=== PATIENT | male | born 1970 | race Caucasian/White ===

== ENCOUNTER 2022-04-05 08:15 | Outpatient (CLI) | payer OTHER, SELFPAY ==
--- OUTSIDE RECORDS SUMMARY | 2022-04-05 08:18 | XMS_ITS | Encounter Summary ---
:1970 Author Organization [place] Address [address] [place] [address] Care Team Providers Name Role Phone No Ref-Primary, Physician Primary Care Provider [phone] Reason for Visit Rehab Therapy Cardiac Therapy (Routine) - Closed Specialty Diagnoses / Procedures Referred By Contact Refer red To Contact CARDIAC REHAB Diagnoses NSTEMI (non-ST elevated myocardial infarction) (H) [facility] [address] [place] [address] Phone: Fax: Referral ID Status Reason Start Date Expiration Date Visits Requ ested Visits Authorized [id number] Closed 09/14/2019 04/28/2020 365 365 Encounter Details Date Type Department Care Team Description 11/13/2019 Hospital Encounter [facility] Cardiac Greg Galloway MD [address] [place] [id number] and Pulmonary 1, [facility] [address] [place] [address] Social History Tobacco Use Types Packs/Day Years Used Date Smoking Tobacco: Every Day Cigarettes 1.5 20 Smokeless Tobacco: Never Comments: four years ago Alcohol Use Standard Drinks/Week Comments Yes 0 (1 standard drink = 0.6 oz pure alcoho l) infrequent Sex Assigned at Date Recorded Not on file COVID-19 Exposure Response Date Recorded In the last month, have you been in contact with No / Unsure 11/13/2019 7:56 AM CDT someone who was confirmed or suspected to have Coronavirus / COVID-19? documented as of this encounter Medications at Time of Discharge Medication Sig Dispensed Refills Start Date End Date aspirin (ASA) 81 MG EC Take 1 tablet (81 30 tablet 0 2019 tabletIndications: NSTEMI mg) by mouth daily (non-ST elevated myocardial infarction) (H) multivitamin w/minerals Take 1 tablet by 0 (THERA-VIT-M) tablet mouth daily nitroGLYcerin (NITROSTAT) For chest pain 30 tablet 0 [address] 1 tablet tabletIndications: NSTEMI under the tongue (non-ST elevated every 5 minutes for myocardial infarction) 3 doses. If (H) symptoms persist 5 minutes after 1st dose call 911. omeprazole (PRILOSEC) 20 Take 20 mg by mouth [address] capsule daily carvedilol (COREG) 12.5 Take 1 tablet (12.5 180 tablet 3 09/27/2020 MG tabletIndications: mg) by mouth 2 Elevated troponin, times daily Essential hypertension rosuvastatin (CRESTOR) 40 Take 1 tablet (40 90 tablet 3 09/27/2020 MG tabletIndications: mg) by mouth At NSTEMI (non-ST elevated Bedtime myocardial infarction) (H) ticagrelor (BRILINTA) 90 Take 1 tablet (90 180 tablet 3 08/2809/27/2020 MG tabletIndications: mg) by mouth every NSTEMI (non-ST elevated 12 hours myocardial infarction) (H) documented as of this encounter Plan of Treatment Not on filedocumented as of this encounter Visit Diagnoses Not on filedocumented in this encounter Care Teams Senior Net Developer Architect Relationship Specialty Start Date End Date No Ref-Primary, Physician PCP - General 09/05/19 11/06/20 documented as of this encounter
--- OUTSIDE RECORDS SUMMARY | 2022-04-05 08:18 | XMS_ITS | Encounter Summary ---
:1970 Author Organization [place] Address [address] [place] [address]. [place] [address] Care Team Providers Name Role Phone No Ref-Primary, Physician Primary Care Provider [phone] Anaid Aj [employer] RE[employer]TER [employer] Unavailable Encounter Details Date Type Department Care Team Description 10/03/2020 Medical Correspondence [facility] Scan, CLINIC REFERRAL Health Info [facility] Non-Provider [facility] [address] [place] [address] [place] [address] Social History Tobacco Use Types Packs/Day Years Used Date Smoking Tobacco: Every Day Cigarettes 1.5 20 Smokeless Tobacco: Never Comments: four years ago Alcohol Use Standard Drinks/Week Comments Yes 0 (1 standard drink = 0.6 oz pure alcoho l) infrequent Sex Assigned at Date Recorded Not on file documented as of this encounter Plan of Treatment Not on filedocumented as of this encounter Visit Diagnoses Not on filedocumented in this encounter Care Teams Separator Tender Relationship Specialty Start Date End Date No Ref-Primary, Physician PCP - General 09/05/19 11/06/20 Anaid Aj, [employer] Assigned Heart and Vascular 10/09/2011/10 [address] Provider [place] [id number] documented as of this encounter
--- OUTSIDE RECORDS SUMMARY | 2022-04-05 08:18 | XMS_ITS | Clinical Summary ---
:1970 Author Organization [place] Address [address] [place] [address] Care Team Providers Name Role Phone Juanito Henry Primary Care Provider Mykel Roberts MD Unavailable Allergies Active Allergy Reactions Severity Noted Date Comments No Known Drug Allergies 12/07/2003 Medications Medication Sig Dispensed Refills Start Date End Date Status omeprazole (PRILOSEC) Take 20 mg by [address] capsule mouth daily multivitamin Take 1 tablet by 0 Active w/minerals mouth daily (THERA-VIT-M) tablet aspirin (ASA) 81 MG EC Take 1 tablet (81 30 tablet 0 0 Active tabletIndications: mg) by mouth NSTEMI (non-ST daily elevated myocardial infarction) (H) nitroGLYcerin For chest pain 30 tablet 0 09/07/2019 Active (NITROSTAT) 0.[address] 1 tablet sublingual under the tongue tabletIndications: every 5 minutes NSTEMI (non-ST for 3 doses. If elevated myocardial symptoms persist infarction) (H) 5 minutes after 1st dose call 911. rosuvastatin (CRESTOR) Take 1 tablet (40 90 tablet 0 1 Active 40 MG mg) by mouth At tabletIndications: Bedtime NSTEMI (non-ST elevated myocardial infarction) (H) carvedilol (COREG) Take 1 tablet 180 tablet 0 09/27/2020 Active 12.5 MG (12.5 mg) by tabletIndications: mouth 2 times Elevated troponin, daily Essential hypertension clopidogrel (PLAVIX) Take 1 tablet (75 90 tablet 11 11/07/2020 Active 75 MG mg) by mouth tabletIndications: daily Coronary artery disease involving quileute coronary artery of quileute heart without angina pectoris Active Problems Problem Noted Date ACS (acute coronary syndrome) 09/10/2019 Acute respiratory distress 09/10/2019 Elevated troponin 09/10/2019 Chest discomfort 09/05/2019 Viral warts 02/19/2006 Overview: Problem list name updated by anuj santiago Provider to review Esophageal reflux Immunizations Name Administration Dates Next Due TD (ADULT, 7+) 12/01/2004 Family History Medical History Relation Comments No Known Problems Father No Known Problems Mother Diabetes Sister Relation Status Comments Father Mother Sister Social History Tobacco Use Types Packs/Day Years Used Date Smoking Tobacco: Former Cigarettes 1.5 20 Quit : 09/05/2019 Smokeless Tobacco: Never Comments: four years ago Alcohol Use Standard Drinks/Week Comments Yes 0 (1 standard drink = 0.6 oz pure alcoho l) infrequent Sex Assigned at Date Recorded Not on file Last Filed Vital Signs Vital Sign Reading Time Taken Comments Blood Pressure 138/76 11/07/2020 8:45 AM CDT Pulse 62 11/07/2020 8:45 AM CDT Temperature 36.4 ??C (97.5 ??F) 09/10/2019 2:15 PM CDT Respiratory Rate 18 09/10/2019 6:00 AM CDT Oxygen Saturation 97% 11/07/2020 8:45 AM CDT Inhaled Oxygen Concentration - - Weight 109.1 kg (240 lb 8 oz) 11/07/2020 8:45 AM CDT Height 185.4 cm (6' 1) 11/07/2020 8:45 AM CDT Body Mass Index 31.73 11/07/2020 8:45 AM CDT Plan of Treatment Health Maintenance Due Date Last Done Comments ANNUAL REVIEW OF HM ORDERS 1968 CT COLONOGRAPHY 1968 FIT-DNA (Cologuard) 1970 FIT 1970 FLEX SIG 1970 HEPATITIS B IMMUNIZATION (1 1968 of 3 - 3-dose series) YEARLY PREVENTIVE VISIT 1970 COVID-19 Vaccine (#1) 03/28/1969 COLONOSCOPY 1978 COLORECTAL CANCER SCREENING 1978 HIV SCREENING 09/27/1983 HEPATITIS C SCREENING 1986 DTAP/TDAP/TD IMMUNIZATION (3 12/01/2014 12/01/2004, - Td or Tdap) 12/01/2004, 10/11/2004 LUNG CANCER SCREENING 2018 ZOSTER IMMUNIZATION (1 of 2) 2018 PHQ-2 (once per calendar 04/29/2021 year) INFLUENZA VACCINE (#1) 2021 LIPID 09/06/2024 09/07/2019, 09/06/2019 ADVANCE CARE PLANNING 09/09/2024 09/10/2019 IPV IMMUNIZATION Aged Out No longer eligi ble based on patient's age to complete this to pic MENINGITIS IMMUNIZATION Aged Out No longe r eligible based on patient's age to complete this to pic Pneumococcal Vaccine: Aged Out No longer eligible based Pediatrics (0 to 5 Years) and on patient's age to At-Risk Patients (6 to 64 comple te this topic Years) Medical Devices Implanted Type Area Cnc Supervisor Device Shelf Model / Serial Identifier Expiration / Lot Date Stent Resolute Vahid De 2.7fr [id number] Ronyx [id number] Stent Krish g [employer] 03/16/2021 [id number] / Implanted: 09/07/2019 at [facility] (Quantity not on file) Eluting / (MILES) [id number] Insurance Payer Benefit Plan / Subscriber ID Effective Phone Address T ype Group Dates [facility] [id number] 2019-Pres [phone] [address] O OPEN ACCESS ent [address] [place] [address] Advance Directives For more information, please contact: [phone] Latest Code Status on File Code Status Date Activated Date Inactivated Comments Full Code 09/10/2019 3:28 PM Question Answer Comments Code status determined by: Discussion with patient/legal dec ision maker Code Status History Code Status Date Activated Date Inactivated Comments Full Code 09/10/2019 1:12 AM 09/10/2019 3:28 PM Question Answer Comments Code status determined by: Discussion with patient/legal dec ision maker Full Code 09/05/2019 9:55 AM 09/07/2019 7:06 PM Question Answer Comments Code status determined by: Discussion with patient/legal dec ision maker None 12/07/2003 11:34 AM 12/07/2003 11:34 AM Care Teams Shift Mechanic Relationship Specialty Start Date End Date Juanito Henry PCP - General Family Medicine 11/07/[address] [address] Mykel Roberts, Assigned Heart and 11/11/20 Vascular Provider [address] [place] [address]
--- OUTSIDE RECORDS SUMMARY | 2022-04-05 08:18 | XMS_ITS | Encounter Summary ---
:1970 Author Organization [address] [address] Care Team Providers Name Role Phone No Ref-Primary, Physician Primary Care Provider Reason for Visit Reason Onset Date Comments Refill Request 09/27/2020 brilinta, rosuvastat in and carvedilol Encounter Details Date Type Department Care Team Description 09/27/2020 Refill [facility] Ioana Gooden, Refill Request (brilinta, [facility] RN rosuvastatin and [address] [facility] carvedi lol) [address] [place] [address] Social History Tobacco Use Types Packs/Day Years Used Date Smoking Tobacco: Every Day Cigarettes 1.5 20 Smokeless Tobacco: Never Comments: four years ago Alcohol Use Standard Drinks/Week Comments Yes 0 (1 standard drink = 0.6 oz pure alcoho l) infrequent Sex Assigned at Date Recorded Not on file documented as of this encounter Miscellaneous Notes Telephone Encounter - Ioana Gooden RN - 09/27/2020 12:45 PM CDT Received refill request for: brilinta, rosuvastatin and carvedilol Last OV was: 09/23/2019 with FRANKLYN [facility] Labs/EKG: last lipid 09/07/2019 F/U scheduled: overdue orders in Epic. Note to pharmacy and refill letter sent New script sent to[facility] documented in this encounter Plan of Treatment Not on filedocumented as of this encounter Visit Diagnoses Diagnosis NSTEMI (non-ST elevated myocardial infar ction) (H) Acute myocardial infarction, subendocard ial infarction, episode of care unspecified Elevated troponin Other abnormal blood chemistry Essential hypertension Unspecified essential hypertension documented in this encounter Care Teams Global Implementation Manager Relationship Specialty Start Date End Date No Ref-Primary, Physician PCP - General 09/05/19 11/06/20 documented as of this encounter
--- OUTSIDE RECORDS SUMMARY | 2022-04-05 08:18 | XMS_ITS | Encounter Summary ---
:1970 Author Organization [place] Address [address] [place] [address] Care Team Providers Name Role Phone nAaid Aj HYDRAMATIC SPECIALIST BUREAU DIRECTOR Unavailable Juanito Henry Primary Care Provider Encounter Details Date Type Department Care Team Description 11/07/2020 Travel Social History Tobacco Use Types Packs/Day Years [...] been in contact with No / Unsure 11/07/2020 8:35 AM CDT someone who was confirmed or suspected to have Coronavirus / COVID-19? documented as of this encounter Plan of Treatment Not on filedocumented as of this encounter Visit Diagnoses Not on filedocumented in this encounter Care Teams Yarn Spooler Relationship Specialty Start Date End Date Juanito Henry PCP - General Family Medicine 11/07/[address] [address] Anaid Aj, HYDRAMATIC SPECIALIST BUREAU DIRECTOR Assigned Heart and 10/09/20 11/10/20 [address] Vascular Provider [place] [id number] documented as of this encounter
--- OUTSIDE RECORDS SUMMARY | 2022-04-05 08:18 | XMS_ITS | Encounter Summary ---
:1970 Author Organization [place] Address [address] [place] [address] Care Team Providers Name Role Phone No Ref-Primary, Physician Primary Care Provider Encounter Details Date Type Department Care Team Description 11/13/2019 Travel Social History Tobacco Use Types Packs/Day [...] on filedocumented in this encounter Care Teams Management Rep Relationship Specialty Start Date End Date No Ref-Primary, Physician PCP - General 09/05/19 11/06/20 documented as of this encounter
--- OUTSIDE RECORDS SUMMARY | 2022-04-05 08:18 | XMS_ITS | Encounter Summary ---
:1970 Author Organization [place] Address [address] [place] [address] Care Team Providers Name Role Phone Anaid Aj APRN, CNP Unavailable Juanito Henry Primary Care Provider Reason for Referral Consultation (Routine) - Closed Specialty Diagnoses / Procedures Referred By Contact Refer red To Contact Diagnoses Coronary artery disease involving pokagon coronary artery of pokagon heart without angina pectoris Mykel Roberts MD [address] [place] [address] Referral ID Status Reason Start Date Expiration Date Visits Requ ested Visits Authorized [id number] Closed 11/07/2020 11/07/2021 1 1 Reason for Visit Reason Comments Establish Care Follow up to establish with new provider Encounter Details Date Type Department Care Team Description 11/07/2020 Office Visit [facility] Mykel Roberts ry artery [facility] MD Dean disease involving [place] [address] pok[place] coronary artery [address] [place] [address] of pokagon heart [address] [place] [address] without angina [place], [place] [phone] pectoris ([place]) [address] (Work) [phone] Social History Tobacco Use Types Packs/Day Years [...] / COVID-19? documented as of this encounter Last Filed Vital Signs Vital Sign Reading Time Taken Comments Blood Pressure 138/76 11/07/2020 8:45 AM CDT Pulse 62 11/07/2020 8:45 AM CDT Temperature - - Respiratory Rate - - Oxygen Saturation 97% 11/07/2020 8:45 AM CDT Inhaled Oxygen Concentration - - Weight 109.1 kg (240 lb 8 oz) 11/07/2020 8:45 AM CDT Height 185.4 cm (6' 1) 11/07/2020 8:45 AM CDT Body Mass Index 31.73 11/07/2020 8:45 AM CDT documented in this encounter Progress Notes Mykel Roberts MD - 11/07/2020 9:19 AM CDT Service Date: 11/07/2020 CARDIOLOGY CLINIC VISIT NOTE HISTORY OF PRESENT ILLNESS: Jatin Sidhu, a 50-year-old man, was seen today at your request for followup of coronary artery disease. Since last seen in 08/2019, the patient remains entirely asymptomatic. He stopped smoking, runs 5 miles daily and follows a heart healthydieet. He has been compliant with medical therapy. Currently, he has some right hip soreness, which he is self treating with rest and anti-inflammatorydrugs. PAST MEDICAL HISTORY: 1. Coronary artery disease. a. Presentation with non-ST segment elevation OR in 08/2019. b. Diagnostic coronary angiography demonstrating atheromatous change in the circumflex, dominant right coronary and left main with no significant focal narrowing. Focal 95% narrowing in mid LAD treatedwith 3.5 x 15 mm length Zotarolimus-eluting Medtronic Vahid stent. c. Presentation with atypical chest pain 09/09/2019. Repeat coronary angiography showing no change in left coronary anatomy and widely patentRCA stent site. d. Echocardiogram showing normal ejection fraction of 60% with no regional wall motion abnormalities. No significant valvular disease. 2. Previous smoking history: No longer smoking. 3. Dyslipidemia: On rosuvastatin. Most recent LDL of 61. 4. Old history of open reduction and internal fixation of right ankle fracture. ALLERGIES: None known. HABITS: The patient does not abuse tobacco. He uses alcohol rarely. SOCIAL HISTORY: The patient is . 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 He has a 30-year-old stepson. REVIEW OF SYSTEMS: A 12 point review of systems was performed. Outside of the issues mentioned in the HPI, there was no other complaints PHYSICAL EXAMINATION: GENERAL: Exam today demonstrates a very pleasant, cooperative and intelligent, 50-year-old man who appears comfortable at rest. VITAL SIGNS: His blood pressure is 138/76. His heart rate is 62. His height is 1.85 mg. His weight is 109 kg. His BMI is 31.73. LUNGS: Clear to percussion and auscultation. CARDIOVASCULAR: Normal S1 with a normal S2. There is no S3. There is no murmur, rub or click. His pulses are full and symmetrical. MEDICATIONS: 1. Aspirin 81 daily. 2. Carvedilol 12.5 b.i.d. 3. Ticagrelor 90 b.i.d. 4. Nitroglycerin p.r.n. 5. Omeprazole 20 mg daily. 6. Rosuvastatin 40 daily. LABORATORY STUDIES: His cholesterol is 131 with an LDL of 61. His hemoglobin is 15.1. His calcium is4.8 with a creatinine of 0.8. I have reviewed his coronary angiograms and his EKGs. ASSESSMENT: Mr. Sidhu is asymptomatic on guideline-directed medical therapy with optimal LDL cholesterol. At home hi blood pressure usually runs in the 110-120 range I am pleased he has stopped smoking, exercises and follows a heart healthy diet.. We discussed the DAPT trial thata strategy of combined DAPT may reduce the risk of stent thrombosis and OR with a slight increase in bleeding risk, but no effect on total mortality. After our discussion today, the patient elected to stay on dual antiplatelet therapy. I suggested we switch from ticagrelor to clopidogrel to simplify his drug regimen. RECOMMENDATIONS: 1. Discontinue ticagrelor. 2. Begin clopidogrel 75 daily. 3. Continue present medical therapy. 4. Continue a Mediterrean-style diet and exercise program. 5. Follow up with me in about year. Leonid, I greatly appreciate the opportunity to participate in the care of your patient Mr. Jatin Sidhu. Best regards to you. cc: Juanito Henry MD [address] [address] Mykel Roberts MD MT: pari Name: JATIN SIDHU Account: [id number] : 1970 Service Date: 11/07/2020 Document: [id number] Mykel Roberts MD - 11/07/2020 8:45 AM CDT HISTORY OF PRESENT ILLNESS: No symptoms. Is exercising Stopped smoking. Orders this Visit: No orders of the defined types were placed in this encounter. No orders of the defined types were placed in this encounter. There are no discontinued medications. No diagnosis found. CURRENT MEDICATIONS: Current Outpatient Medications Medication Sig Dispense Refill ??? aspirin (ASA) 81 MG EC tablet Take 1 tablet (81 mg) by mouth daily 30 tablet 0 ??? carvedilol (COREG) 12.5 MG tablet Take 1 tablet (12.5 mg) by mouth 2 times daily 180 tablet 0 ??? multivitamin w/minerals (THERA-VIT-M) tablet Take 1 tablet by mouth daily ??? nitroGLYcerin (NITROSTAT) 0.4 MG sublingual tablet For chest pain place 1 tablet under the tongue every 5 minutes for 3 doses. If symptoms persist 5 minutes after 1st dose call 911. 30 tablet 0 ??? omeprazole (PRILOSEC) [address] capsule Take 20 mg by mouth daily ??? rosuvastatin (CRESTOR) 40 MG tablet Take 1 tablet (40 mg) by mouth At Bedtime 90 tablet 0 ??? ticagrelor (BRILINTA) 90 MG tablet Take 1 tablet (90 mg) by mouth every 12 hours 180 tablet 0 ALLERGIES Allergies Allergen Reactions ??? No Known Drug Allergies PAST MEDICAL, SURGICAL, FAMILY, SOCIAL HISTORY: History was reviewed and updated as needed, see medical record. Review of Systems: A 12-point review of systems was completed, see medical record for detailed review of systems information. Physical Exam: Vitals: BP 138/76 (BP Location: Right arm, Patient Position: Sitting, Cuff Size: Adult Regular) Pulse 62 Ht 1.854 m (6' 1) Wt 109.1 kg (240 lb 8 oz) SpO2 97% BMI 31.73 kg/m?? Constitutional: Skin: Head: Eyes: ENT: Neck: Chest: Cardiac: Abdomen: Vascular: Extremities and Back: Neurological: ASSESSMENT: stable ? RECOMMENDATIONS: Change to clopidogrel Follow-up in one year Recent Lab Results: LIPID RESULTS: Lab Results Component Value Date CHOL 211 (H) 09/07/2019 HDL 37 (L) 09/07/2019 LDL 135 (H) 09/07/2019 TRIG 196 (H) 09/07/2019 LIVER ENZYME RESULTS: No results found for: AST, ALT CBC RESULTS: Lab Results Component Value Date WBC 12.0 (H) 09/09/2019 RBC 4.60 09/09/2019 HGB 14.8 09/09/2019 HCT 43.8 09/09/2019 MCV 95 09/09/2019 MCH 32.2 09/09/2019 MCHC 33.8 09/09/2019 RDW 12.3 09/09/2019 PLT 205 09/09/2019 BMP RESULTS: Lab Results Component Value Date NA 137 09/22/2019 POTASSIUM 4.1 09/22/2019 CHLORIDE 109 09/22/2019 CO2 24 09/22/2019 ANIONGAP 4 09/22/2019 GLC 104 (H) 09/22/2019 BUN 11 09/22/2019 CR 0.58 (L) 09/22/2019 GFRESTIMATED >90 09/22/2019 GFRESTBLACK >90 09/22/2019 CHUN 9.0 09/22/2019 A1C RESULTS: Lab Results Component Value Date A1C 5.7 (H) 09/05/2019 INR RESULTS: No results found for: INR We greatly appreciate the opportunity to be involved in the care of your patient, Jatin Sidhu. Sincerely, Mykel Roberts MD? CC No referring provider defined for this encounter. ? documented in this encounter Plan of Treatment Scheduled Referrals Name Type Priority Associated Diagnoses Order S chedule Follow-Up with Referral Routine Coronary artery Expected: 11/07/2021 Karate Black Belt disease involving (Approxima te), pokagon coronary artery Expir es: 11/08/2021 of pokagon heart without angina pectoris documented as of this encounter Visit Diagnoses Diagnosis Coronary artery disease involving pokagon coronary artery of pokagon heart without angina pectoris - Primary documented in this encounter Care Teams Care Attendant Relationship Specialty Start Date End Date Juanito Henry PCP - General Family Medicine 11/07/[address] [address] Anaid Aj APRN MMI TEACHER Assigned Heart and 10/09/20 11/10/20 [address] Vascular Provider [place] [id number] documented as of this encounter
--- OUTSIDE RECORDS SUMMARY | 2022-04-05 08:18 | XMS_ITS | Encounter Summary ---
:1970 Author Organization [place] Address [address] [place] [address] Care Team Providers Name Role Phone No Ref-Primary, Physician Primary Care Provider Encounter Details Date Type Department Care Team Description 11/20/2019 Travel Social History Tobacco Use Types Packs/Day [...] been in contact with No / Unsure 11/20/2019 7:57 AM CDT someone who was confirmed or suspected to have Coronavirus / COVID-19? documented as of this encounter Plan of Treatment Not on filedocumented as of this encounter Visit Diagnoses Not on filedocumented in this encounter Care Teams Furniture Builder Relationship Specialty Start Date End Date No Ref-Primary, Physician PCP - General 09/05/19 11/06/20 documented as of this encounter
--- OUTSIDE RECORDS SUMMARY | 2022-04-05 08:18 | XMS_ITS | Encounter Summary ---
:1970 Author Organization [place] Address [address] [place] [address] Care Team Providers Name Role Phone No Ref-Primary, Physician Primary Care Provider [phone] Reason for Visit Rehab Therapy Cardiac Therapy (Routine) - Closed Specialty Diagnoses / Procedures Referred By Contact Refer red To Contact CARDIAC REHAB Diagnoses NSTEMI (non-ST elevated myocardial infarction) (H) [facility] [address] [place] [address] Phone: Fax: Referral ID Status Reason Start Date Expiration Date Visits Requ ested Visits Authorized [id number] Closed 09/14/2019 04/28/2020 365 365 Encounter Details Date Type Department Care Team Description 10/30/[address] [facility] Cardiac Greg Galloway MD [address] [facility] [address] [place] [id number] and Pulmonary 1, Rh Cardiac Rehab Rehabilitation [facility] [address] [facility] [address] [place] [address] Social History Tobacco Use [...] been in contact with No / Unsure 10/30/2019 7:57 AM CDT someone who was confirmed [...] on filedocumented in this encounter Care Teams Peoplesoft Business Analyst Relationship Specialty Start Date End Date No Ref-Primary, Physician PCP - General 09/05/19 11/06/20 documented as of this encounter
--- OUTSIDE RECORDS SUMMARY | 2022-04-05 08:18 | XMS_ITS | Encounter Summary ---
:1970 Author Organization [place] Address [address] [place] [address] Care Team Providers Name Role Phone No Ref-Primary, Physician Primary Care Provider [phone] Reason for Visit Rehab Therapy Cardiac Therapy (Routine) - Closed Specialty Diagnoses / Procedures Referred By Contact Refer red To Contact CARDIAC REHAB Diagnoses NSTEMI (non-ST elevated myocardial infarction) (H) [facility] [address] [place] [address] Phone: Fax: Referral ID Status Reason Start Date Expiration Date Visits Requ ested Visits Authorized [id number] Closed 09/14/2019 04/28/2020 365 365 Encounter Details Date Type Department Care Team Description 11/27/2019 Hospital Encounter [facility] Cardiac Greg Galloway MD [address] [facility] [address] [place] [id number] and Pulmonary 1, Rh Cardiac Rehab Rehabilitation [facility] [address] [facility] [address] [place] [address] Social History Tobacco Use [...] been in contact with No / Unsure 11/27/2019 7:54 AM CDT someone who was confirmed or [...] on filedocumented in this encounter Care Teams Weatherization Operations Manager Relationship Specialty Start Date End Date No Ref-Primary, Physician PCP - General 09/05/19 11/06/20 documented as of this encounter
--- OUTSIDE RECORDS SUMMARY | 2022-04-05 08:18 | XMS_ITS | Encounter Summary ---
:1970 Author Organization [place] Address [address] [place] [address] Care Team Providers Name Role Phone No Ref-Primary, Physician Primary Care Provider [phone] Reason for Visit Rehab Therapy Cardiac Therapy (Routine) - Closed Specialty Diagnoses / Procedures Referred By Contact Refer red To Contact CARDIAC REHAB Diagnoses NSTEMI (non-ST elevated myocardial infarction) (H) [facility] [address] [place] [address] Phone: Fax: Referral ID Status Reason Start Date Expiration Date Visits Requ ested Visits Authorized [id number] Closed 09/14/2019 04/28/2020 365 365 Encounter Details Date Type Department Care Team Description 11/06/2019 Hospital Encounter [facility] Cardiac Greg Galloway MD [address] [facility] [address] [place] [id number] and Pulmonary 1, Rh Cardiac Rehab Rehabilitation [facility] [address] [facility] [address] [place] [address] Social History Tobacco Use [...] been in contact with No / Unsure 11/06/2019 7:59 AM CDT someone who was confirmed or [...] on filedocumented in this encounter Care Teams Hydrometeorologist Relationship Specialty Start Date End Date No Ref-Primary, Physician PCP - General 09/05/19 11/06/20 documented as of this encounter
--- OUTSIDE RECORDS SUMMARY | 2022-04-05 08:18 | XMS_ITS | Encounter Summary ---
:1970 Author Organization [place] Address [address] [place] [address] Care Team Providers Name Role Phone No Ref-Primary, Physician Primary Care Provider [phone] Reason for Visit Rehab Therapy Cardiac Therapy (Routine) - Closed Specialty Diagnoses / Procedures Referred By Contact Refer red To Contact CARDIAC REHAB Diagnoses NSTEMI (non-ST elevated myocardial infarction) (H) [facility] [address] [place] [address] Phone: Fax: Referral ID Status Reason Start Date Expiration Date Visits Requ ested Visits Authorized [id number] Closed 09/14/2019 04/28/2020 365 365 Encounter Details Date Type Department Care Team Description 11/30/2019 Hospital Encounter [facility] Cardiac Greg Galloway MD [address] [facility] [address] [place] [id number] and Pulmonary 2, Rh Cardiac Rehab Rehabilitation [facility] [address] [facility] [address] [place] [address] Social History Tobacco Use [...] been in contact with No / Unsure 11/30/2019 2:26 PM CDT someone who was confirmed or suspected [...] on filedocumented in this encounter Care Teams Computer Numerical Control Operator Relationship Specialty Start Date End Date No Ref-Primary, Physician PCP - General 09/05/19 11/06/20 documented as of this encounter
--- OUTSIDE RECORDS SUMMARY | 2022-04-05 08:18 | XMS_ITS | Encounter Summary ---
:1970 Author Organization [place] Address [address] [place] [address] Care Team Providers Name Role Phone No Ref-Primary, Physician Primary Care Provider Encounter Details Date Type Department Care Team Description 11/27/2019 Travel Social History Tobacco Use Types Packs/Day [...] on filedocumented in this encounter Care Teams Right Of Way Supervisor Relationship Specialty Start Date End Date No Ref-Primary, Physician PCP - General 09/05/19 11/06/20 documented as of this encounter
--- OUTSIDE RECORDS SUMMARY | 2022-04-05 08:18 | XMS_ITS | Encounter Summary ---
:1970 Author Organization [place] Address [address] [place] [address] Care Team Providers Name Role Phone No Ref-Primary, Physician Primary Care Provider Encounter Details Date Type Department Care Team Description 11/30/2019 Travel Social History Tobacco Use Types Packs/Day [...] on filedocumented in this encounter Care Teams Body Specialist Relationship Specialty Start Date End Date No Ref-Primary, Physician PCP - General 09/05/19 11/06/20 documented as of this encounter
--- OUTSIDE RECORDS SUMMARY | 2022-04-05 08:18 | XMS_ITS | Encounter Summary ---
:1970 Author Organization [place] Address [address] [place] [address] Care Team Providers Name Role Phone No Ref-Primary, Physician Primary Care Provider [phone] Encounter Details Date Type Department Care Team Description 11/06/2019 Travel Social History Tobacco Use Types Packs/Day [...] on filedocumented in this encounter Care Teams Refrigerated Company Driver Relationship Specialty Start Date End Date No Ref-Primary, Physician PCP - General 09/05/19 11/06/20 documented as of this encounter
--- OUTSIDE RECORDS SUMMARY | 2022-04-05 08:18 | XMS_ITS | Encounter Summary ---
:1970 Author Organization [place] Address [address] [place] [address] Care Team Providers Name Role Phone No Ref-Primary, Physician Primary Care Provider [phone] Reason for Visit Rehab Therapy Cardiac Therapy (Routine) - Closed Specialty Diagnoses / Procedures Referred By Contact Refer red To Contact CARDIAC REHAB Diagnoses NSTEMI (non-ST elevated myocardial infarction) (H) [facility] [address] [place] [address] Phone: Fax: Referral ID Status Reason Start Date Expiration Date Visits Requ ested Visits Authorized [id number] Closed 09/14/2019 04/28/2020 365 365 Encounter Details Date Type Department Care Team Description 11/20/2019 Hospital Encounter [facility] Cardiac Greg Galloway MD [address] [facility] [address] [place] [id number] and Pulmonary 1, Rh Cardiac Rehab Rehabilitation [facility] [address] [facility] [address] [place] [address] Social History Tobacco Use [...] on filedocumented in this encounter Care Teams Driver/Guide Relationship Specialty Start Date End Date No Ref-Primary, Physician PCP - General 09/05/19 11/06/20 documented as of this encounter
--- OUTSIDE RECORDS SUMMARY | 2022-04-05 08:18 | XMS_ITS | Encounter Summary ---
:1970 Author Organization [place] Address [address] [place] [address] Care Team Providers Name Role Phone No Ref-Primary, Physician Primary Care Provider Encounter Details Date Type Department Care Team Description 10/23/2019 Travel Social History Tobacco Use Types Packs/Day [...] been in contact with No / Unsure 10/23/2019 7:56 AM CDT someone who was confirmed or suspected to have Coronavirus / COVID-19? documented as of this encounter Plan of Treatment Not on filedocumented as of this encounter Visit Diagnoses Not on filedocumented in this encounter Care Teams Sql Developer Relationship Specialty Start Date End Date No Ref-Primary, Physician PCP - General 09/05/19 11/06/20 documented as of this encounter
--- OUTSIDE RECORDS SUMMARY | 2022-04-05 08:18 | XMS_ITS | Encounter Summary ---
:1970 Author Organization [place] Address [address] [place] [address] Care Team Providers Name Role Phone No Ref-Primary, Physician Primary Care Provider Encounter Details Date Type Department Care Team Description 10/30/2019 Travel Social History Tobacco Use Types Packs/Day [...] on filedocumented in this encounter Care Teams House Manager Relationship Specialty Start Date End Date No Ref-Primary, Physician PCP - General 09/05/19 11/06/20 documented as of this encounter
--- OUTSIDE RECORDS SUMMARY | 2022-04-05 08:19 | XMS_ITS | Encounter Summary ---
:1970 Author Organization [place] Address [address] [place] [address] Care Team Providers Name Role Phone No Ref-Primary, Physician Primary Care Provider Encounter Details Date Type Department Care Team Description 09/22/2019 Travel Social History Tobacco Use Types Packs/Day [...] been in contact with No / Unsure 09/22/2019 9:44 AM CDT someone who was confirmed or suspected to have Coronavirus / COVID-19? documented as of this encounter Plan of Treatment Not on filedocumented as of this encounter Visit Diagnoses Not on filedocumented in this encounter Care Teams Youth Development Professional Relationship Specialty Start Date End Date No Ref-Primary, Physician PCP - General 09/05/19 11/06/20 documented as of this encounter
--- OUTSIDE RECORDS SUMMARY | 2022-04-05 08:19 | XMS_ITS | Encounter Summary ---
:1970 Author Organization [place] Address [address] [place] [address] Care Team Providers Name Role Phone No Ref-Primary, Physician Primary Care Provider [phone] Reason for Visit (Routine) - Closed Specialty Diagnoses / Procedures Referred By Contact Refer red To Contact Diagnoses NSTEMI (non-ST elevated myocardial infarction) (H) Jean Marie Anaid E, ROD FINISHER DATABASE ANALYST [address] [place] [address] Referral ID Status Reason Start Date Expiration Date Visits Requ ested Visits Authorized [id number] Closed 09/07/2019 09/06/2020 1 1 Encounter Details Date Type Department Care Team Description 09/23/2019 Virtual Visit [facility] Anaid Aj, NSTEMI (non-ST elevated myocardial infarction) (H); [facility] ROD FINISHER [place] Elevated troponin; [place] [address] [place] Essential hypertension [address] [place] [address] [place], [place] [phone] [address] (Work) [phone] Social History Tobacco Use Types Packs/Day Years [...] been in contact with No / Unsure 09/23/2019 1:06 PM CDT someone who was confirmed or suspected to have Coronavirus / COVID-19? documented as of this encounter Progress Notes Anaid Aj, CRYS DATABASE ANALYST - 09/23/2019 1:10 PM CDT Jatin Nguyen is a 48 year old male who is being evaluated via a billable video visit. This visit is being conducted as a virtual visit due to the emphasis on mitigation of the COVID-19 virus pandemic. The clinician has decided that the risk of an in-office visit outweighs the benefit for this patient. The patient has been notified of following: This video visit will be conducted via a call between you and your physician/provider. We have found that certain health care needs can be provided without the need for an in-person physical exam. This service lets us provide the care you need with a video conversation. If a prescription is necessarywe can send it directly to your pharmacy. If lab work is needed we can place an order for that and you can then stop by our lab to have the test done at a later time. If during the course of the call the physician/provider feels a video visit is not appropriate, you will not be charged for this service. Patient has given verbal consent for Video visit? Yes Patient would like the video invitation sent by: Text to cell phone: [phone] Video Start Time: 13:15 pm nt reported vitals: BP: 120/63 Heart rate: 71 Weight: 227lb Review Of Systems Skin: negative Eyes: negative Ears/Nose/Throat: negative Respiratory: No shortness of breath, dyspnea on exertion, cough, or hemoptysis Cardiovascular: negative Gastrointestinal: reflux Genitourinary: negative Musculoskeletal: negative Neurologic: negative Psychiatric: negative Hematologic/Lymphatic/Immunologic: negative Endocrine: negative Asuncion Higgins CMA 09/23/2019 I have reviewed and updated the patient's Past Medical History, Social History, Family History and Medication List. PROBLEM LIST Patient Active Problem List Diagnosis ??? Viral warts ??? Esophageal reflux ??? Chest discomfort ??? ACS (acute coronary syndrome) (H) ??? Acute respiratory distress ??? Elevated troponin ALLERGIES No known drug allergies MEDICATIONS Current Outpatient Medications Medication Sig Dispense Refill ??? aspirin (ASA) 81 MG EC tablet Take 1 tablet (81 mg) by mouth daily 30 tablet 0 ??? carvedilol (COREG) 12.5 MG tablet Take 1 tablet (12.5 mg) by mouth 2 times daily 60 tablet 1 ??? multivitamin w/minerals (THERA-VIT-M) tablet Take 1 [...] tablet (40 mg) by mouth At Bedtime 30 tablet 0 ??? ticagrelor (BRILINTA) 90 MG tablet Take 1 tablet (90 mg) by mouth every 12 hours 60 tablet 0 ROS: 12-pt ROS is negative except for as noted above. EXAM: A limited exam was conducted via video. Constitutional: Patient is pleasant, alert, in no distress. Overweight, upright. ENT: Membranes moist, no nasal discharge or bleeding gums. Normal head shape, no evidence of injury or laceration. EYES: No scleral icterus, normal conjunctivae. EOM's appear intact. No observed jaundice Neck: No evidence of thyromegaly. Chest/Lungs: Appears to have normal respiratory effort. Normal breathing while talking. No audible wheezing, no cough Equal chest wall expansion. Cardiovascular: No obvious elevated JVP. No apparent pitting edema bilaterally. Abdomen: No evidence of abdominal distention. Extremities: No edema, erythema, cyanosis noted. Right radial puncture site without bleed, or hematoma Skin: No rashes or lesions appreciated on visualized skin, normal skin color. Neurologic: Normal mentation. Normal arm motion bilaterally, no tremors. No evidence of focal defect. Psychiatric: Appropriate affect. A&Ox3. Calm demeanor HISTORY OF PRESENT ILLNESS This is a 48 year old male who follows with [facility] He is a patient of Dr. Hope seen in our clinic for CAD, HTN, tobacco dependence, and hyperlipidemia. Mr. Nguyen was admitted (09/05/19) for NSTEMI. (troponin peak of 6) He was also noted to have significant HTN. He underwent MILES placement into his mLAD Otherwise, he has remaining mild multivessel disease. His ECHO showed LVEF 55% with anteroseptal and apical hypokinesia, normal RV function and no significant valvular pathology. He was started on Coreg, Crestor, Brilinta and aspirin. He was discharged in stable condition. He returned to [facility] 2 days later with complaints of acute onset of SOB. He was again hypertensive in the ED. His CXR was normal There was no significant ST changes on EKG. He underwent repeat cath due to concerning symptoms. This showed widely patent LAD stent and no new lesions warranting PCI. His ECHO showed preserved LVEF without RWMA. His Coreg was increased Our visit today is for further review and labs Mr Nguyen has more energy and is sleeping better since his intervention. He denies any CP or SOB. 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 He denies palpitations, orthopnea, or peripheral edema. He wells well at cardiac rehab. When there, his BP is well controlled I reviewed his BMP (09/22/19) Sodium: 137 Potassium: 4.1 BUN: 11 Creatinine: 0.58 IMPRESSION AND PLAN S/p NSTEMI and mLAD stenting (09/05/19) -repeat cath for SOB showing patent stent and remaining mild multivessel CAD No PCI -preserved LVEF -denies any CP -Brilinta for at least 1 yr and ASA indefinitely HTN: -on Coreg 12.5 -SBP 120 mmHg at home Tobacco Dependence: -stopped smoking -encouraged continued cessation Hyperlipidemia: -Crestor 40 mg started -needs lipid panel in 2 months Thank you for allowing me to participate in his care. We will continue current medical regimen and follow up as planned in 2 months Video-Visit Details Type of service: Video Visit Video End Time (time video stopped): 13:24 pm Originating Location (pt. Location): Home Distant Location (provider location): [facility] Mode of Communication: Video Conference via [employer] Anaid Aj APRN, CNP [facility] documented in this encounter Plan of Treatment Not on filedocumented as of this encounter Visit Diagnoses Diagnosis NSTEMI (non-ST elevated myocardial infar ction) (H) Acute myocardial infarction, subendocard ial infarction, episode of care unspecified Elevated troponin Other abnormal blood chemistry Essential hypertension Unspecified essential hypertension documented in this encounter Care Teams Interactive Graphic Designer Relationship Specialty Start Date End Date No Ref-Primary, Physician PCP - General 09/05/19 11/06/20 documented as of this encounter
--- OUTSIDE RECORDS SUMMARY | 2022-04-05 08:19 | XMS_ITS | Encounter Summary ---
:1970 Author Organization [place] Address [address] [place] [address] Care Team Providers Name Role Phone No Ref-Primary, Physician Primary Care Provider [phone] Reason for Visit Rehab Therapy Cardiac Therapy (Routine) - Closed Specialty Diagnoses / Procedures Referred By Contact Refer red To Contact CARDIAC REHAB Diagnoses NSTEMI (non-ST elevated myocardial infarction) ([facility] [address] [place] [address] Phone: Fax: Referral ID Status Reason Start Date Expiration Date Visits Requ ested Visits Authorized [id number] Closed 09/14/2019 04/28/2020 365 365 Encounter Details Date Type Department Care Team Description 09/25/2019 Hospital Encounter [facility] Cardiac Greg Galloway MD [address] [facility] [address] [place] [address] and Pulmonary 2, Rh Cardiac Rehab Rehabilitation [facility] [address] [facility] [address] [place] [address] Social History Tobacco Use [...] been in contact with No / Unsure 09/25/2019 8:54 AM CDT someone who was confirmed or [...] on filedocumented in this encounter Care Teams Wild Animal Caretaker Relationship Specialty Start Date End Date No Ref-Primary, Physician PCP - General 09/05/19 11/06/20 documented as of this encounter
--- OUTSIDE RECORDS SUMMARY | 2022-04-05 08:19 | XMS_ITS | Encounter Summary ---
:1970 Author Organization [place] Address [address] [place] [address] Care Team Providers Name Role Phone No Ref-Primary, Physician Primary Care Provider Encounter Details Date Type Department Care Team Description 09/28/2019 Travel Social History Tobacco Use Types Packs/Day [...] been in contact with No / Unsure 09/28/2019 8:58 AM CDT someone who was confirmed or suspected to have Coronavirus / COVID-19? documented as of this encounter Plan of Treatment Not on filedocumented as of this encounter Visit Diagnoses Not on filedocumented in this encounter Care Teams Neurosurgeon Relationship Specialty Start Date End Date No Ref-Primary, Physician PCP - General 09/05/19 11/06/20 documented as of this encounter
--- OUTSIDE RECORDS SUMMARY | 2022-04-05 08:19 | XMS_ITS | Encounter Summary ---
:1970 Author Organization [place] Address [address] [place] [address] Care Team Providers Name Role Phone No Ref-Primary, Physician Primary Care Provider [phone] Reason for Visit Rehab Therapy Cardiac Therapy (Routine) - Closed Specialty Diagnoses / Procedures Referred By Contact Refer red To Contact CARDIAC REHAB Diagnoses NSTEMI (non-ST elevated myocardial infarction) (H) [facility] [address] [place] [address] Phone: Fax: Referral ID Status Reason Start Date Expiration Date Visits Requ ested Visits Authorized [id number] Closed 09/14/2019 04/28/2020 365 365 Encounter Details Date Type Department Care Team Description 09/28/2019 Hospital Encounter [facility] Cardiac Greg Galloway MD [address] [facility] [address] [place] [address] and Pulmonary 2, Rh Cardiac Rehab Rehabilitation [facility] [address] [facility] [address] [place] [address] Social History Tobacco Use [...] on filedocumented in this encounter Care Teams Project Structural Engineer Relationship Specialty Start Date End Date No Ref-Primary, Physician PCP - General 09/05/19 11/06/20 documented as of this encounter
--- OUTSIDE RECORDS SUMMARY | 2022-04-05 08:19 | XMS_ITS | Encounter Summary ---
:1970 Author Organization [place] Address [address] [place] [address] Care Team Providers Name Role Phone No Ref-Primary, Physician Primary Care Provider [phone] Encounter Details Date Type Department Care Team Description 09/22/[address] [facility] NST ANNALISE (non-ST elevated [place] [facility] myocardial infarction) (H) [address] [place] [address] Social History Tobacco Use Types Packs/Day Years [...] Not on filedocumented as of this encounter Procedures Procedure Name Priority Date/Time Associated Diagnosis Comme nts BASIC METABOLIC Routine 09/22/2019 9:46 AM NSTEMI (non-ST Resu lts for this PANEL CDT elevated myocardial procedur e are in infarction) (H) the results section. documented in this encounter Results (ABNORMAL) Basic metabolic panel (09/22/2019 9:46 AM CDT) Analysis Performed At Patho logist Time Signature Sodium 137 133 - 144 09/22/2019 [place] mmol/L 12:55 PM [facility] Potassium 4.1 3.4 - 5.3 09/22/2019 [place] mmol/L 12:55 PM [facility] Chloride 109 94 - 109 09/22/2019 [place] mmol/L 12:55 PM [facility] Carbon Dioxide 24 20 - 32 09/22/2019 [place] mmol/L 1:06 PM [facility] Anion Gap 4 3 - 14 09/22/2019 [place] mmol/L 1:06 PM [facility] Glucose 104 (H) 70 - 99 09/22/2019 [place] mg/dL 1:06 PM [facility] Comment: Fasting specimen Urea Nitrogen 11 7 - 30 mg/dL 09/22/2019 1:06 PM [facility] Creatinine 0.58 (L) 0.66 - 1.25 09/22/2019 1:06 PM [facility] mg/dL [facility] GFR Estimate >90 >60 09/22/2019 1:06 PM [facility] mL/min/{1.73_m2} [facility] [place] Comment: Non GFR Calc Starting 04/15/2018, serum creatinine ba sed estimated GFR (eGFR) will be calculated using the Chronic Kidney Dise [facility] Epidemiology Collaboration (CKD-EPI) equation. GFR Estimate If >90 >60 mL/min/{1.73_m2} 09/22/2019 1: 06 PM [facility] Black [facility] Comment: GFR Calc Starting 04/15/2018, serum creatinine ba sed estimated GFR (eGFR) will be calculated using the Chronic Kidney Dise [facility] Epidemiology Collaboration (CKD-EPI) equation. Calcium 9.0 8.5 - 10.1 mg/dL 09/22/2019 1:06 PM [facility] Specimen Anatomical Collection Method Collection Time Receive d Time (Source) Location / / Volume Laterality Blood specimen 09/22/2019 9:46 AM 020 9:48 (specimen) CDT AM CDT Anaid Aj APRN, CNP LAB - BLOOD ORDERABLES Performing Organization Address City/State/ZIP Code Phon e Number [facility] [address] [place] [address] documented in this encounter Visit Diagnoses Diagnosis NSTEMI (non-ST elevated myocardial infar ction) (H) Acute myocardial infarction, subendocard ial infarction, episode of care unspecified documented in this encounter Care Teams Beater Lead Relationship Specialty Start Date End Date No Ref-Primary, Physician PCP - General 09/05/19 11/06/20 documented as of this encounter
--- OUTSIDE RECORDS SUMMARY | 2022-04-05 08:19 | XMS_ITS | Encounter Summary ---
:1970 Author Organization [place] Address [address] [place] [address] Care Team Providers Name Role Phone No Ref-Primary, Physician Primary Care Provider Encounter Details Date Type Department Care Team Description 10/02/2019 Travel Social History Tobacco Use Types Packs/Day [...] been in contact with No / Unsure 10/02/2019 8:00 AM CDT someone who was confirmed or suspected to have Coronavirus / COVID-19? documented as of this encounter Plan of Treatment Not on filedocumented as of this encounter Visit Diagnoses Not on filedocumented in this encounter Care Teams Ruby On Rails Web Developer Relationship Specialty Start Date End Date No Ref-Primary, Physician PCP - General 09/05/19 11/06/20 documented as of this encounter
--- OUTSIDE RECORDS SUMMARY | 2022-04-05 08:19 | XMS_ITS | Encounter Summary ---
:1970 Author Organization [place] Address [address] [place] [address] Care Team Providers Name Role Phone No Ref-Primary, Physician Primary Care Provider [phone] Encounter Details Date Type Department Care Team Description 10/09/2019 Travel Social History Tobacco Use Types Packs/Day [...] been in contact with No / Unsure 10/09/2019 7:59 AM CDT someone who was confirmed or suspected to have Coronavirus / COVID-19? documented as of this encounter Plan of Treatment Not on filedocumented as of this encounter Visit Diagnoses Not on filedocumented in this encounter Care Teams Car Rental Service Attendant Relationship Specialty Start Date End Date No Ref-Primary, Physician PCP - General 09/05/19 11/06/20 documented as of this encounter
--- OUTSIDE RECORDS SUMMARY | 2022-04-05 08:19 | XMS_ITS | Encounter Summary ---
:1970 Author Organization [place] Address [address] [place] [address] Care Team Providers Name Role Phone No Ref-Primary, Physician Primary Care Provider Encounter Details Date Type Department Care Team Description 10/16/2019 Travel Social History Tobacco Use Types Packs/Day [...] been in contact with No / Unsure 10/16/2019 7:58 AM CDT someone who was confirmed or suspected to have Coronavirus / COVID-19? documented as of this encounter Plan of Treatment Not on filedocumented as of this encounter Visit Diagnoses Not on filedocumented in this encounter Care Teams Machine Container Washer Relationship Specialty Start Date End Date No Ref-Primary, Physician PCP - General 09/05/19 11/06/20 documented as of this encounter
--- OUTSIDE RECORDS SUMMARY | 2022-04-05 08:19 | XMS_ITS | Encounter Summary ---
:1970 Author Organization [place] Address [address] [place] [address] Care Team Providers Name Role Phone No Ref-Primary, Physician Primary Care Provider Encounter Details Date Type Department Care Team Description 09/25/2019 Travel Social History Tobacco Use Types Packs/Day [...] on filedocumented in this encounter Care Teams Form Presser Relationship Specialty Start Date End Date No Ref-Primary, Physician PCP - General 09/05/19 11/06/20 documented as of this encounter
--- OUTSIDE RECORDS SUMMARY | 2022-04-05 08:19 | XMS_ITS | Encounter Summary ---
:1970 Author Organization [place] Address [address] [place] [address] Care Team Providers Name Role Phone No Ref-Primary, Physician Primary Care Provider [phone] Reason for Visit Rehab Therapy Cardiac Therapy (Routine) - Closed Specialty Diagnoses / Procedures Referred By Contact Refer red To Contact CARDIAC REHAB Diagnoses NSTEMI (non-ST elevated myocardial infarction) (H) [facility] [address] [place] [address] Phone: Fax: Referral ID Status Reason Start Date Expiration Date Visits Requ ested Visits Authorized [id number] Closed 09/14/2019 04/28/2020 365 365 Encounter Details Date Type Department Care Team Description 10/02/2019 Hospital Encounter [facility] Cardiac Greg Galloway MD [address] [facility] [address] [place] [id number] and Pulmonary 1, Rh Cardiac Rehab Rehabilitation [facility] [address] [facility] [address] [place] [address] Social History Tobacco Use [...] filedocumented in this encounter Care Teams Youth Corrections Officer Relationship Specialty Start Date End Date No Ref-Primary, Physician PCP - General 09/05/19 11/06/20 documented as of this encounter
--- OUTSIDE RECORDS SUMMARY | 2022-04-05 08:19 | XMS_ITS | Encounter Summary ---
:1970 Author Organization [place] Address [address] [place] [address] Care Team Providers Name Role Phone No Ref-Primary, Physician Primary Care Provider [phone] Reason for Visit Rehab Therapy Cardiac Therapy (Routine) - Closed Specialty Diagnoses / Procedures Referred By Contact Refer red To Contact CARDIAC REHAB Diagnoses NSTEMI (non-ST elevated myocardial infarction) (H) [facility] [address] [place] [address] Phone: Fax: Referral ID Status Reason Start Date Expiration Date Visits Requ ested Visits Authorized [id number] Closed 09/14/2019 04/28/2020 365 365 Encounter Details Date Type Department Care Team Description 10/09/[address] [facility] Cardiac Greg Galloway MD [address] [facility] [address] [place] [id number] and Pulmonary 1, Rh Cardiac Rehab Rehabilitation [facility] [address] [facility] [address] [place] [address] Social History Tobacco Use [...] on filedocumented in this encounter Care Teams Special Forces Senior Sergeant Relationship Specialty Start Date End Date No Ref-Primary, Physician PCP - General 09/05/19 11/06/20 documented as of this encounter
--- OUTSIDE RECORDS SUMMARY | 2022-04-05 08:19 | XMS_ITS | Encounter Summary ---
:1970 Author Organization [place] Address [address] [place] [address] Care Team Providers Name Role Phone No Ref-Primary, Physician Primary Care Provider Encounter Details Date Type Department Care Team Description 09/18/2019 Travel Social History Tobacco Use Types Packs/Day [...] been in contact with No / Unsure 09/18/2019 2:30 PM CDT someone who was confirmed or suspected to have Coronavirus / COVID-19? documented as of this encounter Plan of Treatment Not on filedocumented as of this encounter Visit Diagnoses Not on filedocumented in this encounter Care Teams Faro Dealer Relationship Specialty Start Date End Date No Ref-Primary, Physician PCP - General 09/05/19 11/06/20 documented as of this encounter
--- OUTSIDE RECORDS SUMMARY | 2022-04-05 08:19 | XMS_ITS | Encounter Summary ---
:1970 Author Organization [place] Address [address] [place] [address] Care Team Providers Name Role Phone No Ref-Primary, Physician Primary Care Provider [phone] Reason for Visit Reason Onset Date Comments Clinic Care Coordination - Follow-up 09/18/2019 Lab needed, appt 09-23-19 Encounter Details Date Type Department Care Team Description 09/18/2019 Telephone [facility] [place] [facility] l[facility] Care Coordination Clinic Bishop RN - Follow-up (Lab needed, [address] appt ) [address] [place] [address] Social History Tobacco Use Types [...] / COVID-19? documented as of this encounter Miscellaneous Notes Telephone Encounter - [place] RN - 09/18/2019 12:13 PM CDT Patient has a visit with Anaid Aj NP next week on 09-23-19. BMP is needed prior to OV. Called patient. LVM on secure VM. Patient was instructed to call [facility] and make a lab appt for Saturday/Saturday of next week, prior to Anaid Jean Marie OPERATIONS AGENT's visit. Call back number provided. Samir RN, BSN [facility] documented in this encounter Plan of Treatment Not on filedocumented as of this encounter Visit Diagnoses Not on filedocumented in this encounter Care Teams Crematory Attendant Relationship Specialty Start Date End Date No Ref-Primary, Physician PCP - General 09/05/19 11/06/20 documented as of this encounter
--- OUTSIDE RECORDS SUMMARY | 2022-04-05 08:19 | XMS_ITS | Encounter Summary ---
:1970 Author Organization [place] Address [address] [place] [address] Care Team Providers Name Role Phone No Ref-Primary, Physician Primary Care Provider [phone] Reason for Visit Rehab Therapy Cardiac Therapy (Routine) - Closed Specialty Diagnoses / Procedures Referred By Contact Refer red To Contact CARDIAC REHAB Diagnoses NSTEMI (non-ST elevated myocardial infarction) (H) [facility] [address] [place] [address] Phone: Fax: Referral ID Status Reason Start Date Expiration Date Visits Requ ested Visits Authorized [id number] Closed 09/14/2019 04/28/2020 365 365 Encounter Details Date Type Department Care Team Description 10/16/2019 Hospital Encounter [facility] Cardiac Greg Galloway MD [address] [facility] [address] [place] [address] and Pulmonary 1, Rh Cardiac Rehab Rehabilitation [facility] [address] [facility] [address] [place] [address] Social History Tobacco Use [...] on filedocumented in this encounter Care Teams Electrician Supervisor Relationship Specialty Start Date End Date No Ref-Primary, Physician PCP - General 09/05/19 11/06/20 documented as of this encounter
--- OUTSIDE RECORDS SUMMARY | 2022-04-05 08:19 | XMS_ITS | Encounter Summary ---
:1970 Author Organization [place] Address [address] [place] [address] Care Team Providers Name Role Phone No Ref-Primary, Physician Primary Care Provider [phone] Encounter Details Date Type Department Care Team Description 09/23/2019 Travel Social History Tobacco Use Types Packs/Day [...] on filedocumented in this encounter Care Teams Ceramist Relationship Specialty Start Date End Date No Ref-Primary, Physician PCP - General 09/05/19 11/06/20 documented as of this encounter
--- OUTSIDE RECORDS SUMMARY | 2022-04-05 08:19 | XMS_ITS | Encounter Summary ---
:1970 Author Organization [place] Address [address] [place] [address] Care Team Providers Name Role Phone No Ref-Primary, Physician Primary Care Provider Reason for Visit Rehab Therapy Cardiac Therapy (Routine) - Closed Specialty Diagnoses / Procedures Referred By Contact Refer red To Contact CARDIAC REHAB Diagnoses NSTEMI (non-ST elevated myocardial infarction) (H) [facility] [address] [place] [address] Phone: Fax: Referral ID Status Reason Start Date Expiration Date Visits Requ ested Visits Authorized [id number] Closed 09/14/2019 04/28/2020 365 365 Encounter Details Date Type Department Care Team Description 09/23/2019 Hospital Encounter [facility] Cardiac Greg Galloway MD [address] [facility] [address] [place] [id number] and Pulmonary 2, Rh Cardiac Rehab Rehabilitation [facility] [address] [facility] [address] [place] [address] Social History Tobacco Use [...] on filedocumented in this encounter Care Teams Behavior Clinician Relationship Specialty Start Date End Date No Ref-Primary, Physician PCP - General 09/05/19 11/06/20 documented as of this encounter
--- OUTSIDE RECORDS SUMMARY | 2022-04-05 08:19 | XMS_ITS | Encounter Summary ---
:1970 Author Organization [place] Address [address] [place] [address] Care Team Providers Name Role Phone No Ref-Primary, Physician Primary Care Provider [phone] Reason for Visit Rehab Therapy Cardiac Therapy (Routine) - Closed Specialty Diagnoses / Procedures Referred By Contact Refer red To Contact CARDIAC REHAB Diagnoses NSTEMI (non-ST elevated myocardial infarction) (H) [facility] [address] [place] [address] Phone: Fax: Referral ID Status Reason Start Date Expiration Date Visits Requ ested Visits Authorized [id number] Closed 09/14/2019 04/28/2020 365 365 Encounter Details Date Type Department Care Team Description 10/23/2019 Hospital Encounter [facility] Cardiac Greg Galloway MD [address] [facility] [address] [place] [address] and Pulmonary 1, Rh Cardiac Rehab Rehabilitation [facility] [address] [facility] [address] [place] [address] Social History Tobacco Use [...] on filedocumented in this encounter Care Teams Ticket Printer And Tagger Relationship Specialty Start Date End Date No Ref-Primary, Physician PCP - General 09/05/19 11/06/20 documented as of this encounter
--- OUTSIDE RECORDS SUMMARY | 2022-04-05 08:20 | XMS_ITS | Encounter Summary ---
:1970 Author Organization [facility] Address [address] [place] [id number] Care Team Providers Name Role Phone No Ref-Primary, Physician Primary Care Provider [phone] Reason for Visit Reason Comments Shortness of Breath Auth/Cert Specialty Diagnoses / Procedures Referred By Contact Refer red To Contact Intensive Care Diagnoses Shortness of breath Elevated troponin ACS (acute coronary syndrome) (H) [facility] [address] [place] [address] Phone: Fax: Referral ID Status Reason Start Date Expiration Date Visits Requ ested Visits Authorized [id number] 1 1 Encounter Details Date Type Department Care Team Description 09/10/2019 Surgery [facility] Saturnino Wakefield ronary Angiogram [facility] MD Jeff [address] [place] [address] [address] [place] [address] (Wo rk) Surgery Details Date/Time Status Location OR Service Patient Case Case Traum a Class Class Type Case? 09/10/19 1:30 Posted [facility] HEART [facility] Cath Cardiology Inpatient PM CARDIAC Lab 12 STRIKER OUT Panel 1 Procedure LRB Anes Op Region Wound Class Commen ts Coronary Angiogram N/A Conscious Sedation Heart Surgeon Surgeon Role Service Panel Saturnino Wakefield MD Primary Cardiology 1 documented in this encounter Social History Tobacco Use Types Packs/Day Years Used Date Smoking Tobacco: Every Day Cigarettes 1.5 20 Smokeless Tobacco: Never Comments: four years ago Alcohol Use Standard Drinks/Week Comments Yes 0 (1 standard drink = 0.6 oz pure alcoho l) infrequent Sex Assigned at Date Recorded Not on file documented as of this encounter Last Filed Vital Signs Vital Sign Reading Time Taken Comments Blood Pressure 134/85 09/10/2019 12:00 PM CDT Pulse 62 09/10/2019 12:00 PM CDT Temperature 36.9 ??C (98.5 ??F) 09/10/2019 8:00 AM CDT Respiratory Rate 18 09/10/2019 6:00 AM CDT Oxygen Saturation 99% 09/10/2019 12:00 PM CDT Inhaled Oxygen Concentration - - Weight 106.1 kg (234 lb) 09/10/2019 12:55 AM CDT Height 185.4 cm (6' 1) 09/10/2019 12:55 AM CDT Body Mass Index 30.87 09/10/2019 12:55 AM CDT documented in this encounter Discharge Summaries Bertram Carroll MD - 09/10/2019 3:43 PM CDT [facility] Discharge Summary Jatin Sidhu Age: [age] year old Date of : 1970 Date of Admission: 09/09/2019 Date of Discharge:: 09/10/2019 Admitting Physician: Lang Fajardo MD Discharge Physician: Bertram Carroll MD Home clinic: Needs to establish Admission Diagnoses: Shortness of breath [R06.02] Elevated troponin [R79.89] Discharge Diagnosis: Principal Problem: Acute respiratory distress Procedures: Coronary angiogram 1-widely patent mid LAD stent without edge dissection, thrombus, residual lesion. 2-significant diagonal originating within the stent is widely patent with mild ostial narrowing and LELE-3 flow. 3-no new or changed lesions compared to previously. No culprit or hemodynamically significant lesions. Echocardiogram The left ventricle is normal in size. The left ventricular ejection fraction is normal. No regional wall motion abnormalities noted. Compared to the recent echo the previously noted.wall motion abnormality has resolved. Optison contrast was used without apparent complications. Chest x-ray No evidence of active cardiopulmonary disease. Medications Prior to Admission: Medications Prior to Admission Medication Sig Dispense Refill Last Dose ??? aspirin (ASA) 81 MG EC tablet Take 1 tablet (81 mg) by mouth daily 30 tablet 0 09/09/2019 at Unknown time ??? multivitamin w/minerals (THERA-VIT-M) tablet Take 1 tablet by mouth daily 09/09/2019 at Unknown time ??? nitroGLYcerin (NITROSTAT) 0.4 MG sublingual tablet For chest pain place 1 tablet under the tongue every 5 minutes for 3 doses. If symptoms persist 5 minutes after 1st dose call 911. 30 tablet 0 ??? omeprazole (PRILOSEC) [address] capsule Take 20 mg by mouth daily 09/09/2019 at Unknown time ??? rosuvastatin (CRESTOR) 40 MG tablet Take 1 tablet (40 mg) by mouth At Bedtime 30 tablet 0 09/09/2019 at Unknown time ??? ticagrelor (BRILINTA) 90 MG tablet Take 1 tablet (90 mg) by mouth every 12 hours 60 tablet 0 09/09/2019 at Unknown time ??? [DISCONTINUED] carvedilol (COREG) 6.25 MG tablet Take 1 tablet (6.25 mg) by mouth 2 times daily 60 tablet 0 09/09/2019 at Unknown time Discharge Medications: Current Discharge Medication List CONTINUE these medications which have CHANGED Details carvedilol (COREG) 12.5 MG tablet Take 1 tablet (12.5 mg) by mouth 2 times daily Qty: 60 tablet, Refills: 1 Associated Diagnoses: Elevated troponin; Essential hypertension CONTINUE these medications which have NOT CHANGED Details aspirin (ASA) 81 MG EC tablet Take 1 tablet (81 mg) by mouth daily Qty: 30 tablet, Refills: 0 Associated Diagnoses: NSTEMI (non-ST elevated myocardial infarction) (H) multivitamin w/minerals (THERA-VIT-M) tablet Take 1 tablet by mouth daily nitroGLYcerin (NITROSTAT) 0.4 MG sublingual tablet For chest pain place 1 tablet under the tongue every 5 minutes for 3 doses. If symptoms persist 5 minutes after 1st dose call 911. Qty: 30 tablet, Refills: 0 Associated Diagnoses: NSTEMI (non-ST elevated myocardial infarction) (H) omeprazole (PRILOSEC) [address] capsule Take 20 mg by mouth daily rosuvastatin (CRESTOR) 40 MG tablet Take 1 tablet (40 mg) by mouth At Bedtime Qty: 30 tablet, Refills: 0 Associated Diagnoses: NSTEMI (non-ST elevated myocardial infarction) (H) ticagrelor (BRILINTA) 90 MG tablet Take 1 tablet (90 mg) by mouth every 12 hours Qty: 60 tablet, Refills: 0 Associated Diagnoses: NSTEMI (non-ST elevated myocardial infarction) (H) Consultations: Consultation during this admission received from cardiology Hospital Course: Jatin Sidhu is a 48 year old male came to attention on 09/09/2019 with shortness of breath thatoccurred at rest. Notably, the patient did not have chest discomfort, dizziness/syncope, diaphoresis, nausea/vomiting. ?? Most notably, Mr. Sidhu was admitted to this hospital on 09/05/2019 with central chest pressure for which he was admitted and NSTEMI was diagnosed. He ultimately underwent angiography on 09/06 where he was found to have diffuse mild disease but only 1 major stenosed area in the mid LAD associated with thrombosis. This was stented and postprocedural distal flow reportedly was normal. He was discharged on the date of intervention. ?? Mr. Sidhu was generally feeling well at home until 09/08 in the evening after having gone to bedwhen he developed abrupt onset of shortness of breath. This was an isolated concern without associated symptoms. In particular, the patient did not have recurrence of the same chest pain as he had had previously that brought him to attention for the DE last week. He had been discharged on aspirin, carvedilol, Crestor and Brilinta and he indicates that he has been compliant with these new medications. ?? He was re-admitted with the suspicion that he may have thrombosed his stent and was started empirically on heparin. His troponin trended down, with a peak having been 4.4 at the time of admission. He was seen by cardiology and repeat coronary angiography was recommended. That showed widely patent mid LAD stent without edge dissection, thrombus, residual lesion. BP 128/88 Pulse 61 Temp 98.5 ??F (36.9 ??C) (Oral) Resp 18 Ht 1.854 m (6' 1) Wt 106.1 kg (234 lb) SpO2 99% BMI 30.87 kg/m?? At the time of discharge, Mr. Sidhu is alert, coherent and appropriate to situation. HEENT: Nonfocal. Extraocular motions are conjugate. Chest: Clear to auscultation all cardoza. Heart: Regular rate and rhythm without rubs, murmurs or gallops. Abdomen: Soft without obvious tenderness or hepatosplenomegaly. Discharge Instructions and Follow-Up: Discharge diet: Cardiac Discharge activity: Per cardiac rehab Discharge follow-up: Strongly encouraged to establish care with primary physician. Follow-up with cardiology as planned. Discharge Disposition: Discharged to home Attestation: I have reviewed today's vital signs, notes, medications, labs and imaging. Total time: 30 minutes Bertram Carroll MD documented in this encounter Discharge Instructions AttachmentsThe following attachments cannot be sent through Care Everywhere. Cardiac Catheterization, Discharge Instructions for ([place])documented in this encounter Medications at Time of Discharge Medication Sig Dispensed Refills Start Date End Date aspirin (ASA) 81 MG EC Take 1 tablet (81 30 tablet 0 2019 tabletIndications: NSTEMI mg) by mouth daily (non-ST elevated myocardial infarction) (H) multivitamin w/minerals Take 1 tablet by 0 (THERA-VIT-M) tablet mouth daily nitroGLYcerin (NITROSTAT) For chest pain place 30 tablet 0 09/07/2019 0.4 MG sublingual 1 tablet under the tabletIndications: NSTEMI tongue every 5 (non-ST elevated minutes for 3 doses. myocardial infarction) If symptoms persist (H) 5 minutes after 1st dose call 911. omeprazole (PRILOSEC) 20 Take 20 mg by mouth [address] capsule daily carvedilol (COREG) 12.5 Take 1 tablet (12.5 60 tablet 1 09/23/2019 MG tabletIndications: mg) by mouth 2 times Elevated troponin, daily Essential hypertension rosuvastatin (CRESTOR) 40 Take 1 tablet (40 30 tablet 0 02/202009/23/2019 MG tabletIndications: mg) by mouth At NSTEMI (non-ST elevated Bedtime myocardial infarction) (H) ticagrelor (BRILINTA) 90 Take 1 tablet (90 60 tablet 0 08/2709/23/2019 MG tabletIndications: mg) by mouth every NSTEMI (non-ST elevated 12 hours myocardial infarction) (H) documented as of this encounter Progress Notes Tiffany Woodson RN - 09/10/2019 6:08 PM CDT Pt discharged via family transport. AVS reviewed and questions answered. All pt belongings sent withpt at discharge. Bertram Asencio MD - 09/10/2019 9:12 AM CDT [facility] Hospitalist Progress Note Bertram Carroll MD 09/10/2019 Reason for Stay (Diagnosis): Abrupt onset shortness of breath at rest after stent placement to LAD on 09/07/2019. Assessment and Plan: Summary of Stay: Jatin iSdhu is a 48 year old male came to attention on 09/09/2019 with shortness of breath that occurred at rest. Notably, the patient did not have chest discomfort, dizziness/syncope, diaphoresis, nausea/vomiting. Most notably, Mr. Sidhu was admitted to this hospital on 09/05/2019 with central chest pressure for which he was admitted and NSTEMI was diagnosed. He ultimately underwent angiography on 09/06 where he was found to have diffuse disease but only 1 major stenosed area in the mid LAD associated with thr ombosis. This was stented and distal flow reportedly was normal. He was discharged on the date of intervention. Mr. Sidhu was generally feeling well at home until 09/08 in the evening after having gone to bedwhen he developed abrupt onset of shortness of breath. This was an isolated concern without associated symptoms. In particular, the patient did not have recurrence of the same chest pain as he had had previously that brought him to attention for the DE last week. He had been discharged on aspirin, carvedilol, Crestor and Brilinta and he indicates that he has been compliant with these new medications. He was admitted with the suspicion that he may have thrombosed his stent and was started empiricallyon heparin. His troponin is trending down now, with a peak having been 4.4 at the time of admission. Problem List: 1. Shortness of breath, resolved. Thought to be related to anxiety but in the setting of an elevatedtroponin, it is legitimate to consider thrombosed stent. Symptoms fully resolved following a dose ofnitroglycerin sublingual in the emergency department. At this point and troponin is trending down with the patient on heparin. 2. Hypertension. Initially, on evaluation in the emergency department, blood pressure was elevated at 170/97. Plan: 1. Currently remains on heparin. 2. Echocardiogram pending. 3. Cardiology consultation pending. Likely the patient will be taken back to angiography today. 4. Patient's dose of Coreg was increased from 6.25 twice daily to 12.5 mg twice daily. DVT Prophylaxis: Currently receiving heparin drip Code Status: Full Code Discharge Dispo: Home Estimated Disch Date / # of Days until Disch: Likely tomorrow. Interval History (Subjective): Chart reviewed, pt interviewed. No further details elucidated on history. Physical Exam: Last Vital Signs: BP 134/84 (BP Location: Left arm) Pulse 66 Temp 98.5 ??F (36.9 ??C) (Oral) Resp 18 Ht 1.854 m (6' 1) Wt 106.1 kg (234 lb) SpO2 96% BMI 30.87 kg/m?? No intake/output data recorded. Constitutional: Awake, alert, cooperative, no apparent distress Respiratory: Clear to auscultation bilaterally, no crackles or wheezing Cardiovascular: Regular rate and rhythm, normal S1 and S2, and no murmur noted Abdomen: Normal bowel sounds, soft, non-distended, non-tender Skin: No rashes, no cyanosis, dry to touch Neuro: Alert and appears fully appropriate to the situation. Extremities: No edema. Other(s): All other systems: Negative Medications: All current medications were reviewed with changes reflected in problem list. Data: All new lab and imaging data was reviewed. Labs/Imaging: Results for orders placed or performed during the hospital encounter of 09/09/19 (from the past 24 hour(s)) EKG 12 lead Result Value Ref Range Interpretation ECG Click View Image link to view waveform and result CBC (platelets, no diff) Result Value Ref Range WBC 12.0 (H) 4.0 - 11.0 10e9/L RBC Count 4.60 4.4 - 5.9 10e12/L Hemoglobin 14.8 13.3 - 17.7 g/dL Hematocrit 43.8 40.0 - 53.0 % MCV 95 78 - 100 fl MCH 32.2 26.5 - 33.0 pg MCHC 33.8 31.5 - 36.5 g/dL RDW 12.3 10.0 - 15.0 % Platelet Count 205 150 - 450 10e9/L Basic metabolic panel (BMP) Result Value Ref Range Sodium 139 133 - 144 mmol/L Potassium 3.6 3.4 - 5.3 mmol/L Chloride 108 94 - 109 mmol/L Carbon Dioxide 23 20 - 32 mmol/L Anion Gap 8 3 - 14 mmol/L Glucose 156 (H) 70 - 99 mg/dL Urea Nitrogen 13 7 - 30 mg/dL Creatinine 0.80 0.66 - 1.25 mg/dL GFR Estimate >90 >60 mL/min/[1.73_m2] GFR Estimate If Black >90 >60 mL/min/[1.73_m2] Calcium 8.5 8.5 - 10.1 mg/dL Troponin I Result Value Ref Range Troponin I ES 4.380 (HH) 0.000 - 0.045 ug/L D dimer quantitative Result Value Ref Range D Dimer 0.3 0.0 - 0.50 ug/ml FEU XR Chest Port 1 View Narrative EXAM: CHEST SINGLE VIEW PORTABLE LOCATION: [facility] DATE/TIME: 09/09/2019 11:02 PM INDICATION: Dyspnea. COMPARISON: 09/05/2019. FINDINGS: The lungs are clear. Normal size cardiac silhouette. Impression IMPRESSION: No evidence of active cardiopulmonary disease. Basic metabolic panel Result Value Ref Range Sodium 142 133 - 144 mmol/L Potassium 3.9 3.4 - 5.3 mmol/L Chloride 111 (H) 94 - 109 mmol/L Carbon Dioxide 26 20 - 32 mmol/L Anion Gap 5 3 - 14 mmol/L Glucose 131 (H) 70 - 99 mg/dL Urea Nitrogen 17 7 - 30 mg/dL Creatinine 0.77 0.66 - 1.25 mg/dL GFR Estimate >90 >60 mL/min/[1.73_m2] GFR Estimate If Black >90 >60 mL/min/[1.73_m2] Calcium 8.7 8.5 - 10.1 mg/dL Glucose by meter Result Value Ref Range Glucose 122 (H) 70 - 99 mg/dL Methicillin Resistant Staph Aureus PCR Specimen: Nares Result Value Ref Range Specimen Description Nares Methicillin Resist/Sens S. aureus PCR Negative NEG^Negative Troponin I Result Value Ref Range Troponin I ES 3.560 (HH) 0.000 - 0.045 ug/L Heparin Xa (10a) Level Result Value Ref Range Heparin 10A Level 0.16 IU/mL Glucose by meter Result Value Ref Range Glucose 115 (H) 70 - 99 mg/dL Patsy Lo RN - 09/10/2019 6:20 AM CDT Transfer from 3rd floor; admitted to [facility]; connected to monitor, denies CP or SOB; VS stable; assessment unremarkable; Felix Joseph MD - 09/10/2019 12:03 AM CDT Cardiology on-call note 48-year-old male with mid LAD stenting on September 06 presents to ED with dyspnea. ED physician called todiscuss medical management of patient. He is hemodynamically stable. He received 1 sublingual nitro and symptoms resolved. EKG is unchanged from post stent EKG from September 07, 2019. Troponin is 4.4. Peak troponin from previous admission on September 05 was 5.0. He has been compliant with his aspirin and Brilinta. Plan will be to start heparin and continue medical management. If he develops recurrent chest pain, hemodynamic instability, or new ischemic EKG changes, cardiology will be called. Patient will likely need angiogram tomorrow; would consider sooner with any of the above changes. Felix Joseph MD Cardiology - [facility] Heart Pager: [phone] Text Page September 10, 2019 documented in this encounter H&P Notes Lang Fajardo MD - 09/10/2019 12:37 AM CDT [facility] History and Physical Hospitalist Date of Admission: 09/09/2019 Date of Service (when I saw the patient): 09/10/19 Provider: Lang Fajardo MD Chief Complaint Shortness of breath History is obtained from the patient, EMR and emergency department physician. History of Present Illness Jatin Sidhu is a 48 year old male who has coronary artery disease, non-ST DE and stent placement to LAD on September 06. He discharged to home on Brilinta and aspirin as well as carvedilol and rosuvastatin. He presents with new onset of shortness of breath. No chest pain, nausea or vomiting. No fainting or near fainting sensation. No sweatiness. Improved with nitroglycerin sublingual. Most significant finding in the emergency department is presence of elevated troponin 4,380, on September 05 his troponin was 4,999. He has a normal renal function. No acute abnormalities noted in the EKG. Cardiology consulted over the phone and has recommended admission to the hospital, heparin drip, n.p.o. after midnight for possible coronary angiogram in the morning. In case of hemodynamic decompensation overnight, persistent pain or other alarming signs cardiology should be called for cardiac lab activation. Past Medical History I have reviewed this patient's medical history and updated it with pertinent information if needed. Past Medical History: Diagnosis Date ??? Esophageal reflux Coronary artery disease/NSTEMI with recent stenting to LAD. Assessment & Plan Jatin Sidhu is a 48 year old male who has a history of coronary artery disease and non-STEMI who presents with sudden onset shortness of breath. Elevated troponin. No acute electrical change. Stent placement 3 days ago to LAD. 1. Presumptive ACS, suspect occlusion of stent recently placed to LAD. -Admit to inpatient -Cardiac telemetry. - Heparin drip. - Continue Brilinta, aspirin, carvedilol and rosuvastatin. -Cardiology consult in the morning. -N.p.o. after midnight. 2. History of non-STEMI and stent placement to LAD 3 days ago. 3. Coronary artery disease. Code Status Full Code Primary Care Physician Physician No Ref-Primary Past Surgical History I have reviewed this patient's surgical history and updated it with pertinent information if needed. Past Surgical History: Procedure Laterality Date ??? C NONSPECIFIC PROCEDURE 2 y.o. hernia repair ??? CV CORONARY ANGIOGRAM N/A 09/07/2019 Procedure: CV CORONARY ANGIOGRAM; Surgeon: Greg Marcos MD; Location: HEART CARDIAC STRIKER OUT ??? CV LEFT HEART CATH N/A 09/07/2019 Procedure: Left Heart Cath; Surgeon: Greg Marcos MD; Location: HEART CARDIAC STRIKER OUT ??? CV PCI STENT DRUG ELUTING N/A 09/07/2019 Procedure: Percutaneous Coronary Intervention Stent Drug Eluting; Surgeon: Greg Marcos MD; Location: HEART CARDIAC STRIKER OUT Prior to Admission Medications Prior to Admission Medications Prescriptions Last Dose Informant Patient Reported? Taking? aspirin (ASA) 81 MG EC tablet No No Sig: Take 1 tablet (81 mg) by mouth daily carvedilol (COREG) 6.25 MG tablet No No Sig: Take 1 tablet (6.25 mg) by mouth 2 times daily multivitamin w/minerals (THERA-VIT-M) tablet Yes No Sig: Take 1 tablet by mouth daily nitroGLYcerin (NITROSTAT) 0.4 MG sublingual tablet No No Sig: For chest pain place 1 tablet under the tongue every 5 minutes for 3 doses. If symptoms persist5 minutes after 1st dose call 911. omeprazole (PRILOSEC) [address] capsule Yes No Sig: Take 20 mg by mouth daily rosuvastatin (CRESTOR) 40 MG tablet No No Sig: Take 1 tablet (40 mg) by mouth At Bedtime ticagrelor (BRILINTA) 90 MG tablet No No Sig: Take 1 tablet (90 mg) by mouth every 12 hours Facility-Administered Medications: None Allergies Allergies Allergen Reactions ??? No Known Drug Allergies Social History I have personally reviewed the social history with the patient showing. Social History Tobacco Use ??? Smoking status: Current Every Day Smoker Packs/day: 1.50 Years: 20.00 Pack years: 30.00 ??? Smokeless tobacco: Never Used ??? Tobacco comment: four years ago Substance Use Topics ??? Alcohol use: Yes Comment: infrequent Family History I have reviewed this patient's family history and it is not contributory to the admission . Review of Systems Except as noted in the HPI, a 12-system Review of Systems was found to be negative. Physical Exam Vital Signs with Ranges Temp: [97.9 ??F (36.6 ??C)] 97.9 ??F (36.6 ??C) Pulse: [68-85] 68 Heart Rate: [66-84] 69 Resp: [11-21] 19 BP: (130-170)/(66-97) 144/68 SpO2: [94 %-98 %] 95 % 0 lbs 0 oz GEN: Alert, oriented x 3, appears comfortable, NAD. HEENT: Normocephalic/atraumatic, no scleral icterus, no nasal discharge, mouth moist. CV: Regular rate and rhythm, no murmur or JVD. S1 + S2 noted, no S3 or S4. LUNGS: Clear to auscultation bilaterally without rales/rhonchi/wheezing/retractions. Symmetric chestrise on inhalation noted. ABD: Active bowel sounds, soft, non-tender/non-distended. No rebound/guarding/rigidity. EXT: No edema or cyanosis. No joint synovitis noted. SKIN: Dry to touch, no exanthems noted in the visualized areas. Data I personally reviewed the EKG tracing showing Sinus bradycardia. Results for orders placed or performed during the hospital encounter of 09/09/19 (from the past 24 hour(s)) CBC (platelets, no diff) Result Value Ref Range WBC 12.0 (H) 4.0 - 11.0 10e9/L RBC Count 4.60 4.4 - 5.9 10e12/L Hemoglobin 14.8 13.3 - 17.7 g/dL Hematocrit 43.8 40.0 - 53.0 % MCV 95 78 - 100 fl MCH 32.2 26.5 - 33.0 pg MCHC 33.8 31.5 - 36.5 g/dL RDW 12.3 10.0 - 15.0 % Platelet Count 205 150 - 450 10e9/L Basic metabolic panel (BMP) Result Value Ref Range Sodium 139 133 - 144 mmol/L Potassium 3.6 3.4 - 5.3 mmol/L Chloride 108 94 - 109 mmol/L Carbon Dioxide 23 20 - 32 mmol/L Anion Gap 8 3 - 14 mmol/L Glucose 156 (H) 70 - 99 mg/dL Urea Nitrogen 13 7 - 30 mg/dL Creatinine 0.80 0.66 - 1.25 mg/dL GFR Estimate >90 >60 mL/min/[1.73_m2] GFR Estimate If Black >90 >60 mL/min/[1.73_m2] Calcium 8.5 8.5 - 10.1 mg/dL Troponin I Result Value Ref Range Troponin I ES 4.380 (HH) 0.000 - 0.045 ug/L D dimer quantitative Result Value Ref Range D Dimer 0.3 0.0 - 0.50 ug/ml FEU XR Chest Port 1 View Narrative EXAM: CHEST SINGLE VIEW PORTABLE LOCATION: [facility] DATE/TIME: 09/09/2019 11:02 PM INDICATION: Dyspnea. COMPARISON: 09/05/2019. FINDINGS: The lungs are clear. Normal size cardiac silhouette. Impression IMPRESSION: No evidence of active cardiopulmonary disease. Disclaimer: This note consists of symbols derived from keyboarding, dictation and/or voice recognition software. As a result, there may be errors in the script that have gone undetected. Please consider this when interpreting information found in this chart. documented in this encounter Consult Notes Barbara Cole RN - 09/10/2019 3:02 PM CDTAssociated Order(s): SERVER ADMINISTRATOR IP CONSULT Care Transition Initial Assessment - RN Met with: Patient. DATA Active Problems: ACS (acute coronary syndrome) (H) Cognitive Status: awake and alert. Primary Care Clinic Name: (needs to establish care) Contact information and PCP information verified: Yes Insurance concerns: No Insurance issues identified ASSESSMENT Patient currently receives the following services: Not asked. Identified issues/concerns regarding health management: RN CTS following as no PCP or clinic listed in patient chart. Patient verified that is not established with a clinic. Patient stated that I willfigure it out. Encourage patient to go through insurance for an in network provider. Discussed typical recommendation to follow up in clinic 1-2 weeks after discharge. Patient agreeable. PLAN Patient given options and choices for discharge Yes . Patient/family is agreeable to the plan? Yes: pending medical readiness. Patient anticipates discharging to Home . Patient anticipates needs for home equipment: No Transportation/person available to transport on day of discharge is TBD. Plan/Disposition: Home Appointments: None scheduled at this time. Patient prefers to schedule own appointment. Care Hand Suture Winder (CTS) will continue to follow as needed. Barbara Cole MA/babbitter Inpatient Care Coordination [facility] [phone] Ashley Watson MD - 09/10/2019 10:13 AM CDT Consult Date: 09/10/2019 CARDIOLOGY CONSULT NOTE CONSULT INDICATION: Dyspnea, elevated troponin, abnormal ECG HISTORY OF PRESENT ILLNESS: I had the opportunity to care for then patient, Jatin Sidhu, today in hospital for a Cardiology consultation. 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 The patient reports that he recovered well from his procedure on 09/07/2019 and was recovering uneventfully at home, minimally exerting himself. Yesterday, he developed acute onset shortness of breath at rest, no chest pressure similar to prior anginal symptoms, no diaphoresis, radiation to jaw or shoulders. The shortness of breath persisted until he presented to the Emergency Department andwas administered sublingual nitroglycerin; this resolved his shortness of breath entirely. Initial ev aluation was notable for a blood pressure o 170/97, heart rate 83, respiratory rate 20, satting [id number] on room air. Laboratory investigation was notable for potassium 3.6, creatinine 0.8, troponin 4.3, WBC 12, hemoglobin 14.8, platelets 205. Normal D-dimer. Chest x-ray was done and did not show any active disease. An ECG was done that showed normal sinus rhythm with T-wave inversions in leads V3 through V5, no significant change from prior ECG from 09/07/2019. He reports that he has been taking his medications as directed, including the ticagrelor, aspirin. No abnormal bleeding events. ASSESSMENT AND PLAN/RECOMMENDATIONS: 1. Dyspnea. Etiology is not entirely clear. Initial evaluation was notable for an elevated BP of 170/97, this could have resulted in some pulmonary edema however no clear evidence of hypervolemia on exam. Found to have an elevated troponin of 4.3; the last troponin on 09/05 before the coronary angiogram was 5. It is possible that this actually represents a more significant downtrend than is appreciated on laboratory investigation, as he may have had a higher troponin post angiography and PCI. ECG isrelatively unchanged from prior. His symptoms are different than his prior anginal symptoms, which were described as a central chest pain. His shortness of breath was resolved entirely with sublingual n itroglycerin. 2. Hypertension. Initial blood pressure in the Emergency Department was elevated at 170/97, though afterwards has been in the 130s systolic. He does not have a blood pressure cuff at home. 3. Hyperlipidemia. 4. Current smoking. -- Lower suspicion for acute stent thrombosis given down-trending troponin, ECG, relatively unchanged from before, absence of chest pain since admission; however, this cannot be excluded. I discussed with him at length the options for further evaluation/management, including noninvasive stress testingversus repeat coronary angiography. I discussed with him the risks, benefits and alternatives to each option. Ultimately, it was decided to proceed with coronary angiography and possible PCI. -- Verbal and written consent obtained. -- Increased carvedilol to 12.5mg BID, continue remainder of cardiac regimen including heparin GTT. -- Plan for coronary angiography and possible PCI this afternoon, or sooner if clinically indicated. Thank you for allowing our team to participate in the care of this patient, Jatin Sidhu. Please do not hesitate to page me with any questions or concerns. 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, HL, smoking, recent NSTEMI s/p coronary angiography with MILES to mLAD 09/07/2019, now with acute onset dyspnea last night - etiology of acute dyspnea not entirely clear, resolved completely with SL NTG in ED, mildly elevated troponin of 4.3, previously 5 on 09/06/2019 (pre-coronary angio and MILES to mLAD), possible it was higher afterward and this represents a downtrend - lungs were clear on exam which would argue against flash pulmonary edema, though was considered given his initial BP of 170/97 in the ED, which may have been due to stress/anxiety - lower suspicion for acute stent thrombosis given downtrending troponin, ECG stable from before, absence of chest pain since admission, however this cannot be excluded - discussed options of non-invasive stress testing vs repeat coronary angiography with patient at length, - The risks, benefits, and alternatives to cardiac catheterization, coronary angiography with possible intervention, moderate sedation, and possible blood transfusion were discussed at length. The patient was able to verbalize back the risks, benefits, and alternatives to the aforementioned procedures, and asked appropriate questions. The patient provided verbal and written consent, signifying informed consent to proceed as planned. Thank you for allowing our team to participate in the care of Jatin Sidhu. Please do not hesitate to page me with any questions or concerns. Ashley Watson MD, [facility] Cardiology Pager: [phone] Text Page September 10, 2019 Past Medical History: I have reviewed this patient's past medical history The ASCVD Risk score (Shaw RAMONITA Jr., et al., 2013) failed to calculate for the following reasons: The patient has a prior DE or stroke diagnosis Past Medical History: Diagnosis Date ??? Esophageal reflux Past Surgical History: I have reviewed this patient's past surgical history Past Surgical History: Procedure Laterality Date ??? C NONSPECIFIC PROCEDURE 2 y.o. hernia repair ??? CV CORONARY ANGIOGRAM N/A 09/07/2019 Procedure: CV CORONARY ANGIOGRAM; Surgeon: Greg Marcos MD; Location: HEART CARDIAC STRIKER OUT ??? CV LEFT HEART CATH N/A 09/07/2019 Procedure: Left Heart Cath; Surgeon: Greg Marcos MD; Location: HEART CARDIAC STRIKER OUT ??? CV PCI STENT DRUG ELUTING N/A 09/07/2019 Procedure: Percutaneous Coronary Intervention Stent Drug Eluting; Surgeon: Greg Marcos MD; Location: HEART CARDIAC STRIKER OUT Social History: I have reviewed this patient's social history Social History Tobacco Use ??? Smoking status: Current Every Day Smoker Packs/day: 1.50 Years: 20.00 Pack years: 30.00 ??? Smokeless tobacco: Never Used ??? Tobacco comment: four years ago Substance Use Topics ??? Alcohol use: Yes Comment: infrequent Family History: I have reviewed this patient's family history Family History Problem Relation Age of Onset ??? No Known Problems Mother ??? No Known Problems Father ??? Diabetes Sister Allergies: I have reviewed this patient's allergy history Allergies Allergen Reactions ??? No Known Drug Allergies Medications reviewed: Prior to admission medications: Prior to Admission medications Medication Sig Start Date End Date Taking? Authorizing Provider aspirin (ASA) 81 MG EC tablet Take 1 tablet (81 mg) by mouth daily 09/08/19 Yes Reinaldo Alcaraz MD carvedilol (COREG) 6.25 MG tablet Take 1 tablet (6.25 mg) by mouth 2 times daily 09/07/19 Yes Reinaldo Alcaraz MD multivitamin w/minerals (THERA-VIT-M) tablet Take 1 tablet by mouth daily Yes Unknown, Entered By History nitroGLYcerin (NITROSTAT) 0.4 MG sublingual tablet For chest pain place 1 tablet under the tongue every 5 minutes for 3 doses. If symptoms persist 5 minutes after 1st dose call 911. 09/07/19 Yes Reinaldo Alcaraz MD omeprazole (PRILOSEC) [address] capsule Take 20 mg by mouth daily Yes Unknown, Entered By History rosuvastatin (CRESTOR) 40 MG tablet Take 1 tablet (40 mg) by mouth At Bedtime 09/07/19 Yes Reinaldo Alcaraz MD ticagrelor (BRILINTA) 90 MG tablet Take 1 tablet (90 mg) by mouth every 12 hours 09/07/19 Yes Reinaldo Alcaraz MD Current medications: Current Facility-Administered Medications Ordered in [facility] Medication Dose Route Frequency Last Rate Last Dose ??? aspirin EC tablet 81 mg 81 mg Oral Daily 81 mg at 09/10/19837 ??? carvedilol (COREG) tablet 12.5 mg 12.5 mg Oral BID 12.5 mg at 09/10/19837 ??? heparin 25,000 units in 0.45% NaCl 250 mL ANTICOAGULANT infusion 1,050 Units/hr Intravenous Continuous 10.5 mL/hr at 09/10/19329 1,050 Units/hr at 09/10/19329 ??? multivitamin w/minerals (THERA-VIT-M) tablet 1 tablet 1 tablet Oral Daily 1 tablet at 09/10/19837 ??? naloxone (NARCAN) injection 0.1-0.4 mg 0.1-0.4 mg Intravenous Q2 Min PRN ??? nitroGLYcerin (NITROSTAT) sublingual tablet 0.4 mg 0.4 mg Sublingual Q5 Min PRN ??? omeprazole (priLOSEC) CR capsule 20 mg 20 mg Oral Daily 20 mg at 09/10/19837 ??? Patient is already receiving anticoagulation with heparin, enoxaparin (LOVENOX), warfarin (COUMADIN) or other anticoagulant medication Does not apply Continuous PRN ??? rosuvastatin (CRESTOR) tablet 40 mg 40 mg Oral At Bedtime 40 mg at 09/10/19 0137 ??? ticagrelor (BRILINTA) tablet 90 mg 90 mg Oral Q12H 90 mg at 09/10/19837 No current [facility]-ordered outpatient medications on file. Review of Systems: A complete review of systems was performed and was negative except as mentioned in the HPI. Physical Exam: Vital signs were personally reviewed: Temperatures: Current - Temp: 98.5 ??F (36.9 ??C); Max - Temp Av.5 ??F (36.9 ??C) Min: 97.9 ??F(36.6 ??C) Max: 98.9 ??F (37.2 ??C) Respiration range: Resp Av.6 Min: 11 Max: 21 Pulse range: Pulse Av.3 Min: 57 Max: 85 Blood pressure range: Systolic (24hrs), Av , Min:127 , Max:170 ; Diastolic (24hrs), Av, Min:66, Max:97 Pulse oximetry range: SpO2 Av.4 % Min: 94 % Max: 100 % No intake or output data in the 24 hours ending 09/10/19 1003 234 lbs 0 oz Body mass index is 30.87 kg/m??. Body surface area is 2.34 meters squared. Constitutional: appears stated age, in no apparent distress, appears to be well nourished Eyes: sclera anicteric, conjunctiva normal, no lesions on eyelids or lashes ENT: normocephalic, without obvious abnormality, atraumatic, external ears without lesions Pulmonary: clear to auscultation bilaterally, no wheezes, no rales, no increased work of breathing Cardiovascular: JVP normal, regular rate, regular rhythm, normal S1 and S2, no S3, S4, no murmur appreciated, no lower extremity edema Gastrointestinal: abdominal exam benign, non-tender, no rigidity, no guarding Neurologic: awake, alert, face symmetrical, moves all extremities Skin: no abnormal rashes or lesions on limited exam, nails normal without discoloration or clubbing,no jaundice Psychiatric: affect is normal, answers questions appropriately, oriented to self and place Laboratory tests: Laboratory tests personally reviewed: CMP Recent Labs Lab 09/10/19 0140 09/09/19214409/06/19 0603 09/05/19 0728 NA 142 139 137 140 POTASSIUM 3.9 3.6 4.1 4.2 CHLORIDE 111* 108 107 109 CO2 26 23 24 26 ANIONGAP 5 8 6 5 GLC 131* 156* 116* 143* BUN 17 13 11 16 CR 0.77 0.80 0.68 0.68 GFRESTIMATED >90 >90 >90 >90 GFRESTBLACK >90 >90 >90 >90 CHUN 8.7 8.5 8.8 9.2 CBC Recent Labs Lab 09/09/19214409/06/19 0603 09/05/19 1019 09/05/19 0728 WBC 12.0* 8.1 14.7* 9.0 RBC 4.60 4.88 4.67 5.05 HGB 14.8 15.4 14.6 16.0 HCT 43.8 46.5 44.9 48.5 MCV 95 95 96 96 MCH 32.2 31.6 31.3 31.7 MCHC 33.8 33.1 32.5 33.0 RDW 12.3 12.6 12.6 12.7 PLT 205 212 231 235 INRNo lab results found in last 7 days. Lab Results Component Value Date TROPI 3.560 () 09/10/2019 TROPI 4.380 () 09/09/2019 TROPI 4.999 () 09/06/2019 Recent Labs Lab Test 09/07/19 0704 09/06/19 0603 CHOL 211* 234* HDL 37* 36* LDL 135* 155* TRIG 196* 216* Lab Results Component Value Date A1C 5.7 09/05/2019 No results found for: TSH Imaging and Additional Data: Additional data personally reviewed: Recent Results (from the past 4320 hour(s)) Echocardiogram Complete Narrative [id number]^MARYSOL^SHELLIE^[facility] Echocardiography Laboratory [address] [place] [address] Name: JATIN SIDHU : 1970 Study Date: 09/05/2019 10:08 AM Age: 48 yrs Gender: Male Patient Location: [facility] Reason For Study: Abn EKG Ordering Physician: SHELLIE GREGG Performed By: Rosanna Hawkins BSA: 2.3 m2 Height: 73 in Weight: 243 lb HR: 72 BP: 129/82 mmHg __ Procedure Complete Portable Echo Adult. Nancy ([facility] [place][NOTE 2] #[id number]) given intravenously. __ Interpretation Summary The left ventricle is normal in size. There is normal left ventricular wall thickness. Left ventricular systolic function is normal. The visual ejection fraction is estimated at 55-60%. Left ventricular diastolic function is normal. There is mild hypokinesis of the mid anteroseptal wall and all apical segments of the left ventricle. There is no thrombus seen in the left ventricle. The right ventricle is normal size. The right ventricular systolic function is normal. Trace mitral and tricuspid regurgitation. No pericardial effusion. No previous study for comparison. __ Left Ventricle The left ventricle is normal in size. There is normal left ventricular wall thickness. Left ventricular systolic function is normal. The visual ejection fraction is estimated at 55-60%. Left ventricular diastolic function is normal. There is mild hypokinesis of the mid anteroseptal wall and all apical segments of the left ventricle. There is no thrombus seen in the left ventricle. Right Ventricle The right ventricle is normal size. The right ventricular systolic function is normal. Atria Normal left atrial size. Right atrial size is normal. Mitral Valve There is trace mitral regurgitation. Tricuspid Valve There is trace tricuspid regurgitation. Right ventricular systolic pressure could not be approximated due to inadequate tricuspid regurgitation. Aortic Valve There is mild trileaflet aortic sclerosis. No aortic regurgitation is present. No aortic stenosis is present. Pulmonic Valve There is no pulmonic valvular stenosis. Vessels The aortic root is normal size. Normal size ascending aorta. Descending aortic velocity normal. The inferior vena cava is normal. Pericardium There is no pericardial effusion. Rhythm Sinus rhythm was noted. __ MMode/2D Measurements & Calculations IVSd: 1.1 cm LVIDd: 5.1 cm LVIDs: 2.9 cm LVPWd: 1.1 cm FS: 42.4 % LV mass(C)d: 203.5 grams LV mass(C)dI: 87.0 grams/m2 Ao root diam: 3.3 cm LA dimension: 3.9 cm asc Aorta Diam: 3.4 cm LA/Ao: 1.2 LVOT diam: 2.4 cm LVOT area: 4.4 cm2 LA Volume (BP): 49.1 ml LA Volume Index (BP): 21.0 ml/m2 RWT: 0.43 Doppler Measurements & Calculations MV E max pamella: 78.6 cm/sec MV A max pamella: 69.4 cm/sec MV E/A: 1.1 MV dec time: 0.26 sec LV V1 max P.6 mmHg LV V1 max: 128.5 cm/sec LV V1 VTI: 24.5 cm SV(LVOT): 107.9 ml SI(LVOT): 46.2 ml/m2 PA acc time: 0.07 sec E/E' av.4 Lateral E/e': 7.6 Medial E/e': 9.1 __ Report approved by: Ed Lizama 09/05/2019 11:55 AM documented in this encounter ED Notes Kiran Neff RN - 09/09/2019 11:38 PM CDT Pt has no complaints at this time denying SOB and chest pain, very pleasant. Provided water per request, adjusted bed, and dimmed lights. Pt using cellphone in bed. Of note, pt has been on heparin in the past and reports no adverse effects, IV site WNL. Oliva Pettit - 09/09/2019 10:47 PM CDT [facility] ED Nurse Handoff Report Jatin Sidhu is a 48 year old male ED Chief complaint: Shortness of Breath . ED Diagnosis: Final diagnoses: None Allergies: Allergies Allergen Reactions ??? No Known Drug Allergies Code Status: Full Code Activity level - Baseline/Home: Independent. Activity Level - Current: Stand by Assist. Lift room needed: No. Bariatric: No Heel Seat Sander Needed: No Isolation: No. Infection: Not Applicable. Vital Signs: Vitals: 09/09/19 2245 09/09/19 2300 09/09/19 2320 09/09/19 2330 BP: 132/78 138/85 138/79 (!) 143/76 Pulse: 76 77 78 Resp: 11 15 Temp: TempSrc: SpO2: 97% 95% Cardiac Rhythm: , Pain level: Patient confused: No. Patient Falls Risk: Yes. Elimination Status: Has voided Patient Report - Initial Complaint: SOB. Focused Assessment: A&O x4, ABCs intact. Angioplasty done on Saturday. Stent placed in LAD. SOB started at 1999. Was getting ready for bed when it happened. Taking brilinta for stent. Denies other symptoms, denies CP Tests Performed: lab, imaging. Abnormal Results: Labs Ordered and Resulted from Time of ED Arrival Up to the Time of Departure from the ED CBC WITH PLATELETS - Abnormal; Notable for the following components: Result Value WBC 12.0 (*) All other components within normal limits BASIC METABOLIC PANEL - Abnormal; Notable for the following components: Glucose 156 (*) All other components within normal limits TROPONIN I - Abnormal; Notable for the following components: Troponin I ES 4.380 (*) All other components within normal limits D DIMER QUANTITATIVE PERIPHERAL IV CATHETER CARDIAC CONTINUOUS MONITORING . Treatments provided: See MAR Family Comments: None OBS brochure/video discussed/provided to patient: Yes ED Medications: Medications nitroGLYcerin (NITROSTAT) sublingual tablet 0.4 mg (0.4 mg Sublingual Given 09/09/192151) aspirin (ASA) chewable tablet 243 mg (243 mg Oral Given 09/09/191) Drips infusing: No For the majority of the shift, the patient's behavior Green. Interventions performed were None. Sepsis treatment initiated: No ED Nurse Name/Phone Number: Adriel Barajas RN, 10:47 PM RECEIVING UNIT ED HANDOFF REVIEW Above ED Nurse Handoff Report was reviewed: Yes Reviewed by: Oliva Pettit on September 10, 2019 at 12:41 AM Monique Sanders - 09/09/2019 9:37 PM CDT Applied monitoring devices (EKG, BP, and pulse ox) onto Patient. Baudilio Lagunas RN - 09/09/2019 9:19 PM CDT Angioplasty done on Saturday. Stent placed in LAD. SOB started at 1999. Was getting ready for bed whenit happened. Taking brilinta for stent. Denies other symptoms, denies CP Juan Daniel MD - 09/09/2019 9:16 PM CDT History Chief Complaint: Shortness of Breath The history is provided by the patient. Jatin Sidhu is a 48 year old male who presents to the emergency department for evaluation of shortness of breath. Patient was recently admitted on September 04 for chest pain and noted to have non-ST elevation DE. Ultimately his troponin peaked at 6. He had a coronary angiogram which showed mild diffuse disease but a 90% lesion in the LAD resulting in a drug-eluting stent. Patient has done well since that time. He was in his normal state of health up until 8 PM tonight in which he had the sudden onset of shortness of breath. There was no associated chest pain. There are no obvious alleviating or aggravating factors. He still feels dyspneic. He denies any fever cough or any other symptoms. He has no history of DVT, PE, hemoptysis, malignancy. Allergies: No Known Drug Allergies. Medications: Aspirin Carvedilol Nitroglycerin Omeprazole Rosuvastatin Ticagrelor Past Medical History: Esophageal reflux Viral warts Chest discomfort Past Surgical History: Hernia repair Coronary angiogram Heart catheterization Family History: Sister - DM Social History: Smoking Status: Current Every Day Smoker. Smokeless Tobacco: Never Used. Alcohol Use: Yes, Infrequent. Drug Use: Never. PCP: No Ref-Primary, Physician Marital Status: [2] Review of Systems Constitutional: Negative for fever. Respiratory: Positive for shortness of breath. Negative for cough. Cardiovascular: Positive for chest pain. Gastrointestinal: Negative for nausea and vomiting. All other systems reviewed and are negative. Physical Exam Patient Vitals for the past 24 hrs: BP Temp Temp src Pulse Heart Rate Resp SpO2 09/09/19 2245 132/78 -- -- 76 81 11 97 % 09/09/190 130/71 -- -- 75 79 21 94 % 09/09/19 2215 132/77 -- -- 80 82 -- 96 % 09/09/190 130/66 -- -- 85 84 -- 96 % 09/09/192134 (!) 156/93 -- -- 82 -- 19 98 % 09/09/192120 (!) 170/97 97.9 ??F (36.6 ??C) Temporal 83 -- 20 97 % Physical Exam General: Pleasant, age appropriate. Eyes: Conjunctiva normal Neck: Supple, no meningismus. CV: No JVD or unilateral leg swelling. 2+ radial pulses bilateral. No lower extremity edema. PULM: No respiratory distress. No accessory muscle use. No stridor. ABD: Soft, non-tender, non-distended. No pulsatile masses. No rebound, guarding or rigidity. MSK: No gross deformity to all four extremities. LYMPH: No cervical lymphadenopathy. NEURO: Alert. Good muscle tone, no atrophy. Skin: Warm, dry and intact. Psych: Mood is good and affect is appropriate. Emergency Department Course ECG: Time: 2126 Normal Sinus Rhythm Incomplete RBB T wave abnormality, consider lateral ischemia Vent. Rate 76 bpm. WI interval 172. QRS duration 100. QT/QTc 263/407. P-R-T axis 13 20. No significant change when compared to 09/07/2019 Read time: 2130 Imaging: Radiology findings were communicated with the patient who voiced understanding of the findings. XR Chest Port 1 View As per radiology. XR Chest Port 1 View Final Result IMPRESSION: No evidence of active cardiopulmonary disease. Laboratory: Laboratory findings were communicated with the patient who voiced understanding of the findings. CBC: WBC: 12.0 (H), HGB: 14.8, PLT: 205 BMP: Glucose 156 (H), o/w WNL (Creatinine: 0.80) Troponin I (Collected 2144): 4.380 (HH) D Dimer Quantitative: 0.3 Interventions: 2150 ASA 243 mg PO 2151 Nitrostat 0.4 mg sublingual Heparin IV gtt Emergency Department Course: Past medical records, nursing notes, and vitals reviewed. 2129 I performed an exam of the patient as documented above. EKG obtained in the ED, see results above. IV was inserted and blood was drawn for laboratory testing, results above. The patient was sent for a XR while in the emergency department, results above. [address] Fajardo, hospitalist, who agreed to admit the patient. 2254 I rechecked the patient and discussed the results of his workup thus far. Findings and plan explained to the Patient who consents to admission. Discussed the patient with , who will admit the patient to an obs bed for further monitoring, evaluation, and treatment. Consult with Dr. Joseph of cardiology. I personally reviewed the laboratory and imaging results with the Patient and answered all related questions prior to admission. Impression & Plan Medical Decision Makin-year-old male presented to the ED with shortness of breath after recent non- ST elevation DE that resulted in drug-eluting stent to LAD. Patient has no active chest pain. EKG reveals T wave inversionin V3-6 but similar to EKG done after stent. No ST segment changes. He became symptom-free with one n itroglycerin. Low suspicion for PE. D-dimer negative thus no indication for CT scan of the chest. Troponin returned elevated at 4.3 with prior troponin of 4.93 three days prior. I would expect further washout of the troponin. It is uncertain what this represents recurrent coronary disease or stenosis of recent stent placement. I consulted with Dr. Joseph who recommend initiation of heparin infusion. No indication for emergent angiogram unless patient would have recurrent/recalcitrant symptoms or developing EKG changes. Patient will be transferred to a telemetry bed. Diagnosis: ICD-10-CM 1. Shortness of breath R06.02 2. Elevated troponin R79.89 Disposition: Admitted to obs bed. Scribe Disclosure: I, Reynaldo Lazo, am serving as a scribe at 9:30 PM on 09/09/2019 to document services personally performed by Juan Daniel MD based on my observations and the provider's statements to me. Juan Daniel MD 09/09/19 2328 documented in this encounter Miscellaneous Notes Pre-Procedure - Saturnino Wakefield MD - 09/10/2019 1:20 PM CDT GENERAL PRE-PROCEDURE: Procedure: Heart catheterization Date/Time: 09/10/2019 1:20 PM Written consent obtained?: Yes Risks and benefits: Risks, benefits and alternatives were discussed Consent given by: Patient Patient states understanding of procedure being performed: Yes Patient's understanding of procedure matches consent: Yes Procedure consent matches procedure scheduled: Yes Expected level of sedation: Moderate Appropriately NPO: Yes ASA Class: Class 4- Severe systemic disease, acute unstable problems Mallampati : Grade 2- soft palate, base of uvula, tonsillar pillars, and portion of posterior pharyngeal wall visible Lungs: Lungs clear with good breath sounds bilaterally Heart: Normal heart sounds and rate History & Physical reviewed: History and physical reviewed and no updates needed Statement of review: I have reviewed the lab findings, diagnostic data, medications, and the plan for sedation Pharmacy-Admission Medication History - Marie Clifton [facility] - 09/10/2019 8:06 AM CDT Admission medication history interview status for this patient is complete. See [facility] admission navigator for allergy information, prior to admission medications and immunization status. Medication history interview done via telephone during Covid-19 pandemic, indicate source(s): Patient Medication history resources (including written lists, pill bottles, clinic record):None Primary pharmacy: Changes made to [facility] medication list: Added: Deleted: Changed: Actions taken by pharmacist (provider contacted, etc):None Additional medication history information:Patient was just discharged a couple days ago Medication reconciliation/reorder completed by provider prior to medication history? N (Y/N) For patients on insulin therapy: NA (Y/N) Prior to Admission medications Medication Sig Last Dose Taking? Auth Provider aspirin (ASA) 81 MG EC tablet Take 1 tablet (81 mg) by mouth daily 09/09/2019 at Unknown time Yes Reinaldo Alcaraz MD carvedilol (COREG) 6.25 MG tablet Take 1 tablet (6.25 mg) by mouth 2 times daily 09/09/2019 at Unknown time Yes Reinaldo Alcaraz MD multivitamin w/minerals (THERA-VIT-M) tablet Take 1 tablet by mouth daily 09/09/2019 at Unknown time Yes Unknown, Entered By History nitroGLYcerin (NITROSTAT) 0.4 MG sublingual tablet For chest pain place 1 tablet under the tongue every 5 minutes for 3 doses. If symptoms persist 5 minutes after 1st dose call 911. Yes Reinaldo Alcaraz MD omeprazole (PRILOSEC) [address] capsule Take 20 mg by mouth daily 09/09/2019 at Unknown time Yes Unknown, Entered By History rosuvastatin (CRESTOR) 40 MG tablet Take 1 tablet (40 mg) by mouth At Bedtime 09/09/2019 at Unknown time Yes Reinaldo Alcaraz MD ticagrelor (BRILINTA) 90 MG tablet Take 1 tablet (90 mg) by mouth every 12 hours 09/09/2019 at Unknown time Yes Reinaldo Alcaraz MD Plan of Care - Oliva Pettit - 09/10/2019 3:29 AM CDT No chest pain. Hep drip 10.5 ml/hour. No shortness of breath reported. Pt belongings with him. Redness blanchable redness on hands (possible sunburn). Pt pleasant. documented in this encounter Plan of Treatment Not on filedocumented as of this encounter Procedures Procedure Name Priority Date/Time Associated Comments Diagnosis GLUCOSE BY METER Routine 09/10/2019 4:03 PM ACS (acute coronar y Results for this CDT syndrome) (H) procedure are in the results section. CV CARDIAC Routine 09/10/2019 2:00 PM ACS (acute coronary Re sults for this CATHERIZATION CDT syndrome) (H) procedure are in the results section. HEPARIN 10A LEVEL Timed 09/10/2019 12:08 ACS (acute coronary Results for this PM CDT syndrome) (H) procedure are in the results section. GLUCOSE BY METER Routine 09/10/2019 12:07 ACS (acute coronary Results for this PM CDT syndrome) (H) procedure are in the results section. ECHO LIMITED WITH Routine 09/10/2019 11:11 Result s for this CONTRAST AM CDT procedure are i n the results section. GLUCOSE BY METER Routine 09/10/2019 8:04 AM Shortness of breat h Results for this CDT procedure are i n the results section. TROPONIN I Routine 09/10/2019 5:26 AM Shortness of breath Re sults for this CDT procedure are i n the results section. HEPARIN 10A LEVEL Routine 09/10/2019 5:26 AM Shortness of alberto th Results for this CDT procedure are i n the results section. MRSA MSSA PCR, NASAL Routine 09/10/2019 3:30 AM Shortness of b reath Results for this SWAB CDT procedure are i n the results section. GLUCOSE BY METER Routine 09/10/2019 1:58 AM Shortness of breat h Results for this CDT procedure are i n the results section. BASIC METABOLIC PANEL STAT 09/10/2019 1:40 AM Shortness of breath Results for this CDT procedure are i n the results section. XR CHEST PORT 1 VIEW STAT 09/09/2019 11:02 Res ults for this PM CDT procedure are i n the results section. TROPONIN I Routine 09/09/2019 9:45 PM Results f or this CDT procedure are i n the results section. D DIMER QUANTITATIVE Routine 09/09/2019 9:45 PM R esults for this CDT procedure are i n the results section. BASIC METABOLIC PANEL STAT 09/09/2019 9:45 PM Results for this CDT procedure are i n the results section. CBC WITH PLATELETS STAT 09/09/2019 9:45 PM Res ults for this CDT procedure are i n the results section. EKG 12-LEAD, TRACING STAT 09/09/2019 9:27 PM R esults for this ONLY CDT procedure are i n the results section. documented in this encounter Results (ABNORMAL) Glucose by meter (09/10/2019 4:03 PM CDT) P athologist Signature Glucose 100 (H) 70 - 99 09/10/2019 POINT OF CARE mg/dL 4:10 PM CDT TEST, GLUCOSE Specimen Anatomical Collection Method Collection Time Receive d Time (Source) Location / / Volume Laterality 09/10/2019 4:03 PM 0 4:10 CDT PM CDT Lang Fajardo MD LAB - BEAKER POCT Performing Organization Address City/State/ZIP Code Phon e Number FV POINT OF CARE TEST, GLUCOSE POINT OF CARE TEST, GLUCOSE CV CORONARY ANGIOGRAM (09/10/2019 2:00 PM CDT) Anatomical Region Laterality Modality Radio Fluoroscopy Specimen (Source) Anatomical Location Collection Method / Collectio n Time Received Time / Laterality Volume Narrative 09/10/2019 2:03 PM CDT 1-widely patent mid LAD stent without edge dissection, thrombus, residual lesion. 2-significant diagonal originating withi n the stent is widely patent with mild ostial narrowing and LELE-3 flow. 3-no new or changed lesions compared to previously. ??No culprit or hemodynamically significant lesions. Coronary Findings Diagnostic Dominance: Right Left Main: The vessel is moderate in siz e. There was 0% vessel disease. Left Anterior Descending: Prox LAD lesio n is 20% stenosed. Prox LAD to Mid LAD lesion is 40% stenosed. Previously placed Mid LAD drug eluting stent is widely patent. Not the culprit lesion. Previous dari atment took place <1 month ago. Second D iagonal Branch: 2nd Diag lesion is 30% stenosed. First Obtuse Marginal Branch: 1st Mrg le kathryn is 10% stenosed. Right Coronary Artery: Prox RCA lesion i s 25% stenosed. Mid RCA lesion is 40% stenosed. Right Posterior Descending Artery: Smooth ostial eccentric 60% short lesion RPDA lesion is 60% stenosed. Intervention No interventions have been documented. Plan 1.-Continue current medical regimen incl uding dual antiplatelet therapy 2.-Return to inpatient service for furth er management Comments/Patient Narrative This nice 48-year-old gentleman presente d with an anterior non-STEMI several days ago and had urgent stenting of the culprit lesion in the mid LAD. There were no other hemodynamically significant lesion s. He initially did well but returned af ter couple of days because of an episode of acute significant dyspnea although not the kinds of chest discomfort and ischemic symptoms he had previously. Troponin s are elevated at over 4 at re-presentat ion but was unclear whether that was residual from his previous an STEMI or a new rise. Given his potential ischemic symptoms with a large territory of LAD served by his recent stent, urgent catheteriza tion for reevaluation recommended. Cath Procedure details Informed consent done with patient and s igned pre-procedure Patient was assessed immediately prior t o the procedure and was determined to be appropriate to proceed with the planned procedure and associated conscious sedation. - right radial access with a 6 [place] glide sheath. Anticoagulation with heparin. -Selective left and right coronary angio graphy with 6F [place] . Catheters were advanced over guidewire into the aortic root. All catheter exchanges were done with an exchange wire. -Following review of final results, the catheter was removed over guidewire, the radial sheath was removed and hemostasis obtained with a TR band, and the patient transferred back to the care unit. -Estimated blood loss: <10 mls - The patient tolerated the procedure we ll and was stable on transfer back to the care unit The attending interventional cardiologis t was present and supervised all critical aspects the procedure. Ashley Watson MD CV CARDIAC CATH ORDERABLES Heparin 10a Level (09/10/2019 12:08 PM CDT) athologist Signature Heparin 10A <0.10 IU/mL 09/10/2019 [facility] Level 1:08 PM CDT [facility] Comment: Therapeutic Range: UFH: 0.15-0.35 IU/mL for low intensity d osing ? 0.30-0.70 IU/mL for high intensit y dosing ? for DVT and PE Enoxaparin: ? If administered once daily with d ose ? 1.5 mg/k.0-2.0 IU/mL ? If administered twice daily with dose ? 1 mg/k.60-1.0 IU/mL This test is not validated for other dir ect factor X inhibitors (e.g. rivaroxaban, apixaban, edoxaban, betrixa ban, fondaparinux) and should not be used for monitoring of other medications . Results confirmed by repeat test Specimen Anatomical Collection Method Collection Time Receive d Time (Source) Location / / Volume Laterality Blood specimen 09/10/2019 12:08 0 (specimen) PM CDT 12:09 PM CDT Lang Fajardo MD LAB - BLOOD ORDERABLES Performing Organization Address [facility]/ZIP [facility] Phon e Number M [address] [address] [phone] (ABNORMAL) Glucose by meter (09/10/2019 12:07 PM CDT) P athologist Signature Glucose 107 (H) 70 - 99 09/10/2019 POINT OF CARE mg/dL 12:15 PM CDT TEST, GLUCOSE Specimen Anatomical Collection Method Collection Time Receive d Time (Source) Location / / Volume Laterality 09/10/2019 12:07 09/10/2019 PM CDT 12:15 PM CDT Lang Fajardo MD LAB - BEAKER POCT Performing Organization Address [facility] Phon e Number FV POINT OF CARE TEST, GLUCOSE POINT OF CARE TEST, GLUCOSE ECHO LIMITED WITH CONTRAST (09/10/2019 11:11 AM CDT) Anatomical Region Laterality Modality Echocardiography Specimen (Source) Anatomical Collection Method Collection Time Re ceived Time Location / / Volume Laterality 09/10/2019 11:02 AM CDT Narrative 09/10/2019 12:27 PM CDT [id number]^WALTER^ASHLEY^[facility] Echocardiography Laboratory [address] [place] [address] Name: JATIN SIDHU : 1970 Study Date: 09/10/2019 11:02 AM Age: 48 yrs Gender: Male Patient Location: [facility] Reason For Study: Acute Myocardial Infar ction Ordering Physician: ASHLEY WATSON Performed By: Rosanna Hawkins BSA: 2.3 m2 Height: 73 in Weight: 234 lb HR: 62 BP: 134/73 mmHg __ Procedure Limited Portable Echo Adult. Optison (ND C #[id number]) given intravenously. __ Interpretation Summary The left ventricle is normal in size. The left ventricular ejection fraction i s normal. No regional wall motion abnormalities no julio. Compared to the recent echo the previous ly noted.wall motion abnormality has resolved. Optison contrast was used without appare nt complications. __ Left Ventricle The left ventricle is normal in size. Th ere is normal left ventricular wall thickness. The left ventricular ejection fraction is normal. Grade I or early diastolic dysfunction. Diastolic Doppler findings (E/E' ratio and/or other parameters) suggest left ventricular [place] pressures are indeterminate. No regional wall motion abnormalities noted . Right Ventricle The right ventricle is normal in structu re, function and size. Mitral Valve The mitral valve leaflets appear normal. There is no evidence of stenosis, fluttering, or prolapse. There is trace mitral regurgitation. Tricuspid Valve Normal tricuspid valve. There is trace t ricuspid regurgitation. Aortic Valve The aortic valve is trileaflet. There is mild aortic sclerosis of the non- coronary cusp. __ MMode/2D Measurements & Calculations IVSd: 0.96 cm LVIDd: 5.1 cm LVIDs: 3.3 cm LVPWd: 0.87 cm FS: 34.8 % LV mass(C)d: 164.8 grams LV mass(C)dI: 71.6 grams/m2 RWT: 0.34 Doppler Measurements & Calculations MV E max pamella: 73.7 cm/sec MV A max pamella: 81.5 cm/sec MV E/A: 0.90 MV dec time: 0.23 sec TR max pamella: 228.0 cm/sec TR max P.8 mmHg E/E' av.3 Lateral E/e': 7.4 Medial E/e': 9.2 __ Report approved by: Raz Ha 09/10/2019 12:27 PM Procedure Note Mykel Davis MD - 09/10/2019 [id number]^WALTER^ASHLEY^[facility] Echocardiography Laboratory [address] [place] [id number] Name: JATIN SIDHU : 1970 Study Date: 09/10/2019 11:02 AM Age: 48 yrs Gender: Male Patient Location: [facility] Reason For Study: Acute Myocardial Infar ction Ordering Physician: ASHLEY WATSON Performed By: Rosanna Hawkins BSA: 2.3 m2 Height: 73 in Weight: 234 lb HR: 62 BP: 134/73 mmHg __ Procedure Limited Portable Echo Adult. Optison (ND C #[id number]) given intravenously. __ Interpretation Summary The left ventricle is normal in size. The left ventricular ejection fraction i s normal. No regional wall motion abnormalities no julio. Compared to the recent echo the previous ly noted.wall motion abnormality has resolved. Optison contrast was used without appare nt complications. __ Left Ventricle The left ventricle is normal in size. Th ere is normal left ventricular wall thickness. The left ventricular ejection fraction is normal. Grade I or early diastolic dysfunction. Diastolic Doppler findings (E/E' ratio and/or other parameters) suggest left ventricular [place] pressures are indeterminate. No regional wall motion abnormalities noted . Right Ventricle The right ventricle is normal in structu re, function and size. Mitral Valve The mitral valve leaflets appear normal. There is no evidence of stenosis, fluttering, or prolapse. There is trace mitral regurgitation. Tricuspid Valve Normal tricuspid valve. There is trace t ricuspid regurgitation. Aortic Valve The aortic valve is trileaflet. There is mild aortic sclerosis of the non- coronary cusp. __ MMode/2D Measurements & Calculations IVSd: 0.96 cm LVIDd: 5.1 cm LVIDs: 3.3 cm LVPWd: 0.87 cm FS: 34.8 % LV mass(C)d: 164.8 grams LV mass(C)dI: 71.6 grams/m2 RWT: 0.34 Doppler Measurements & Calculations MV E max pamella: 73.7 cm/sec MV A max pamella: 81.5 cm/sec MV E/A: 0.90 MV dec time: 0.23 sec TR max pamella: 228.0 cm/sec TR max P.8 mmHg E/E' av.3 Lateral E/e': 7.4 Medial E/e': 9.2 __ Report approved by: Raz Ha 09/10/2019 12:27 PM Ashley Watson MD CV ECHO ORDERABLES (ABNORMAL) Glucose by meter (09/10/2019 8:04 AM CDT) athologist Signature Glucose 115 (H) 70 - 99 09/10/2019 POINT OF CARE mg/dL 8:10 AM CDT TEST, GLUCOSE Specimen Anatomical Collection Method Collection Time Receive d Time (Source) Location / / Volume Laterality 09/10/2019 8:04 AM 0 8:10 CDT AM CDT Lang Fajardo MD LAB - [facility] POCT Performing Organization Address City/State/ZIP Code Phon e Number FV POINT OF CARE TEST, GLUCOSE POINT OF CARE TEST, GLUCOSE Heparin Xa (10a) Level (09/10/2019 5:26 AM CDT) P athologist Signature Heparin 10A 0.16 IU/mL 09/10/2019 [place] Level 5:57 AM T [facility] Comment: Therapeutic Range: UFH: 0.15-0.35 IU/mL for low intensity d osing ? 0.30-0.70 IU/mL for high intensit y dosing ? for DVT and PE Enoxaparin: ? If administered once daily with d ose ? 1.5 mg/k.0-2.0 IU/mL ? If administered twice daily with dose ? 1 mg/k.60-1.0 IU/mL This test is not validated for other dir ect factor X inhibitors (e.g. rivaroxaban, apixaban, edoxaban, betrixa ban, fondaparinux) and should not be used for monitoring of other medications . Specimen Anatomical Collection Method Collection Time Receive d Time (Source) Location / / Volume Laterality Blood specimen 09/10/2019 5:26 AM 020 5:27 (specimen) CDT AM CDT Lang Fajardo MD LAB - BLOOD ORDERABLES Performing Organization Address City/State/ZIP Code Phon e Number M [place] [address] [address] [facility] [address] [phone] (ABNORMAL) Troponin I (09/10/2019 5:26 AM CDT) Analysis Performed At Patho logist Time Signature Troponin I ES 3.560 (HH) 0.000 - 09/10/2019 [place] 0.045 ug/L 6:06 AM [facility] Comment: The 99th percentile for upper reference range is 0.045 ug/L. ??Troponin values in the range of 0.045 - 0.120 ug/L may b e associated with risks of adverse clinical events. Critical result, provider not notified d ue to previous critical result notification. Specimen Anatomical Collection Method Collection Time Receive d Time (Source) Location / / Volume Laterality Blood specimen 09/10/2019 5:26 AM 020 5:27 (specimen) CDT AM CDT Lang Fajardo MD LAB - BLOOD ORDERABLES Performing Organization Address City/State/ZIP Code Phon e Number [facility] [address], [place] [address] [facility] [address] [id number], [facility] [phone] Methicillin Resistant Staph Aureus PCR (09/10/2019 3:30 AM CDT) [facility] gist Method Time Signature Specimen Nares 09/10/2019 [place] Description 3:42 AM CDT [facility] Methicillin Negative NEG^Negat 09/10/2019 [facility]/Sens S. bal 9:24 AM CDT [facility] aureus PCR [facility] Comment: MRSA Negative: SA Negative ??MRSA and St aphylococcus aureus target DNA not detected, presumed negative for MRSA and SA colonization or the number of bacteria present may be below the limit of detection for the assay. FDA approved assay performed using [employer]uel (fuelpowered.com)ert(R) real-time PCR. Specimen (Source) Anatomical Collection Method Collection Time Re ceived Time Location / / Volume Laterality Nasal structure 09/10/2019 3:30 0 4:00 (body structure) AM CDT AM CDT Lang Fajardo MD LAB - MICRO GENERAL ORDERABL ES Performing Organization Address City/[facility]/ZIP Code Phon e Number [address] [address] [facility] [address] [id number] 7, [facility] [phone] (ABNORMAL) Glucose by meter (09/10/2019 1:58 AM CDT) P athologist Signature Glucose 122 (H) 70 - 99 09/10/2019 POINT OF CARE mg/dL 2:04 AM CDT TEST, GLUCOSE Specimen Anatomical Collection Method Collection Time Receive d Time (Source) Location / / Volume Laterality 09/10/2019 1:58 AM 0 2:04 CDT AM CDT Lang Fajardo MD LAB - BEAKER POCT Performing Organization Address City/State/ZIP Code Phon e Number [facility] POINT OF CARE TEST, GLUCOSE POINT OF CARE TEST, GLUCOSE (ABNORMAL) Basic metabolic panel (09/10/2019 1:40 AM CDT) athologist Signature Sodium 142 133 - 144 09/10/2019 [place] mmol/L 1:59 AM [facility] Potassium 3.9 3.4 - 5.3 09/10/2019 [facility] mmol/L 1:59 AM [facility] Chloride 111 (H) 94 - 109 09/10/2019 [place] mmol/L 1:59 AM [facility] Carbon Dioxide 26 20 - 32 09/10/2019 [place] mmol/L 2:06 AM [facility] Anion Gap 5 3 - 14 09/10/2019 [place] mmol/L 2:06 AM [facility] Glucose 131 (H) 70 - 99 09/10/2019 [place] mg/dL 2:06 AM [facility] Urea Nitrogen 17 7 - 30 09/10/2019 [place] mg/dL 2:06 AM [facility] Creatinine 0.77 0.66 - 09/10/2019 [place] 1.25 mg/dL 2:06 AM [facility] GFR Estimate >90 >60 09/10/2019 [place] mL/min/{1. 2:06 AM [facility] 73_m2} [facility] Comment: Non GFR Calc Starting 04/15/2018, serum creatinine ba sed estimated GFR (eGFR) will be calculated using the Chronic Kidney Dise [facility] Epidemiology Collaboration (CKD-EPI) equation. GFR Estimate If >90 >60 mL/min/{1.73_m2} 09/10/2019 2: 06 AM [facility] Comment: GFR Calc Starting 04/15/2018, serum creatinine ba sed estimated GFR (eGFR) will be calculated using the Chronic Kidney Dise [facility] Epidemiology Collaboration (CKD-EPI) equation. Calcium 8.7 8.5 - 10.1 mg/dL 09/10/2019 2:06 AM [facility] Specimen Anatomical Collection Method Collection Time Receive d Time (Source) Location / / Volume Laterality Blood specimen 09/10/2019 1:40 AM 020 1:41 (specimen) CDT AM CDT Lang Fajardo MD LAB - BLOOD ORDERABLES Performing Organization Address City/State/ZIP Code Phon e Number M [facility] [address] [place] [address] [facility] [address], [place] [address], [facility] [phone] [facility] [address] [place] [address], [facility] XR Chest Port 1 View (09/09/2019 11:02 PM CDT) Anatomical Region Laterality Modality Chest Digital Radiography Specimen (Source) Anatomical Collection Method Collection Time Re ceived Time Location / / Volume Laterality 09/09/2019 11:02 PM CDT Impressions 09/09/2019 11:18 PM CDT IMPRESSION: No evidence of active cardio pulmonary disease. Narrative 09/09/2019 11:18 PM CDT EXAM: CHEST SINGLE VIEW PORTABLE LOCATION: [facility] DATE/TIME: 09/09/2019 11:02 PM INDICATION: Dyspnea. COMPARISON: 09/05/2019. FINDINGS: The lungs are clear. Normal si ze cardiac silhouette. Procedure Note Buck Valles MD - 09/09/2019Fo rmatting of this note might be different from the original. EXAM: CHEST SINGLE VIEW PORTABLE LOCATION: [facility] DATE/TIME: 09/09/2019 11:02 PM INDICATION: Dyspnea. COMPARISON: 09/05/2019. FINDINGS: The lungs are clear. Normal si ze cardiac silhouette. IMPRESSION: No evidence of active cardio pulmonary disease. Juan Daniel MD IMG DIAGNOSTIC IMAGING ORDER [place] D dimer quantitative (09/09/2019 9:45 PM CDT) P athologist Signature D Dimer 0.3 0.0 - 0.50 09/09/2019 [facility] ug/ml FEU 10:38 PM CDT HOSPITAL Comment: This D-dimer assay is intended for use i n conjunction with a clinical pretest probability assessment model to exclude pulmonary embolism (PE) and deep venous thrombosis (DVT) in outpatients s uspected of PE or DVT. The cut-off value is 0.5 ug/mL FEU. Specimen Anatomical Collection Method Collection Time Receive d Time (Source) Location / / Volume Laterality 09/09/2019 9:45 PM 0 9:51 CDT PM CDT Juan Daniel MD LAB - BLOOD ORDERABLES Performing Organization Address [facility]/ZIP Banner e Number M [facility] [address], [place] [address] [facility] [address] [place], [place] [address], [facility] [phone] (ABNORMAL) Troponin I (09/09/2019 9:45 PM CDT) Analysis Performed At Patho logist Time Signature Troponin I ES 4.380 (HH) 0.000 - 09/09/2019 [place] 0.045 ug/L 10:31 PM [facility] Comment: The 99th percentile for upper reference range is 0.045 ug/L. ??Troponin values in the range of 0.045 - 0.120 ug/L may b e associated with risks of adverse clinical events. Critical result, provider not notified d ue to previous critical result notification. Specimen Anatomical Collection Method Collection Time Receive d Time (Source) Location / / Volume Laterality 09/09/2019 9:45 PM 0 9:51 CDT PM CDT Juan Daniel MD LAB - BLOOD ORDERABLES Performing Organization Address [facility] Phon e Number [facility] [address], [place] [address] [facility] [address] [place], [place] [id number] [id number], [facility] [phone] (ABNORMAL) Basic metabolic panel (BMP) (09/09/2019 9:45 PM CDT) P athologist Signature Sodium 139 133 - 144 09/09/2019 [place] mmol/L 10:04 PM [facility] Potassium 3.6 3.4 - 5.3 09/09/2019 [place] mmol/L 10:04 PM [facility] Chloride 108 94 - 109 09/09/2019 [place] mmol/L 10:04 PM [facility] Carbon Dioxide 23 20 - 32 09/09/2019 [place] mmol/L 10:09 PM [facility] Anion Gap 8 3 - 14 09/09/2019 [place] mmol/L 10:09 PM [facility] Glucose 156 (H) 70 - 99 09/09/2019 [place] mg/dL 10:09 PM [facility] Urea Nitrogen 13 7 - 30 09/09/2019 [place] mg/dL 10:09 PM [facility] Creatinine 0.80 0.66 - 09/09/2019 [place] 1.25 mg/dL 10:09 PM [facility] GFR Estimate >90 >60 09/09/2019 [place] mL/min/{1. 10:09 PM [facility] 73_m2} HOSPITAL Comment: Non GFR Calc Starting 04/15/2018, serum creatinine ba sed estimated GFR (eGFR) will be calculated using the Chronic Kidney Dise [facility] Epidemiology Collaboration (CKD-EPI) equation. GFR Estimate If >90 >60 mL/min/{1.73_m2} 09/09/2019 10:09 PM [facility] Comment: GFR Calc Starting 04/15/2018, serum creatinine ba sed estimated GFR (eGFR) will be calculated using the Chronic Kidney Dise [facility] Epidemiology Collaboration (CKD-EPI) equation. Calcium 8.5 8.5 - 10.1 mg/dL 09/09/2019 10:09 PM [facility] Specimen Anatomical Collection Method Collection Time Receive d Time (Source) Location / / Volume Laterality Blood specimen 09/09/2019 9:45 PM 020 9:51 (specimen) CDT PM CDT Juan Daniel MD LAB - BLOOD ORDERABLES Performing Organization Address City/State/ZIP Code Phon e Number [place] [address] [place] [address] [facility] [address] [place], [place] [address], [facility] [phone] [place] [address] [place] [address], [facility] (ABNORMAL) CBC (platelets, no diff) (09/09/2019 9:45 PM CDT) Analysis Performed At Patho logist Time Signature WBC 12.0 (H) 4.0 - 11.0 09/09/2019 [facility] 10e9/L 9:55 PM [facility] RBC Count 4.60 4.4 - 5.9 09/09/2019 [facility] 10e12/L 9:55 PM [facility] Hemoglobin 14.8 13.3 - 09/09/2019 [facility] 17.7 g/dL 9:55 PM [facility] Hematocrit 43.8 40.0 - 09/09/2019 [facility] 53.0 % 9:55 PM [facility] MCV 95 78 - 100 09/09/2019 [facility] fl 9:55 PM [facility] MCH 32.2 26.5 - 09/09/2019 [facility] 33.0 pg 9:55 PM [facility] MCHC 33.8 31.5 - 09/09/2019 [facility] 36.5 g/dL 9:55 PM [facility] RDW 12.3 10.0 - 09/09/2019 [facility] 15.0 % 9:55 PM [facility] Platelet Count 205 150 - 450 09/09/2019 [facility] 10e9/L 9:55 PM [facility] Specimen Anatomical Collection Method Collection Time Receive d Time (Source) Location / / Volume Laterality Blood specimen 09/09/2019 9:45 PM 020 9:51 (specimen) CDT PM CDT Juan Daniel MD LAB - BLOOD ORDERABLES Performing Organization Address City/State/ZIP [facility] Phon e Number [facility] [address] [address] [facility] [address] [address] [facility] [phone] EKG 12 lead (09/09/2019 9:27 PM CDT) [facility] gist Method Time Signature Interpretation ECG Click View RADIOLOGY Image link RESULTS to view waveform and result Specimen (Source) Anatomical Collection Method Collection Time Re ceived Time Location / / Volume Laterality 09/09/2019 9:27 PM CDT Juan Daniel MD ECG ORDERABLES Performing Organization Address City/State/ZIP Code Phon e Number RADIOLOGY RESULTS documented in this encounter Visit Diagnoses Diagnosis Shortness of breath Elevated troponin Other abnormal blood chemistry ACS (acute coronary syndrome) (H) Intermediate coronary syndrome Essential hypertension Unspecified essential hypertension ACS (acute coronary syndrome) (H) Intermediate coronary syndrome documented in this encounter Admitting Diagnoses Diagnosis Elevated troponin Other abnormal blood chemistry documented in this encounter Administered Medications Inactive Administered Medications - up to 3 most recent administrations Medication Order MAR Action Action Date Dose Rate Site aspirin EC tablet 81 mg Given 09/10/2019 8:38 AM CDT 81 mg 81 mg, Oral, DAILY, First dose on Chantelle 09/10/19 at 0900, DO NOT CRUSH. carvedilol (COREG) tablet 12.5 mg Given 09/10/2019 8:38 AM CDT 12.5 mg 12.5 mg, Oral, 2 TIMES DAILY, First dose (after last modification) on Chantelle 09/10/19 at 0800 fentaNYL (PF) (SUBLIMAZE) injection Given 09/10/2019 1:32 PM CDT 50 mcg ONCE PRN, Administer over 3-5 Minutes, Starting on Chantelle 09/10/19 at 1332, Cardiac Intra-procedure heparin (porcine) injection Given 09/10/2019 1:33 PM CDT 8,000 Units ONCE PRN, Starting on Chantelle 09/10/19 at 1333, Cardiac Intra-procedure iopamidol (ISOVUE-370) solution Given 09/10/2019 1:51 PM CDT 73 mLs ONCE PRN, Starting on Chantelle 09/10/19 at 1351, Cardiac Intra-procedure lidocaine 1 % Given 09/10/2019 1:31 PM CDT 0.75 mLs Right Wrist ONCE PRN, Starting on Chantelle 09/10/19 at 1331, Cardiac Intra-procedure midazolam (VERSED) injection Given 09/10/2019 1:34 PM CDT 1 mg Administer over 2 Minutes, ONCE PRN, Starting on Chantelle 09/10/19 at 1332, Cardiac Intra-procedure Given 09/10/2019 1:32 PM CDT 1 mg multivitamin w/minerals (THERA-VIT-M) Given 09/10/2019 8:38 AM C DT 1 tablet tablet 1 tablet 1 tablet, Oral, DAILY, First dose on Chantelle 09/10/19 at 0900 nitroGLYcerin injection Given 09/10/2019 1:33 PM CDT 200 mcg ONCE PRN, Starting on Chantelle 09/10/19 at 1333, Cardiac Intra-procedure omeprazole (priLOSEC) CR capsule 20 mg Given 09/10/2019 8:38 AM CDT 20 mg 20 mg, Oral, DAILY, First dose on Chantelle 09/10/19 at 0900 rosuvastatin (CRESTOR) tablet 40 mg Given 09/10/2019 1:37 AM CDT 40 mg 40 mg, Oral, AT BEDTIME, First dose on Chantelle 09/10/19 at 0115 sodium chloride 0.9% infusion New Bag 09/10/2019 2:30 PM CDT 75 mL/hr at 75 mL/hr, Intravenous, CONTINUOUS, Administer over 4 Hours, or until patient is ambulating. IF PATIENT WAS ADMITTED WITH HEART FAILURE, the RN should discuss primary cardiology team whether it is appropriate to reduce rate to10 mL/hour (TKO) in order to prevent fluid overload IF PATIENT IS RECEIVING RENAL DIALYSIS, RN to reduce rate of 0.9% sodium chloride IV solution to 10 mL /hour (TKO) to prevent fluid overload, Cardiac Post-procedure, Starting on Chantelle 09/10/19 at 1430, Until Chantelle 09/10/19 at 2050 ticagrelor (BRILINTA) tablet 90 mg Given 09/10/2019 8:38 AM CDT 90 mg 90 mg, Oral, EVERY 12 HOURS, First dose (after last modification) on Chantelle 09/10/19 at 0900 verapamil (ISOPTIN) injection Given 09/10/2019 1:33 PM CDT 2.5 mg ONCE PRN, Starting on Chantelle 09/10/19 at 1333, Cardiac Intra-procedure documented in this encounter Active and Recently Administered Medications Times are shown in CDT. Scheduled Medication Order 09/08/2019 09/09/2019 09/10/2019 aspirin (ASA) chewable tablet 243 mg (COMPLETED) 2150 (Given - Provider: Maria L Aguilar RN) 243 mg, Oral, ONCE, 09/09/19 at 2138, For 1 dose aspirin EC tablet 81 mg 0838 (Gi ronni - Provider: Tiffany Woodson RN) 81 mg, Oral, DAILY, First dose on Chantelle 09/10/19 at 0900, DO NOT CR [facility]. carvedilol (COREG) tablet 12.5 mg 0838 (Given - Provider: Tiffany Woodson RN) 12.5 mg, Oral, 2 TIMES DAILY, First dose (after last modification) on Chantelle 09/10/19 at 0800 heparin ANTICOAGULANT Loading Dose bolus dose from infusion pump 5,450 Units (COMPLETED) 2329 (Given - Provider: Kiran burks, RN) 5,450 Units, Intravenous, ONCE, Wed 09/08 at 2319, For 1 dose, Per Pharmacy Heparin Dosing Service CV/Vascular Protocol. Goal range for Hep10a: 0.15 - 0.35. If platelet count falls below 50% of baseli ne, hold heparin and notify MD for furth er orders.?? Nurse to administer dose from existing infusion. If no infusion bag or syringe for this order is available, contact pharmacist to re-enter medication order. multivitamin w/minerals (THERA-VIT-M) tablet 1 tablet 08 (Given - Provider: Tiffany Woodson RN) 1 tablet, Oral, DAILY, First dose on Chantelle 09/10/19 at 0900 omeprazole (priLOSEC) CR capsule 20 mg 0838 (Given - Provider: Tiffany Woodson RN) 20 mg, Oral, DAILY, First dose on Chantelle 09/10/19 at 0900 perflutren diluted 1mL to 2mL with salin e (OPTISON) diluted injection 3 mL (COMPLETED) 1115 (Given - Provid er: Rosanna Hawkins) 3 mL, Intravenous, ONCE, Chantelle 09/10/19 at 1115, For 1 dose, [facility] [place]NOTE 2] [id number] rosuvastatin (CRESTOR) tablet 40 mg 0137 (Given - Provider: Oliva Pettit) 40 mg, Oral, AT BEDTIME, First dose on Chantelle 09/10/19 at 0115 sodium chloride (PF) 0.9% PF flush 10 mL (COMPLETED) 1115 (Given - Provider: Rosanna Hawkins) 10 mL, Intracatheter, ONCE, Chantelle 09/10/19 at 1115, For 1 dose ticagrelor (BRILINTA) tablet 90 mg 0838 (Given - Provider: Tiffany Woodson RN) 90 mg, Oral, EVERY 12 HOURS, First dose (after last modification) on Chantelle 09/10/19 at 0900 Continuous Medication Order 09/08/2019 09/09/2019 09/10/2019 heparin 25,000 units in 0.45% NaCl 250 mL ANTICOAGULANT infu kathryn (CANCELED) 2329 (New Bag - Provider: Kiran Neff RN) 0024 (ED Infusing on Admission/transfer - Provider: Kiran Neff RN)0330 (Rate/Dose Verify - Provider: Patsy Lo RN)0800 (Rate/Dose Verify - Provider: Tiffany Woodson RN) 1,050 Units/hr (10.5 mL/hr), Intravenous , at 10.5 mL/hr, CONTINUOUS, Starting 09/09/19 at 2319, Per Pharmacy Heparin Dosing Service CV/Vascular Protocol. Goal range for Hep10a: 0.15 - 0.35. If platel 0900 (Rate/Dose Verify - Provider: Tiffany Woodson RN)1000 (Rate/Dose Verify - Provider: Tiffany Woodson RN)1100 (Rate/Dose Verify - Provider: Tiffany Woodson RN)1200 (Rate/Dose Verify - Provider: Tiffany Woodson RN) et count falls below 50% of baseline, ho ld heparin and notify MD for further orders.??, Initial Set-up verified by: Silvino Whiting RN and Leslie Kim RN 1300 (Stopped - Provider: Justin Barbosa RN) sodium chloride 0.9% infusion 14 30 (New Bag - Provider: Tiffany Woodson RN)1730 (Stopped - Provider: Tiffany Woodson RN) at 75 mL/hr, Intravenous, CONTINUOUS, Ad combine driver over 4 Hours, or until patient is ambulating. IF PATIENT WAS ADMITTED WITH HEART FAILURE, the RN should discuss primary cardiology team whether it is carlee ropriate to reduce rate to10 mL/hour (TK O) in order to prevent fluid overload IF PATIENT IS RECEIVING RENAL DIALYSIS, RN to reduce rate of 0.9% sodium chloride IV solution to 10 mL /hour (TKO) to preven t fluid overload, Cardiac Post-procedure , Starting Chantelle 09/10/19 at 1430, Until Chantelle 09/10/19 at 2050 PRN Medication Order 09/08/2019 09/09/2019 09/10/2019 0.9% sodium chloride BOLUS Intravenous, 300 mL, ONCE PRN, other, fo r symptomatic hypotension with femoral sheath removal, Starting Chantelle 09/10/19 at 1420, For 12 hours, 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 Maximum acetaminophen dose from all sources = 75 mg/kg/day not to exceed 4 grams/day., Cardiac Post-procedure atropine injection 0.5 mg 0.5 mg, Intravenous, EVERY 5 MIN PRN, ot her, symptomatic bradycardia associated with FEMORAL sheath pulls, Starting Chantelle 09/10/19 at 1420, For 12 hours, May repeat x1. Notify provider [Notify Intervention al Fellow/Slicer Machine Operator () or Cardiolog ist (/) if no improvement after second dose of atropine. 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 Post -procedurally for CAR cath la b procedure. For ordered IV doses 1-100 mcg give IV Push undiluted over a minimum of 3-5 minutes., Cardiac Post-procedure fentaNYL (PF) (SUBLIMAZE) injection (CANCELED) 1332 (Given - Provider: Justin Barbosa RN) ONCE PRN, Administer over 3-5 Minutes, S tarting Chantelle 09/10/19 at 1332, Cardiac Intra-procedure flumazenil (ROMAZICON) injection 0.2 mg 0.2 mg, Intravenous, EVERY 1 MIN PRN, be nzodiazepine reversal, Administer over 1 Minutes, Starting Chantelle 09/10/19 at 1420, For 12 hours, May repeat X3. Notify provider [Notify Interventional Fellow/Cardiol ogist ([facility]) or Slicer Machine Operator (/)]. P ost-procedurally for CAR slab depiler operator procedure. Irritant. For ordered IV doses 0.1-1 mg, give IV Push undiluted. Administer each 0.2mg over 15 seconds., Cardiac Post-procedure heparin (porcine) injection (CANCELED) 1333 (Given - Provider: Justin Barbosa RN) ONCE PRN, Starting Chantelle 09/10/19 at 1333, Cardiac Intra-procedure HOLD: Metformin and metformin containing medications if patient received IV contrast with acute kidney injury or severe chronic kidney disease (stage IV or stage V; i.e., eGFR less than 30) Medication(s) to hold: Hold metformin an d metformin containing medications: for patients with acute kidney injury or severe chronic kidney disease (stage IV or stage V; i.e., eGFR less than 30), Paramet er for hold (doses,days,conditions) : Ot her (see admin instructions), Hours or days to hold med before/after procedure/surgery: Day of the procedure and for 48 hours after IV contrast given, HOLD, Start ing Chantelle 09/10/19 at 1420, Until Chantelle at 0, Hold metformin (GLUCOPHAGE, GLUMETZA, FORTAMET, RIOMET) and metformin containing medications: alogliptin/metformin (KAZANO), glipizide/metformin (META GLIP), glyburide/metformin (GLUCOVANCE), rosiglitazone/metformin (AVANDAMET), dapagliflozin/metformin (XIGDUO XR), sitagliptin/metformin (JANUMET, JANUMET XR), linagliptin/metformin (JENTADUETO), repagl inide/metformin (PRANDIMET), saxagliptin /metformin (KOMBIGLYZE XR), canagliflozin/metformin (INVOKAMET), and pioglitazone/metformin (ACTOPLUS MET, ACTOPLUS MET XR) on day of the procedure and for 48 grace rs after IV contrast given. If patient w as on one of these medications pre- procedure, continue to HOLD for 48 hours post-procedure., Cardiac Post-procedure iopamidol (ISOVUE-370) solution (CANCELED) 1351 (Given - Provider: Saturnino Wakefield MD) ONCE PRN, Starting Chantelle 09/10/19 at 1351, Cardiac Intra-procedure lidocaine 1 % (CANCELED) 1331 (Bartolo Ellison Provider: Saturnino Wakefield MD) ONCE PRN, Starting Chantelle 09/10/19 at 1331, Cardiac Intra-procedure midazolam (VERSED) injection 1-2 mg 1-2 mg, Intravenous, Administer over 2 M inutes, EVERY 5 MIN PRN, other, anxiety associated with pulling the FEMORAL sheath out ONLY, Starting Chantelle 09/10/19 at 1420, For 12 hours, May repeat one time after 5 minutes, if needed. Post -procedurall y for CAR slab depiler operator procedure. This drug may cause significant respiratory depression. Monitor respiratory status and vital signs carefully for 1 hour after each dose., Cardiac Post-procedure midazolam (VERSED) injection (CANCELED) 1332 (Given - Provider: Justin Barbosa, RN)1334 (Given - Provider: Justin Barbosa, RN) Administer over 2 Minutes, ONCE PRN, Sta rting Chantelle 09/10/19 at 1332, Cardiac Intra-procedure naloxone (NARCAN) injection 0.1-0.4 mg 0.1-0.4 mg, Intravenous, EVERY 2 MIN PRN , opioid reversal, Starting Chantelle 09/10/19 at 0112, For respiratory rate LESS than or EQUAL to 8. Partial reversal dose: 0.1 mg titrated q 2 minutes for Analgesia Si de Effects Monitoring Sedation Level of 3 (frequently drowsy, arousable, drifts to sleep during conversation).Full reversal dose: 0.4 mg bolus for Analgesia Side Effects Monitoring Sedation Level of 4 ( somnolent, minimal or no response to sti mulation). For ordered IV doses 0.1-2mg give IVP. Give each 0.4mg over 15 seconds in emergency situations. For non- emergent situations further dilute in 9mL of NS to facilitate titration of response. naloxone (NARCAN) injection 0.1-0.4 mg 0.1-0.4 mg, Intravenous, EVERY 2 MIN PRN , opioid reversal, Starting Chantelle 09/10/19 at 1420, For respiratory rate LESS than or EQUAL to 8. Partial reversal dose: 0.1 mg titrated q 2 minutes for Analgesia Si de Effects Monitoring Sedation Level of 3 (frequently drowsy, arousable, drifts to sleep during conversation).Full reversal dose: 0.4 mg bolus for Analgesia Side Effects Monitoring Sedation Level of 4 ( somnolent, minimal or no response to sti mulation). For ordered IV doses 0.1-2mg give IVP. Give each 0.4mg over 15 seconds in emergency situations. For non- emergent situations further dilute in 9mL of NS to facilitate titration of response., Cardiac Post-procedure naloxone (NARCAN) injection 0.2-0.4 mg 0.2-0.4 mg, Intravenous, EVERY 2 MIN PRN , opioid reversal, other, respiratory depression, Starting Chantelle 09/10/19 at 1420, For 12 hours, Notify provider [Notify Interventional Fellow/Slicer Machine Operator ([facility]) or Slicer Machine Operator (,)]. For respiratory rate less than or equal to 8. Partial reversal dose: 0.2 mg titrated q 2 minutes for Sedation Level of 3 (frequently drowsy, arousable, drifts to sleep during con versation).Full reversal dose: 0.4 mg nusrat scarlet for Sedation Level of 4 (somnolent, minimal or no response to stimulation). 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 For ordered IV doses 0.1-2mg give IV P. Give each 0.4mg over 15 seconds in em ergency situations. For non-emergent situations further dilute in 9mL of NS to facilitate titration of response., Cardiac Post-procedure nitroGLYcerin (NITROSTAT) sublingual tablet 0.4 mg (CANCELED ) 2151 (Given - Provider: Maria L Aguilar RN) 0.4 mg, Sublingual, EVERY 5 MIN PRN, stephane st pain, Starting 09/09/19 at 2137, For 3 doses nitroGLYcerin (NITROSTAT) sublingual tablet 0.4 mg 0.4 mg, Sublingual, EVERY 5 MIN PRN, stephane st pain, Starting Chantelle 09/10/19 at 0112, Give one tablet SL every 5 minutes PRN for chest pain, up to a total of 3 tablets in 15 minutes for each episode of chest p ain. If no relief after third dose, cont act MD (inpatient) or 911 (outpatient). Do NOT give NTG IF patient has received sildenafil (VIAGRA/REVATIO) within the last 8 hours, avanafil (STENDRA) within the last 8 hours, vardenafil (LEVITRA/STAXY N) with the last 18 hours, or tadalafil (CIALIS/ADCIRCA) within the last 36 hours. Inform provider if patient has taken one of these medications. If patient is st ill having acute angina requiring treatm ent, an alternative treatment option may be used such as: IV beta-kp [2.5 mg - 5 mg metoprolol (LOPRESSOR)] if ordered by a provider. nitroGLYcerin injection (CANCELED) 1333 (Given - Provider: Saturnino Wakefield MD) ONCE PRN, Starting Chantelle 09/10/19 at 1333, Cardiac Intra-procedure Patient is already receiving anticoagula tion with heparin, enoxaparin (LOVENOX), warfarin (COUMADIN) or other anticoagulant medication CONTINUOUS PRN, Starting Chantelle 09/10/19 at 0112, Until Chantelle 09/10/19 at 2050 verapamil (ISOPTIN) injection (CANCELED) 1333 (Given - Provider: Saturnino Wakefield MD) ONCE PRN, Starting Chantelle 09/10/19 at 1333, Cardiac Intra-procedure documented in this encounter Care Teams Net Wpf Developer Relationship Specialty Start Date End Date No Ref-Primary, Physician PCP - General 09/05/19 11/06/20 documented as of this encounter
--- OUTSIDE RECORDS SUMMARY | 2022-04-05 08:20 | XMS_ITS | Encounter Summary ---
:1970 Author Organization [facility] Address [address] [place] [id number] Care Team Providers Name Role Phone No Ref-Primary, Physician Primary Care Provider Encounter Details Date Type Department Care Team Description 09/15/2019 Travel Social History Tobacco Use Types Packs/Day [...] been in contact with No / Unsure 09/15/2019 11:13 AM CDT someone who was confirmed or suspected to have Coronavirus / COVID-19? documented as of this encounter Plan of Treatment Not on filedocumented as of this encounter Visit Diagnoses Not on filedocumented in this encounter Care Teams Dj Instructor Relationship Specialty Start Date End Date No Ref-Primary, Physician PCP - General 09/05/19 11/06/20 documented as of this encounter
--- OUTSIDE RECORDS SUMMARY | 2022-04-05 08:20 | XMS_ITS | Encounter Summary ---
:1970 Author Organization [facility] Address [address] [place] [address] Care Team Providers Name Role Phone No Ref-Primary, Physician Primary Care Provider [phone] Reason for Visit Rehab Therapy Cardiac Therapy (Routine) - Closed Specialty Diagnoses / Procedures Referred By Contact Refer red To Contact CARDIAC REHAB Diagnoses NSTEMI (non-ST elevated myocardial infarction) (H) [facility] [address] [place] [address] Phone: Fax: Referral ID Status Reason Start Date Expiration Date Visits Requ ested Visits Authorized [id number] Closed 09/14/2019 04/28/2020 [id number] Encounter Details Date Type Department Care Team Description 09/18/2019 Hospital Encounter [facility] Cardiac Greg Galloway MD [address] [facility] [address] [place] [id number] and Pulmonary 1, Rh Cardiac Rehab Rehabilitation [facility] [address] [facility] [address] [place] [address] Social History Tobacco Use [...] on filedocumented in this encounter Care Teams Online Content Coordinator Relationship Specialty Start Date End Date No Ref-Primary, Physician PCP - General 09/05/19 11/06/20 documented as of this encounter
--- OUTSIDE RECORDS SUMMARY | 2022-04-05 08:20 | XMS_ITS | Encounter Summary ---
:1970 Author Organization [facility] Address [address] [place] [address] Care Team Providers Name Role Phone No Ref-Primary, Physician Primary Care Provider [phone] Reason for Referral Rehab Therapy Cardiac Therapy (Routine) - Closed Specialty Diagnoses / Procedures Referred By Contact Refer red To Contact CARDIAC REHAB Diagnoses NSTEMI (non-ST elevated myocardial infarction) (H) [facility] [address] [place] [address] Phone: Fax: Referral ID Status Reason Start Date Expiration Date Visits Requ ested Visits Authorized [id number] Closed 09/14/2019 04/28/[phone] Reason for Visit Rehab Therapy Cardiac Therapy (Routine) - Closed Specialty Diagnoses / Procedures Referred By Contact Refer red To Contact CARDIAC REHAB Diagnoses NSTEMI (non-ST elevated myocardial infarction) (H) [facility] [address] [place] [address] Phone: Fax: Referral ID Status Reason Start Date Expiration Date Visits Requ ested Visits Authorized [id number] Closed 09/14/2019 04/28/[phone] Encounter Details Date Type Department Care Team Description 09/15/2019 Hospital Encounter [facility] Hemant, Greg Duffy MD [address] [facility] [address] [address] [place] [address] NSTEMI (non-ST Cardiac and Pulmonary 2, Rh Cardiac Rehab elevated myocardial Rehabilitation infarction) ( H) [facility] [place] [id number] [place] [address] [address] [place] [id number] Social History Tobacco Use Types Packs/Day Years [...] as of this encounter Plan of Treatment Scheduled Referrals Name Type Priority Associated Diagnoses Order S chedule CARDIAC REHAB Referral Routine NSTEMI (non-ST elevated 1 O ccurrences starting REFERRAL myocardial infarction) 09/14 until (H) 09/15/2019 documented as of this encounter Visit Diagnoses Diagnosis NSTEMI (non-ST elevated myocardial infar ction) (H) Acute myocardial infarction, subendocard ial infarction, episode of care unspecified documented in this encounter Care Teams Engine Service Repairer Relationship Specialty Start Date End Date No Ref-Primary, Physician PCP - General 09/05/19 11/06/20 documented as of this encounter
--- OUTSIDE RECORDS SUMMARY | 2022-04-05 08:20 | XMS_ITS | Encounter Summary ---
:1970 Author Organization [facility] Address [address] [place] [id number] Care Team Providers Name Role Phone No Ref-Primary, Physician Primary Care Provider Reason for Visit Reason Comments acp Encounter Details Date Type Department Care Team Description 09/10/2019 Documentation Only [facility] Monica Hunter [facility] [address] [facility] [address] [place] [phone] Social History Tobacco Use Types Packs/Day Years [...] on filedocumented in this encounter Care Teams Software Developer Manager Relationship Specialty Start Date End Date No Ref-Primary, Physician PCP - General 09/05/19 11/06/20 documented as of this encounter
--- OUTSIDE RECORDS SUMMARY | 2022-04-05 08:20 | XMS_ITS | Encounter Summary ---
:1970 Author Organization [facility] Address [address] [place] [id number] Care Team Providers Name Role Phone No Ref-Primary, Physician Primary Care Provider Reason for Visit Reason Onset Date Comments Clinic Care Coordination - Post Hospital 09/11/2019 Post discharge phone call Encounter Details Date Type Department Care Team Description 09/11/2019 Telephone [facility] Buffy Giraldo C linic Care Coordination Clinic [facility] - Post [facility] (Post [address] [facility] discharge phone call) [facility] [address] [place] [phone] Social History Tobacco Use Types Packs/Day Years [...] this encounter Miscellaneous Notes Telephone Encounter - Buffy Giraldo, RN - 09/15/2019 2:43 PM CDT Recreation Instructor called pt and he denies any chest pain, SOB or lightheadedness. RRA access site is healing without signs of infection, swelling or bleeding. States tolerated cardiac rehab without difficulty. Reminded of video visit with CLARENCE Anaid Aj on 09/23/19 at 1310 and need to schedule for labs as ordered. Verbalized understanding without further questions. Dima Giraldo RN. Telephone Encounter - Buffy Giraldo, RN - 09/11/2019 12:21 PM CDT Patient was evaluated by cardiology while inpatient for acute onset of SOB and episode of chest paindifferent from recent NSTEMI, with continued troponin elevation. PMH of NSTEMI with MILES placed to mLAD on 09/07/19. 09/09/19: Coronary angiogram via RRA showed patent MILES without any changes from prior. Continued on CARDIOVASCULAR SONOGRAPHER medications, including Brilinta, with dosage change made in [place]. Recreation Instructor attempted to call patient to discuss any post hospital d/c questions he may have, review medication changes, and confirm f/u appts, but no answer. VM left to return my phone call. RN will remind patient that he still needs to schedule for labs and cardiology CLARENCE follow up visit as previously ordered. Cardiac rehab as previously scheduled. Dima Giraldo RN. documented in this encounter Plan of Treatment Not on filedocumented as of this encounter Visit Diagnoses Not on filedocumented in this encounter Care Teams Home Day Care Provider Relationship Specialty Start Date End Date No Ref-Primary, Physician PCP - General 09/05/19 11/06/20 documented as of this encounter
--- OUTSIDE RECORDS SUMMARY | 2022-04-05 08:21 | XMS_ITS | Encounter Summary ---
:1970 Author Organization [place] Address [address] [place] [address] Care Team Providers Name Role Phone No Ref-Primary, Physician Primary Care Provider [phone] Reason for Visit Reason Comments Shortness of Breath Auth/Cert Specialty Diagnoses / Procedures Referred By Contact Refer red To Contact Intensive Care Diagnoses Shortness of breath Elevated troponin ACS (acute coronary syndrome) (H) Icu [address] [place] [address] Phone: Fax: Referral ID Status Reason Start Date Expiration Date Visits Requ ested Visits Authorized [id number] 1 1 Encounter Details Date Type Department Care Team Description 09/09/2019 - [facility] Pa Daniel MD [facility] [address] [place], [place] [id number] ACS (acute coronary syndrome) (H) (Prima ry Dx); 09/10/2019 Encounter [facility] ICU Lang Fajardo MD [address] [place] [address] Shortness of breath; [address]; [place] [address] Social History Tobacco Use Types Packs/Day Years [...] Sign Reading Time Taken Comments Blood Pressure 142/88 09/10/2019 5:00 PM CDT Pulse 66 09/10/2019 5:00 PM CDT Temperature 36.4 ??C (97.5 ??F) 09/10/2019 2:15 PM CDT Respiratory Rate 18 09/10/2019 6:00 AM CDT Oxygen Saturation 100% 09/10/2019 5:00 PM CDT Inhaled Oxygen Concentration - - Weight 106.1 kg (234 lb) 09/10/2019 12:55 AM CDT Height 185.4 cm (6' 1) 09/10/2019 12:55 AM CDT Body Mass Index 30.87 09/10/2019 12:55 AM CDT documented in this encounter Discharge Summaries Bertram Carroll MD - 09/10/2019 3:43 PM CDT [facility] Discharge Summary Jatin Sidhu Age: [age] year [...] that brought him to attention for the ME last week. He had been discharged on [...] Care Everywhere. Cardiac Catheterization, Discharge Instructions for (Mauritanian)documented in this encounter Medications at Time of [...] All pt belongings sent withpt at discharge. DIOT Bertram Carroll MD - 09/10/2019 9:12 AM CDT [facility] Hospitalist Progress Note Bertram Carroll MD 09/10/2019 Reason for Stay (Diagnosis): Abrupt onset shortness of breath at rest after stent placement to LAD on 09/07/2019. Assessment and Plan: Summary of Stay: Jatin Sidhu is a 48 year old [...] that brought him to attention for the ME last week. He had been discharged on [...] Narrative EXAM: CHEST SINGLE VIEW PORTABLE LOCATION: [facility] DATE/TIME: 09/09/2019 11:02 PM INDICATION: Dyspnea. COMPARISON: [...] CDT Transfer from 3rd floor; admitted to [facility]; connected to monitor, denies CP or SOB; [...] above changes. Felix Joseph MD Cardiology - [facility] Heart Pager: [phone] Text Page September 10, 2019 documented in this encounter H&P Notes Lang Fajardo MD - 09/10/2019 12:37 AM CDT [facility] History and Physical Hospitalist Date of Admission: 09/09/2019 Date of Service (when I saw the patient): 09/10/19 Provider: Lang Fajardo MD Chief Complaint Shortness of breath History is obtained from the patient, EMR and emergency department physician. History of Present Illness Jatin Sidhu is a 48 year old male who has coronary artery disease, non-ST ME and stent placement to LAD on September [...] N/A 09/07/2019 Procedure: CV CORONARY ANGIOGRAM; Surgeon: rGeg Marcos MD; Location: HEART CARDIAC BUSINESS TECHNOLOGY ANALYST ??? CV LEFT HEART CATH N/A 09/07/2019 Procedure: Left Heart Cath; Surgeon: Greg Marcos MD; Location: HEART CARDIAC BUSINESS TECHNOLOGY ANALYST ??? CV PCI STENT DRUG ELUTING N/A 09/07/2019 Procedure: Percutaneous Coronary Intervention Stent Drug Eluting; Surgeon: Greg Marcos MD; Location: HEART CARDIAC BUSINESS TECHNOLOGY ANALYST Prior to Admission Medications Prior to Admission [...] Narrative EXAM: CHEST SINGLE VIEW PORTABLE LOCATION: [facility] DATE/TIME: 09/09/2019 11:02 PM INDICATION: Dyspnea. COMPARISON: [...] RN - 09/10/2019 3:02 PM CDTAssociated Order(s): CATALYTIC CASE OPERATOR IP CONSULT Care Transition Initial Assessment - [...] Patient prefers to schedule own appointment. Care Storage Consultant (CTS) will continue to follow as needed. Barbara Cole MA/die maker electronic Inpatient Care Coordination [facility] [phone] Ashley Watson MD - 09/10/2019 10:13 AM CDT Consult Date: 09/10/2019 CARDIOLOGY CONSULT NOTE CONSULT INDICATION: Dyspnea, elevated troponin, abnormal ECG HISTORY OF PRESENT ILLNESS: I had the opportunity to care for then patient, Jatin Sidhu, today in hospital for a Cardiology consultation. 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 Laboratory investigation was notable [...] any questions or concerns. 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 Ashley Watson MD, [facility] Cardiology Pager: [phone] Text Page September 10, 2019 Past Medical History: I have reviewed this patient's past medical history The ASCVD Risk score (Shaw DC Jr., et al., 2013) failed to calculate for the following reasons: The patient has a prior ME or stroke diagnosis Past Medical History: Diagnosis Date ??? Esophageal reflux Past Surgical History: I have reviewed this patient's past surgical history Past Surgical History: Procedure Laterality Date ??? C NONSPECIFIC PROCEDURE 2 y.o. hernia repair ??? CV CORONARY ANGIOGRAM N/A 09/07/2019 Procedure: CV CORONARY ANGIOGRAM; Surgeon: Greg Marcos MD; Location: HEART CARDIAC BUSINESS TECHNOLOGY ANALYST ??? CV LEFT HEART CATH N/A 09/07/2019 Procedure: Left Heart Cath; Surgeon: Greg Marcos MD; Location: HEART CARDIAC BUSINESS TECHNOLOGY ANALYST ??? CV PCI STENT DRUG ELUTING N/A 09/07/2019 Procedure: Percutaneous Coronary Intervention Stent Drug Eluting; Surgeon: Greg Marcos MD; Location: HEART CARDIAC BUSINESS TECHNOLOGY ANALYST Social History: I have reviewed this patient's [...] Current medications: Current Facility-Administered Medications Ordered in [facility] Medication Dose Route Frequency Last Rate Last Dose ??? aspirin EC tablet 81 mg 81 mg Oral Daily 81 mg at 09/10/19837 ??? carvedilol (COREG) tablet 12.5 mg 12.5 mg Oral BID 12.5 mg at 09/10/19837 ??? heparin 25,000 units in 0.45% NaCl 250 mL ANTICOAGULANT infusion 1,050 Units/hr Intravenous Continuous 10.5 mL/hr at 09/10/19 033 1,050 Units/hr at 09/10/19329 ??? multivitamin w/minerals [...] Q12H 90 mg at 09/10/19837 No current [facility]-ordered outpatient medications on file. Review of Systems: [...] the past 4320 hour(s)) Echocardiogram Complete Narrative [id number]^MARYSOL^SHELLIE^[facility] Echocardiography Laboratory [address] [place] [address] Name: JATIN SIDHU : 1970 Study Date: 09/05/2019 10:08 AM Age: 48 yrs Gender: Male Patient Location: [facility] Reason For Study: Abn EKG Ordering Physician: SHELLIE GREGG Performed By: Rosanna Hawkins BSA: 2.3 m2 Height: 73 in Weight: 243 lb HR: 72 BP: 129/82 mmHg __ Procedure Complete Portable Echo Adult. Nancy ([facility] #[id number]) given intravenously. __ Interpretation Summary The left [...] Oliva Pettit - 09/09/2019 10:47 PM CDT [facility] ED Nurse Handoff Report Jatin Sidhu is a 48 year old male ED Chief complaint: Shortness of Breath . ED Diagnosis: Final diagnoses: None Allergies: Allergies Allergen Reactions ??? No Known Drug Allergies Code Status: Full Code Activity level - Baseline/Home: Independent. Activity Level - Current: Stand by Assist. Lift room needed: No. Bariatric: No Terminal Computer Operator Needed: No Isolation: No. Infection: Not Applicable. [...] tablet 243 mg (243 mg Oral Given 09/09/192150) Drips infusing: No For the majority of [...] pain and noted to have non-ST elevation ME. Ultimately his troponin peaked at 6. He [...] -- -- 76 81 11 97 % 09/09/19 2230 130/71 -- -- 75 79 21 94 % 09/09/19 2215 132/77 -- -- 80 82 -- 96 % 09/09/19 2200 130/66 -- -- 85 84 -- 96 [...] consider lateral ischemia Vent. Rate 76 bpm. IA interval 172. QRS duration 100. QT/QTc 263/407. [...] of breath after recent non- ST elevation ME that resulted in drug-eluting stent to LAD. [...] sedation Pharmacy-Admission Medication History - Marie Clifton [facility] - 09/10/2019 8:06 AM CDT Admission medication history interview status for this patient is complete. See [facility] admission navigator for allergy information, prior to admission medications and immunization status. Medication history interview done via telephone during Covid-19 pandemic, indicate source(s): Patient Medication history resources (including written lists, pill bottles, clinic record):None Primary pharmacy: Changes made to IT ASSOCIATE medication list: Added: Deleted: Changed: Actions taken [...] - right radial access with a 6 Irish sl clifton glide sheath. Anticoagulation with heparin. -Selective left and right coronary angio graphy with 6F [place] . Catheters were advanced over guidewire into [...] athologist Signature Heparin 10A <0.10 IU/mL 09/10/2019 [facility] Level 1:08 PM CDT [facility] Comment: Therapeutic Range: UFH: 0.15-0.35 IU/mL for [...] LAB - BLOOD ORDERABLES Performing Organization Address [facility] Phon e Number M [place] [phone] [place] [id number] [facility] [phone] (ABNORMAL) Glucose by meter (09/10/2019 12:07 PM CDT) athologist Signature Glucose 107 (H) 70 - 99 09/10/2019 POINT OF CARE mg/dL 12:15 PM CDT TEST, GLUCOSE Specimen Anatomical Collection Method Collection Time Receive d Time (Source) Location / / Volume Laterality 09/10/2019 12:07 09/10/2019 PM CDT 12:15 PM CDT Lang Fajardo MD LAB - BEAKER POCT Performing Organization Address [facility] Phon e Number [facility] POINT OF CARE TEST, GLUCOSE POINT OF CARE TEST, GLUCOSE ECHO LIMITED WITH CONTRAST (09/10/2019 11:11 AM CDT) Anatomical Region Laterality Modality Echocardiography Specimen (Source) Anatomical Collection Method Collection Time Re ceived Time Location / / Volume Laterality 09/10/2019 11:02 AM CDT Narrative 09/10/2019 12:27 PM CDT [id number]^WALTER^ASHLEY^[place] [facility] Echocardiography Laboratory [address] [place] [address] Name: JATIN SIDHU : 1970 Study Date: 09/10/2019 11:02 AM Age: 48 yrs Gender: Male Patient Location: [facility] Reason For Study: Acute Myocardial Infar ction Ordering Physician: ASHLEY WATSON Performed By: Rosanna Hawkins BSA: 2.3 m2 Height: 73 in Weight: 234 lb HR: 62 BP: 134/73 mmHg __ Procedure Limited Portable Echo Adult. Optison ([facility] #[id number]) given intravenously. __ Interpretation Summary The left [...] 9.2 __ Report approved by: Raz Ha n 09/10/2019 12:27 PM Procedure Note Mykel Davis MD - 09/10/2019 [id number]^WALTER^ASHLEY^[place] [facility] Echocardiography Laboratory [address] [place] [address] Name: JATIN SIDHU : 1970 Study Date: 09/10/2019 11:02 AM Age: 48 yrs Gender: Male Patient Location: [facility] Reason For Study: Acute Myocardial Infar ction Ordering Physician: ASHLEY WATSON Performed By: Rosanna Hawkins BSA: 2.3 m2 Height: 73 in Weight: 234 lb HR: 62 BP: 134/73 mmHg __ Procedure Limited Portable Echo Adult. Optison ([facility] #[id number]) given intravenously. __ Interpretation Summary The left [...] ratio and/or other parameters) suggest left ventricular idniana ling pressures are indeterminate. No regional wall [...] 8:04 AM 0 8:10 CDT AM CDT Lnag Fajardo MD LAB - BEAKER POCT Performing Organization Address City/State/ZIP Code Phon e Number [facility] POINT OF CARE TEST, GLUCOSE POINT OF CARE TEST, GLUCOSE Heparin Xa (10a) Level (09/10/2019 5:26 AM CDT) athologist Signature Heparin 10A 0.16 IU/mL 09/10/2019 [facility] Level 5:57 AM [facility] Comment: Therapeutic Range: UFH: 0.15-0.35 IU/mL for [...] Address City/State/ZIP Code Phon e Number [place] [address] [address] [place] [address] [facility] [address] [phone] (ABNORMAL) Troponin I (09/10/2019 5:26 AM CDT) Analysis Performed At Patho logist Time Signature Troponin I ES 3.560 (HH) 0.000 - 09/10/2019 [facility] 0.045 ug/L 6:06 AM [facility] Comment: The 99th percentile for upper reference [...] LAB - BLOOD ORDERABLES Performing Organization Address City/[facility]/ZIP Code Phon e Number M [facility] [address] [place], [place] [address] [facility] [address] [place] [phone], [facility] [phone] Methicillin Resistant Staph Aureus PCR (09/10/2019 3:30 AM CDT) [facility] gist Method Time Signature Specimen Nares 09/10/2019 [facility] Description 3:42 AM CDT [facility] Methicillin Negative NEG^Negat 09/10/2019 [facility]/Sens S. bal 9:24 AM CDT [facility] aureus PCR [facility] Comment: MRSA Negative: SA Negative ??MRSA and St aphylococcus aureus target DNA not detected, presumed negative for MRSA and SA colonization or the number of bacteria present may be below the limit of detection for the assay. FDA approved assay performed using [employer] G eneXpert(R) real-time PCR. Specimen (Source) Anatomical Collection Method Collection Time Re ceived Time Location / / Volume Laterality Nasal structure 09/10/2019 3:30 0 4:00 (body structure) AM CDT AM CDT Lang Fajardo MD LAB - MICRO GENERAL ORDERABL ES Performing Organization Address City/[facility]/ZIP Code Phon e Number [address] [address] [facility] [address] [place] [phone], [facility] [phone] (ABNORMAL) Glucose by meter (09/10/2019 1:58 AM CDT) P athologist Signature Glucose 122 (H) 70 - 99 09/10/2019 POINT OF CARE mg/dL 2:04 AM CDT TEST, GLUCOSE Specimen Anatomical Collection Method Collection Time Receive d Time (Source) Location / / Volume Laterality 09/10/2019 1:58 AM 0 2:04 CDT AM CDT Lang Fajardo MD LAB - BEAKER POCT Performing Organization Address City/[facility]/ZIP Code Phon e Number [facility] POINT OF CARE TEST, GLUCOSE POINT OF CARE TEST, GLUCOSE (ABNORMAL) Basic metabolic panel (09/10/2019 1:40 AM CDT) athologist Signature Sodium 142 133 - 144 09/10/2019 [facility] mmol/L 1:59 AM [facility] Potassium 3.9 3.4 - 5.3 09/10/2019 [facility] mmol/L 1:59 AM [facility] Chloride 111 (H) 94 - 109 09/10/2019 [facility] mmol/L 1:59 AM [facility] Carbon Dioxide 26 20 - 32 09/10/2019 [facility] mmol/L 2:06 AM [facility] Anion Gap 5 3 - 14 09/10/2019 [facility] mmol/L 2:06 AM [facility] Glucose 131 (H) 70 - 99 09/10/2019 [facility] mg/dL 2:06 AM [facility] Urea Nitrogen 17 7 - 30 09/10/2019 [facility] mg/dL 2:06 AM [facility] Creatinine 0.77 0.66 - 09/10/2019 [facility] 1.25 mg/dL 2:06 AM [facility] GFR Estimate >90 >60 09/10/2019 [facility] mL/min/{1. 2:06 AM [facility] 73_m2} [facility] Comment: Non GFR Calc Starting 04/15/2018, serum creatinine ba sed estimated GFR (eGFR) will be calculated using the Chronic Kidney Dise [facility] Epidemiology Collaboration (CKD-EPI) equation. GFR Estimate If >90 >60 mL/min/{1.73_m2} 09/10/2019 2: 06 AM [facility] Comment: GFR Calc Starting 04/15/2018, serum creatinine ba sed estimated GFR (eGFR) will be calculated using the Chronic Kidney Dise [facility] Epidemiology Collaboration (CKD-EPI) equation. Calcium 8.7 8.5 - 10.1 mg/dL 09/10/2019 2:[address] [facility] Specimen Anatomical Collection Method Collection Time Receive d Time (Source) Location / / Volume Laterality Blood specimen 09/10/2019 1:40 AM 020 1:41 (specimen) CDT AM CDT Lang Fajardo MD LAB - BLOOD ORDERABLES Performing Organization Address City/State/ZIP Code Phon e Number M [facility] [address] [place] [address] [facility] [address] [place] [place], [place] [address], [facility] [phone] [facility] [address] [place] [address], [facility] XR Chest Port 1 View (09/09/2019 11:02 PM CDT) Anatomical Region Laterality Modality Chest Digital Radiography Specimen (Source) Anatomical Collection Method Collection Time Re ceived Time Location / / Volume Laterality 09/09/2019 11:02 PM CDT Impressions 09/09/2019 11:18 PM CDT IMPRESSION: No evidence of active cardio pulmonary disease. Narrative 09/09/2019 11:18 PM CDT EXAM: CHEST SINGLE VIEW PORTABLE LOCATION: [facility] DATE/TIME: 09/09/2019 11:02 PM INDICATION: Dyspnea. COMPARISON: 09/05/2019. FINDINGS: The lungs are clear. Normal si ze cardiac silhouette. Procedure Note Buck Valles MD - 09/09/2019Fo rmatting of this note might be different from the original. EXAM: CHEST SINGLE VIEW PORTABLE LOCATION: [facility] DATE/TIME: 09/09/2019 11:02 PM INDICATION: Dyspnea. COMPARISON: 09/05/2019. FINDINGS: The lungs are clear. Normal si ze cardiac silhouette. IMPRESSION: No evidence of active cardio pulmonary disease. Juan Daniel MD IMG DIAGNOSTIC IMAGING ORDER LUPILLO D dimer quantitative (09/09/2019 9:45 PM CDT) athologist Signature D Dimer 0.3 0.0 - 0.50 09/09/2019 [facility] ug/ml FEU 10:38 PM CDT HOSPITAL Comment: [...] LAB - BLOOD ORDERABLES Performing Organization Address City/[facility]/ZIP Page Hospital e Number [facility] [address], [place] [address] [facility] [address] [place], [place] [address], [facility] [phone] (ABNORMAL) Troponin I (09/09/2019 9:45 PM CDT) Analysis Performed At Patho logist Time Signature Troponin I ES 4.380 (HH) 0.000 - 09/09/2019 [facility] 0.045 ug/L 10:31 PM T [facility] Comment: The 99th percentile for upper [...] LAB - BLOOD ORDERABLES Performing Organization Address City/[facility] e Number [facility] [address], [place] [address] [facility] [address] [place], [place] [address], [facility] [phone] (ABNORMAL) Basic metabolic panel (BMP) (09/09/2019 9:45 PM CDT) P athologist Signature Sodium 139 133 - 144 09/09/2019 [facility] mmol/L 10:04 PM [facility] Potassium 3.6 3.4 - 5.3 09/09/2019 [facility] mmol/L 10:04 PM [facility] Chloride 108 94 - 109 09/09/2019 [facility] mmol/L 10:04 PM [facility] Carbon Dioxide 23 20 - 32 09/09/2019 [facility] mmol/L 10:09 PM [facility] Anion Gap 8 3 - 14 09/09/2019 [facility] mmol/L 10:09 PM [facility] Glucose 156 (H) 70 - 99 09/09/2019 [facility] mg/dL 10:09 PM [facility] Urea Nitrogen 13 7 - 30 09/09/2019 [facility] mg/dL 10:09 PM [facility] Creatinine 0.80 0.66 - 09/09/2019 [facility] 1.25 mg/dL 10:09 PM [facility] GFR Estimate >90 >60 09/09/2019 [facility] mL/min/{1. 10:09 PM [facility] 73_m2} HOSPITAL Comment: Non GFR Calc Starting 04/15/2018, serum creatinine ba sed estimated GFR (eGFR) will be calculated using the Chronic Kidney Dise [facility] Epidemiology Collaboration (CKD-EPI) equation. GFR Estimate If >90 >60 mL/min/{1.73_m2} 09/09/2019 10:09 PM [facility] Comment: GFR Calc Starting 04/15/2018, serum creatinine ba sed estimated GFR (eGFR) will be calculated using the Chronic Kidney Dise [facility] Epidemiology Collaboration (CKD-EPI) equation. Calcium 8.5 8.5 - 10.1 mg/dL 09/09/2019 10:[address] [facility] Specimen Anatomical Collection Method Collection Time Receive d Time (Source) Location / / Volume Laterality Blood specimen 09/09/2019 9:45 PM 020 9:51 (specimen) CDT PM CDT Juan Daniel MD LAB - BLOOD ORDERABLES Performing Organization Address City/State/ZIP Code Phon e Number [place] [address] [address] [place] [address] [facility] [address] [place] [address], [facility] [phone] [place] [address] [address] [place] [address], [facility] (ABNORMAL) CBC (platelets, no diff) (09/09/2019 9:45 PM CDT) Analysis Performed At Patho logist Time Signature WBC 12.0 (H) 4.0 - 11.0 09/09/2019 [facility] 10e9/L 9:55 PM [facility] RBC Count 4.60 4.4 - 5.9 09/09/2019 [facility] 10e12/L 9:55 PM [facility] Hemoglobin 14.8 13.3 - 09/09/2019 [facility] 17.7 g/dL 9:55 PM [facility] Hematocrit 43.8 40.0 - 09/09/2019 [facility] 53.0 % 9:55 PM [facility] MCV 95 78 - 100 09/09/2019 [facility] fl 9:55 PM [facility] MCH 32.2 26.5 - 09/09/2019 [facility] 33.0 pg 9:55 PM [facility] MCHC 33.8 31.5 - 09/09/2019 [facility] 36.5 g/dL 9:55 PM [facility] RDW 12.3 10.0 - 09/09/2019 [facility] 15.0 % 9:55 PM [facility] Platelet Count 205 150 - 450 09/09/2019 [facility] 10e9/L 9:55 PM [facility] Specimen Anatomical Collection Method Collection Time Receive d Time (Source) Location / / Volume Laterality Blood specimen 09/09/2019 9:45 PM 020 9:51 (specimen) CDT PM CDT Juan Daniel MD LAB - BLOOD ORDERABLES Performing Organization Address City/State/ZIP Code Phon e Number [facility] [address] [place] [address] [facility] [address] [place] [address] [facility] [phone] EKG 12 lead (09/09/2019 9:27 PM CDT) [facility] gist Method Time Signature Interpretation ECG Click View RADIOLOGY Image link RESULTS to view waveform and result Specimen (Source) Anatomical Collection Method Collection Time Re ceived Time Location / / Volume Laterality 09/09/2019 9:27 PM CDT Juan Daniel MD ECG ORDERABLES Performing Organization Address City/[facility]/ZIP [facility] Phon e Number RADIOLOGY RESULTS documented in this encounter Visit Diagnoses Diagnosis Acute respiratory distress - Primary Other pulmonary insufficiency, not elsew here classified Shortness of breath Elevated troponin Other abnormal blood chemistry ACS (acute coronary syndrome) (H) Intermediate coronary syndrome Essential hypertension Unspecified essential hypertension Elevated troponin Other abnormal blood chemistry ACS (acute coronary syndrome) (H) Intermediate coronary syndrome documented in this encounter Admitting Diagnoses Diagnosis Elevated troponin Other abnormal blood chemistry documented in this encounter Administered Medications Inactive Administered Medications - up to 3 most recent administrations Medication Order MAR Action Action Date Dose Rate Site aspirin (ASA) chewable tablet 243 Given 09/09/2019 9:51 PM CDT 2 43 mg mg 243 mg, Oral, ONCE, On Sat09/09/19 at 2138, For 1 dose aspirin EC tablet 81 mg Given 09/10/2019 8:38 AM CDT 81 mg 81 mg, Oral, DAILY, First dose on Sat09/10/19 at 0900, DO NOT CRUSH. carvedilol (COREG) tablet 12.5 mg Given 09/10/2019 8:38 AM CDT 12.5 mg 12.5 mg, Oral, 2 TIMES DAILY, First dose (after last modification) on Sat09/10/19 at 0800 heparin 25,000 units in Rate/Dose 09/10/2019 12:00 1,050 Units/hr 10 .5 mL/hr 0.45% NaCl 250 mL Verify PM CDT ANTICOAGULANT infusion Intravenous, at 10.5 mL/hr, CONTINUOUS, Starting on Sat09/09/19 at 2319, Per Pharmacy Heparin Dosing Service CV/Vascular Protocol. Goal range for Hep10a: 0.15 - 0.35. If platelet count falls below 50% of baseline, hold heparin and notify MD for further orders.?? Rate/Dose Verify 09/10/2019 11:00 AM CDT 1,050 Units/hr 10.5 mL/hr Rate/Dose Verify 09/10/2019 10:00 AM CDT 1,050 Units/hr 10.5 mL/hr heparin ANTICOAGULANT Loading Dose Given 09/09/2019 11:29 PM CDT 5,450 Units bolus dose from infusion pump 5,450 Units 5,450 Units, Intravenous, ONCE, On Sat09/09/19 at 2319, For 1 dose, Per Pharmacy Heparin Dosing Service CV/Vascular Protocol. Goal range for Hep10a: 0.15 - 0.35. If platelet count falls below 50% of baseline, hold heparin and notify MD for further orders.?? Nurse to administer dose from existing infusion. If no infusion bag or syringe for this order is available, contact pharmacist to re-enter medication order. multivitamin w/minerals (THERA-VIT-M) Given 09/10/2019 8:38 AM C DT 1 tablet tablet 1 tablet 1 tablet, Oral, DAILY, First dose on Chantelle 09/10/19 at 0900 nitroGLYcerin (NITROSTAT) sublingual tablet Given 09/09/2019 9:52 PM CDT 0.4 mg 0.4 mg 0.4 mg, Sublingual, EVERY 5 MIN PRN, chest pain, Starting on Sat09/09/19 at 2137, For 3 doses omeprazole (priLOSEC) CR capsule 20 mg Given 09/10/2019 8:38 AM CDT 20 mg 20 mg, Oral, DAILY, First dose on Chantelle 09/10/19 at 0900 perflutren diluted 1mL to 2mL with saline Given 09/10/2019 11:15 AM CDT 3 mLs (OPTISON) diluted injection 3 mL 3 mL, Intravenous, ONCE, On Chantelle 09/10/19 at 1115, For 1 dose, [facility] [id number] rosuvastatin (CRESTOR) tablet 40 mg Given 09/10/2019 1:37 AM CDT 40 mg 40 mg, Oral, AT BEDTIME, First dose on Chantelle 09/10/19 at 0115 sodium chloride (PF) 0.9% PF flush 10 mL Given 09/10/2019 11:15 AM CDT 10 mLs 10 mL, Intracatheter, ONCE, On Chantelle 09/10/19 at 1115, For 1 dose sodium chloride 0.9% infusion New Bag 09/10/2019 [...] on Chantelle 09/10/19 at 1430, Until Chantelle 5/14/20 at 2050 ticagrelor (BRILINTA) tablet 90 mg Given 09/10/2019 8:38 AM CDT 90 mg 90 mg, Oral, EVERY 12 HOURS, First dose (after last modification) on Sat09/10/19 at 0900 documented in this encounter Active and Recently Administered Medications Times are shown in CDT. Scheduled Medication Order 09/08/2019 09/09/2019 09/10/2019 aspirin (ASA) chewable tablet 243 mg (COMPLETED) 2150 (Given - Provider: Maria L Aguilar, RN) 243 mg, Oral, ONCE, Sat09/09/19 at 2138, For 1 dose aspirin EC tablet 81 mg 0838 (Gi ronni - Provider: Tiffany Woodson RN) 81 mg, Oral, DAILY, First dose on Sat09/10/19 at 0900, DO NOT CR [facility]. carvedilol (COREG) tablet 12.5 mg 0838 (Given - Provider: Tiffany Woodson RN) 12.5 mg, Oral, 2 TIMES DAILY, First dose (after last modification) on Sat09/10/19 at 0800 heparin ANTICOAGULANT Loading Dose bolus dose from infusion pump 5,450 Units (COMPLETED) 2328 (Given - Provider: Kiran burks RN) 5,450 Units, Intravenous, ONCE, 09/08 at 2319, For 1 dose, Per [...] order. multivitamin w/minerals (THERA-VIT-M) tablet 1 tablet 0838 (Given - Provider: Tiffany Woodson RN) 1 tablet, Oral, DAILY, First dose on Sat09/10/19 at 0900 omeprazole (priLOSEC) CR capsule 20 mg 0838 (Given - Provider: Tiffany Woodson RN) 20 mg, Oral, DAILY, First dose on Sat09/10/19 at 0900 perflutren diluted 1mL to 2mL with salin e (OPTISON) diluted injection 3 mL (COMPLETED) 1115 (Given - Provid er: Rosanna Hawkins) 3 mL, Intravenous, ONCE, Chantelle 09/10/19 at 1115, For 1 dose, [facility] [id number] rosuvastatin (CRESTOR) tablet 40 mg 0137 [...] (CANCELED) 2329 (New Bag - Provider: Kiran Neff, DEANNA) 0024 (ED Infusing on Admission/transfer - Provider: [...] Woodson RN)1200 (Rate/Dose Verify - Provider: Tiffany Woodson, DEANNA) et count falls below 50% of baseline, ho ld heparin and notify MD for further orders.??, Initial Set-up verified by: Silvino Whiting RN and Leslie Kim RN 1300 (Stopped - Provider: Justin Barbosa RN) sodium chloride 0.9% infusion 14 30 (New Bag - Provider: Tiffany Woodson, DEANNA)1730 (Stopped - Provider: Tiffany Woodson, DEANNA) at 75 mL/hr, Intravenous, CONTINUOUS, Ad supervisor fish processing over 4 Hours, or until patient is [...] 1420, For 12 hours, Post-procedurally for CAR clinical lab clerk procedure, Cardiac Post-procedure acetaminophen (TYLENOL) tablet 650 [...] repeat x1. Notify provider [Notify Intervention al Fellow/Machine Ii Coremaker (UU) or Cardiolog ist (SH/RH) if no improvement after second dose of atropine. Post-procedurally for CAR clinical lab clerk procedure., Cardiac Post-procedure fentaNYL (PF) (SUBLIMAZE) injection [...] (CANCELED) 1332 (Given - Provider: Justin Barbosa, RN) ONCE PRN, Administer over 3-5 Minutes, S tarting Chantelle 09/10/19 at 1332, Cardiac Intra-procedure flumazenil (ROMAZICON) injection 0.2 mg 0.2 mg, Intravenous, EVERY 1 MIN PRN, be nzodiazepine reversal, Administer over 1 Minutes, Starting Chantelle 09/10/19 at 1420, For 12 hours, May repeat X3. Notify provider [Notify Interventional Fellow/Cardiol ogist ([facility]) or Machine Ii Coremaker (/)]. P ost-procedurally for CAR clinical lab clerk procedure. Irritant. For ordered IV doses 0.1-1 [...] Chantelle 09/10/19 at 1420, Until Chantelle at 2050, Hold metformin (GLUCOPHAGE, GLUMETZA, FORTAMET, RIOMET) and [...] Cardiac Intra-procedure lidocaine 1 % (CANCELED) 1331 (G iven - Provider: Saturnino Wakefield MD) ONCE PRN, Starting Chantelle 09/10/19 at 1331, Cardiac Intra-procedure midazolam (VERSED) injection 1-2 mg 1-2 mg, Intravenous, Administer over 2 M inutes, EVERY 5 MIN PRN, other, anxiety associated with pulling the FEMORAL sheath out ONLY, Starting Chantelle 09/10/19 at 1420, For 12 hours, May repeat one time after 5 minutes, if needed. Post -procedurall y for CAR clinical lab clerk procedure. This drug may cause significant respiratory depression. Monitor respiratory status and vital signs carefully for 1 hour after each dose., Cardiac Post-procedure midazolam (VERSED) injection (CANCELED) 1332 (Given - Provider: Justin Barbosa, DEANNA)1334 (Given - Provider: Justin Barbosa, RN) Administer [...] For 12 hours, Notify provider [Notify Interventional Fellow/Machine Ii Coremaker ([facility]) or Machine Ii Coremaker (,)]. For respiratory rate less than or equal to 8. Partial reversal dose: 0.2 mg titrated q 2 minutes for Sedation Level of 3 (frequently drowsy, arousable, drifts to sleep during con versation).Full reversal dose: 0.4 mg nusrat scarlet for Sedation Level of 4 (somnolent, minimal or no response to stimulation). Post-procedurally for CAR clinical lab clerk procedure. For ordered IV doses 0.1-2mg give IV P. Give each 0.4mg over 15 seconds in em ergency situations. For non-emergent situations further dilute in 9mL of NS to facilitate titration of response., Cardiac Post-procedure nitroGLYcerin (NITROSTAT) sublingual tablet 0.4 mg (CANCELED ) 2151 (Given - Provider: Maria L Aguilar, RN) 0.4 mg, Sublingual, EVERY 5 MIN [...] Intra-procedure documented in this encounter Care Teams Steward/Stewardess Third Relationship Specialty Start Date End Date No Ref-Primary, Physician PCP - General 09/05/19 11/06/20 documented as of this encounter
--- OUTSIDE RECORDS SUMMARY | 2022-04-05 08:21 | XMS_ITS | Encounter Summary ---
:1970 Author Organization [facility] Address [address] [place] [id number] Care Team Providers Name Role Phone No Ref-Primary, Physician Primary Care Provider Reason for Visit Reason Onset Date Comments Clinic Care Coordination - Post Hospital 09/08/2019 Post discharge phone call Encounter Details Date Type Department Care Team Description 09/08/2019 [facility] Buffy Giraldo C linic Care Coordination Clinic [facility] - [facility] (Post [phone] [facility] discharge phone call) [facility] [address] [place] [address] Social History Tobacco Use Types Packs/Day Years Used Date Smoking Tobacco: Every Day Cigarettes 1.5 20 Smokeless Tobacco: Never Comments: four years ago Alcohol Use Standard Drinks/Week Comments Yes 0 (1 standard drink = 0.6 oz pure alcoho l) infrequent Sex Assigned at Date Recorded Not on file documented as of this encounter Miscellaneous Notes Telephone Encounter - Buffy Giraldo RN - 09/09/2019 3:00 PM CDT [employer] returned pt's phone message, and he denies any chest pain, SOB, fever or lightheadedness. Denies any medication questions and has an adequate supply of Brilinta. RRA access site is healing without signs of infection, swelling or drainage. Reviewed cardiac rehab appt and scheduling phone number provided so he can schedule cardiology labs and [facility] visit as ordered. Verbalized understanding of allinstructions without further questions. Dima Giraldo RN. Telephone Encounter - Buffy Giraldo RN - 09/08/2019 10:13 AM CDT Patient was evaluated by cardiology while inpatient for chest pressure relieved with NTG, elevated troponin, severe HTN-NSTEMI. 09/07/19: PCI via RRA with MILES to mLAD. ECHO: LVEF 55% w/ mid anteroseptal, apical RWMA. Pt started on ASA, NTG, Brilinta, Crestor, Coreg prior to discharge. [employer] attempted to call patient to discuss any post hospital d/c questions, review medication changes, and confirm f/u appts., but no answer. VM left to return my call. RN will confirm with patient that he was d/c withthe antiplatelet Brilinta. Pt has an Rx for PRN SL Nitroglycerin. RN will confirm with patient that he needs to schedule for f/u lab and cardiology [facility] visits as recommended and ordered. Cardiac rehab is scheduled on 09/15/19 at 1130. Dima Giraldo RN. documented in this encounter Plan of Treatment Not on filedocumented as of this encounter Visit Diagnoses Not on filedocumented in this encounter Care Teams Asbestos Shingle Inspector Relationship Specialty Start Date End Date No Ref-Primary, Physician PCP - General 09/05/19 11/06/20 documented as of this encounter
--- OUTSIDE RECORDS SUMMARY | 2022-04-05 08:21 | XMS_ITS | Encounter Summary ---
:1970 Author Organization [facility] Address [address] [place] [id number] Care Team Providers Name Role Phone No Ref-Primary, Physician Primary Care Provider [phone] Reason for Referral Rehab Therapy Cardiac Therapy (Routine) - Closed Specialty Diagnoses / Procedures Referred By Contact Refer red To Contact Diagnoses NSTEMI (non-ST elevated myocardial infarction) (H) Anaid Aj APRN [employer] [address] [place] [address] Referral ID Status Reason Start Date Expiration Date Visits Requ ested Visits Authorized [id number] Closed 09/07/2019 09/06/2020 1 1 (Routine) - Closed Specialty Diagnoses / Procedures Referred By Contact Refer red To Contact Diagnoses NSTEMI (non-ST elevated myocardial infarction) (H) Anaid Aj APRN [employer] [address] [place] [address] Referral ID Status Reason Start Date Expiration Date Visits Requ ested Visits Authorized [id number] Closed 09/07/2019 09/06/2020 1 1 (Routine) - Closed Specialty Diagnoses / Procedures Referred By Contact Refer red To Contact Diagnoses NSTEMI (non-ST elevated myocardial infarction) (H) Anaid Aj APRN CNP [address] [place] [address] Referral ID Status Reason Start Date Expiration Date Visits Requ ested Visits Authorized [id number] Closed 09/07/2019 09/06/2020 1 1 ehab Therapy Cardiac Therapy (Routine) - Closed Specialty Diagnoses / Procedures Referred By Contact Refer red To Contact CARDIAC REHAB Diagnoses NSTEMI (non-ST elevated myocardial infarction) (H) [facility] [address] [place] [address] Phone: Fax: Referral ID Status Reason Start Date Expiration Date Visits Requ ested Visits Authorized [id number] Closed 09/14/2019 04/28/2020 365 365 Reason for Visit Reason Comments Chest Pain Auth/Cert Specialty Diagnoses / Procedures Referred By Contact Refer red To Contact Diagnoses NSTEMI (non-ST elevated myocardial infarction) (H) Hypertensive urgency Chest discomfort [facility] [address] [place], [place] [address] Phone: Fax: Referral ID Status Reason Start Date Expiration Date Visits Requ ested Visits Authorized [id number] 1 1 Encounter Details Date Type Department Care Team Description 09/05/2019 - [facility] Bella Branch MD [facility] [address] [place], [place] [phone] Chest discomfort (Primary Dx); 09/07/2019 Encounter [facility] 3 Medical Fernando Mera MD [address] [place], [place] [id number] NSTEMI (non-ST elevated myocardial infar ction) (H); Surgical Hypertensive urgency [address] [place] [address] Social History Tobacco Use Types Packs/Day Years [...] Sign Reading Time Taken Comments Blood Pressure 122/63 09/07/2019 4:13 PM CDT Pulse 65 09/07/2019 1:44 PM CDT Temperature 35.9 ??C (96.6 ??F) 09/07/2019 4:13 PM CDT Respiratory Rate 18 09/07/2019 4:13 PM CDT Oxygen Saturation 98% 09/07/2019 4:13 PM CDT Inhaled Oxygen Concentration - - Weight 107.6 kg (237 lb 4.8 oz) 09/05/2019 9:55 AM CDT Height 185.4 cm (6' 1) 09/05/2019 9:55 AM CDT Body Mass Index 31.31 09/05/2019 9:55 AM CDT documented in this encounter Discharge Summaries Reinaldo Alcaraz MD - 09/07/2019 2:57 PM CDT [facility] Hospitalist Discharge Summary Date of Admission: 09/05/2019 Date of Discharge: 09/07/2019 Discharging Provider: Reinaldo Alcaraz MD Discharge Diagnoses NSTEMI s/p PCU to Hypertension Tobacco dependence Follow-ups Needed After Discharge Follow-up Appointments Follow-up and recommended labs and tests Follow up with cardiology as directed. We also recommend establishing care with a primary care physician. Discharge Disposition Discharged to home Condition at discharge: Stable History of Present Illness Per admission H&P: Jatin Sidhu is a 48 year old male with history of ongoing tobacco dependence who presents with acute onset centrally located chest discomfort. The patient states that around 6 AM this morning hewas letting his dogs out when he noticed chest discomfort described as pressure. This discomfort waslocated in the center of his chest. The chest discomfort did not radiate into his shoulder or jaw. He has no associated dyspnea. No episodes of chest discomfort like this before or noticed with exertion that he can recall. He was in his usual state of health yesterday. No chest wall trauma. No edema, orthopnea. ?? Patient presented afebrile, with a heart rate in the mid 70s, initially quite hypertensive with a blood pressure of 210/103, respiratory rate 16, oxygen saturation 97% on room air. Laboratory studies couple for initial troponin of 0.114, BMP within normal limits. Glucose 143. CBC within normal limits.Chest x- ray negative. EKG showed normal sinus rhythm with ventricular rate of 78 T wave abnormality in leads V2 through V4. Hospital Course Jatin Sidhu is a??48-year-old male who presented??on 09/05/2019??with concerning history of substernal chest pressure found to have elevated troponin of 0.114 and nonspecific EKG changes. Chest pain completely resolved in the ER with nitroglycerin x2 and aspirin. He was started on heparin in the ER with concern for non-ST elevation OH. He has remained chest pain free. ?? Following admission his troponin rodney to a peak of 6 and since trended down. ??Echocardiogram showedgrossly normal EF but with hypokinesis in likely LAD distribution. ??He remained on heparin drip. Heunderwent coronary angiography which showed 95% mid LAD lesion with placement of one MILES. Patient will be discharged on aspirin and Brilinta for 1 year, aspirin definitely thereafter. He wasstarted on rosuvastatin for hyperlipidemia. He was started on Coreg 6.25 mg twice daily for blood pressure. He will follow-up with cardiology. He plans to abstain from tobacco use on discharge. Consultations This Hospital Stay PHARMACY TO DOSE HEPARIN CARDIOLOGY IP CONSULT PHARMACY TO DOSE HEPARIN NUTRITION SERVICES ADULT IP CONSULT CARDIAC REHAB IP CONSULT PHARMACY IP CONSULT PHARMACY IP CONSULT SMOKING CESSATION PROGRAM IP CONSULT Code Status Full Code Time Spent on this Encounter I, Reinaldo Alcaraz MD, personally saw the patient today and spent less than or equal to 30 minutes discharging this patient. Reinaldo Alcaraz MD [facility] Primary Care Physician Physician No Ref-Primary Discharge Orders Basic metabolic panel Lipid Profile ALT Last Lab Result: No results found for: ALT CARDIAC REHAB REFERRAL Discharge Order: F/U with Cardiac [facility] Follow-Up with Owner Spa Director CARDIAC REHAB REFERRAL Reason for your hospital stay You were admitted for chest pain. We found that you had a blockage in one of the arteries that supplies the heart and we treated this with a stent. To help keep your heart healthy, it will be very important to continue to take the new medications we have prescribed, which will help with cholesterol, keep the stent open, and treat your blood pressure. Follow-up and recommended labs and tests Follow up with cardiology as directed. We also recommend establishing care with a primary care physician. Activity Your activity upon discharge: activity as tolerated Diet Follow this diet upon discharge: Regular Diet Adult Significant Results and Procedures Most Recent 3 CBC's: Recent Labs Lab Test 09/06/19 0603 09/05/19 1019 09/05/19 0728 WBC 8.1 14.7* 9.0 HGB 15.4 14.6 16.0 MCV 95 96 96 PLT 212 231 235 Most Recent 3 BMP's: Recent Labs Lab Test 09/06/19 0603 09/05/19 0728 NA 137 140 POTASSIUM 4.1 4.2 CHLORIDE 107 109 CO2 24 26 BUN 11 16 CR 0.68 0.68 ANIONGAP 6 5 CHUN 8.8 9.2 GLC 116* 143* Most Recent 2 LFT's:No lab results found. Most Recent 3 Troponin's: Recent Labs Lab Test 09/06/19 0603 09/06/19 0001 09/05/19 1947 TROPI 4.999* 5.840* 6.002* , Results for orders placed or performed during the hospital encounter of 09/05/19 XR Chest 2 Views Narrative CHEST TWO VIEWS 09/05/2019 7:46 AM HISTORY: chest pressure, severe htn COMPARISON: None. Impression IMPRESSION: The cardiac silhouette and pulmonary vasculature are within normal limits. No focal pulmonary consolidations. No pleural effusion or pneumothorax. RENE LI MD Echocardiogram Complete Narrative [id number]^MARYSOL^SHELLIE^[facility] Echocardiography Laboratory [address] [place] [address] Name: JATIN SIDHU : 1970 Study Date: 09/05/2019 10:08 AM Age: 48 yrs Gender: Male Patient Location: [facility] Reason For Study: Abn EKG Ordering Physician: SHELLIE ANDUJAR Performed By: Rosanna Hawkins BSA: 2.3 m2 Height: 73 in Weight: 243 lb HR: 72 BP: 129/82 mmHg __ Procedure Complete Portable Echo Adult. [employer] ([facility] #[id number]) given intravenously. __ Interpretation Summary The left [...] approved by: Ed Lizama 09/05/2019 11:55 AM Cardiac Catheterization Narrative 1. NSTEMI 2. Successful PCI with MILES placement in the mid LAD Discharge Medications Current Discharge Medication List START taking these medications Details aspirin (ASA) 81 MG EC tablet Take 1 tablet (81 mg) by mouth daily Qty: 30 tablet, Refills: 0 Associated Diagnoses: NSTEMI (non-ST elevated myocardial infarction) (H) carvedilol (COREG) 6.25 MG tablet Take 1 tablet (6.25 mg) by mouth 2 times daily Qty: 60 tablet, Refills: 0 Associated Diagnoses: NSTEMI (non-ST elevated myocardial infarction) (H) nitroGLYcerin (NITROSTAT) 0.4 MG sublingual tablet For chest pain place 1 tablet under the tongue every 5 minutes for 3 doses. If symptoms persist 5 minutes after 1st dose call 911. Qty: 30 tablet, Refills: 0 Associated Diagnoses: NSTEMI (non-ST elevated myocardial infarction) (H) rosuvastatin (CRESTOR) 40 MG tablet Take 1 tablet (40 mg) by mouth At Bedtime Qty: 30 tablet, Refills: 0 Associated Diagnoses: NSTEMI (non-ST elevated myocardial infarction) (H) ticagrelor (BRILINTA) 90 MG tablet Take 1 tablet (90 mg) by mouth every 12 hours Qty: 60 tablet, Refills: 0 Associated Diagnoses: NSTEMI (non-ST elevated myocardial infarction) (H) CONTINUE these medications which have NOT CHANGED Details multivitamin w/minerals (THERA-VIT-M) tablet Take 1 tablet by mouth daily omeprazole (PRILOSEC) [address] capsule Take 20 mg by mouth daily Allergies Allergies Allergen Reactions ??? No Known Drug Allergies documented in this encounter Medications at Time of [...] [address] capsule daily carvedilol (COREG) 6.25 Take 1 tablet (6.25 60 tablet 0 02/202009/10/2019 MG tabletIndications: mg) by mouth 2 times NSTEMI (non-ST elevated daily myocardial infarction) (H) rosuvastatin (CRESTOR) 40 Take 1 tablet (40 30 tablet 0 02/202009/23/2019 MG tabletIndications: mg) by mouth At NSTEMI (non-ST elevated Bedtime myocardial infarction) (H) ticagrelor (BRILINTA) 90 Take 1 tablet (90 60 tablet 0 08/2709/23/2019 MG tabletIndications: mg) by mouth every NSTEMI (non-ST elevated 12 hours myocardial infarction) (H) documented as of this encounter Progress Notes Reinaldo Alcaraz MD - 09/07/2019 1:37 PM CDT [facility] Medicine Progress Note - Hospitalist Service Date of Admission: 09/05/2019 Length of stay: 2 days Assessment & Plan Jatin Sidhu is a 48-year-old male who presented on 09/05/2019 with concerning history of substernal chest pressure found to have elevated troponin of 0.114 and nonspecific EKG changes. Chest pain completely resolved in the ER with nitroglycerin x2 and aspirin. He was started on heparin in the ER with concern for non-ST elevation OH. He has remained chest pain free. ?? Following admission his troponin rodney to a peak of 6 and has since trended down. Echocardiogram showed grossly normal EF but with hypokinesis in likely LAD distribution. He remained on heparin drip. Heunderwent coronary angiography which showed 95% mid LAD lesion with placement of one MILES. Non-ST elevation OH: - Continue aspirin 325 mg daily, Coreg 6.25 mg twice daily, Rosuvastatin - Smoking cessation. Counseled regarding this - Remains pain-free since admission. - Coronary angiography with 95% mid LAD stenosis. MILES placed. Will be on DAPT with aspirin and brilinta. ?? Hypertensive urgency: Systolic blood pressure in the 200 range upon presentation. Likely chronically hypertensive but alsowith acute portion related to stress/pain. Reasonably well controlled with Coreg 6.25 mg twice daily, titrate as needed. ?? Tobacco dependence: 1 to 1.5 pack/day smoker for close to 30 years, has quit at least once before. Offered a patch but he declined. Plans to quit. Dyslipidemia: Starting rosuvastatin here. Diet: Regular DVT Prophylaxis: Low Risk/Ambulatory with no VTE prophylaxis indicated Malnutrition: No Zuniga Catheter: No Code Status: Full Code Disposition Plan Expected discharge: Tomorrow, anticipated to home. Reinaldo Alcaraz MD Hospitalist Service [facility] Interval History No overnight issues. Patient is doing well. He has not had any chest pain or shortness of breath. No other issues. Data reviewed today: I reviewed all medications, new labs and imaging results over the last 24 hours. Physical Exam BP 112/66 (BP Location: Left arm) Pulse 63 Temp 97.7 ??F (36.5 ??C) (Oral) Resp 18 Ht 1.854 m (6' 1) Wt 107.6 kg (237 lb 4.8 oz) SpO2 90% BMI 31.31 kg/m?? 237 lbs 4.8 oz ??? General: Sitting up in the chair, no distress. ??? HEENT: No scleral icterus. Oropharynx moist. ??? Neck: Supple. Normal range of motion. ??? Pulmonary: Normal work of breathing. Clear to auscultation bilaterally. ??? Cardiovascular: Regular rate and rhythm without murmur or extra heart sounds. ??? Abdomen: Soft and non-tender. ??? Extremities: No peripheral edema. No clubbing or cyanosis. ??? Neurologic: Awake, alert, appropriate. ??? Skin: Warm and dry. ??? Psychiatric: Normal affect and mood. Data Recent Labs Lab 09/06/19 0603 09/06/19 0001 09/05/19 1947 09/05/19 1019 09/05/19 0728 WBC 8.1 -- -- -- 14.7* 9.0 HGB 15.4 -- -- -- 14.6 16.0 MCV 95 -- -- -- 96 96 PLT 212 -- -- -- 231 235 NA 137 -- -- -- -- 140 POTASSIUM 4.1 -- -- -- -- 4.2 CHLORIDE 107 -- -- -- -- 109 CO2 24 -- -- -- -- 26 BUN 11 -- -- -- -- 16 CR 0.68 -- -- -- -- 0.68 ANIONGAP 6 -- -- -- -- 5 CHUN 8.8 -- -- -- -- 9.2 GLC 116* -- -- -- -- 143* TROPI 4.999* 5.840* 6.002* < > 1.952* 0.114* < > = values in this interval not displayed. Recent Results (from the past 24 hour(s)) Cardiac Catheterization Narrative 1. NSTEMI 2. Successful PCI with MILES placement in the mid LAD Medications Current Facility-Administered Medications Medication Dose Route Frequency ??? [START ON 09/08/2019] aspirin 81 mg Oral Daily ??? carvedilol 6.25 mg Oral BID ??? rosuvastatin 40 mg Oral At Bedtime ??? sodium chloride (PF) 3 mL Intracatheter Q8H ??? ticagrelor 90 mg Oral Q12H Anaid Aj APRN CNP - 09/07/2019 10:00 AM CDT Cardiology Progress Note Anaid Aj APRN, [place] Assessment and Plan: Admit (09/04) with SSCP relieved with NTG Evidence of NSTEMI and severe HTN in ED PMH: GERD, tobacco dependence, untreated HTN NSTEMI: -troponin peak 6.0 / nonspecific ST abnormalities -ECHO: LVEF 55% w/ mid anteroseptal, apical RWMA -no further CP -Plan for coronary angiography today -asa / heparin/statin/coreg started HTN: -SBP 210 mmHg initially -BP now well controlled on Coreg Mixed Hyperlipidemia: -LDL 155 / Triglycerides 216 -Crestor 40 mg started -will need f/u lipid panel in 2 months Tobacco Dependence -smokes 1 / ppd -encouraged complete cessation -pt is motivated to quit Interval History: Denies CP, SOB, palpitations or orthopnea Medications: ??? aspirin 325 mg Oral Daily ??? carvedilol 6.25 mg Oral BID ??? rosuvastatin 40 mg Oral At Bedtime ??? sodium chloride (PF) 3 mL Intracatheter Q8H Physical Exam: Blood pressure 132/71, pulse 74, temperature 97.7 ??F (36.5 ??C), temperature source Oral, resp. rate 18, height 1.854 m (6' 1), weight 107.6 kg (237 lb 4.8 oz), SpO2 97 %. Wt Readings from Last 3 Encounters: 09/05/19 107.6 kg (237 lb 4.8 oz) 04/03/07 111.1 kg (245 lb) 02/19/06 111.6 kg (246 lb) I/O last 3 completed shifts: In: 240 [P.O.:240] Out: - CONST: Alert and oriented NAD LUNGS: CTA bilat CARDIO: RRR, S1, S2 No murmurs ABD: Soft +BS EXT: No edema 1+DP bilaterally Data: TELE: SR HRs 50-90 bpm CBC Recent Labs Lab 09/06/19 0603 09/05/19 1019 WBC 8.1 14.7* HGB 15.4 14.6 PLT 212 231 BMP Recent Labs Lab 09/06/19 0603 09/05/19 0728 NA 137 140 POTASSIUM 4.1 4.2 CHLORIDE 107 109 CHUN 8.8 9.2 CO2 24 26 BUN 11 16 CR 0.68 0.68 GLC 116* 143* Recent Labs Lab Test 09/06/19 0603 CHOL 234* HDL 36* LDL 155* TRIG 216* TROP Lab Results Component Value Date TROPI 4.999 () 09/06/2019 TROPI 5.840 () 09/06/2019 TROPI 6.002 () 09/05/2019 TROPI 5.477 () 09/05/2019 TROPI 5.089 () 09/05/2019 BNP No results for input(s): NTBNPI, NTBNP in the last 168 hours. Associated attestation - Nehemiah Hope MD - 09/07/2019 2:47 PM CDT Physician Attestation I, Nehemiah Hope, saw and evaluated Jatin Sidhu as part of a shared visit. I have reviewed and discussed with the advanced practice provider their history, physical and plan. Consult indication: atrial fibrillation I personally reviewed the vital signs, medications, labs, and imaging. 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 - continue aspirin 81 mg daily lifelong - continue carvedilol 6.25 mg BID - continue rosuvastatin 40 mg daily - continue ticagrelor 90 mg BID for 1 year - smoking cessation counseled - cardiac rehab - SL nitroglycerin - cardiology follow up ordered Thank you for allowing our team to participate in the care of this patient. Please do not hesitate to page or call me with any questions or concerns. Nehemiah Hope MD, [facility] Cardiology Pager: [phone] Text Page September 07, 2019 Fernando Mera MD - 09/06/2019 12:07 PM CDT [facility] Hospitalist Progress Note Fernando Mera MD 09/06/19 Reason for Stay (Diagnosis): Non-ST elevation OH Assessment and Plan: Summary of Stay: Jatin Sidhu is a 48-year-old male who generally does not receive medical carepresented 09/05/2019 with concerning history of substernal chest pressure found to have elevated troponin of 0.114 and nonspecific EKG changes. Chest pain completely resolved in the ER with nitroglycerinx2 and aspirin. Remains chest pain-free. He was started on heparin in the ER with concern for non-STelevation OH. Following admission his troponin rodney dramatically to a peak of 6 and has since trended down. Echocardiogram shows grossly normal EF but with hypokinesis in likely LAD distribution. He remains on heparin drip with plan for coronary angiogram Saturday. Will be n.p.o. at midnight. Doing well with atorvastatin, Coreg, aspirin and heparin. ?? Problem List/Assessment and Plan: 1. Non-ST elevation OH: As above. --Continue aspirin 325 mg daily, Coreg 6.25 mg twice daily, atorvastatin 40 mg and heparin drip --Smoking cessation. Counseled regarding this --N.p.o. at midnight for likely coronary angiogram 09/06 --Remains pain-free since admission. 2. Hypertensive urgency: Systolic blood pressure in the 200 range upon presentation. Likely chronically hypertensive but also with acute portion related to stress/pain. Reasonably well controlled with Coreg 6.25 mg twice daily, titrate as needed. 3. Tobacco dependence: 1 to 1.5 pack/day smoker for close to 30 years, has quit at least once before. I offered a patch but he declined. Plans to quit. 4. Dyslipidemia: Starting atorvastatin here. Will need to follow-up. DVT Prophylaxis: Heparin drip Code Status: Full Code Discharge Dispo/Date: Pending coronary angiogram findings Interval History (Subjective): Remains pain-free Troponins peaked at 6, trended down Blood pressure well controlled today Planning on angiogram tomorrow, n.p.o. at midnight Continue on heparin drip today Physical Exam: Last Vital Signs: BP 123/71 Pulse 89 Temp 98 ??F (36.7 ??C) (Oral) Resp 18 Ht 1.854 m (6' 1) Wt 107.6 kg (237 lb 4.8 oz) SpO2 97% BMI 31.31 kg/m?? Intake/Output Summary (Last 24 hours) at 09/06/2019 1211 Last data filed at 09/05/2019 1446 Gross per 24 hour Intake 103 ml Output -- Net 103 ml General: Alert, awake, no acute distress. HEENT: NC/AT, eyes anicteric, external occular movements intact, face symmetric. Dentition WNL, MM moist. Cardiac: RRR, S1, S2. No murmurs appreciated. Pulmonary: Normal chest rise, normal work of breathing. Lungs CTA BL Abdomen: soft, non-tender, non-distended. Bowel Sounds Present. No guarding. Extremities: no deformities. Warm, well perfused. Skin: no rashes or lesions noted. Warm and Dry. Neuro: No focal deficits noted. Speech clear. Coordination and strength grossly normal. Psych: Appropriate affect. Medications: All current medications were reviewed with changes reflected in problem list. Data: All new lab and imaging data was reviewed. Labs: Recent Labs Lab 09/06/19 06 NA 137 POTASSIUM 4.1 CHLORIDE 107 CO2 24 ANIONGAP 6 GLC 116* BUN 11 CR 0.68 GFRESTIMATED >90 GFRESTBLACK >90 CHUN 8.8 Recent Labs Lab 09/06/19 06 WBC 8.1 HGB 15.4 HCT 46.5 MCV 95 PLT 212 Recent Labs Lab 09/06/19 0603 09/06/19 0001 09/05/19 1947 TROPI 4.999* 5.840* 6.002* Imaging: Results for orders placed or performed during the hospital encounter of 09/05/19 XR Chest 2 Views Narrative CHEST TWO VIEWS 09/05/2019 7:46 AM HISTORY: chest pressure, severe htn COMPARISON: None. Impression IMPRESSION: The cardiac silhouette and pulmonary vasculature are within normal limits. No focal pulmonary consolidations. No pleural effusion or pneumothorax. RENE LI MD Echocardiogram Complete Narrative [id number]^MARYSOL^SHELLIE^[facility] Echocardiography Laboratory [address] [place] [address] Name: JATIN SIDHU : 1970 Study Date: 09/05/2019 10:08 AM Age: 48 yrs Gender: Male Patient Location: [facility] Reason For Study: Abn EKG Ordering Physician: SHELLIE ANDUJAR Performed By: Rosanna Hawkins BSA: 2.3 m2 Height: 73 in Weight: 243 lb HR: 72 BP: 129/82 mmHg __ Procedure Complete Portable Echo Adult. Nancy ([facility] #[id number]) given intravenously. __ Interpretation Summary The left [...] approved by: Ed Lizama 09/05/2019 11:55 AM Fernando Mera MD , MD. William South MD - 09/06/2019 11:04 AM CDT Cardiology Progress Note Assessment and Plan: 48-year-old gentleman with hypertension and tobacco abuse admitted with chest discomfort this morning. Symptoms are relieved with sublingual nitroglycerin. Cardiac troponins are elevated consistent with a non-ST elevation myocardial infarction. ? 1. Non-ST elevation myocardial infarction 2. Hypertension, previously untreated 3. Dyslipidemia 4. Tobacco abuse ?? PLAN -Agree with current aspirin/heparin/beta-kp/statin therapy -Echocardiogram demonstrates normal left ventricular systolic function with LAD distribution wall motion abnormalities -Coronary angiography Saturday. I have explained the indications, risks and benefits of coronary angiography to the patient in detail who is agreeable to proceeding. -Tobacco cessation strongly advised. Interval History: No further CP this AM. Review of Systems: As per subjective, otherwise 5 systems reviewed and negative. Physical Exam: Blood pressure 123/71, pulse 89, temperature 98 ??F (36.7 ??C), temperature source Oral, resp. rate 18, height 1.854 m (6' 1), weight 107.6 kg (237 lb 4.8 oz), SpO2 97 %. Vital Sign Ranges Temperature Temp Av.9 ??F (36.6 ??C) Min: 97.5 ??F (36.4 ??C) Max: 98.2 ??F (36.8 ??C) Blood pressure Systolic (24hrs), Av , Min:123 , Max:141 Diastolic (24hrs), Av, Min:71, Max:94 Pulse Pulse Av Min: 89 Max: 89 Respirations Resp Av Min: 18 Max: 18 Pulse oximetry SpO2 Av.6 % Min: 93 % Max: 97 % Intake/Output Summary (Last 24 hours) at 09/06/2019 1104 Last data filed at 09/05/2019 1446 Gross per 24 hour Intake 103 ml Output -- Net 103 ml Constitutional: NAD Skin: Warm and dry Neck: No JVD Lungs: CTA Cardiovascular: RRR, no m/r/g Abdomen: Soft, non tender. Extremities and Back: No LE edema Neurological: Nonfocal Medications: I have reviewed this patient's current medications. Data: Labs reviewed. Tele: NSR William South MD, MRock. Cecilia Diaz RN - 09/06/2019 7:46 AM CDT Patient alert and oriented. Up independently. Denies chest pain. PRN tylenol this am for headache with relief of symptoms. Heparin infusing. Lung sounds clear. Bowel sounds active and audible. Tele: SRHR 65. BP 133/78 (BP Location: Left arm) Pulse 71 Temp 97.5 ??F (36.4 ??C) (Oral) Resp 18 Ht1.854 m (6' 1) Wt 107.6 kg (237 lb 4.8 oz) SpO2 93% BMI 31.31 kg/m?? Will continue to monitor. Cecilia Abraham RN - 09/06/2019 5:51 AM CDT Provider paged: Patient reporting headache, no prn Tylenol available, please address. Thanks Clari Ramos RN - 09/05/2019 6:50 PM CDT Assumed care of patient at 1500. Pt came in today for CP and chest pressure. Trop is 5.477, and cardiology notified. Pt is on hep drip at 12. K 4.2. pt is on statins, echo was done today and plan isto have angio on Saturday. Cardiology is following. On a cardiac diet. Up IND in the room. No complaints of pain this shift. Will cont with POC> documented in this encounter H&P Notes Shellie Andujar PA-C - 09/05/2019 8:21 AM CDT [facility] Name[facility] Jatin Sid[facility] Date of : 1970 Age: [age] year old Date of admission: 09/05/2019 Primary care provider: Mohamud Lafleur Date of Admission: 09/05/2019 Assessment & Plan Jatin Sidhu is a 48 year old male with history of ongoing tobacco dependence, who presented with acute onset centrally located chest discomfort concerning for cardiac etiology. The patient was admitted to inpatient status for further work-up and monitoring. #Chest Discomfort #NSTEMI Developed acute onset central chest pressure, around 0600 after letting his dogs out. Angina free after 2 doses of nitroglycerin in the ED. Troponin 0.114 on admission, EKG with T wave abnormality in leads V2 - V4. Presentation concerning for Type II or demand ischemia with hypertensive urgency, however cardiac ischemic etiology remains in differential. No prior EKG on file for comparison. Patient has no known cardiac disease history. Doubt PE without risk factors, no dyspnea or tachycardia. - Cardiac telemetry - Trend Tn I - add on lipid panel, A1C to am labs - add atorvastatin, daily ASA - stat echocardiogram to evaluate for wall motion, structural abnormalities - Appreciate Cardiology consultation - notify provider for development of chest discomfort - Continue heparin GTT as initiated in the emergency department, pharmacy consultation to assist with this #Hypertensive Urgency Significantly hypertensive on arrival to ED with a blood pressure of 210/103, improved down to 126/70 after 2 doses of nitroglycerin for chest discomfort. Kidney function within normal limits. Blood pressure should be lowered over the next 24 to 48 hours ideally with oral medications. - start Coreg 12.5 mg #Tobacco Dependence Patient smokes 1-1.5 PPD cigarettes, for at least the past 30 years. - encouraged cessation - nicotine replacement prn DVT Prophylaxis: Patient on heparin GTT Code Status: Full Code Expected discharge: 24-48 hours, recommended to prior living arrangement once work up, consults, completed. . Shellie Andujar PA-C Primary Care Physician *Mohamud Lafleur Chief Complaint Chest discomfort History is obtained from the patient Discussed with Dr. Branch in the ED, full chart review including lab work, imaging, and vital signs were reviewed. Patient received 2 doses of sublingual nitroglycerin, IV heparin in the ED. History of Present Illness Jatin Sidhu is a 48 year old male with history of ongoing tobacco dependence who presents withacute onset centrally located chest discomfort. The patient states that around 6 AM this morning he was letting his dogs out when he noticed chest discomfort described as pressure. This discomfort was located in the center of his chest. The chest discomfort did not radiate into his shoulder or jaw. Hehas no associated dyspnea. No episodes of chest discomfort like this before or noticed with exertionthat he can recall. He was in his usual state of health yesterday. No chest wall trauma. No edema, orthopnea. Patient presented afebrile, with a heart rate in the mid 70s, initially quite hypertensive with a blood pressure of 210/103, respiratory rate 16, oxygen saturation 97% on room air. Laboratory studies couple for initial troponin of 0.114, BMP within normal limits. Glucose 143. CBC within normal limits.Chest x- ray negative. EKG showed normal sinus rhythm with ventricular rate of 78 T wave abnormality in leads V2 through V4. Past Medical History Esophageal reflux Past Surgical History Hernia repair at 2 years old Right ankle fracture repair, 2004 Prior to Admission Medications Prior to Admission Medications Prescriptions Last Dose Informant Patient Reported? Taking? NO ACTIVE MEDICATIONS Yes No Sig: . PRILOSEC OTC 20 MG OR TBEC Yes Yes Si TABLET DAILY Facility-Administered Medications: None Allergies Allergies Allergen Reactions ??? No Known Drug Allergies Social History I have reviewed this patient's social history and updated it with pertinent information if needed. 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 reports that he has been smoking. He has a 30.00 pack-year smoking history. He has never used smokeless tobacco. He reports current alcohol use. He reports that he does not use drugs. Family History I have reviewed this patient's family history and updated it with pertinent information if needed. Family History Problem Relation Age of Onset ??? No Known Problems Mother ??? No Known Problems Father ??? Diabetes Sister Review of Systems The 10 point Review of Systems is negative other than noted in the HPI or here. Physical Exam Temp: 98.3 ??F (36.8 ??C) Temp src: Oral BP: (!) 142/90 Pulse: 80 Heart Rate: 110 Resp: 17 SpO2: 97 % O2 Device: None (Room air) Vital Signs with Ranges Temp: [98.3 ??F (36.8 ??C)] 98.3 ??F (36.8 ??C) Pulse: [74-96] 80 Heart Rate: [74-110] 110 Resp: [9-21] 17 BP: (127-210)/(82-105) 142/90 SpO2: [97 %-100 %] 97 % 243 lbs 9.73 oz Constitutional: Awake, alert, no apparent distress. Eyes: Conjunctiva and pupils examined and normal. HEENT: Moist mucous membranes, normal dentition. Respiratory: Clear to auscultation bilaterally, no crackles or wheezing. Cardiovascular: Regular rate and rhythm, normal S1 and S2, and no murmur noted. GI: Soft, non-distended, non-tender, bowel sounds present. No rebound tenderness or guarding. Lymph/Hematologic: No anterior cervical or supraclavicular adenopathy. Skin: No rashes, no cyanosis, no edema. Musculoskeletal: No deformities noted. No erythema or tenderness. Moving all extremities. Neurologic: No focal deficits noted. Speech is clear. Coordination and strength grossly normal. Psychiatric: Appropriate affect. Data Data reviewed today: EKG: normal sinus rhythm with ventricular rate of 78, T wave abnormality in leads V2 through V5. Imaging: Recent Results (from the past 24 hour(s)) XR Chest 2 Views Narrative CHEST TWO VIEWS 09/05/2019 7:46 AM HISTORY: chest pressure, severe htn COMPARISON: None. Impression IMPRESSION: The cardiac silhouette and pulmonary vasculature are within normal limits. No focal pulmonary consolidations. No pleural effusion or pneumothorax. RENE LI MD Recent Labs Lab 09/05/19 0728 WBC 9.0 HGB 16.0 MCV 96 PLT 235 NA 140 POTASSIUM 4.2 CHLORIDE 109 CO2 26 BUN 16 CR 0.68 ANIONGAP 5 CHUN 9.2 GLC 143* TROPI 0.114* Shellie Andujar PA-C on 09/05/2019 at 8:20 AM Associated attestation - Fernando Mera MD - 09/05/2019 12:16 PM CDT Physician Attestation I, Fernando Mera, saw and evaluated Jatin Sidhu as part of a shared visit. I have reviewed and discussed with the advanced practice provider their history, physical and plan. I personally reviewed the vital signs, medications, labs, and imaging. My holt history or physical exam findings: Pleasant 48-year-old male who generally does not receive medical care presents with concerning history of substernal chest pressure found to have elevated troponin of 0.114 and nonspecific EKG changes. Chest pain completely resolved in the ER with nitroglycerin x2 and aspirin. Remains chest pain-free. Holt management decisions made by me: Agree with admission for non-ST elevation OH. Currently pain-free, I have asked him to report to us immediately if he has any return of chest discomfort. Cardiologywill be consulted, anticipate he will require coronary angiogram at some point during the stay. Agree with starting Coreg, atorvastatin, aspirin as well as heparin drip. Fernando Mera Date of Service (when I saw the patient): 09/05/19 documented in this encounter Consult Notes William South MD - 09/05/2019 12:57 PM CDTAssociated Order(s): CARDIOLOGY IP CONSULT Cardiology Consultation Jatin Sidhu Date of : 1970 Age: [age] year old Date of Admission: 09/05/2019 Reason for consult: Chest discomfort Assessment and Plan: 48-year-old gentleman with hypertension and tobacco abuse admitted with chest discomfort this morning. Symptoms are relieved with sublingual nitroglycerin. Cardiac troponins are elevated consistent with a non-ST elevation myocardial infarction. 1. Non-ST elevation myocardial infarction 2. Hypertension, previously untreated 3. Tobacco abuse PLAN -Agree with current aspirin/heparin/beta-kp/statin therapy -Statin therapy may need to be titrated based on his fasting lipid panel -Echocardiogram demonstrates normal left ventricular systolic function with LAD distribution wall motion abnormalities -We will plan on coronary angiography Saturday. I have explained the indications, risks and benefits of coronary angiography to the patient in detail who is agreeable to proceeding. -Tobacco cessation was strongly advised. Chief Complaint: Chest Pain History of Present Illness: This patient is a 48 year old male with no known past medical history but ongoing tobacco abuse who presented to the emergency department today with concerns regarding chest discomfort that began this morning. He had let out his dogs and started experiencing substernal chest discomfort with no radiation. Initially he tried to ignore the symptoms but they worsened to the point where he came to the emergency department. He received sublingual nitroglycerin x2 which led to relief of his symptoms. Interestingly, he had severe hypertension upon presentation with a systolic blood pressure of 210. Currently he is chest pain-free. He denies any prior episodes and denies any history of PND, orthopnea or lower extremity edema. He denies any syncope or presyncope. He has never undergone a lipid assessment in the past per his recollection. Physical Exam: Vitals were reviewed Blood pressure (!) 147/79, pulse 71, temperature 98.6 ??F (37 ??C), temperature source Oral, resp. rate 18, height 1.854 m (6' 1), weight 107.6 kg (237 lb 4.8 oz), SpO2 97 %. Temperatures: Current - Temp: 98.6 ??F (37 ??C); Max - Temp Av.5 ??F (36.9 ??C) Min: 98.3 ??F (36.8 ??C) Max: 98.6 ??F (37 ??C) Respiration range: Resp Av.7 Min: 4 Max: 29 Pulse range: Pulse Av.8 Min: 66 Max: 96 Blood pressure range: Systolic (24hrs), Av , Min:124 , Max:210 ; Diastolic (24hrs), Av, Min:77, Max:105 Pulse oximetry range: SpO2 Av % Min: 96 % Max: 100 % No intake or output data in the 24 hours ending 09/05/19 1257 Constitutional: awake, alert, cooperative, no apparent distress, and appears stated age Eyes: Lids and lashes normal, pupils equal, round and reactive to light, extra ocular muscles intact, sclera clear, conjunctiva normal Neck: supple, symmetrical, trachea midline, no JVD Back: symmetric Lungs: No increased work of breathing, good air exchange, clear to auscultation bilaterally, no crackles or wheezing clear to auscultation Cardiovascular: Normal apical impulse, regular rate and rhythm, normal S1 and S2, no S3 or S4, and no murmur noted. Abdomen: non-tender Musculoskeletal: motor strength is 5 out of 5 all extremities bilaterally Neurologic: Grossly nonfocal Skin: no bruising or bleeding Additional findings: No edema Past Medical History: I have reviewed this patient's past medical history Past Medical History: Diagnosis Date ??? Esophageal reflux Past Surgical History: I have reviewed this patient's past surgical history Past Surgical History: Procedure Laterality Date ??? C NONSPECIFIC PROCEDURE 2 y.o. hernia repair Social History: I have reviewed this patient's [...] Known Problems Father ??? Diabetes Sister Allergies: Allergies Allergen Reactions ??? No Known Drug Allergies Medications: I have reviewed this patient's current medications Medications Prior to Admission Medication Sig Dispense Refill Last Dose ??? multivitamin w/minerals (THERA-VIT-M) tablet Take 1 tablet by mouth daily 09/05/2019 at am ??? omeprazole (PRILOSEC) [address] capsule Take 20 mg by mouth daily 09/05/2019 at am Current Facility-Administered Medications Ordered in Epic Medication Dose Route Frequency Last Rate Last Dose ??? [START ON 09/06/2019] aspirin (ASA) chewable tablet 324 mg 324 mg Oral Daily ??? atorvastatin (LIPITOR) tablet 40 mg 40 mg Oral QPM ??? carvedilol (COREG) tablet 6.25 mg 6.25 mg Oral BID ??? heparin 25,000 units in 0.45% NaCl 250 mL ANTICOAGULANT infusion 1,000 Units/hr Intravenous Continuous 10 mL/hr at 09/05/19 0956 1,000 Units/hr at 09/05/19 0956 ??? lidocaine (LMX4) cream Topical Q1H PRN ??? lidocaine 1 % 0.1-1 mL 0.1-1 mL Other Q1H PRN ??? melatonin tablet 1 mg 1 mg Oral At Bedtime PRN ??? naloxone (NARCAN) injection 0.1-0.4 mg 0.1-0.4 mg Intravenous Q2 Min PRN ??? nicotine (NICORETTE) gum 4-8 mg 4-8 mg Buccal Q1H PRN ??? nitroGLYcerin (NITROSTAT) sublingual tablet 0.4 mg 0.4 mg Sublingual Q5 Min PRN ??? Patient is already receiving anticoagulation with heparin, enoxaparin (LOVENOX), warfarin (COUMADIN) or other anticoagulant medication Does not apply Continuous PRN ??? sodium chloride (PF) 0.9% PF flush 3 mL 3 mL Intracatheter q1 min prn ??? sodium chloride (PF) 0.9% PF flush 3 mL 3 mL Intracatheter Q8H No current [facility]-ordered outpatient medications on file. Review of Systems: The 10 point Review of Systems is negative other than noted in the HPI Data: All laboratory data reviewed Results for orders placed or performed during the hospital encounter of 09/05/19 (from the past 24 hour(s)) EKG 12 lead Result Value Ref Range Interpretation ECG Click View Image link to view waveform and result CBC with platelets differential Result Value Ref Range WBC 9.0 4.0 - 11.0 10e9/L RBC Count 5.05 4.4 - 5.9 10e12/L Hemoglobin 16.0 13.3 - 17.7 g/dL Hematocrit 48.5 40.0 - 53.0 % MCV 96 78 - 100 fl MCH 31.7 26.5 - 33.0 pg MCHC 33.0 31.5 - 36.5 g/dL RDW 12.7 10.0 - 15.0 % Platelet Count 235 150 - 450 10e9/L Diff Method Automated Method % Neutrophils 65.0 % % Lymphocytes 23.7 % % Monocytes 7.3 % % Eosinophils 2.7 % % Basophils 0.6 % % Immature Granulocytes 0.7 % Nucleated RBCs 0 0 /100 Absolute Neutrophil 5.9 1.6 - 8.3 10e9/L Absolute Lymphocytes 2.1 0.8 - 5.3 10e9/L Absolute Monocytes 0.7 0.0 - 1.3 10e9/L Absolute Eosinophils 0.2 0.0 - 0.7 10e9/L Absolute Basophils 0.1 0.0 - 0.2 10e9/L Abs Immature Granulocytes 0.1 0 - 0.4 10e9/L Absolute Nucleated RBC 0.0 Basic metabolic panel Result Value Ref Range Sodium 140 133 - 144 mmol/L Potassium 4.2 3.4 - 5.3 mmol/L Chloride 109 94 - 109 mmol/L Carbon Dioxide 26 20 - 32 mmol/L Anion Gap 5 3 - 14 mmol/L Glucose 143 (H) 70 - 99 mg/dL Urea Nitrogen 16 7 - 30 mg/dL Creatinine 0.68 0.66 - 1.25 mg/dL GFR Estimate >90 >60 mL/min/[1.73_m2] GFR Estimate If Black >90 >60 mL/min/[1.73_m2] Calcium 9.2 8.5 - 10.1 mg/dL Troponin I Result Value Ref Range Troponin I ES 0.114 (H) 0.000 - 0.045 ug/L Hemoglobin A1c Result Value Ref Range Hemoglobin A1C 5.7 (H) 0 - 5.6 % XR Chest 2 Views Narrative CHEST TWO VIEWS 09/05/2019 7:46 AM HISTORY: chest pressure, severe htn COMPARISON: None. Impression IMPRESSION: The cardiac silhouette and pulmonary vasculature are within normal limits. No focal pulmonary consolidations. No pleural effusion or pneumothorax. RENE LI MD Troponin I Result Value Ref Range Troponin I ES 1.952 (HH) 0.000 - 0.045 ug/L CBC with platelets Result Value Ref Range WBC 14.7 (H) 4.0 - 11.0 10e9/L RBC Count 4.67 4.4 - 5.9 10e12/L Hemoglobin 14.6 13.3 - 17.7 g/dL Hematocrit 44.9 40.0 - 53.0 % MCV 96 78 - 100 fl MCH 31.3 26.5 - 33.0 pg MCHC 32.5 31.5 - 36.5 g/dL RDW 12.6 10.0 - 15.0 % Platelet Count 231 150 - 450 10e9/L Echocardiogram Complete Narrative [id number]^MARYSOL^SHELLIE^FUNG [facility] Echocardiography Laboratory [address] [place] [address] Name: JATIN SIDHU : 1970 Study Date: 09/05/2019 10:08 AM Age: 48 yrs Gender: Male Patient Location: [facility] Reason For Study: Abn EKG Ordering Physician: SHELLIE ANDUJAR Performed By: Rosanna Hawkins BSA: 2.3 m2 Height: 73 in Weight: 243 lb HR: 72 BP: 129/82 mmHg __ Procedure Complete Portable Echo Adult. [employer] ([facility] #[id number]) given intravenously. __ Interpretation Summary The left [...] approved by: Ed Lizama 09/05/2019 11:55 AM EKG results: NSR with NS ST segment changes. documented in this encounter ED Notes Hue Tristan, RN - 09/05/2019 8:20 AM CDT [facility] ED Nurse Handoff Report Jatin Sidhu is a 48 year old male ED Chief complaint: Chest Pain . ED Diagnosis: Final diagnoses: None Allergies: Allergies Allergen Reactions ??? No Known Drug Allergies Code Status: Full Code Activity level - Baseline/Home: Independent. Activity Level - Current: Independent. Lift room needed: No. Bariatric: No Insurance Verifier Needed: No Isolation: No. Infection: Not Applicable. Vital Signs: Vitals: 09/05/19 0800 09/05/19 0805 09/05/19 0810 09/05/19 0815 BP: 131/82 127/85 (!) 141/101 (!) 142/90 Pulse: 81 75 96 80 Resp: Temp: TempSrc: SpO2: 97% 97% 100% 97% Weight: 110.5 kg (243 lb 9.7 oz) Cardiac Rhythm: , Cardiac Cardiac Rhythm: Normal sinus rhythm Pain level: 0-10 Pain Scale: 0 Patient confused: No. Patient Falls Risk: No. Elimination Status: has not had urge to void in ED Patient Report - Initial Complaint: Chest pain. Focused Assessment: Pt presents to ED with midsternal chest pain that started this morning at 0600 while he was letting his dogs out. Pt denies SOB, N/V,or lightheadedness. Denies cardiac hx. ABCs intact upon arrival Tests Performed: labs, xray. Abnormal Results: Abnormal Labs Reviewed BASIC METABOLIC PANEL - Abnormal; Notable for the following components: Result Value Glucose 143 (*) All other components within normal limits TROPONIN I - Abnormal; Notable for the following components: Troponin I ES 0.114 (*) All other components within normal limits . Treatments provided: aspirin, 2 nitroglycerin tabs, heparin infusion Family Comments: n/a OBS brochure/video discussed/provided to patient: N/A ED Medications: Medications nitroGLYcerin (NITROSTAT) sublingual tablet 0.4 mg (0.4 mg Sublingual Given 09/05/19 0748) aspirin (ASA) chewable tablet 324 mg (324 mg Oral Given 09/05/19 0731) Drips infusing: Yes For the majority of the shift, the patient's behavior Green. Interventions performed were n/a. Sepsis treatment initiated: No ED Nurse Name/Phone Number: Federica Dent RN, 8:20 AM RECEIVING UNIT ED HANDOFF REVIEW Above ED Nurse Handoff Report was reviewed: Yes Reviewed by: Hue Tristan RN on September 05, 2019 at 9:30 AM Federica Dent, DEANNA - 09/05/2019 7:30 AM CDT Pt presents to ED with midsternal chest pain that started this morning at 0600 while he was letting his dogs out. Pt denies SOB, N/V, or lightheadedness. Denies cardiac hx. ABCs intact upon arrival Bella Branch MD - 09/05/2019 7:08 AM CDT History Chief Complaint: Chest Pain The history is provided by the patient. Jatin Sidhu is a 48 year old male smoker who presents for evaluation of chest pain. He was letting his dogs outside of his house around one hour prior to arrival when he developed a [id number] substernal chest pain, ranging from 3/10 to 5/10 in intensity. He denies associated diaphoresis, nausea, vomiting or shortness of breath. Notably, Jatin does not typically see any healthcare providers and currently does not have a primary care provider. He presents today concerned for a heart attack or stroke. Allergies: No Known Drug Allergies Medications: Omeprazole Past Medical History: Esophageal reflux Past Surgical History: Hernia repair Family History: History reviewed. No pertinent family history. Social History: The patient presents to the ED alone. Smoking Status: Current Every Day Smoker, 1.5PPD, 30 Pack years Smokeless Tobacco: Never Used Alcohol Use: Yes, once every couple months Drug Use: No PCP: Mohamud Lafleur Review of Systems Constitutional: Negative for diaphoresis. Respiratory: Negative for shortness of breath. Cardiovascular: Positive for chest pain. Gastrointestinal: Negative for nausea and vomiting. All other systems reviewed and are negative. Physical Exam Patient Vitals for the past 24 hrs: BP Temp Temp src Pulse Heart Rate Resp SpO2 Height Weight 09/05/19 0955 (!) 147/79 98.6 ??F (37 ??C) Oral -- 79 18 97 % 1.854 m (6' 1) 107.6 kg (237 lb 4.8 oz) 09/05/19 0930 129/82 -- -- 71 74 8 98 % -- -- 09/05/19 0915 (!) 141/92 -- -- 87 71 12 98 % -- -- 09/05/19 0900 126/77 -- -- 76 76 14 96 % -- -- 09/05/19 0855 124/78 -- -- 66 74 14 98 % -- -- 09/05/19 0850 128/79 -- -- 71 74 21 97 % -- -- 09/05/19 0845 128/82 -- -- 70 72 (!) 4 99 % -- -- 09/05/19 0841 -- -- -- -- -- -- -- 1.854 m (6' 1) -- 09/05/19 0840 135/78 -- -- 72 70 16 98 % -- -- 09/05/19 0835 130/87 -- -- 70 67 14 98 % -- -- 09/05/19 0830 127/81 -- -- 73 73 10 98 % -- -- 09/05/19 0825 (!) 126/90 -- -- 80 77 29 99 % -- -- 09/05/19 0820 137/83 -- -- 75 74 16 98 % -- -- 09/05/19 0815 (!) 142/90 -- -- 80 110 17 97 % -- 110.5 kg (243 lb 9.7 oz) 09/05/19 0810 (!) 141/101 -- -- 96 84 21 100 % -- -- 09/05/19 0805 127/85 -- -- 75 80 12 97 % -- -- 09/05/19 0800 131/82 -- -- 81 80 19 97 % -- -- 09/05/19 0755 135/87 -- -- 81 84 9 99 % -- -- 09/05/19 0750 (!) 139/90 -- -- 77 80 12 98 % -- -- 09/05/19 0746 (!) 142/93 -- -- 74 74 12 100 % -- -- 09/05/19 0730 (!) 162/105 -- -- -- 85 14 -- -- -- 09/05/19 0715 (!) 200/95 -- -- 78 77 15 99 % -- -- 09/05/19 0713 (!) 210/103 98.3 ??F (36.8 ??C) Oral 82 82 16 98 % -- -- Physical Exam General: Well-developed and well-nourished. Well appearing middle aged man. Cooperative. Head: Atraumatic. Eyes: Conjunctivae, lids, and sclerae are normal. ENT: Normal nose. Moist mucous membranes. Neck: Supple. Normal range of motion. CV: Regular rate and rhythm. Normal heart sounds with no murmurs, rubs, or gallops detected. Resp: No respiratory distress. Clear to auscultation bilaterally without decreased breath sounds, wheezing, rales, or rhonchi. GI: Soft. Non-distended. Non-tender. MS: Normal ROM. Skin: Warm. Non-diaphoretic. No pallor. Neuro: Awake. A&Ox3. Normal strength. Psych: Normal mood and affect. Normal speech. Vitals reviewed. Emergency Department Course EKG Indication: Chest Pain Time: 722 Rate 78 bpm. [place] interval 158. QRS duration 84. QT/QTc 352/401. Normal sinus rhythm. Nonspecific ST abnormality. Abnormal ECG. No acute ST changes. No prior EKG for comparison. Imaging: Radiology findings were communicated with the patient and admitting MD who voiced understanding of the findings. XR Chest 2 views: The cardiac silhouette and pulmonary vasculature are within normal limits. No focal pulmonary consolidations. No pleural effusion or pneumothorax. As per radiology. Laboratory: Laboratory findings were communicated with the patient and admitting MD who voiced understanding of the findings. CBC: WBC: 9.0, HGB: 16.0, PLT: 235 BMP: Glucose 143 (high), o/w WNL (Creatinine: 0.68) 0728 Troponin: 0.114 (high) Heparin Xa Level x3: Pending Interventions: 0731 aspirin 324mg PO 0732 nitroglycerin 0.4mg sublingual 0748 nitroglycerin 0.4mg sublingual 0900 heparin 5,000 units IV 0900 heparin infusion 1,000 units/hr IV Emergency Department Course: Past medical records, nursing notes, and vitals reviewed. 07 I performed an exam of the patient as documented above. EKG obtained in the ED, see results above. IV was inserted and blood was drawn for laboratory testing, results above. The patient was sent for a chest x-ray while in the emergency department, results above. 0810 I rechecked the patient and discussed the results of his workup thus far. At this point he is pain free and is comfortable with plan for admission. 817 I consulted with TAE Da Silva for Dr. Mera, regarding the patient's history andpresentation here in the emergency department who accepts the patient for admission. 922 I discussed the patient with TAE Da Silva. 937 I again spoke with TAE Da Silva, who is ready for the patient to be admitted. He will besent upstairs shortly. Findings and plan explained to the patient who consents to admission. Discussed the patient with Shellie STRONG for Dr. Mera, who will admit the patient to a cardiac telemetry bed for further monitoring, evaluation, and treatment. I personally reviewed the laboratory and imaging results with the patient and answered all related questions prior to admission. Impression & Plan Medical Decision Making: Jatin is a 48-year-old male smoker who does not typically see any doctors but presents today because he has had substernal chest pressure starting when he was letting his dogs out 1 hour ago. He rates this between 3 and 5 out of 10 without any associated symptoms. He appears well on exam with initial blood pressure 210/103. He was given aspirin as well as nitroglycerin. Two nitroglycerin did result incomplete resolution of his pain and marked improvement of his blood pressure. Fortunately, EKG is reassuring without acute ischemic changes or arrhythmias. However, troponin is elevated at 0.114. Given the historical features of his pain that is pressure-like and resolved with nitroglycerin, I am veryconcerned for ACS in this man. Believing this represents true NSTEMI, heparin infusion was initiated. It should be noted that the remainder of his laboratory studies are noncontributory and chest x-rayreveals no alternate cause for his pain. Certainly his troponin elevation could be related to severely high blood pressure, though a thorough cardiac work-up is indicated including troponin trending. Idiscussed with Jatin the findings and plan for admission and answered all his questions. He verbalized understanding and is amenable. I discussed patient's case with Shellie Andujar, hospitalist TAE, whoaccepts admission and has no further orders. Diagnosis: ICD-10-CM 1. NSTEMI (non-ST elevated myocardial infarction) (H) I21.4 Troponin I 2. Hypertensive urgency I16.0 Disposition: Admitted to Dr. Mera per TAE Da Silva. Scribe Disclosure: I, Tc Schmid, am serving as a scribe at 7:16 AM on 09/05/2019 to document services personally performed by Bella Branch MD based on my observations and the provider's statements to me. Bella Branch MD 09/05/19 1416 documented in this encounter Miscellaneous Notes Plan of Care - Khadra Barclay RN - 09/07/2019 4:57 PM CDT Right wrist angio completed today in intervention. TR band off and patient received discharge planning, orders and instructions. All belongings with patient. Medications discussed and given. Patient Discharged to home. Pre-Procedure - Greg Marcos MD - 09/07/2019 11:17 AM CDT GENERAL PRE-PROCEDURE: Written consent obtained?: Yes Risks and benefits: Risks, benefits and alternatives were discussed Consent given by: Patient Patient states understanding of procedure being performed: Yes Patient's understanding of procedure matches consent: Yes Procedure consent matches procedure scheduled: Yes Expected level of sedation: Moderate Appropriately NPO: Yes ASA Class: Class 3- Severe systemic disease, definite functional limitations Mallampati : Grade 1- soft palate, uvula, tonsillar pillars, and posterior pharyngeal wall visible Lungs: Lungs clear with good breath sounds bilaterally Heart: Normal heart sounds and rate History & Physical reviewed: History and physical reviewed and no updates needed Statement of review: I have reviewed the lab findings, diagnostic data, medications, and the plan for sedation Plan of Care - Shannon Franco RN - 09/07/2019 6:27 AM CDT Pt A & O x4, VSS, denies any pain, RA, LS CTA, Been NPO since midnight, up ad sho, Hep drip at 15.5, tele SR, K is 4.1, angio in am . Continue plan of care. Plan of Care - Joana Sandy RN - 09/06/2019 6:17 PM CDT Pt A&O x4, up in room ad sho. VSS. Denies pain. Heparin gtt infusing at 15.5mL/ hr. Tele SR. LS clear. Plan for angiogram in am. NPO after midnight. Cardiology following. Discharge TBD. Will continue POC. Plan of Care - Khadra Ramirez RN - 09/06/2019 1:15 PM CDT Heparin continues and Angiogram planned for am. Denies pain or SOB Independent in room. Tele SR Plan of Care - Wanda Marcum RN - 09/05/2019 10:59 PM CDT BP 138/81 (BP Location: Left arm) Pulse 71 Temp 98.2 ??F (36.8 ??C) (Oral) Resp 18 Ht 1.854 m (6' 1) Wt 107.6 kg (237 lb 4.8 oz) SpO2 95% BMI 31.31 kg/m?? ORIENTATION:A/Ox4 PAIN:Denies TELE:SR IV:hep gtt infusing @ 12 ml/hr RESPIRATORY:LS- clear, denies SOB GI:+BS, denies nausea :Voiding appropriately SKIN:Intact ACTIVITY:Independent DIET:Cardiac diet PLAN: Continue hep gtt, cards following, plan for angio Saturday, continue POC. Provider Notification - Wanda Marcum RN - 09/05/2019 9:44 PM CDT paged: Trops increased to 6.002 from 5.477. Thanks. Provider Notification - Clari Ramos RN - 09/05/2019 5:25 PM CDT 09/05/19 1539 Significant Event Significant Event Critical result/value (Trop 5.089) MD notified trop went from 1.952 to 5.089 no CP, N/V, Cardiology notified pt in 303 trop went from 5.089 to 5.477 Plan of Care - Hue Tristan RN - 09/05/2019 2:53 PM CDT Up from ED approx 0955, oriented to room and staff. A/O x 4. VSS on RA. Denied pain. Trop 1.952, MD aware. Tele SR, denied chest pain/pressure. LS clear, no SOB reported. PIV to left intact, infusing w/ hep gtt @ 10 ml/hr. Up ad sho in room, steady gait and denies dizziness. No appetite but is on cardiac diet. Had ECHO this AM. Will continue POC. Provider Notification - Hue Tristan RN - 09/05/2019 10:58 AM CDT MD paged: Lab called w/ critical: troponin 1.952. No callback needed unless necessary, thanks! Addendum: on floor and acknowledged page. Will continue to monitor pt, dameon for chest pain. Pharmacy-Admission Medication History - Joann Bowden - 09/05/2019 10:38 AM CDT Admission medication history interview status for this patient is complete. See [facility] admission navigator for allergy information, prior to admission medications and immunization status. Medication history interview done via telephone during Covid-19 pandemic, indicate source(s): Patient Medication history resources (including written lists, pill bottles, clinic record): SureScripts andCare Everywhere Primary pharmacy:[facility] [place], [place] Changes made to [employer] medication list: Added: multivitamin Deleted: none Changed: none Actions taken by pharmacist (provider contacted, etc): Called patient to verify med list. Additional medication history information:None Medication reconciliation/reorder completed by provider prior to medication history? N Prior to Admission medications Medication Sig Last Dose Taking? Auth Provider multivitamin w/minerals (THERA-VIT-M) tablet Take 1 tablet by mouth daily 09/05/2019 at am Yes Unknown, Entered By History omeprazole (PRILOSEC) [address] capsule Take 20 mg by mouth daily 09/05/2019 at am Yes Unknown, EnteredBy History Associated attestation - Lori Brito RPH - 09/05/2019 10:50 AM CDT Reviewed. Lori Brito RPH documented in this encounter Plan of Treatment Scheduled Orders Name Type Priority Associated Diagnoses Order S chedule EKG 12 lead EKG STAT One Time for 1 Occurrences starting 09/05/2019 unti l 09/05/2019 Scheduled Referrals Name Type Priority Associated Diagnoses Order S chedule CARDIAC REHAB REFERRAL Referral Routine NSTEMI (non-ST Exp ected: 09/14/2019 elevated myocardial (Approxi mate), infarction) (H) Expires: 02/2021 Discharge Order: F/U with Referral Routine NSTEMI (non-ST Expected: 09/21/2019 Cardiac CLARENCE elevated myocardial (Approxi mate), infarction) (H) Expires: 02/2021 Follow-Up with Referral Routine NSTEMI (non-ST Expected: 0 11/07/2020 [employer] elevated myocardial (Approxi mate), infarction) (H) Expires: 08/2020 CARDIAC REHAB REFERRAL Referral Routine NSTEMI (non-ST Exp ected: 09/21/2019 elevated myocardial (Approxi mate), infarction) (H) Expires: 02/2021 documented as of this encounter Procedures Procedure Name Priority Date/Time Associated Comments Diagnosis EKG 12-LEAD, TRACING STAT 09/07/2019 1:07 PM R esults for this ONLY CDT procedure are i n the results section. CV CARDIAC Routine 09/07/2019 12:08 Chest discomfort Results for this CATHERIZATION PM CDT procedure are in the results section. CV CARDIAC Routine 09/07/2019 12:08 Chest discomfort Results for this CATHERIZATION PM CDT procedure are in the results section. CV CARDIAC Routine 09/07/2019 12:08 Chest discomfort Results for this CATHERIZATION PM CDT procedure are in the results section. ACTIVATED CLOTTING Routine 09/07/2019 12:02 Chest discomfort R esults for this TIME POCT PM CDT procedure are i n the results section. ACTIVATED CLOTTING Routine 09/07/2019 11:52 Chest discomfort R esults for this TIME POCT AM CDT procedure are i n the results section. ACTIVATED CLOTTING Routine 09/07/2019 11:40 Chest discomfort R esults for this TIME POCT AM CDT procedure are i n the results section. LIPID PROFILE Routine 09/07/2019 7:04 AM Chest discomfort Resu lts for this CDT procedure are i n the results section. HEPARIN 10A LEVEL Routine 09/07/2019 7:04 AM NSTEMI (non-ST Re sults for this CDT elevated myocardial procedur e are in infarction) (H) the results section. HEPARIN 10A LEVEL Timed 09/06/2019 2:42 PM Chest discomfort Results for this CDT procedure are i n the results section. TROPONIN I Timed 09/06/2019 6:03 AM NSTEMI (non-ST Results for this CDT elevated myocardial procedur e are in infarction) (H) the results section. LIPID REFLEX TO DIRECT Routine 09/06/2019 6:03 AM NSTEMI (non- ST Results for this LDL PANEL CDT elevated myocardial procedur e are in infarction) (H) the results section. HEPARIN 10A LEVEL Routine 09/06/2019 6:03 AM NSTEMI (non-ST Re sults for this CDT elevated myocardial procedur e are in infarction) (H) the results section. BASIC METABOLIC PANEL Routine 09/06/2019 6:03 AM NSTEMI (non-S T Results for this CDT elevated myocardial procedur e are in infarction) (H) the results section. CBC WITH PLATELETS Routine 09/06/2019 6:03 AM NSTEMI (non-ST R esults for this CDT elevated myocardial procedur e are in infarction) (H) the results section. TROPONIN I Timed 09/06/2019 12:01 NSTEMI (non-ST Results f or this AM CDT elevated myocardial procedur e are in infarction) (H) the results section. HEPARIN 10A LEVEL Timed 09/05/2019 10:49 NSTEMI (non-ST Resu lts for this PM CDT elevated myocardial procedur e are in infarction) (H) the results section. TROPONIN I Timed 09/05/2019 7:47 PM NSTEMI (non-ST Results for this CDT elevated myocardial procedur e are in infarction) (H) the results section. TROPONIN I Timed 09/05/2019 4:46 PM NSTEMI (non-ST Results for this CDT elevated myocardial procedur e are in infarction) (H) the results section. TROPONIN I Timed 09/05/2019 3:07 PM NSTEMI (non-ST Results for this CDT elevated myocardial procedur e are in infarction) (H) the results section. HEPARIN 10A LEVEL Timed 09/05/2019 3:07 PM NSTEMI (non-ST Re sults for this CDT elevated myocardial procedur e are in infarction) (H) the results section. ECHO COMPLETE WITH STAT 09/05/2019 10:28 Resul ts for this CONTRAST AM CDT procedure are i n the results section. TROPONIN I Timed 09/05/2019 10:19 NSTEMI (non-ST Results f or this AM CDT elevated myocardial procedur e are in infarction) (H) the results section. CBC WITH PLATELETS STAT 09/05/2019 10:19 NSTEMI (non-ST Res ults for this AM CDT elevated myocardial procedur e are in infarction) (H) the results section. XR CHEST 2 VIEWS STAT 09/05/2019 7:46 AM Resul ts for this CDT procedure are i n the results section. CBC WITH PLATELETS & STAT 09/05/2019 7:28 AM R esults for this DIFFERENTIAL CDT procedure are i n the results section. TROPONIN I STAT 09/05/2019 7:28 AM Results f or this CDT procedure are i n the results section. HEMOGLOBIN A1C Routine 09/05/2019 7:28 AM NSTEMI (non-ST Resul ts for this CDT elevated myocardial procedur e are in infarction) (H) the results section. BASIC METABOLIC PANEL STAT 09/05/2019 7:28 AM Results for this CDT procedure are i n the results section. EKG 12-LEAD, TRACING STAT 09/05/2019 7:23 AM R esults for this ONLY CDT procedure are i n the results section. EKG CARDIAC - HIM SCAN 09/05/2019 12:00 AM CDT EKG CARDIAC - HIM SCAN 09/05/2019 12:00 AM CDT documented in this encounter Results (ABNORMAL) Basic metabolic panel (09/22/2019 9:46 AM CDT) Analysis Performed At Patho logist Time Signature Sodium 137 133 - 144 09/22/2019 [place] mmol/L 12:55 PM [facility] Potassium 4.1 3.4 - 5.3 09/22/2019 [place] mmol/L 12:55 PM [facility] Chloride 109 94 - 109 09/22/2019 [place] mmol/L 12:55 PM [facility] Carbon Dioxide 24 20 - 32 09/22/2019 [place] mmol/L 1:06 PM [facility] Anion Gap 4 3 - 14 09/22/2019 [place] mmol/L 1:06 PM [facility] Glucose 104 (H) 70 - 99 09/22/2019 [place] mg/dL 1:06 PM [facility] Comment: Fasting specimen Urea Nitrogen 11 7 - 30 mg/dL 09/22/2019 1:06 PM [facility] Creatinine 0.58 (L) 0.66 - 1.25 09/22/2019 1:06 PM [facility] mg/dL [facility] GFR Estimate >90 >60 09/22/2019 1:06 PM [facility] mL/min/{1.73_m2} [facility] Comment: Non GFR Calc Starting 04/15/2018, serum creatinine ba sed estimated GFR (eGFR) will be calculated using the Chronic Kidney Dise [facility] Epidemiology Collaboration (CKD-EPI) equation. GFR Estimate If >90 >60 mL/min/{1.73_m2} 09/22/2019 1: 06 PM [facility] Black [facility] Comment: GFR Calc Starting 04/15/2018, serum creatinine ba sed estimated GFR (eGFR) will be calculated using the Chronic Kidney Dise [facility] Epidemiology Collaboration (CKD-EPI) equation. Calcium 9.0 8.5 - 10.1 mg/dL 09/22/2019 1:06 PM [facility] Specimen Anatomical Collection Method Collection Time Receive d Time (Source) Location / / Volume Laterality Blood specimen 09/22/2019 9:46 AM 020 9:48 (specimen) [facility] Anaid Aj APRN SUPERVISOR QUALITY CONTROL LAB - BLOOD ORDERABLES Performing Organization Address City/State/ZIP Code Phon e Number [facility] [address] [place] [address] EKG 12-lead, tracing only (09/07/2019 1:07 PM CDT) [facility] gist Method Time Signature Interpretation ECG Click View RADIOLOGY Image link RESULTS to view waveform and result Specimen (Source) Anatomical Collection Method Collection Time Re ceived Time Location / / Volume Laterality 09/07/2019 1:07 PM CDT Greg Marcos MD ECG ORDERABLES Performing Organization Address City/State/ZIP Code Phon e Number RADIOLOGY RESULTS CV CORONARY ANGIOGRAM, CV LEFT HEART CATH, CV PCI STENT DRUG ELUTING (09/07/2019 12:08 PM CDT) Anatomical Region Laterality Modality Radio Fluoroscopy Specimen (Source) Anatomical Location Collection Method / Collectio n Time Received Time / Laterality Volume Narrative 09/07/2019 12:12 PM CDT 1. NSTEMI 2. Successful PCI with MILES placement in the mid LAD Coronary Findings Diagnostic Dominance: Right Left Main: The vessel was visualized by selective angiography and is moderate in size. There was 0% vessel disease. Left Anterior Descending: Prox LAD lesio n is 20% stenosed. Mid LAD lesion is 95% stenosed. Culprit lesion. The lesion is thrombotic. Second Diagonal Branch: 2nd Diag lesion is 30% stenosed. First Obtuse Marginal Branch: 1st Mrg le kathryn is 10% stenosed. Right Coronary Artery: Prox RCA lesion i s 25% stenosed. Mid RCA lesion is 30% stenosed. Right Posterior Descending Artery: RPDA lesion is 30% stenosed. Intervention Mid LAD lesion: Stent: Lesion length: 10 mm. guide catheter was successful. The guidewire guidewire crosses lesion The pre-interventional distal flow is normal (LELE 3). A STENT RESOLUTE BASSEM DE 2.7FR 3 .67L40WV RONYX [id number] drug eluting st ent was successfully placed. Pre-stent angioplasty was performed. The strut is apposed. Post-stent angioplasty was performed using a CATH BALLOON NC EMERGE 3.50X8 MM [id number] supply. Maximum pressu re: 16 cece. . The post-interventional distal flow is normal (LELE 3). The intervention was successful. No complications occurred at this lesion. There is a 0% residual stenosis post intervention. Plan 1. Dual antiplatelet therapy for 12 mohamud hs 2. Aggressive risk factor control Comments/Patient Narrative 48 yo male with NSTEMI referred for giles nary angiography and possible revascularization Cath Procedure details After discussing risks, benefits, goals, alternatives and complications of the procedure, the patient was brought to the catheterization lab. Right wrist was prepped and draped in sterile fashion. Under 1% Lidocaine a 6 Sudanese sheath was plac ed in the right radial artery using Seldinger technique. Coronary angiography was performed with a 5 Sudanese Tig 4.0 diagnostic catheter. Standard angle and views were used for the right and left coronar ies. At the conclusion of the procedure the radial sheath was removed and TR band placed. The patient was transferred to recovery hemodynamically stable. The patient tolerated procedure well. William South MD CV CARDIAC CATH ORDERABLES (ABNORMAL) Activated clotting time POCT (09/07/2019 12:02 PM CDT) athologist Signature Activated Clot 400 (H) 75 - 150 09/07/2019 POINT OF CARE Time sec 12:11 PM CDT TEST, HANDHELD METER Specimen Anatomical Collection Method Collection Time Receive d Time (Source) Location / / Volume Laterality 09/07/2019 12:02 09/07/2019 PM CDT 12:11 PM CDT Fernando Mera MD LAB - ENTER/EDIT POCT Performing Organization Address [facility] Phon e Number [facility] POINT OF CARE TEST, HANDHELD METER POINT OF CARE TEST, HANDHELD METER (ABNORMAL) Activated clotting time POCT (09/07/2019 11:52 AM CDT) P athologist Signature Activated Clot 465 (H) 75 - 150 09/07/2019 POINT OF CARE Time sec 12:11 PM CDT TEST, HANDHELD METER Specimen Anatomical Collection Method Collection Time Receive d Time (Source) Location / / Volume Laterality 09/07/2019 11:52 09/07/2019 AM CDT 12:11 PM CDT Fernando Mera MD LAB - ENTER/EDIT POCT Performing Organization Address City/State/ZIP Code Phon e Number [facility] POINT OF CARE TEST, HANDHELD METER POINT OF CARE TEST, HANDHELD METER (ABNORMAL) Activated clotting time POCT (09/07/2019 11:40 AM CDT) athologist Signature Activated Clot 183 (H) 75 - 150 09/07/2019 POINT OF CARE Time sec 11:47 AM CDT TEST, HANDHELD METER Specimen Anatomical Collection Method Collection Time Receive d Time (Source) Location / / Volume Laterality 09/07/2019 11:40 09/07/2019 AM CDT 11:47 AM CDT Fernando Mera MD LAB - ENTER/EDIT POCT Performing Organization Address City/State/ZIP Code Phon e Number [facility] POINT OF CARE TEST, HANDHELD METER POINT OF CARE TEST, HANDHELD METER (ABNORMAL) Lipid Profile (09/07/2019 7:04 AM CDT) athologist Signature Cholesterol 211 (H) <200 mg/dL 09/07/2019 [place] 1:42 PM [facility] Comment: Desirable: <200 mg/dl Triglycerides 196 (H) <150 mg/dL 09/07/2019 1:43 PM [facility] Comment: Borderline high: ??150-199 mg/dl High: ? 200-499 mg/dl Very high: ? >499 mg/dl HDL Cholesterol 37 (L) >39 mg/dL 09/07/2019 1:46 PM [facility] LDL Cholesterol 135 (H) <100 mg/dL 09/07/2019 1:[address] [facility] Comment: Above desirable: ??100-129 mg/dl Borderline High: ??130-159 mg/dL High: ? 160-189 mg/dL Very high: ? >189 mg/dl Non HDL Cholesterol 174 (H) <130 mg/dL 09/07/2019 1:46 PM [facility] Comment: Above Desirable: ??130-159 mg/dl Borderline high: ??160-189 mg/dl High: ? 190-219 mg/dl Very high: ? >219 mg/dl Specimen Anatomical Collection Method Collection Time Receive d Time (Source) Location / / Volume Laterality 09/07/2019 7:04 AM 0 7:05 CDT AM CDT Shellie Andujar PA-C LAB - BLOOD ORDERABLES Performing Organization Address City/[facility] Phon e Number [facility] [address], [place] [address] [facility] [address] [phone], [facility] [phone] Heparin Xa (10a) Level (09/07/2019 7:04 AM CDT) athologist Signature Heparin 10A 0.34 IU/mL 09/07/2019 [facility] 7:20 AM [facility] Comment: Therapeutic Range: UFH: 0.15-0.35 IU/mL [...] Location / / Volume Laterality Blood specimen 09/07/2019 7:04 AM 020 7:05 (specimen) CDT AM CDT Shellie Andujar PA-C LAB - BLOOD ORDERABLES Performing Organization Address City/State/ZIP Code Phon e Number [facility] [address], [place] [address] [facility] [address] [address], [place] [phone] Heparin 10a Level (09/06/2019 2:42 PM CDT) athologist Signature Heparin 10A 0.25 IU/mL 09/06/2019 [facility] 3:05 PM [facility] Comment: Therapeutic Range: UFH: 0.15-0.35 IU/mL [...] Location / / Volume Laterality Blood specimen 09/06/2019 2:42 PM 020 2:43 (specimen) CDT PM CDT Fernando Mera MD LAB - BLOOD ORDERABLES Performing Organization Address City/State/ZIP Code Phon e Number [facility] [address] [address] [facility] [address] [address] [phone] Heparin Xa (10a) Level (09/06/2019 6:03 AM CDT) athologist Signature Heparin 10A <0.10 IU/mL 09/06/2019 [facility] 6:54 AM [facility] Comment: Therapeutic Range: UFH: 0.15-0.35 IU/mL for [...] used for monitoring of other medications . Reviewed, acceptable Specimen Anatomical Collection Method Collection Time Receive d Time (Source) Location / / Volume Laterality Blood specimen 09/06/2019 6:03 AM 020 6:04 (specimen) CDT AM CDT Shellie Andujar PA-C LAB - BLOOD ORDERABLES Performing Organization Address [facility] Phon e Number [facility] [address], [place] [address] [facility] [address] [address], [facility] [phone] (ABNORMAL) Troponin I (09/06/2019 6:03 AM CDT) Analysis Performed At [facility] Signature Troponin I ES 4.999 (HH) 0.000 - 09/06/2019 [place] 0.045 ug/L 7:03 AM [facility] Comment: The 99th percentile for upper reference range is 0.045 ug/L. ??Troponin values in the range of 0.045 - 0.120 ug/L may b e associated with risks of adverse clinical events. Critical result, provider not notified d ue to previous critical result notification. Specimen Anatomical Collection Method Collection Time Receive d Time (Source) Location / / Volume Laterality Blood specimen 09/06/2019 6:03 AM 020 6:04 (specimen) CDT AM CDT Fernando Mera MD LAB - BLOOD ORDERABLES Performing Organization Address [facility] Phon e Number [facility] [address], [place] [address] [facility] [address] [address], [facility] [phone] (ABNORMAL) Lipid panel reflex to direct LDL (09/06/2019 6:03 AM CDT) P athologist Signature Cholesterol 234 (H) <200 mg/dL 09/06/2019 [place] 6:56 AM [facility] Comment: Desirable: <200 mg/dl Triglycerides 216 (H) <150 mg/dL 09/06/2019 6:56 AM [facility] Comment: Borderline high: ??150-199 mg/dl High: ? 200-499 mg/dl Very high: ? >499 mg/dl HDL Cholesterol 36 (L) >39 mg/dL 09/06/2019 6:58 AM [facility] LDL Cholesterol 155 (H) <100 mg/dL 09/06/2019 6:58 AM [facility] Comment: Above desirable: ??100-129 mg/dl Borderline High: ??130-159 mg/dL High: ? 160-189 mg/dL Very high: ? >189 mg/dl Non HDL Cholesterol 198 (H) <130 mg/dL 09/06/2019 6:58 AM T [facility] Comment: Above Desirable: ??130-159 mg/dl Borderline high: ??160-189 mg/dl High: ? 190-219 mg/dl Very high: ? >219 mg/dl Specimen Anatomical Collection Method Collection Time Receive d Time (Source) Location / / Volume Laterality Blood specimen 09/06/2019 6:03 AM 020 6:04 (specimen) CDT AM CDT Shellie Andujar PA-C LAB - BLOOD ORDERABLES Performing Organization Address City/State/ZIP Code Phon e Number M [place] [id number] [place] [address] [facility] [address] [place], [place] [address] , [facility] [phone] [place] [address] [place] [address], [facility] CBC with platelets (09/06/2019 6:03 AM CDT) athologist Signature WBC 8.1 4.0 - 11.0 09/06/2019 [facility] 10e9/L 6:34 AM [facility] RBC Count 4.88 4.4 - 5.9 09/06/2019 [facility] 10e12/L 6:34 AM [facility] Hemoglobin 15.4 13.3 - 09/06/2019 [facility] 17.7 g/dL 6:34 AM [facility] Hematocrit 46.5 40.0 - 09/06/2019 [facility] 53.0 % 6:34 AM [facility] MCV 95 78 - 100 09/06/2019 [facility] fl 6:34 AM [facility] MCH 31.6 26.5 - 09/06/2019 [facility] 33.0 pg 6:34 AM [facility] MCHC 33.1 31.5 - 09/06/2019 [facility] 36.5 g/dL 6:34 AM [facility] RDW 12.6 10.0 - 09/06/2019 [facility] 15.0 % 6:34 AM [facility] Platelet Count 212 150 - 450 09/06/2019 [facility] 10e9/L 6:34 AM [facility] Specimen Anatomical Collection Method Collection Time Receive d Time (Source) Location / / Volume Laterality Blood specimen 09/06/2019 6:03 AM 020 6:04 (specimen) CDT AM CDT Shellie Andujar PA-C LAB - BLOOD ORDERABLES Performing Organization Address City/State/ZIP Code Phon e Number M [facility] [address] [place], [place] [address] [facility] [address] [place], [place] [address], [facility] [phone] (ABNORMAL) Basic metabolic panel (09/06/2019 6:03 AM CDT) athologist Signature Sodium 137 133 - 144 09/06/2019 [place] mmol/L 6:47 AM [facility] Potassium 4.1 3.4 - 5.3 09/06/2019 [place] mmol/L 6:47 AM [facility] Chloride 107 94 - 109 09/06/2019 [facility] mmol/L 6:47 AM [facility] Carbon Dioxide 24 20 - 32 09/06/2019 [place] mmol/L 6:56 AM [facility] Anion Gap 6 3 - 14 09/06/2019 [facility] mmol/L 6:56 AM [facility] Glucose 116 (H) 70 - 99 09/06/2019 [facility] mg/dL 6:56 AM [facility] Urea Nitrogen 11 7 - 30 09/06/2019 [facility] mg/dL 6:56 AM [facility] Creatinine 0.68 0.66 - 09/06/2019 [facility] 1.25 mg/dL 6:56 AM [facility] GFR Estimate >90 >60 09/06/2019 [facility] mL/min/{1. 6:56 AM [facility] 73_m2} HOSPITAL Comment: Non GFR Calc Starting 04/15/2018, serum creatinine ba sed estimated GFR (eGFR) will be calculated using the Chronic Kidney Dise [facility] Epidemiology Collaboration (CKD-EPI) equation. GFR Estimate If >90 >60 mL/min/{1.73_m2} 09/06/2019 6: 56 AM [facility] Comment: GFR Calc Starting 04/15/2018, serum creatinine ba sed estimated GFR (eGFR) will be calculated using the Chronic Kidney Dise [facility] Epidemiology Collaboration (CKD-EPI) equation. Calcium 8.8 8.5 - 10.1 mg/dL 09/06/2019 6:56 AM [facility] Specimen Anatomical Collection Method Collection Time Receive d Time (Source) Location / / Volume Laterality Blood specimen 09/06/2019 6:03 AM 020 6:04 (specimen) CDT AM T Shellie Andujar PA-C LAB - BLOOD ORDERABLES Performing Organization Address City/State/ZIP Code Phon e Number M [facility] [address] [place], [place] [address] [facility] [address] [place], [place] [address] [place] [address] (ABNORMAL) Troponin I (09/06/2019 12:01 AM CDT) Analysis Performed At Patho logist Time Signature Troponin I ES 5.840 (HH) 0.000 - 09/06/2019 [facility] 0.045 ug/L 12:33 AM CDT [facility] Comment: The 99th percentile for upper reference range is 0.045 ug/L. ??Troponin values in the range of 0.045 - 0.120 ug/L may b e associated with risks of adverse clinical events. Critical result, provider not notified d ue to previous critical result notification. Specimen Anatomical Collection Method Collection Time Receive d Time (Source) Location / / Volume Laterality Blood specimen 09/06/2019 12:01 0 (specimen) AM CDT 12:02 AM CDT Fernando Mera MD LAB - BLOOD ORDERABLES Performing Organization Address City/State/ZIP Code Phon e Number [place] [address] [address] [place] [phone] [facility] [address] [place] [phone] Heparin 10a Level (09/05/2019 10:49 PM CDT) P athologist Signature Heparin 10A 0.20 IU/mL 09/05/2019 [facility] Level 11:03 PM CDT [facility] Comment: Therapeutic Range: UFH: 0.15-0.35 IU/mL [...] Location / / Volume Laterality Blood specimen 09/05/2019 10:49 0 (specimen) PM CDT 10:50 PM CDT Fernando Mera MD LAB - BLOOD ORDERABLES Performing Organization Address City/[facility]/ZIP Code Phon e Number M [facility] [address] [place], [place] [address] [facility] [address] [place], [place] [address], [facility] [phone] (ABNORMAL) Troponin I (09/05/2019 7:47 PM CDT) Analysis Performed At [facility] Signature Troponin I ES 6.002 (HH) 0.000 - 09/05/2019 [place] 0.045 ug/L 8:16 PM CDT [facility] Comment: The 99th percentile for upper reference range is 0.045 ug/L. ??Troponin values in the range of 0.045 - 0.120 ug/L may b e associated with risks of adverse clinical events. Critical result, provider not notified d ue to previous critical result notification. Specimen Anatomical Collection Method Collection Time Receive d Time (Source) Location / / Volume Laterality Blood specimen 09/05/2019 7:47 PM 020 7:48 (specimen) CDT PM CDT Fernando Mera MD LAB - BLOOD ORDERABLES Performing Organization Address City/[facility]/ZIP Code Phon e Number M [facility] [address] [place], [place] [address] [facility] [address] [place] [address] [facility] [phone] (ABNORMAL) Troponin I (09/05/2019 4:46 PM CDT) Analysis Performed At [facility] Signature Troponin I ES 5.477 (HH) 0.000 - 09/05/2019 [facility] 0.045 ug/L 5:19 PM CDT [facility] Comment: The 99th percentile for upper reference range is 0.045 ug/L. ??Troponin values in the range of 0.045 - 0.120 ug/L may b e associated with risks of adverse clinical events. Critical result, provider not notified d ue to previous critical result notification. Specimen Anatomical Collection Method Collection Time Receive d Time (Source) Location / / Volume Laterality Blood specimen 09/05/2019 4:46 PM 020 4:47 (specimen) CDT PM CDT William South MD LAB - BLOOD ORDERABLES Performing Organization Address City/[facility] Code Phon e Number M [facility] [address] [place], [place] [address] [place] [address] [address] [place] [phone] Heparin 10a Level (09/05/2019 3:07 PM CDT) athologist Signature Heparin 10A 0.10 IU/mL 09/05/2019 [facility] 3:35 PM CDT [facility] Comment: Therapeutic Range: UFH: 0.15-0.35 IU/mL [...] Location / / Volume Laterality Blood specimen 09/05/2019 3:07 PM 020 3:08 (specimen) CDT PM CDT Fernando Mera MD LAB - BLOOD ORDERABLES Performing Organization Address City/State/ZIP Code Phon e Number M [facility] [address] [place], [place] [address] [place] [address] [phone] (ABNORMAL) Troponin I (09/05/2019 3:07 PM CDT) Analysis Performed At Patho logist Time Signature Troponin I ES 5.089 (HH) 0.000 - 09/05/2019 [place] 0.045 ug/L 3:36 PM CDT [facility] Comment: The 99th percentile for upper reference range is 0.045 ug/L. ??Troponin values in the range of 0.045 - 0.120 ug/L may b e associated with risks of adverse clinical events. Critical result, provider not notified d ue to previous critical result notification. Specimen Anatomical Collection Method Collection Time Receive d Time (Source) Location / / Volume Laterality Blood specimen 09/05/2019 3:07 PM 020 3:08 (specimen) CDT PM CDT Shellie Andujar PA-C LAB - BLOOD ORDERABLES Performing Organization Address City/State/ZIP Code Phon e Number M [address] [address] [address] ECHO COMPLETE WITH CONTRAST (09/05/2019 10:28 AM CDT) Anatomical Region Laterality Modality Echocardiography Specimen (Source) Anatomical Collection Method Collection Time Re ceived Time Location / / Volume Laterality 09/05/2019 10:08 AM CDT Narrative 09/05/2019 11:55 AM CDT [id number] [facility] [id number]^MARYSOL^SHELLIE^FUNG [facility] Echocardiography Laboratory [address] [place] [address] Name: JATIN SIDHU : 1970 Study Date: 09/05/2019 10:08 AM Age: 48 yrs Gender: Male Patient Location: [facility] Reason For Study: Abn EKG Ordering Physician: SHELLIE ANDUJAR Performed By: Rosanna Hawkins BSA: 2.3 m2 Height: 73 in Weight: 243 lb HR: 72 BP: 129/82 mmHg __ Procedure Complete Portable Echo Adult. Nancy (Micky DC #[id number]) given intravenously. __ Interpretation Summary The left ventricle is normal in size. Th ere is normal left ventricular wall thickness. Left ventricular systolic fun ction is normal. The visual ejection fraction is estimated at 55-60%. Left ve ntricular diastolic function is normal. There is mild hypokinesis of the mid anteroseptal wall and all apical segments of the left ventricle. There is no thrombus seen in the left ventricle. The right ventricle is normal size. The right ventricular systolic function is normal. Trace mitral and tricuspid regurgitation . No pericardial effusion. No previous study for comparison. __ Left Ventricle The left ventricle is normal in size. Th ere is normal left ventricular wall thickness. Left ventricular systolic fun ction is normal. The visual ejection fraction is estimated at 55-60%. Left ve ntricular diastolic function is normal. There is mild hypokinesis of the mid anteroseptal wall and all apical segments of the left ventricle. There is no thrombus seen in the left ventricle. Right Ventricle The right ventricle is normal size. The right ventricular systolic function is normal. Atria Normal left atrial size. Right atrial si ze is normal. Mitral Valve There is trace mitral regurgitation. Tricuspid Valve There is trace tricuspid regurgitation. Right ventricular systolic pressure could not be approximated due to inadequ ate tricuspid regurgitation. Aortic Valve There is mild trileaflet aortic sclerosi s. No aortic regurgitation is present. No aortic stenosis is present. Pulmonic Valve There is no pulmonic valvular stenosis. Vessels The aortic root is normal size. Normal s ize ascending aorta. Descending aortic velocity normal. The [...] 9.1 __ Report approved by: Ed Lizama 12/2019 11:55 AM Procedure Note William South MD - 09/05/2019Forma tting of this note might be different from the original. [id number]^MARYSOL^SHELLIE^K[place]ON [facility] Echocardiography Laboratory [address] [place] [address] Name: JATIN SIDHU : 1970 Study Date: 09/05/2019 10:08 AM Age: 48 yrs Gender: Male Patient Location: [facility] Reason For Study: Abn EKG Ordering Physician: SHELLIE ANDUJAR Performed By: Rosanna Hawkins BSA: 2.3 m2 Height: 73 in Weight: 243 lb HR: 72 BP: 129/82 mmHg __ Procedure Complete Portable Echo Adult. Shel[place]on (N DC #[id number]) given intravenously. __ Interpretation Summary The left ventricle is normal in size. Th ere is normal left ventricular wall thickness. Left ventricular systolic fun ction is normal. The visual ejection fraction is estimated at 55-60%. Left ve ntricular diastolic function is normal. There is mild hypokinesis of the mid anteroseptal wall and all apical segments of the left ventricle. There is no thrombus seen in the left ventricle. The right ventricle is normal size. The right ventricular systolic function is normal. Trace mitral and tricuspid regurgitation . No pericardial effusion. No previous study for comparison. __ Left Ventricle The left ventricle is normal in size. Th ere is normal left ventricular wall thickness. Left ventricular systolic fun ction is normal. The visual ejection fraction is estimated at 55-60%. Left ve ntricular diastolic function is normal. There is mild hypokinesis of the mid anteroseptal wall and all apical segments of the left ventricle. There is no thrombus seen in the left ventricle. Right Ventricle The right ventricle is normal size. The right ventricular systolic function is normal. Atria Normal left atrial size. Right atrial si ze is normal. Mitral Valve There is trace mitral regurgitation. Tricuspid Valve There is trace tricuspid regurgitation. Right ventricular systolic pressure could not be approximated due to inadequ ate tricuspid regurgitation. Aortic Valve There is mild trileaflet aortic sclerosi s. No aortic regurgitation is present. No aortic stenosis is present. Pulmonic Valve There is no pulmonic valvular stenosis. Vessels The aortic root is normal size. Normal s ize ascending aorta. Descending aortic velocity normal. The [...] 9.1 __ Report approved by: Ed Lizama 12/2019 11:55 AM Shellie Andujar PA-C CV ECHO ORDERABLES (ABNORMAL) CBC with platelets (09/05/2019 10:19 AM T) Analysis Performed At Patho logist Time Signature WBC 14.7 (H) 4.0 - 11.0 09/05/2019 [facility] 10e9/L 10:30 AM [facility] RBC Count 4.67 4.4 - 5.9 09/05/2019 [facility] 10e12/L 10:30 AM [facility] Hemoglobin 14.6 13.3 - 09/05/2019 [facility] 17.7 g/dL 10:30 AM [facility] Hematocrit 44.9 40.0 - 09/05/2019 [facility] 53.0 % 10:30 AM [facility] MCV 96 78 - 100 09/05/2019 [facility] fl 10:30 AM [facility] MCH 31.3 26.5 - 09/05/2019 [facility] 33.0 pg 10:30 AM [facility] MCHC 32.5 31.5 - 09/05/2019 [facility] 36.5 g/dL 10:30 AM [facility] RDW 12.6 10.0 - 09/05/2019 [facility] 15.0 % 10:30 AM [facility] Platelet Count 231 150 - 450 09/05/2019 [facility] 10e9/L 10:30 AM [facility] Specimen Anatomical Collection Method Collection Time Receive d Time (Source) Location / / Volume Laterality Blood specimen 09/05/2019 10:19 0 (specimen) AM CDT 10:20 AM CDT Shellie Andujar PA-C LAB - BLOOD ORDERABLES Performing Organization Address City/[facility]/ZIP [facility] Phon e Number [facility] [address] [place], [place] [address] [facility] [address] [place], [place] [address], [facility] [phone] (ABNORMAL) Troponin I (09/05/2019 10:19 AM CDT) Analysis Performed At [facility] Time Signature Troponin I ES 1.952 (HH) 0.000 - 09/05/2019 [facility] 0.045 ug/L 10:56 AM [facility] Comment: The 99th percentile for upper reference range is 0.045 ug/L. ??Troponin values in the range of 0.045 - 0.120 ug/L may b e associated with risks of adverse clinical events. Critical Value called to and read back El TRISTAN ON MS3 @ 1053 ON 0, NB Specimen Anatomical Collection Method Collection Time Receive d Time (Source) Location / / Volume Laterality Blood specimen 09/05/2019 10:19 0 (specimen) AM CDT 10:20 AM CDT Shellie Andujar PA-C LAB - BLOOD ORDERABLES Performing Organization Address City/[facility]/ZIP [facility] Phon e Number M [facility] [address] [place], [place] [address] [facility] [address] [place], [place] [address], [facility] [phone] XR Chest 2 Views (09/05/2019 7:46 AM CDT) Anatomical Region Laterality Modality Chest Digital Radiography Specimen (Source) Anatomical Location Collection Method / Collectio n Time Received Time / Laterality Volume Impressions 09/05/2019 8:00 AM CDT IMPRESSION: The cardiac silhouette and pulmonary vasculature are within normal limits. No focal pulmonary consolidations. No pleural effusion or pneumothorax. RENE LI MD Narrative 09/05/2019 8:00 AM CDT CHEST TWO VIEWS 09/05/2019 7:46 AM HISTORY: chest pressure, severe htn COMPARISON: None. Procedure Note Rene Li MD - 09/05/2019Form atting of this note might be different from the original. CHEST TWO VIEWS 09/05/2019 7:46 AM HISTORY: chest pressure, severe htn COMPARISON: None. IMPRESSION: The cardiac silhouette and p ulmonary vasculature are within normal limits. No focal pulmonary consolidations. No pleural effusion or pneumothorax. RENE LI MD Bella Branch MD IMG DIAGNOSTIC IMAGING ORDER [place] (ABNORMAL) Hemoglobin A1c (09/05/2019 7:28 AM CDT) athologist Signature Hemoglobin A1C 5.7 (H) 0 - 5.6 % 09/05/2019 [facility] 10:27 AM T [facility] Comment: Normal <5.7% Prediabetes 5.7-6.4% ??Diab etes 6.5% or higher - adopted from ADA consensus guidelines. Specimen Anatomical Collection Method Collection Time Receive d Time (Source) Location / / Volume Laterality 09/05/2019 7:28 AM 0 7:40 CDT AM CDT Bella Branch MD LAB - BLOOD ORDERABLES Performing Organization Address City/State/ZIP Code Phon e Number M [facility] [address] [place] [address] [facility] [address] [phone] (ABNORMAL) Troponin I (09/05/2019 7:28 AM CDT) Analysis Performed At Patho logist Time Signature Troponin I ES 0.114 (H) 0.000 - 09/05/2019 [place] 0.045 ug/L 8:04 AM CDT [facility] Comment: The 99th percentile for upper reference range is 0.045 ug/L. ??Troponin values in the range of 0.045 - 0.120 ug/L may b e associated with risks of adverse clinical events. Specimen Anatomical Collection Method Collection Time Receive d Time (Source) Location / / Volume Laterality Blood specimen 09/05/2019 7:28 AM 020 7:40 (specimen) CDT AM CDT Bella Branch MD LAB - BLOOD ORDERABLES Performing Organization Address City/State/ZIP Code Phon e Number M [facility] [address] [place] [address] [facility] [address] [phone] (ABNORMAL) Basic metabolic panel (09/05/2019 7:28 AM CDT) athologist Signature Sodium 140 133 - 144 09/05/2019 [place] mmol/L 7:54 AM [facility] Potassium 4.2 3.4 - 5.3 09/05/2019 [place] mmol/L 7:54 AM [facility] Chloride 109 94 - 109 09/05/2019 [place] mmol/L 7:54 AM [facility] Carbon Dioxide 26 20 - 32 09/05/2019 [place] mmol/L 8:01 AM [facility] Anion Gap 5 3 - 14 09/05/2019 [place] mmol/L 8:01 AM [facility] Glucose 143 (H) 70 - 99 09/05/2019 [place] mg/dL 8:01 AM [facility] Urea Nitrogen 16 7 - 30 09/05/2019 [place] mg/dL 8:01 AM [facility] Creatinine 0.68 0.66 - 09/05/2019 [place] 1.25 mg/dL 8:01 AM [facility] GFR Estimate >90 >60 09/05/2019 [place] mL/min/{1. 8:01 AM [facility] 73_m2} HOSPITAL Comment: Non GFR Calc Starting 04/15/2018, serum creatinine ba sed estimated GFR (eGFR) will be calculated using the Chronic Kidney Dise ase Epidemiology Collaboration (CKD-EPI) equation. GFR Estimate If >90 >60 mL/min/{1.73_m2} 09/05/2019 8: 01 AM [facility] Comment: GFR Calc Starting 04/15/2018, serum creatinine ba sed estimated GFR (eGFR) will be calculated using the Chronic Kidney Dise [facility] Epidemiology Collaboration (CKD-EPI) equation. Calcium 9.2 8.5 - 10.1 mg/dL 09/05/2019 8:01 AM T [facility] Specimen Anatomical Collection Method Collection Time Receive d Time (Source) Location / / Volume Laterality Blood specimen 09/05/2019 7:28 AM 020 7:40 (specimen) CDT AM CDT Bella Branch MD LAB - BLOOD ORDERABLES Performing Organization Address City/State/ZIP Code Phon e Number M [address] [address] [facility] [address] [place], [place] [address] [facility] [phone] [address] CBC with platelets differential (09/05/2019 7:28 AM CDT) [facility] Method Time Signature WBC 9.0 4.0 - 09/05/2019 [facility] 11.0 7:43 AM [facility] 10e9/L [facility] RBC Count 5.05 4.4 - 5.9 09/05/2019 [facility] 10e12/L 7:43 AM [facility] Hemoglobin 16.0 13.3 - 09/05/2019 [facility] 17.7 g/dL 7:43 AM [facility] Hematocrit 48.5 40.0 - 09/05/2019 [facility] 53.0 % 7:43 AM [facility] MCV 96 78 - 100 09/05/2019 [facility] fl 7:43 AM [facility] MCH 31.7 26.5 - 09/05/2019 [facility] 33.0 pg 7:43 AM [facility] MCHC 33.0 31.5 - 09/05/2019 [facility] 36.5 g/dL 7:43 AM [facility] RDW 12.7 10.0 - 09/05/2019 [facility] 15.0 % 7:43 AM [facility] Platelet Count 235 150 - 450 09/05/2019 [facility] 10e9/L 7:43 AM [facility] Diff Method Automated 09/05/2019 [facility] Method 7:43 AM [facility] % Neutrophils 65.0 % 09/05/2019 [facility] 7:43 AM [facility] % Lymphocytes 23.7 % 09/05/2019 [facility] 7:43 AM [facility] % Monocytes 7.3 % 09/05/2019 [facility] 7:43 AM [facility] % Eosinophils 2.7 % 09/05/2019 [facility] 7:43 AM [facility] % Basophils 0.6 % 09/05/2019 [facility] 7:43 AM [facility] % Immature 0.7 % 09/05/2019 [facility] Granulocytes 7:43 AM [facility] Nucleated RBCs 0 0 /100 09/05/2019 [facility] 7:43 AM [facility] Absolute 5.9 1.6 - 8.3 09/05/2019 [facility] Neutrophil 10e9/L 7:43 AM [facility] Absolute 2.1 0.8 - 5.3 09/05/2019 [facility] Lymphocytes 10e9/L 7:43 AM [facility] Absolute 0.7 0.0 - 1.3 09/05/2019 [facility] Monocytes 10e9/L 7:43 AM [facility] Absolute 0.2 0.0 - 0.7 09/05/2019 [facility] Eosinophils 10e9/L 7:43 AM [facility] Absolute 0.1 0.0 - 0.2 09/05/2019 [facility] Basophils 10e9/L 7:43 AM [facility] Abs Immature 0.1 0 - 0.4 09/05/2019 [facility] Granulocytes 10e9/L 7:43 AM [facility] Absolute 0.0 09/05/2019 [facility] Nucleated RBC 7:43 AM [facility] Specimen Anatomical Collection Method Collection Time Receive d Time (Source) Location / / Volume Laterality Blood specimen 09/05/2019 7:28 AM 020 7:40 (specimen) CDT AM CDT Bella Branch MD LAB - BLOOD ORDERABLES Performing Organization Address City/State/ZIP Code Phon e Number [facility] [address] [place], [place] [address] [facility] [address] [place], [place] [address] [facility] [phone] EKG 12 lead (09/05/2019 7:23 AM CDT) [facility] gist Method Time Signature Interpretation ECG Click View RADIOLOGY Image link RESULTS to view waveform and result Specimen (Source) Anatomical Collection Method Collection Time Re ceived Time Location / / Volume Laterality 09/05/2019 7:23 AM CDT Bella Branch MD ECG ORDERABLES Performing Organization Address City/State/ZIP Code Phon e Number RADIOLOGY RESULTS EKG CARDIAC - HIM SCAN (09/05/2019 12:00 AM CDT) Specimen (Source) Anatomical Location Collection Method / Collectio n Time Received Time / Laterality Volume 09/05/2019 Narrative This result has an attachment that is no t available. Provider Scan ECG ORDERABLES EKG CARDIAC - HIM SCAN (09/05/2019 12:00 AM CDT) Specimen (Source) Anatomical Location Collection Method / Collectio n Time Received Time / Laterality Volume 09/05/2019 Narrative This result has an attachment that is no t available. Provider Scan ECG ORDERABLES documented in this encounter Visit Diagnoses Diagnosis Chest discomfort - Primary Other chest pain NSTEMI (non-ST elevated myocardial infar ction) (H) Acute myocardial infarction, subendocard ial infarction, episode of care unspecified Hypertensive urgency Unspecified essential hypertension Chest discomfort Other chest pain Chest discomfort Other chest pain NSTEMI (non-ST elevated myocardial infar ction) (H) Acute myocardial infarction, subendocard ial infarction, episode of care unspecified documented in this encounter Administered Medications Inactive Administered Medications - up to 3 most recent administrations Medication Order MAR Action Action Date Dose Rate Site acetaminophen (TYLENOL) tablet 650 Given 09/06/2019 6:31 AM CDT 650 mg mg 650 mg, Oral, EVERY 6 HOURS PRN, mild pain, headaches, Starting on 09/06/19 at 0553, Maximum acetaminophen dose from all sources = 75 mg/kg/day not to exceed 4 grams/day. 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 Exceptions: IF patient is allergic to aspirin OR IF patient already received aspirin 325 mg today OR IF patient takes aspirin 81 mg daily and took a dose today., Cardiac Pre-procedure atorvastatin (LIPITOR) tablet 40 mg Given 09/05/2019 9:49 PM CDT 40 mg 40 mg, Oral, EVERY EVENING, First dose on 09/05/19 at 2000 carvedilol (COREG) tablet 6.25 mg Given 09/07/2019 8:53 AM CDT 6.25 mg 6.25 mg, Oral, 2 TIMES DAILY, First dose (after last modification) on 09/05/19 at 1100, Hold for HR <55 Given 09/06/2019 8:48 PM CDT 6.25 mg Given 09/06/2019 8:27 AM CDT 6.25 mg heparin 25,000 units in 0.45% Rate/Dose 09/05/2019 9:56 1,000 Units/ hr 10 mL/hr NaCl 250 mL ANTICOAGULANT Verify AM CDT infusion Intravenous, at 10 mL/hr, CONTINUOUS, Starting on 09/05/19 at 0852, Goal Xa 0.15-0.35 Notify provider if: 1. Two consecutive heparin 10a levels are > 1.6 or < 0.1 2. If the platelet count decreases to < 100,000 or decreases by > 50% from baseline New Bag 09/05/2019 9:00 AM CDT 1,000 Units/hr 10 mL/hr heparin 25,000 units in Rate/Dose Verify 09/07/2019 7:08 1,550 Unit s/hr 15.5 mL/hr 0.45% NaCl 250 mL AM CDT ANTICOAGULANT infusion 1,550 Units/hr (15.5 mL/hr), Intravenous, CONTINUOUS, Starting on 09/05/19 at 1445, Cont current rate for heparin xa 09/06 am of 0.34. Recheck heparin xa with am labs. If platelet counts falls by 50% baseline, hold heparin and notify MD for further orders. Goal Heparin Xa level 0.15-0.35., Initial Set-up verified by: Hue Tristan RN and Pia Aj RN New Bag 09/07/2019 6:32 AM CDT 1,550 Units/hr 15.5 mL/hr Rate/Dose Verify 09/06/2019 8:47 PM CDT 1,550 Units/hr 15.5 mL/hr heparin ANTICOAGULANT Loading Dose bolus Given 4:50 PM CDT 2,700 Units dose from infusion pump 2,700 Units 2,700 Units, Intravenous, ONCE, On 09/05/19 at 1645, For 1 dose, Nurse to administer dose from existing infusion. If no infusion bag or syringe for this order is available, contact pharmacist to re-enter medication order. heparin ANTICOAGULANT Loading Dose bolus Given 8:35 AM CDT 4,500 Units dose from infusion pump 4,500 Units 4,500 Units, Intravenous, ONCE, On 09/06/19 at 0815, For 1 dose, Nurse to administer dose from existing infusion. If no infusion bag or syringe for this order is available, contact pharmacist to re-enter medication order. heparin ANTICOAGULANT Loading Dose bolus Given 9:00 AM CDT 5,000 Units dose from infusion pump 5,000 Units 5,000 Units, Intravenous, ONCE, On 09/05/19 at 0852, For 1 dose, Nurse to administer dose from existing infusion. If no infusion bag or syringe for this order is available, contact pharmacist to re-enter medication order. labetalol (NORMODYNE/TRANDATE) syringe 2 0 mg 20 mg, Intravenous, EVERY 2 HOURS PRN, high blood pres sure, give for SBP > 160, Starting on 09/05/19 at 1541, Hold for HR < 60 Give doses less than 20 mg over 2 minutes. For doses of 20 to 80 mg, give EACH 20 mg ove r 2 minutes IV push. nitroGLYcerin (NITROSTAT) sublingual tablet Given 09/05/2019 7:48 AM CDT 0.4 mg 0.4 mg 0.4 mg, Sublingual, EVERY 5 MIN PRN, chest pain, Starting on 09/05/19 at 0724, For 3 doses Given 09/05/2019 7:32 AM CDT 0.4 mg perflutren diluted 1mL to 2mL with saline Given 09/05/2019 10:29 AM CDT 3 mLs (OPTISON) diluted injection 3 mL 3 mL, Intravenous, ONCE, On 09/05/19 at 1030, For 1 dose, [facility] [id number] Reason JANET/ARB/ARNI order not selected Reason not prescribed: Diastolic Heart Failure ejectio n fraction > 40%, Discharge-NON Med rosuvastatin (CRESTOR) tablet 40 mg Given 09/06/2019 8:48 PM CDT 40 mg 40 mg, Oral, AT BEDTIME, First dose on 09/06/19 at 2200 sodium chloride (PF) 0.9% PF flush 10 mL Given 09/05/2019 10:29 AM CDT 10 mLs 10 mL, Intracatheter, ONCE, On 09/05/19 at 1030, For 1 dose sodium chloride 0.9% infusion New Bag 09/07/2019 10:27 AM CDT 150 mL/hr at 150 mL/hr, Intravenous, CONTINUOUS, 150 mL/hr IV for 2 hours prior to cardiac slab lifting supervisor procedure, then decrease to 75 mL/hr to run throughout the procedure. Start at 0700 for inpatients. IF PATIENT IS RECEIVING RENAL DIALYSIS, RN to reduce rate of 0.9 % sodium chloride IV solution to 10 mL /hour (TKO) IV infusion to prevent fluid overload., Cardiac Pre-procedure, Starting on 09/07/19 at 0815, Until 09/07/19 at 1228 documented in this encounter Active and Recently Administered Medications Times are shown in CDT. Scheduled Medication Order 09/05/2019 09/06/2019 09/07/2019 aspirin (ASA) chewable tablet 324 mg (COMPLETED) 0731 (Given - Provider: Federica Dent RN) 324 mg, Oral, ONCE, 09/05/19 at 0726, For 1 dose aspirin (ASA) chewable tablet 324 mg (CANCELED) 0830 (Given - Provider: Jackeline Contreras LPN) 324 mg, Oral, DAILY, First dose (after last reorder) on Sun 09/05 at 0900 aspirin (ASA) EC tablet 325 mg (CANCELED) 0853 (Given - Provider: Khadra Barclay, DEANNA) 325 mg, Oral, DAILY, First dose on Mon at 0900, For 2 doses, Once the day prior to the procedure and once the morning of the slab lifting supervisor procedure. Exceptions: IF patient is allergic to aspirin OR IF patient already received aspirin 325 mg today OR IF patient takes aspirin 81 mg daily and took a dose today., Cardiac Pre-procedure aspirin EC tablet 81 mg 81 mg, Oral, DAILY, First dose on 04/17 at 0900, Starting today. May omit if dose given/taken pre-procedure today. Post -procedurally for CAR percutaneous coronary intervention (PCI)., Cardiac Post-procedure atorvastatin (LIPITOR) tablet 40 mg (CANCELED) 2148 (G iven - Provider: Wanda Marcum RN) 40 mg, Oral, EVERY EVENING, First dose on 09/05/19 at 2000 carvedilol (COREG) tablet 6.25 mg 1332 (Given - Provid er: Hue Tristan RN - Comment: pharmacist asked that I not give until they give ok, verifying dose)2148 (Given - Provider: Wanda Marcum RN) 08 (Given - Provider: Jackeline Contreras LPN)2047 (Given - Provider: Marek Flor RN) 0853 (Given - Provider: Khadra Barclay RN) 6.25 mg, Oral, 2 TIMES DAILY, First dose (after last modification) on 09/05/19 at 1100, Hold for HR <55 heparin ANTICOAGULANT Loading Dose bolus dose from infusion pump 2,700 Units (COMPLETED) 1650 (Given - Provider: Clari Ramos RN) 2,700 Units, Intravenous, ONCE, Sat at 1645, For 1 dose, Nurse to administer dose from existing infusion. If no infusion bag or syringe for this order is available, contact pharmacist to re-enter medication order. heparin ANTICOAGULANT Loading Dose bolus dose from infusion pump 4,500 Units (COMPLETED) 0835 (Given - Provider: Khadra Solorio RN) 4,500 Units, Intravenous, ONCE, Sun 09/05 at 0815, For 1 dose, Nurse to administer dose from existing infusion. If no infusion bag or syringe for this order is available, contact pharmacist to re-enter medication order. heparin ANTICOAGULANT Loading Dose bolus dose from infusion pump 5,000 Units (COMPLETED) 0900 (Given - Provider: Federica Dent, RN) 5,000 Units, Intravenous, ONCE, Sat at 0852, For 1 dose, Nurse to administer dose from existing infusion. If no infusion bag or syringe for this order is available, contact pharmacist to re-enter medication order. perflutren diluted 1mL to 2mL with salin e (OPTISON) diluted injection 3 mL (COMPLETED) 1029 (Given - Provider: Rosanna Hawkins) 3 mL, Intravenous, ONCE, 09/05/19 at 1030, For 1 dose, [facility] [id number] rosuvastatin (CRESTOR) tablet 40 mg 2047 (Given - Provider: Marek Flor, DEANNA)210 (Canceled Entry - Provider: Marek Flor RN) 40 mg, Oral, AT BEDTIME, First dose on 09/06/19 at 2200 sodium chloride (PF) 0.9% PF flush 10 mL (COMPLETED) 1 029 (Given - Provider: Rosanna Hawkins) 10 mL, Intracatheter, ONCE, 09/05/19 at 1030, For 1 dose sodium chloride (PF) 0.9% PF flush 3 mL 1059 (z Missed (do not use) - Provider: Hue Tristan RN - Reason: IV Infusing)1800 (Canceled Entry - Provider: Clari Ramos RN - Comment: iv infusing) 0127 (z Missed (do not use) - Provider: Cecilia Diaz RN - Reason: IV Infusing)1000 (Canceled Entry - Provider: Khadra Ramirez, DEANNA)1701 (z Missed (do not use) - Provider: Joana Sandy RN - Reason: IV Infusing) 0120 (z Missed (do not use) - Provider: Shannon Franco RN - Reason: IV Infusing)1000 (Canceled Entry - Provider: Khadra Barclay RN)1800 (Canceled Entry - Provider: Orders Generic Provider - Comment: Automatically canceled at discont 3 mL, Intracatheter, EVERY 8 HOURS, Firs t dose on 09/05/19 at 1000, And Q1H PRN, to lock peripheral IV dormant line. inue of medication order) ticagrelor (BRILINTA) tablet 90 mg 90 mg, Oral, EVERY 12 HOURS, First dose on 09/07/19 at 2000, Post - procedurally for CAR percutaneous coronary intervention (PCI)., Cardiac Post-procedure Continuous Medication Order 09/05/2019 09/06/2019 09/07/2019 heparin 25,000 units in 0.45% NaCl 250 mL ANTICOAGULAN T infusion (CANCELED) 0900 (New Bag - Provider: Federica Dent RN)0956 (Rate/Dose Verify - Provider: Hue Tristan, DEANNA) 1,000 Units/hr (10 mL/hr), Intravenous, at 10 mL/hr, CONTINUOUS, Starting 09/05/19 at 0852, Goal Xa 0.15-0.35 Notify provider if: 1. Two consecutive heparin 10a levels are > 1.6 or < 0.1 2. If t he platelet count decreases to < 100,000 or decreases by > 50% f rom baseline heparin 25,000 units in 0.45% NaCl 250 mL ANTICOAGULAN T infusion (CANCELED) 1443 (Rate/Dose Verify - Provider: Hue Tristan, DEANNA)1650 (Rate/Dose Change - Provider: Clari Ramos RN)1651 (Rate/Dose Change - Provider: Clari Ramos RN)2153 (Rate/Dose Verify - Provider: Wanda Marcum RN) 0119 (New Bag - Provider: Cecilia Diaz, DEANNA)0834 (Rate/Dose Change - Provider: Khadra Ramirez, DEANNA)1548 (Rate/Dose Verify - Provider: Joana Sandy, RN)1549 (New Bag - Provider: Joana Sandy, RN) 0632 (New Bag - Provider: Shannon Franco , DEANNA)0708 (Rate/Dose Verify - Provider: Khadra Barclay RN)1055 (Stopped - Provider: Justin Barbosa RN) 1,550 Units/hr (15.5 mL/hr), Intravenous , at 15.5 mL/hr, CONTINUOUS, Starting 09/05/19 at 1445, Cont current rate for heparin xa 09/06 am of 0.34. Recheck heparin xa with am labs. If platelet counts fa 2046 (R ate/Dose Verify - Provider: Marek Flor RN) lls by 50% baseline, hold heparin and no forrest [place] for further orders. 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 Start at 0700 for inpatients. IF PATIENT I S RECEIVING RENAL DIALYSIS, RN to reduce rate of 0.9 % sodium chloride IV solution to 10 mL /hour (TKO) IV infusion to prevent fluid overload., Cardiac Pre-procedure, Starting 09/07/19 at 0815, Until 09/07/19 at 1228 sodium chloride 0.9% infusion 13 00 (Canceled Entry - Provider: Chema Generic Provider - Comment: Automatically canceled at discontinue of medication order) at 75 mL/hr, Intravenous, CONTINUOUS, IF PATIENT IS RECEIVING RENAL DIALYSIS, RN to reduce rate of 0.9 % sodium chloride IV solution to 10 mL /hour (TKO) to prevent fluid overload., Cardiac Post-procedu re, Starting 09/07/19 at 1300, Until 09/07/19 at 1859 PRN Medication Order 09/05/2019 09/06/2019 09/07/2019 0.9% sodium chloride BOLUS Intravenous, 300 mL, ONCE PRN, other, fo r symptomatic hypotension with femoral sheath removal, Starting 09/07/19 at 1255, For 12 hours, Post-procedurally for CAR percutaneous coronary intervention (PCI), Cardiac Post-procedure acetaminophen (TYLENOL) tablet 650 mg (CANCELED) 0631 (Given - Provider: Cecilia Diaz RN) 650 mg, Oral, EVERY 6 HOURS PRN, mild pa in, headaches, Starting 09/06/19 at 0553, Maximum acetaminophen dose from all sources = 75 mg/kg/day not to exceed 4 grams/day. acetaminophen (TYLENOL) tablet 650 mg 650 mg, Oral, EVERY 4 HOURS PRN, mild pa in, headaches, Starting 09/07/19 at 1255, May give first dose 4 hours after last scheduled dose of acetaminophen. Maximum acetaminophen dose from all sources = 75 mg/kg/day not to exceed 4 grams/day., Cardiac Post-procedure atropine injection 0.5 mg 0.5 mg, Intravenous, EVERY 5 MIN PRN, ot her, symptomatic bradycardia associated with FEMORAL sheath pulls, Starting 09/07/19 at 1255, For 12 hours, May repeat x1. Post-procedurally for CAR percutaneo us coronary intervention (PCI), Cardiac Post-procedure Continuing JANET inhibitor/ARB/ARNI from h ome medication list OR JANET inhibitor/ARB order already placed during this visit Cardiac Post-procedure Continuing beta kp from home medica tion list OR beta kp order already placed during this visit Continuing beta kp from home medica tion list OR beta kp order already placed during this visit, Cardiac Post-procedure Continuing statin from home medication l ist OR statin order already placed during this visit Continuing statin from home medication l ist OR statin order already placed during this visit, Cardiac Post-procedure fentaNYL (PF) (SUBLIMAZE) injection 25-50 mcg 25-50 mcg, Intravenous, EVERY 15 MIN PRN , other, severe pain related to pulling the FEMORAL sheath out ONLY, Starting 09/07/19 at 1255, For 12 hours, May repeat x1 after 15 minutes. For severe pain r elated to pulling the FEMORAL sheath out ONLY. Post -procedurally for CAR percutaneous coronary intervention (PCI). For ordered IV doses 1-100 mcg give IV Push undiluted over a minimum of 3-5 minutes., Cardiac Post-procedure fentaNYL (PF) (SUBLIMAZE) injection (CANCELED) 1122 (Given - Provider: Justin Barbosa RN)1127 (Given - Provider: Justin Barbosa, DEANNA) ONCE PRN, Administer over 3-5 Minutes, S tarting 09/07/19 at 1122, Cardiac Intra-procedure flumazenil (ROMAZICON) injection 0.2 mg 0.2 mg, Intravenous, EVERY 1 MIN PRN, be nzodiazepine reversal, Administer over 1 Minutes, Starting 09/07/19 at 1255, For 12 hours, May repeat x 3. Notify provider [Notify Interventional Fellow/Cardio logist ([facility]) or Owner Spa Director ([facility])] I rritant. For ordered IV doses 0.1-1 mg, give IV Push undiluted. Administer each 0.2mg over 15 seconds., Cardiac Post-procedure heparin (porcine) injection (CANCELED) 1131 (Given - Provider: Greg Marcos MD)1145 (Given - Provider: Greg Marcos MD) ONCE PRN, Starting 09/07/19 at 1131, Cardiac Intra-procedure iopamidol (ISOVUE-370) solution (CANCELED) 1207 (Given - Provider: Greg Marcos MD) ONCE PRN, Starting 09/07/19 at 1207, Cardiac Intra-procedure labetalol (NORMODYNE/TRANDATE) syringe 20 mg 20 mg, Intravenous, EVERY 2 HOURS PRN, h igh blood pressure, give for SBP > 160, Starting 09/05/19 at 1541, Hold for HR < 60 Give doses less than 20 mg over 2 minutes. For doses of 20 to 80 mg, give EACH 20 mg over 2 minutes IV push. lidocaine (LMX4) cream Topical, EVERY 1 HOUR PRN, pain, with VA D insertion or accessing implanted port., Starting 09/05/19 at 0955, Do NOT give if patient has a history of allergy to any local anesthetic or any miguel prod uct. Apply at least 30 minutes prior to VAD insertion or port access. In divided doses as needed for size of site for insertion with MAX Dose: 2.5 g (?? of 5 g tube) lidocaine 1 % 0.1-1 mL 0.1-1 mL, Other, EVERY 1 HOUR PRN, mild pain with VAD insertion., Starting 09/05/19 at 0955, Do NOT give if patient has a history of allergy to any local anesthetic or any miguel product. MAX dose 1 mL subcutaneous OR intradermal in divided doses as needed for VA D insertion. lidocaine 1 % 5 mL 5 mL, Subcutaneous, ONCE PRN, for sheath removal, Starting 09/07/19 at 1255, For 12 hours, Use at the site of sheath insertion prior to sheath removal. Post - procedurally for CAR percutaneous coronary intervention (PCI)., Cardiac Post-procedure lidocaine 1 % (CANCELED) 1122 (G iven - Provider: Greg Marcos MD) ONCE PRN, Starting 09/07/19 at 1123, Cardiac Intra-procedure melatonin tablet 1 mg 1 mg, Oral, AT BEDTIME PRN, sleep, Start ing 09/05/19 at 0955, Do not give unless at least 6 hours of uninterrupted sleep is expected. midazolam (VERSED) injection 1-2 mg 1-2 mg, Intravenous, Administer over 2 M inutes, EVERY 5 MIN PRN, other, anxiety associated with pulling the FEMORAL sheath out ONLY, Starting 09/07/19 at 1255, For 12 hours, May repeat x1 after 5 min utes, if needed. Post -procedurally for CAR percutaneous coronary intervention (PCI). This drug may cause significant respiratory depression. Monitor respiratory status and vital signs carefully for 1 hour after each dose., Cardiac Post-procedure midazolam (VERSED) injection (CANCELED) 1121 (Given - Provider: Justin Barbosa RN) Administer over 2 Minutes, ONCE PRN, Sta rting 09/07/19 at 1122, Cardiac Intra-procedure naloxone (NARCAN) injection 0.1-0.4 mg 0.1-0.4 mg, Intravenous, EVERY 2 MIN PRN , opioid reversal, Starting 09/05/19 at 0955, For respiratory rate LESS than or EQUAL to 8. Partial reversal dose: 0.1 mg titrated q 2 minutes for Analgesia Rufus e Effects Monitoring Sedation Level of 3 (frequently drowsy, arousable, drifts to sleep during conversation).Full reversal dose: 0.4 mg bolus for Analgesia Side Effects Monitoring Sedation Level of 4 (s omnolent, minimal or no response to stim ulation). For ordered IV doses 0.1-2mg give IVP. Give each 0.4mg over 15 seconds in emergency situations. For non- emergent situations further dilute in 9mL of NS to facilitate titration of response. nicotine (NICORETTE) gum 4-8 mg 4-8 mg, Buccal, EVERY 1 HOUR PRN, other, nicotine withdrawal symptoms, Starting 09/05/19 at 0955, Chew until tingling, then place between cheek and gum. Repeat. Do not swallow. Not to exceed 96 mg in a 24 hour time period. nitroGLYcerin (NITROSTAT) sublingual tablet 0.4 mg (CA NCELED) 0732 (Given - Provider: Federica Dent, RN)0748 (Given - Provider: Federica Dent, RN - Comment: pain 1/10) 0.4 mg, Sublingual, EVERY 5 MIN PRN, stephane st pain, Starting 09/05/19 at 0724, For 3 doses nitroGLYcerin (NITROSTAT) sublingual tablet 0.4 mg 0.4 mg, Sublingual, EVERY 5 MIN PRN, stephane st pain, Starting 09/05/19 at 0955, Notify provider if discomfort after x2 doses nitroGLYcerin injection (CANCELED) 1127 (Given - Provider: Greg Marcos MD)1156 (Given - Provider: Greg Marcos MD) ONCE PRN, Starting 09/07/19 at 1127, Cardiac Intra-procedure Patient is already receiving anticoagula tion with heparin, enoxaparin (LOVENOX), warfarin (COUMADIN) or other anticoagulant medication CONTINUOUS PRN, Starting 09/05/19 at 0955, Until 09/07/19 a t 1906 Reason JANET/ARB/ARNI order not selected Reason not prescribed: Diastolic Heart F ailure ejection fraction > 40%, Discharge-NON Med sodium chloride (PF) 0.9% PF flush 3 mL 3 mL, Intracatheter, EVERY 1 MIN PRN, li ne flush, for peripheral IV flush post IV meds, Starting 09/05/19 at 0955 ticagrelor (BRILINTA) tablet (CANCELED) 1136 (Given - Provider: Justin Barbosa, DEANNA) ONCE PRN, Starting 09/07/19 at 1136, Cardiac Intra-procedure verapamil (ISOPTIN) injection (CANCELED) 1127 (Given - Provider: Greg Marcos MD) ONCE PRN, Starting 09/07/19 at 1127, Cardiac Intra-procedure documented in this encounter Care Teams Restaurant Hospitality Manager Relationship Specialty Start Date End Date No Ref-Primary, Physician PCP - General 09/05/19 11/06/20 documented as of this encounter
--- OUTSIDE RECORDS SUMMARY | 2022-04-05 08:21 | XMS_ITS | Encounter Summary ---
:1970 Author Organization [place] Address [address] [place] [address] Care Team Providers Name Role Phone No Ref-Primary, Physician Primary Care Provider [phone] Reason for Visit Reason Comments Chest Pain Auth/Cert Specialty Diagnoses / Procedures Referred By Contact Refer red To Contact Diagnoses NSTEMI (non-ST elevated myocardial infarction) (H) Hypertensive urgency Chest discomfort [facility] [address] [place], [place] [address] Phone: Fax: Referral ID Status Reason Start Date Expiration Date Visits Requ ested Visits Authorized [id number] 1 1 Encounter Details Date Type Department Care Team Description 09/07/2019 Surgery [facility] Jacqueline Marcos MD CV CORONARY ANGIOGRAM [facility] [address] [place] [address] [phone] Surgery Details Date/Time Status Location OR Service Patient Case Case Traum a Class Class Type Case? 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 1 Procedure LRB Anes Op Region Wound Class Commen ts CV CORONARY ANGIOGRAM N/A Conscious Sedation Heart Left Heart Cath N/A Conscious Sedation Heart Percutaneous Coronary N/A Conscious Sedation Intervention Stent Drug Eluting Surgeon Surgeon Role Service Panel Greg Marcos MD Primary Cardiology 1 documented in this [...] Sign Reading Time Taken Comments Blood Pressure 116/61 09/07/2019 12:31 PM CDT Pulse 63 09/07/2019 12:31 PM CDT Temperature 36.5 ??C (97.7 ??F) 09/07/2019 12:39 AM CDT Respiratory Rate 18 09/07/2019 12:39 AM CDT Oxygen Saturation 90% 09/07/2019 12:31 PM CDT Inhaled Oxygen Concentration - - Weight 107.6 kg (237 lb 4.8 oz) 09/05/2019 9:55 AM CDT Height 185.4 cm (6' 1) 09/05/2019 9:55 AM CDT Body Mass Index 31.31 09/05/2019 9:55 AM CDT documented in this encounter Discharge Summaries Reinaldo Alcaraz MD - 09/07/2019 2:57 PM CDT [facility] Hospitalist Discharge Summary Date of Admission: 09/05/2019 [...] the ER with concern for non-ST elevation [place]. He has remained chest pain free. ?? [...] minutes discharging this patient. Reinaldo Alcaraz MD [facility] Primary Care Physician Physician No Ref-Primary Discharge Orders Basic metabolic panel Lipid Profile ALT Last Lab Result: No results found for: ALT CARDIAC REHAB REFERRAL Discharge Order: F/U with Cardiac [facility] Follow-Up with [facility] CARDIAC REHAB REFERRAL Reason for your hospital [...] pneumothorax. RENE LI MD Echocardiogram Complete Narrative [id number]^MIRYAMZACK^SHELLIE^[facility] Echocardiography Laboratory [address] [place] [address] Name: JATIN SIDHU : 1970 Study Date: 09/05/2019 10:08 AM Age: 48 yrs Gender: Male Patient Location: [facility] Reason For Study: Abn EKG Ordering Physician: SHELLIE ANDUJAR Performed By: Rosanna Hawkins BSA: 2.3 m2 Height: 73 in Weight: 243 lb HR: 72 BP: 129/82 mmHg __ Procedure Complete Portable Echo Adult. Optison ([facility] #[id number]) given intravenously. __ Interpretation Summary The left [...] Alcaraz MD - 09/07/2019 1:37 PM CDT [facility] Medicine Progress Note - Hospitalist Service Date [...] the ER with concern for non-ST elevation [place]. He has remained chest pain free. ?? Following admission his troponin rodney to a peak of 6 and has since trended down. Echocardiogram showed grossly normal EF but with hypokinesis in likely LAD distribution. He remained on heparin drip. Heunderwent coronary angiography which showed 95% mid LAD lesion with placement of one MILES. Non-ST elevation [place]: - Continue aspirin 325 mg daily, Coreg [...] to home. Reinaldo Alcaraz MD Hospitalist Service [facility] Interval History No overnight issues. 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 Nehemiah Hope MD, [facility] Cardiology Pager: [phone] Text Page September 07, 2019 Fernando Mera MD - 09/06/2019 12:07 PM CDT [facility] Hospitalist Progress Note Fernando Mera MD 09/06/19 Reason for Stay (Diagnosis): Non-ST elevation [place] Assessment and Plan: Summary of Stay: Jatin [...] in the ER with concern for non-STelevation [place]. Following admission his troponin rodney dramatically to a peak of 6 and has since trended down. Echocardiogram shows grossly normal EF but with hypokinesis in likely LAD distribution. He remains on heparin drip with plan for coronary angiogram Saturday. Will be n.p.o. at midnight. Doing well with atorvastatin, Coreg, aspirin and heparin. ?? Problem List/Assessment and Plan: 1. Non-ST elevation [place]: As above. --Continue aspirin 325 mg daily, [...] was reviewed. Labs: Recent Labs Lab 09/06/19 0603 NA 137 POTASSIUM 4.1 CHLORIDE 107 CO2 24 ANIONGAP 6 GLC 116* BUN 11 CR 0.68 GFRESTIMATED >90 GFRESTBLACK >90 CHUN 8.8 Recent Labs Lab 09/06/19 0603 WBC 8.1 HGB 15.4 HCT 46.5 MCV [...] pneumothorax. RENE LI MD Echocardiogram Complete Narrative [id number]^MARYSOL^SHELLIE^[facility] Echocardiography Laboratory [address] [place] [address] Name: JATIN SIDHU : 1970 Study Date: 09/05/2019 10:08 AM Age: 48 yrs Gender: Male Patient Location: [facility] Reason For Study: Abn EKG Ordering Physician: SHELLIE ANDUJAR Performed By: Rosanna Hawkins BSA: 2.3 m2 Height: 73 in Weight: 243 lb HR: 72 BP: 129/82 mmHg __ Procedure Complete Portable Echo Adult. Nacny ([facility] #[id number]) given intravenously. __ Interpretation Summary The left [...] Labs reviewed. Tele: NSR William South MD, MTracieD. Cecilia Diaz RN - 09/06/2019 7:46 AM [...] for CP and chest pressure. Trop is 5.47Jo-Ann, and cardiology notified. Pt is on hep drip at 12. K 4.2. pt is on statins, echo was done today and plan isto have angio on Saturday. Cardiology is following. On a cardiac diet. Up IND in the room. No complaints of pain this shift. Will cont with POC> documented in this encounter H&P Notes Shellie Andujar PA-C - 09/05/2019 8:21 AM CDT [facility] Name: Jatin Sidhu Date of [...] 12:16 PM CDT Physician Attestation I, Fernando eMra, saw and evaluated Jatin Sidhu as part [...] me: Agree with admission for non-ST elevation [place]. Currently pain-free, I have asked him to [...] at am Current Facility-Administered Medications Ordered in [facility] Medication Dose Route Frequency Last Rate [...] at 09/05/19 0956 1,000 Units/hr at 09/05/19 09 ??? lidocaine (LMX4) cream Topical Q1H PRN [...] mL 3 mL Intracatheter Q8H No current [facility]-ordered outpatient medications on file. Review of [...] 150 - 450 10e9/L Echocardiogram Complete Narrative [id number]^MARYSOL^SHELLIE^[place] [facility] Echocardiography Laboratory [address] [facility] [address] Name: JATIN SIDHU : 1970 Study Date: 09/05/2019 10:08 AM Age: 48 yrs Gender: Male Patient Location: [facility] Reason For Study: Abn EKG Ordering Physician: SHELLIE ANDUJAR Performed By: Rosanna Hawkins BSA: 2.3 m2 Height: 73 in Weight: 243 lb HR: 72 BP: 129/82 mmHg __ Procedure Complete Portable Echo Adult. Optison ([facility] #[id number]) given intravenously. __ Interpretation Summary The left [...] documented in this encounter ED Notes Hue Tristan RN - 09/05/2019 8:20 AM CDT [facility] ED Nurse Handoff Report Jatin Sidhu is a 48 year old male ED Chief complaint: Chest Pain . ED Diagnosis: Final diagnoses: None Allergies: Allergies Allergen Reactions ??? No Known Drug Allergies Code Status: Full Code Activity level - Baseline/Home: Independent. Activity Level - Current: Independent. Lift room needed: No. Bariatric: No Self Rising Flour Mixer Needed: No Isolation: No. Infection: Not Applicable. [...] tablet 0.4 mg (0.4 mg Sublingual Given 09[birth year]/1948) aspirin (ASA) chewable tablet 324 mg (324 mg Oral Given 09/05/1931) Drips infusing: Yes For the majority of the shift, the patient's behavior Green. Interventions performed were n/a. Sepsis treatment initiated: No ED Nurse Name/Phone Number: Federica Dent RN, 8:20 AM RECEIVING UNIT ED HANDOFF REVIEW Above ED Nurse Handoff Report was reviewed: Yes Reviewed by: Hue Tristan RN on September 05, 2019 at 9:30 AM Federica Dent RN - 09/05/2019 7:30 AM CDT Pt presents [...] prior to arrival when he developed a dra-tebiklmetzkkjrnev-xupt substernal chest pain, ranging from 3/10 to [...] Chest Pain Time: 722 Rate 78 bpm. MO interval 158. QRS duration 84. QT/QTc 352/401. [...] statements to me. Bella Branch MD 09/05/19 1419 documented in this encounter Miscellaneous Notes Plan [...] RN - 09/05/2019 5:25 PM CDT 09/05/19 6989 Significant Event Significant Event Critical result/value (Trop [...] for this patient is complete. See [facility] admission navigator for allergy information, prior to admission medications and immunization status. Medication history interview done via telephone during Covid-19 pandemic, indicate source(s): Patient Medication history resources (including written lists, pill bottles, clinic record): SureScripts andCare Everywhere Primary pharmacy:[facility] [place], [place] Changes made to PATTERN CHANGER medication list: Added: multivitamin Deleted: none Changed: [...] Referral Routine NSTEMI (non-ST Expected: 0 11/07/2020 [facility] elevated myocardial (Approxi mate), infarction) (H) Expires: [...] (09/22/2019 9:46 AM CDT) Analysis Performed At [facility] logist Time Signature Sodium 137 133 - 144 09/22/2019 [place] mmol/L 12:55 PM [facility] Potassium 4.1 3.4 - 5.3 09/22/2019 [place] mmol/L 12:55 PM [facility] Chloride 109 94 - 109 09/22/2019 [place] mmol/L 12:55 PM [facility] Carbon Dioxide 24 20 - 32 09/22/2019 [place] mmol/L 1:06 PM [facility] Anion Gap 4 3 - 14 09/22/2019 [place] mmol/L 1:06 PM [facility] Glucose 104 (H) 70 - 99 09/22/2019 [place] mg/dL 1:06 PM [facility] Comment: Fasting specimen Urea Nitrogen 11 7 - 30 mg/dL 09/22/2019 1:06 PM [facility] Creatinine 0.58 (L) 0.66 - 1.25 09/22/2019 1:06 PM [facility] mg/dL [facility] GFR Estimate >90 >60 09/22/2019 1:06 PM [facility] mL/min/{1.73_m2} [facility] [place] Comment: Non GFR Calc Starting 04/15/2018, serum creatinine ba sed estimated GFR (eGFR) will be calculated using the Chronic Kidney Dise [facility] Epidemiology Collaboration (CKD-EPI) equation. GFR Estimate If >90 >60 mL/min/{1.73_m2} 09/22/2019 1: 06 PM [facility] Black [facility] Comment: GFR Calc Starting 04/15/2018, serum creatinine ba sed estimated GFR (eGFR) will be calculated using the Chronic Kidney Dise [facility] Epidemiology Collaboration (CKD-EPI) equation. Calcium 9.0 8.5 - 10.1 mg/dL 09/22/2019 1:06 PM [facility] Specimen Anatomical Collection Method Collection Time Receive d Time (Source) Location / / Volume Laterality Blood specimen 09/22/2019 9:46 AM 020 9:48 (specimen) CDT AM CDT Anaid Aj APRN, CNP LAB - BLOOD ORDERABLES Performing Organization Address City/State/ZIP Code Phon e Number [facility] [place] [address] [place] [address] EKG 12-lead, tracing only (09/07/2019 1:07 PM CDT) [facility] gist Method Time Signature Interpretation ECG Click [...] A STENT RESOLUTE BASSEM DE 2.7FR 3 .43Z96QE RONYX [id number] drug eluting st ent was successfully placed. Pre-stent angioplasty was performed. The strut is apposed. Post-stent angioplasty was performed using a CATH BALLOON [place] EMERGE 3.50X8 MM [id number] supply. Maximum pressu re: 16 cece. . [...] sterile fashion. Under 1% Lidocaine a 6 Occitan sheath was plac ed in the right radial artery using Seldinger technique. Coronary angiography was performed with a 5 Occitan Tig 4.0 diagnostic catheter. Standard angle and [...] LAB - ENTER/EDIT POCT Performing Organization Address City/[facility] Code Phon e Number FV POINT OF [...] LAB - ENTER/EDIT POCT Performing Organization Address City/[facility] Code Phon e Number FV POINT OF [...] Signature Cholesterol 211 (H) <200 mg/dL 09/07/2019 [place] 1:42 PM [facility] Comment: Desirable: <200 mg/dl Triglycerides 196 (H) <150 mg/dL 09/07/2019 1:43 PM [facility] Comment: Borderline high: ??150-199 mg/dl High: ? 200-499 mg/dl Very high: ? >499 mg/dl HDL Cholesterol 37 (L) >39 mg/dL 09/07/2019 1:46 PM [facility] LDL Cholesterol 135 (H) <100 mg/dL 09/07/2019 1:46 PM [facility] Comment: Above desirable: ??100-129 mg/dl Borderline High: ??130-159 mg/dL High: ? 160-189 mg/dL Very high: ? >189 mg/dl Non HDL Cholesterol 174 (H) <130 mg/dL 09/07/2019 1:46 PM [facility] Comment: Above Desirable: ??130-159 mg/dl Borderline high: ??160-189 mg/dl High: ? 190-219 mg/dl Very high: ? >219 mg/dl Specimen Anatomical Collection Method Collection Time Receive d Time (Source) Location / / Volume Laterality 09/07/2019 7:04 AM 0 7:05 CDT AM CDT Shellie nAdujar PA-C LAB - BLOOD ORDERABLES Performing Organization Address City/[facility]/ZIP Code Phon e Number M [facility] [address], [place] [address] [facility] [address] [address], [facility] [phone] Heparin Xa (10a) Level (09/07/2019 7:04 AM CDT) athologist Signature Heparin 10A 0.34 IU/mL 09/07/2019 [place] Level 7:20 AM T [facility] Comment: Therapeutic Range: UFH: 0.15-0.35 IU/mL for [...] LAB - BLOOD ORDERABLES Performing Organization Address City/[facility]/ZIP Code Phon e Number M [facility] [address], [place] [address] [facility] [address] [address] [address] [phone] Heparin 10a Level (09/06/2019 2:42 PM CDT) athologist Signature Heparin 10A 0.25 IU/mL 09/06/2019 [facility] 3:05 PM CDT [facility] Comment: Therapeutic Range: UFH: 0.15-0.35 IU/mL for [...] Address City/State/ZIP Code Phon e Number M [facility] [address] [place] [address] [facility] [address] [place], [place] [address], [facility] [phone] Heparin Xa (10a) Level (09/06/2019 6:03 AM CDT) athologist Signature Heparin 10A <0.10 IU/mL 09/06/2019 [facility] 6:54 AM [facility] Comment: Therapeutic Range: UFH: 0.15-0.35 IU/mL [...] BLOOD ORDERABLES Performing Organization Address [facility] Phon e Number M [facility] [address], [place] [address] [facility] [address] [address], [facility] [phone] (ABNORMAL) Troponin I (09/06/2019 6:03 AM CDT) Analysis Performed At [facility] Signature Troponin I ES 4.999 (HH) 0.000 - 09/06/2019 [place] 0.045 ug/L 7:03 AM T [facility] Comment: The 99th percentile for upper reference [...] BLOOD ORDERABLES Performing Organization Address [facility] Phon e Number M [facility] [address], [place] [address] [facility] [address] [address], [facility] [phone] (ABNORMAL) Lipid panel reflex to direct LDL (09/06/2019 6:03 AM CDT) P athologist Signature Cholesterol 234 (H) <200 mg/dL 09/06/2019 [place] 6:56 AM [facility] Comment: Desirable: <200 mg/dl Triglycerides 216 (H) <150 mg/dL 09/06/2019 6:56 AM T [facility] Comment: Borderline high: ??150-199 mg/dl High: ? 200-499 mg/dl Very high: ? >499 mg/dl HDL Cholesterol 36 (L) >39 mg/dL 09/06/2019 6:58 AM [facility] LDL Cholesterol 155 (H) <100 mg/dL 09/06/2019 6:[address] [facility] Comment: Above desirable: ??100-129 mg/dl Borderline High: ??130-159 mg/dL High: ? 160-189 mg/dL Very high: ? >189 mg/dl Non HDL Cholesterol 198 (H) <130 mg/dL 09/06/2019 6:58 AM T [facility] Comment: Above Desirable: ??130-159 mg/dl Borderline high: ??160-189 mg/dl High: ? 190-219 mg/dl Very high: ? >219 mg/dl Specimen Anatomical Collection Method Collection Time Receive d Time (Source) Location / / Volume Laterality Blood specimen 09/06/2019 6:03 AM 020 6:04 (specimen) CDT AM CDT Shellie Andujar PA-C LAB - BLOOD ORDERABLES Performing Organization Address City/State/ZIP Code Phon e Number [place] [address] [place] [address] [facility] [address] [place], [place] [address], [facility] [phone] [place] [address] [place] [address] [phone] HOSPITAL CBC with platelets (09/06/2019 6:03 AM CDT) athologist Signature WBC 8.1 4.0 - 11.0 09/06/2019 [facility] 10e9/L 6:34 AM [facility] RBC Count 4.88 4.4 - 5.9 09/06/2019 [facility] 10e12/L 6:34 AM [facility] Hemoglobin 15.4 13.3 - 09/06/2019 [facility] 17.7 g/dL 6:34 AM [facility] Hematocrit 46.5 40.0 - 09/06/2019 [facility] 53.0 % 6:34 AM [facility] MCV 95 78 - 100 09/06/2019 [facility] fl 6:34 AM [facility] MCH 31.6 26.5 - 09/06/2019 [facility] 33.0 pg 6:34 AM [facility] MCHC 33.1 31.5 - 09/06/2019 [facility] 36.5 g/dL 6:34 AM [facility] RDW 12.6 10.0 - 09/06/2019 [facility] 15.0 % 6:34 AM [facility] Platelet Count 212 150 - 450 09/06/2019 [place] 10e9/L 6:34 AM [facility] Specimen Anatomical Collection Method Collection Time Receive d Time (Source) Location / / Volume Laterality Blood specimen 09/06/2019 6:03 AM 020 6:04 (specimen) CDT AM CDT Shellie Andujar PA-C LAB - BLOOD ORDERABLES Performing Organization Address City/State/ZIP Code Phon e Number M [facility] [address], [place] [address] [facility] [address] [place], [place] [address], [facility] [phone] (ABNORMAL) Basic metabolic panel (09/06/2019 6:03 AM CDT) athologist Signature Sodium 137 133 - 144 09/06/2019 [place] mmol/L 6:47 AM [facility] Potassium 4.1 3.4 - 5.3 09/06/2019 [place] mmol/L 6:47 AM [facility] Chloride 107 94 - 109 09/06/2019 [place] mmol/L 6:47 AM [facility] Carbon Dioxide 24 20 - 32 09/06/2019 [place] mmol/L 6:56 AM [facility] Anion Gap 6 3 - 14 09/06/2019 [place] mmol/L 6:56 AM [facility] Glucose 116 (H) 70 - 99 09/06/2019 [place] mg/dL 6:56 AM [facility] Urea Nitrogen 11 7 - 30 09/06/2019 [place] mg/dL 6:56 AM [facility] Creatinine 0.68 0.66 - 09/06/2019 [place] 1.25 mg/dL 6:56 AM [facility] GFR Estimate >90 >60 09/06/2019 [place] mL/min/{1. 6:56 AM [facility] 73_m2} HOSPITAL Comment: Non GFR Calc Starting 04/15/2018, serum creatinine ba sed estimated GFR (eGFR) will be calculated using the Chronic Kidney Dise [facility] Epidemiology Collaboration (CKD-EPI) equation. GFR Estimate If >90 >60 mL/min/{1.73_m2} 09/06/2019 6: 56 AM [facility] Comment: GFR Calc Starting 04/15/2018, serum creatinine ba sed estimated GFR (eGFR) will be calculated using the Chronic Kidney Dise [facility] Epidemiology Collaboration (CKD-EPI) equation. Calcium 8.8 8.5 - 10.1 mg/dL 09/06/2019 6:56 AM [facility] Specimen Anatomical Collection Method Collection Time Receive d Time (Source) Location / / Volume Laterality Blood specimen 09/06/2019 6:03 AM 020 6:04 (specimen) CDT AM T Shellie Andujar PA-C LAB - BLOOD ORDERABLES Performing Organization Address City/State/ZIP Code Phon e Number M [facility] [address], [place] [address] [facility] [address] [place], [place] [address] [phone] (ABNORMAL) Troponin I (09/06/2019 12:01 AM CDT) Analysis Performed At Patho logist Time Signature Troponin I ES 5.840 (HH) 0.000 - 09/06/2019 [place] 0.045 ug/L 12:33 AM CDT [facility] Comment: The 99th percentile for upper reference [...] Address City/State/ZIP Code Phon e Number [place] [address] [address] [place] [phone] [facility] [address] [place] [phone] Heparin 10a Level (09/05/2019 10:49 PM CDT) P athologist Signature Heparin 10A 0.20 IU/mL 09/05/2019 [place] Level 11:03 PM CDT [facility] Comment: Therapeutic Range: UFH: 0.15-0.35 IU/mL for [...] LAB - BLOOD ORDERABLES Performing Organization Address City/[facility]/ZIP Code Phon e Number M [facility] [address], [place] [address] [place] [address] [address] [place], [place] [address], [facility] [phone] (ABNORMAL) Troponin I (09/05/2019 7:47 PM CDT) Analysis Performed At [facility] Signature Troponin I ES 6.002 (HH) 0.000 - 09/05/2019 [place] 0.045 ug/L 8:16 PM CDT [facility] Comment: The 99th percentile for upper reference [...] LAB - BLOOD ORDERABLES Performing Organization Address City/[facility] Code Phon e Number M [facility] [address], [place] [address] [facility] [address] [place], [place] [address], [facility] [phone] (ABNORMAL) Troponin I (09/05/2019 4:46 PM CDT) Analysis Performed At [facility] Signature Troponin I ES 5.477 (HH) 0.000 - 09/05/2019 [place] 0.045 ug/L 5:19 PM CDT [facility] Comment: The 99th percentile for upper reference [...] LAB - BLOOD ORDERABLES Performing Organization Address City/[facility] Phon e Number M [facility] [address] [place] [address] [place] [address] [address] [place] [address], [facility] [phone] Heparin 10a Level (09/05/2019 3:07 PM CDT) athologist Signature Heparin 10A 0.10 IU/mL 09/05/2019 [facility] 3:35 PM CDT [facility] Comment: Therapeutic Range: UFH: 0.15-0.35 IU/mL for [...] Organization Address City/State/ZIP Code Phon e Number [facility] [address], [place] [address] [place] [address] [address] [place] [address] [place] [address] (ABNORMAL) Troponin I (09/05/2019 3:07 PM CDT) [facility] Signature Troponin I ES 5.089 (HH) 0.000 - 09/05/2019 [place] 0.045 ug/L 3:36 PM CDT [facility] Comment: The 99th percentile for upper reference [...] Address City/State/ZIP Code Phon e Number M [address] [address] [place] [address] ECHO COMPLETE WITH CONTRAST (09/05/2019 10:28 AM CDT) Anatomical Region Laterality Modality Echocardiography Specimen (Source) Anatomical Collection Method Collection Time Re ceived Time Location / / Volume Laterality 09/05/2019 10:08 AM CDT Narrative 09/05/2019 11:55 AM CDT [id number]^MARYSOL^SHELLIE^[place] [facility] Echocardiography Laboratory [address] [place] [address] Name: JATIN SIDHU : 1970 Study Date: 09/05/2019 10:08 AM Age: 48 yrs Gender: Male Patient Location: [facility] Reason For Study: Abn EKG Ordering Physician: SHELLIE ANDUJAR Performed By: Rosanna Hawkins BSA: 2.3 m2 Height: 73 in Weight: 243 lb HR: 72 BP: 129/82 mmHg __ Procedure Complete Portable Echo Adult. Nancy (Micky DC #[id number]) given intravenously. __ Interpretation Summary The left [...] note might be different from the original. [id number]^MARYSOL^SHELLIE^FUNG [facility] Echocardiography Laboratory [address] [place] [address] Name: JATIN SIDHU : 1970 Study Date: 09/05/2019 10:08 AM Age: 48 yrs Gender: Male Patient Location: [facility] Reason For Study: Abn EKG Ordering Physician: SHELLIE ANDUJAR Performed By: Rosanna Hawkins BSA: 2.3 m2 Height: 73 in Weight: 243 lb HR: 72 BP: 129/82 mmHg __ Procedure Complete Portable Echo Adult. Optison (N DC #[id number]) given intravenously. __ Interpretation Summary The left [...] - 11.0 09/05/2019 [facility] 10e9/L 10:30 AM [facility] RBC Count 4.67 4.4 - 5.9 09/05/2019 [facility] 10e12/L 10:30 AM [facility] Hemoglobin 14.6 13.3 - 09/05/2019 [facility] 17.7 g/dL 10:30 AM [facility] Hematocrit 44.9 40.0 - 09/05/2019 [facility] 53.0 % 10:30 AM [facility] MCV 96 78 - 100 09/05/2019 [facility] fl 10:30 AM [facility] MCH 31.3 26.5 - 09/05/2019 [facility] 33.0 pg 10:30 AM [facility] MCHC 32.5 31.5 - 09/05/2019 [facility] 36.5 g/dL 10:30 AM [facility] RDW 12.6 10.0 - 09/05/2019 [place] 15.0 % 10:30 AM [facility] Platelet Count 231 150 - 450 09/05/2019 [place] 10e9/L 10:30 AM [facility] Specimen Anatomical Collection Method Collection Time Receive d Time (Source) Location / / Volume Laterality Blood specimen 09/05/2019 10:19 0 (specimen) AM CDT 10:20 AM CDT Shellie Andujar PA-C LAB - BLOOD ORDERABLES Performing Organization Address City/[facility]/ZIP [facility] Phon e Number M [facility] [address], [place] [address] [facility] [address] [place], [place] [address], [facility] [phone] (ABNORMAL) Troponin I (09/05/2019 10:19 AM CDT) Analysis Performed At [facility] Time Signature Troponin I ES 1.952 (HH) 0.000 - 09/05/2019 [place] 0.045 ug/L 10:56 AM [facility] Comment: The 99th percentile for upper [...] LAB - BLOOD ORDERABLES Performing Organization Address City/[facility]/ZIP [facility] Phon e Number M [facility] [address], [place] [address] [facility] [address] [place], [place] [address], [facility] [phone] XR Chest 2 Views (09/05/2019 7:46 AM [...] 5.7 (H) 0 - 5.6 % 09/05/2019 [place] 10:27 AM [facility] Comment: Normal <5.7% Prediabetes 5.7-6.4% ??Diab etes 6.5% or higher - adopted from ADA consensus guidelines. Specimen Anatomical Collection Method Collection Time Receive d Time (Source) Location / / Volume Laterality 09/05/2019 7:28 AM 0 7:40 CDT AM CDT Bella Branch MD LAB - BLOOD ORDERABLES Performing Organization Address City/State/ZIP Code Phon e Number M [facility] [address] [place] [address] [facility] [address] [phone] (ABNORMAL) Troponin I (09/05/2019 7:28 AM CDT) Analysis Performed At Patho logist Time Signature Troponin I ES 0.114 (H) 0.000 - 09/05/2019 [place] 0.045 ug/L 8:04 AM [facility] Comment: The 99th percentile for upper [...] Address City/State/ZIP Code Phon e Number M [facility] [address], [place] [address] [phone] [facility] [address] [phone] (ABNORMAL) Basic metabolic panel (09/05/2019 7:28 AM CDT) athologist Signature Sodium 140 133 - 144 09/05/2019 [place] mmol/L 7:54 AM [facility] Potassium 4.2 3.4 - 5.3 09/05/2019 [place] mmol/L 7:54 AM [facility] Chloride 109 94 - 109 09/05/2019 [place] mmol/L 7:54 AM [facility] Carbon Dioxide 26 20 - 32 09/05/2019 [place] mmol/L 8:01 AM [facility] Anion Gap 5 3 - 14 09/05/2019 [place] mmol/L 8:01 AM [facility] Glucose 143 (H) 70 - 99 09/05/2019 [place] mg/dL 8:01 AM [facility] Urea Nitrogen 16 7 - 30 09/05/2019 [place] mg/dL 8:01 AM [facility] Creatinine 0.68 0.66 - 09/05/2019 [place] 1.25 mg/dL 8:01 AM [facility] GFR Estimate >90 >60 09/05/2019 [place] mL/min/{1. 8:01 AM [facility] 73_m2} [facility] Comment: Non GFR Calc Starting 04/15/2018, serum creatinine ba sed estimated GFR (eGFR) will be calculated using the Chronic Kidney Dise ase Epidemiology Collaboration (CKD-EPI) equation. GFR Estimate If >90 >60 mL/min/{1.73_m2} 09/05/2019 8: 01 AM [facility] Comment: GFR Calc Starting 04/15/2018, serum creatinine ba sed estimated GFR (eGFR) will be calculated using the Chronic Kidney Dise ase Epidemiology Collaboration (CKD-EPI) equation. Calcium 9.2 8.5 - 10.1 mg/dL 09/05/2019 8:01 AM [facility] Specimen Anatomical Collection Method Collection Time Receive d Time (Source) Location / / Volume Laterality Blood specimen 09/05/2019 7:28 AM 020 7:40 (specimen) CDT AM CDT Bella Branch MD LAB - BLOOD ORDERABLES Performing Organization Address City/State/ZIP Code Phon e Number M [address] [address] [facility] [address] [place], [place] [address] [facility] [phone] [address] [phone] [place] [address] CBC with platelets differential (09/05/2019 7:28 AM CDT) [facility] Method Time Signature WBC 9.0 4.0 - 09/05/2019 [facility] 11.0 7:43 AM [facility] 10e9/L [facility] RBC Count 5.05 4.4 - 5.9 09/05/2019 [place] 10e12/L 7:43 AM [facility] Hemoglobin 16.0 13.3 - 09/05/2019 [facility] 17.7 g/dL 7:43 AM [facility] Hematocrit 48.5 40.0 - 09/05/2019 [facility] 53.0 % 7:43 AM [facility] MCV 96 78 - 100 09/05/2019 [facility] fl 7:43 AM [facility] MCH 31.7 26.5 - 09/05/2019 [facility] 33.0 pg 7:43 AM [facility] MCHC 33.0 31.5 - 09/05/2019 [facility] 36.5 g/dL 7:43 AM [facility] RDW 12.7 10.0 - 09/05/2019 [facility] 15.0 % 7:43 AM [facility] Platelet Count 235 150 - 450 09/05/2019 [facility] 10e9/L 7:43 AM [facility] Diff Method Automated 09/05/2019 [facility] Method 7:43 AM [facility] % Neutrophils 65.0 % 09/05/2019 [facility] 7:43 AM [facility] % Lymphocytes 23.7 % 09/05/2019 [facility] 7:43 AM [facility] % Monocytes 7.3 % 09/05/2019 [facility] 7:43 AM [facility] % Eosinophils 2.7 % 09/05/2019 [facility] 7:43 AM [facility] % Basophils 0.6 % 09/05/2019 [facility] 7:43 AM [facility] % Immature 0.7 % 09/05/2019 [facility] Granulocytes 7:43 AM [facility] Nucleated RBCs 0 0 /100 09/05/2019 [facility] 7:43 AM [facility] Absolute 5.9 1.6 - 8.3 09/05/2019 [facility] Neutrophil 10e9/L 7:43 AM [facility] Absolute 2.1 0.8 - 5.3 09/05/2019 [facility] Lymphocytes 10e9/L 7:43 AM [facility] Absolute 0.7 0.0 - 1.3 09/05/2019 [facility] Monocytes 10e9/L 7:43 AM [facility] Absolute 0.2 0.0 - 0.7 09/05/2019 [facility] Eosinophils 10e9/L 7:43 AM [facility] Absolute 0.1 0.0 - 0.2 09/05/2019 [facility] Basophils 10e9/L 7:43 AM [facility] Abs Immature 0.1 0 - 0.4 09/05/2019 [facility] Granulocytes 10e9/L 7:43 AM [facility] Absolute 0.0 09/05/2019 [facility] Nucleated RBC 7:43 AM [facility] Specimen Anatomical Collection Method Collection Time Receive d Time (Source) Location / / Volume Laterality Blood specimen 09/05/2019 7:28 AM 020 7:40 (specimen) CDT AM CDT Bella Branch MD LAB - BLOOD ORDERABLES Performing Organization Address City/State/ZIP Code Phon e Number [facility] [address], [place] [address] [facility] [address] [place], [place] [address] [phone] EKG 12 lead (09/05/2019 7:23 AM CDT) [facility] gist Method Time Signature Interpretation ECG Click [...] MAR Action Action Date Dose Rate Site carvedilol (COREG) tablet 6.25 mg Given 09/07/2019 8:53 AM CDT 6.25 mg 6.25 mg, Oral, 2 TIMES DAILY, First dose (after last modification) on 09/05/19 at 1100, Hold for HR <55 Given 09/06/2019 8:48 PM CDT 6.25 mg Given 09/06/2019 8:27 AM CDT 6.25 mg fentaNYL (PF) (SUBLIMAZE) injection Given 09/07/2019 11:27 AM CDT 50 mcg ONCE PRN, Administer over 3-5 Minutes, Starting on 09/07/19 at 1122, Cardiac Intra-procedure Given 09/07/2019 11:22 AM CDT 50 mcg heparin (porcine) injection Given 09/07/2019 11:45 AM CDT 5,000 Units ONCE PRN, Starting on 09/07/19 at 1131, Cardiac Intra-procedure Given 09/07/2019 11:31 AM CDT 7,000 Units iopamidol (ISOVUE-370) solution Given 09/07/2019 12:07 PM CDT 118 mLs ONCE PRN, Starting on 09/07/19 at 1207, Cardiac Intra-procedure labetalol (NORMODYNE/TRANDATE) syringe 2 0 mg 20 mg, Intravenous, EVERY 2 HOURS PRN, high blood pres sure, give for SBP > 160, Starting on 09/05/19 at 1541, Hold for HR < 60 Give doses less than 20 mg over 2 minutes. For doses of 20 to 80 mg, give EACH 20 mg ove r 2 minutes IV push. lidocaine 1 % Given 09/07/2019 11:23 AM CDT 0.5 mLs Righ t Wrist ONCE PRN, Starting on 09/07/19 at 1123, Cardiac Intra-procedure midazolam (VERSED) injection Given 09/07/2019 11:22 AM CDT 2 mg Administer over 2 Minutes, ONCE PRN, Starting on 09/07/19 at 1122, Cardiac Intra-procedure nitroGLYcerin injection Given 09/07/2019 11:56 AM CDT 300 mcg ONCE PRN, Starting on 09/07/19 at 1127, Cardiac Intra-procedure Given 09/07/2019 11:27 AM CDT 200 mcg Reason JANET/ARB/ARNI order not selected Reason not prescribed: Diastolic Heart Failure ejectio n fraction > 40%, Discharge-NON Med rosuvastatin (CRESTOR) tablet 40 mg Given 09/06/2019 8:48 PM CDT 40 mg 40 mg, Oral, AT BEDTIME, First dose on 09/06/19 at 2200 ticagrelor (BRILINTA) tablet Given 09/07/2019 11:36 AM CDT 180 mg ONCE PRN, Starting on Sat09/07/19 at 1136, Cardiac Intra-procedure verapamil (ISOPTIN) injection Given 09/07/2019 11:27 AM CDT 2.5 mg ONCE PRN, Starting on 09/07/19 at 1127, Cardiac Intra-procedure documented in this encounter Active and Recently Administered Medications Times are shown in CDT. Scheduled Medication Order 09/05/2019 09/06/2019 09/07/2019 aspirin (ASA) chewable tablet 324 mg (COMPLETED) 730 (Given - Provider: Federica Dent RN) 324 mg, Oral, ONCE, 09/05/19 at 0726, For 1 dose aspirin (ASA) chewable tablet 324 mg (CANCELED) 829 (Given - Provider: Jackeline Contreras LPN) 324 mg, Oral, DAILY, First dose (after last reorder) on 09/05 at 0900 aspirin (ASA) EC tablet 325 mg (CANCELED) 852 (Given - Provider: Khadra Barclay RN) 325 mg, Oral, DAILY, First dose on Sat at 0900, For 2 doses, Once the day prior to the procedure and once the morning of the collaborative physician procedure. Exceptions: IF patient is allergic to [...] dose)2148 (Given - Provider: Wanda Marcum RN) 0827 (Given - Provider: Jackeline Contreras LPN)2047 (Given - Provider: Marek Flor, DEANNA) 0853 (Given - Provider: Khadra Barclay RN) [...] Units (COMPLETED) 0900 (Given - Provider: Federica Dent RN) 5,000 Units, Intravenous, ONCE, Sat at [...] ONCE, 09/05/19 at 1030, For 1 dose, [facility] [id number] rosuvastatin (CRESTOR) tablet 40 mg 2047 (Given - Provider: Marek Flor, EDANNA)2102 (Canceled Entry - Provider: Marek Flor, DEANNA) 40 mg, Oral, AT BEDTIME, First dose on 09/06/19 at 2200 sodium chloride (PF) 0.9% PF flush 10 mL (COMPLETED) 1 029 (Given - Provider: Rosanna Hawkins) 10 mL, Intracatheter, ONCE, 5/9/20 at 1030, For 1 dose sodium chloride (PF) 0.9% PF flush 3 mL 1059 (z Missed (do not use) - Provider: Hue Tristan, DEANNA - Reason: IV Infusing)1800 (Canceled Entry - Provider: Clari Ramos, RN - Comment: iv infusing) 0127 (z Missed (do not use) - Provider: Cecilia Diaz, RN - Reason: IV Infusing)1000 (Canceled Entry - Provider: Khadra Ramirez, RN)1701 (z Missed (do not use) - Provider: Joana Sandy, DEANNA - Reason: IV Infusing) 0120 (z Missed (do not use) - Provider: Shannon Franco, DEANNA - Reason: IV Infusing)1000 (Canceled Entry - [...] RN)0956 (Rate/Dose Verify - Provider: Hue Tristan, RN) 1,000 Units/hr (10 mL/hr), Intravenous, at 10 [...] RN) 0119 (New Bag - Provider: Cecilia Diaz RN)0834 (Rate/Dose Change - Provider: Khadra Ramirez, DEANNA)1548 (Rate/Dose Verify - Provider: Joana Sandy, DEANNA)1549 (New Bag - Provider: Joana Sandy RN) 0632 (New Bag - Provider: Shannon Franco , DEANNA)0708 (Rate/Dose Verify - Provider: Khadra Barclay, DEANNA)1055 (Stopped - Provider: Justin Barbosa RN) 1,550 Units/hr (15.5 mL/hr), Intravenous , at 15.5 mL/hr, CONTINUOUS, Starting 09/05/19 at 1445, Cont current rate for heparin xa 09/06 am of 0.34. Recheck heparin xa with am labs. If platelet counts fa 7 (R ate/Dose Verify - Provider: Marek Flor [...] IV for 2 hours prior to cardiac collaborative physician procedure, then decrease to 75 mL/hr to [...] infusion 13 00 (Canceled Entry - Provider: Orders Generic Provider [...] injection (CANCELED) 1122 (Given - Provider: Justin Barbosa, RN)1127 (Given - Provider: Justin Barbosa RN) ONCE PRN, Administer over 3-5 Minutes, S tarting 09/07/19 at 1122, Cardiac Intra-procedure flumazenil (ROMAZICON) injection 0.2 mg 0.2 mg, Intravenous, EVERY 1 MIN PRN, be nzodiazepine reversal, Administer over 1 Minutes, Starting 09/07/19 at 1255, For 12 hours, May repeat x 3. Notify provider [Notify Interventional Fellow/Cardio logist ([facility]) or Stove Fitter (,)] I rritant. For ordered IV doses 0.1-1 [...] (PCI)., Cardiac Post-procedure lidocaine 1 % (CANCELED) 1123 (G iven - Provider: Greg Marcos MD) [...] dose., Cardiac Post-procedure midazolam (VERSED) injection (CANCELED) 1122 (Given - Provider: Justin Barbosa RN) Administer [...] (CA NCELED) 0732 (Given - Provider: Federica Dent RN)0748 (Given - Provider: Federica Dent RN - Comment: pain 05/08) 0.4 mg, Sublingual, EVERY 5 MIN PRN, [...] 3 mL, Intracatheter, EVERY 1 MIN PRN, wili carrizales flush, for peripheral IV flush post IV meds, Starting 09/05/19 at 0955 ticagrelor (BRILINTA) tablet (CANCELED) 1136 (Given - Provider: Justin Barbosa RN) ONCE PRN, Starting 09/07/19 at 1136, Cardiac Intra-procedure verapamil (ISOPTIN) injection (CANCELED) 1127 (Given - Provider: Greg Marcos MD) ONCE PRN, Starting 09/07/19 at 1127, Cardiac Intra-procedure documented in this encounter Care Teams Station Repairer Relationship Specialty Start Date End Date No Ref-Primary, Physician PCP - General 09/05/19 11/06/20 documented as of this encounter
--- OUTSIDE RECORDS SUMMARY | 2022-04-05 08:21 | XMS_ITS | Encounter Summary ---
:1970 Author Organization [facility] Address [address] [place] [address] Care Team Providers Name Role Phone No Ref-Primary, Physician Primary Care Provider Encounter Details Date Type Department Care Team Description 09/09/2019 Travel Social History Tobacco Use Types Packs/Day [...] on filedocumented in this encounter Care Teams Central Communications Specialist Relationship Specialty Start Date End Date No Ref-Primary, Physician PCP - General 09/05/19 11/06/20 documented as of this encounter
--- OUTSIDE RECORDS SUMMARY | 2022-04-05 08:22 | XMS_ITS | Encounter Summary ---
:1970 Author Organization [facility] Address [address] [place] [address] Care Team Providers Name Role Phone Mohamud Lafleur MD Primary Care Provider + Reason for Visit Reason Comments Pre-Op Exam surgery is 12/04/04/Dr Terrazas/ pin ankle Encounter Details Date Type Department Care Team Description 12/01/2004 Office Visit [facility] Stan Beavers PREOP EXAM OTHER Clinic Olamide Anderson MD SPECIFIED (Primary [id number] [facility] Dx) [place], [place] CLINIC [id number] [facility] [phone] [place] [address] (Wo rk) Social History Tobacco Use Types Packs/Day Years Used Date Smoking Tobacco: Former Comments: four years ago Alcohol Use Standard Drinks/Week Comments Yes 0 (1 standard drink = 0.6 oz pure alcoho l) infrequent Sex Assigned at Date Recorded Not on file documented as of this encounter Last Filed Vital Signs Vital Sign Reading Time Taken Comments Blood Pressure 117/62 12/01/2004 10:00 AM CDT Pulse 68 12/01/2004 10:00 AM CDT Temperature 36.5 ??C (97.7 ??F) 12/01/2004 10:00 AM CDT Respiratory Rate - - Oxygen Saturation - - Inhaled Oxygen Concentration - - Weight 95.3 kg (210 lb) 12/01/2004 10:00 AM CDT Height 185.4 cm (6' 1) 12/01/2004 10:00 AM CDT Body Mass Index 27.71 12/01/2004 10:00 AM CDT documented in this encounter Progress Notes Stan Beavers - 12/01/2004 10:51 AM CDT REVIEW OF SYSTEMS: NEGATIVE for fever, chills, change in weight NEGATIVE for ear, mouth and throat problems NEGATIVE for significant cough or SOB NEGATIVE for chest pain, palpitations or peripheral edema EXAM: ===== BP 117/62 Pulse 68 Temp (Src) 97.7 (Oral) Ht 6' 1 (1.85m) Wt 210 lbs (95.3kg) GENERAL APPEARANCE: healthy, alert and no distress HENT: ear canals and TM's normal and nose and mouth without ulcers or lesions RESP: lungs clear to auscultation - no rales, rhonchi or wheezes CV: regular rates and rhythm, normal S1 S2, no S3 or S4 and no murmur, click or rub ABDOMEN: soft, nontender, no HSM or masses and bowel sounds normal NEURO: Normal strength and tone, sensory exam grossly normal, mentation intact and speech normal DIAGNOSTICS: Not indicated IMPRESSION: 1. right ankle fracture. For above listed surgery and anesthesia: Patient is LOW risk for surgery and perioperative complications. RECOMMENDATIONS: Below recommendations were reviewed with patient Proceed without further diagnostic evaluation. Signed Electronically by: Stan Beavers MD Copy of this consultation report is provided to requesting physician. Dasia Orr - 12/01/2004 10:22 AM CDT PRE-OP CONSULTATION: Jatin Marco Nguyen is referred by Dr. Terrazas for a pre-op consultation. He requires evaluation and anesthesia clearance prior to undergoing surgery for treatment of fx ankle . Date of Surgery: Hospital/Surgical Facility: [facility] Fax: Primary Physician: Dr. Lafleur Type of Anesthesia Anticipated: General History of anesthesia complications: NONE History of abnormal bleeding : NONE History of blood tranfusions NO If applicable, last menstrual period: No LMP recorded. PREOP QUESTIONNAIRE: 1- NO - Do you ever have any pain or discomfort in your chest? 2- NO - Have you ever had a severe pain across the front of your chest lasting for half an hour or more? 3- NO - Do you have swelling in your feet or ankles at times? 4- NO - Are you troubled by shortness of breath when: walking on the level/ up a slight hill/ at night? 5- NO - Does your chest ever sound wheezy or whistling? 6- NO - Do you currently have a cold, bronchitis or other respiratory infection? 7- NO - Have you had a cold, bronchitis or other respiratory infection within the last 2 weeks? 8- NO - Do you usually have a cough? 9- NO - Do you sometimes get pains in the calves of your legs when you walk? 10-NO - Do you or anyone in your family have previous history of blood clots? 11-NO - Do you or does anyone in your family have serious bleeding problem such as prolonged bleeding following surgeries or cuts? 12-NO - Have you ever had problems with anemia or been told to take iron pills? 13-NO - Have you had any abnormal blood loss such as black, tarry or bloody stools, or abnormal vaginal bleeding? 14-NO - Have you or any of your relatives ever had problems with anesthesia? 15-NO - Do you snore or stop breathing at night? 16-NO - Do you have any prosthetic heart valves or joints? 17-NO - Is there any chance that you may be ? Do you have a Health Care Directive or Living Will: NO PROBLEM LIST: There is no problem list on file for this patient. PAST MEDICAL HISTORY: Previous Medical History: ESOPHAGEAL REFLUX PAST SURGICAL HISTORY: Review of patient's past surgical history indicates: NONSPECIFIC PROCEDURE 2 y.o. Comment: hernia repair CURRENT MEDICATIONS: No current outpatient prescriptions on file. Recent use of Vicodin, but will stop before the surgery. Over the counter vitamins, herbal, and other supplements: n/a ALLERGIES: Allergies As of Date: 12/01/2004 Noted Reaction NO KNOWN DRUG ALLERGIES 12/07/2003 Date Reviewed: 12/01/2004 Latex Allergy: NO HABITS: ======= Tobacco Use: Quit Comment: four years ago Alcohol Use: Yes Comment: infrequent Drug Use: Not on file Signature (nurse): Dasia Newman documented in this encounter Nursing Notes 12/01/2004 10:00 AM CDT >> DASIA NEWMAN 12/01/2004 10:22 am Jatin Lara [place] presents for pre op exam. Initial BP 117/62 Pulse 68 Temp (Src) 97.7 (Oral) Ht 6' 1 (1.85m) Wt 210 lbs (95.3kg) Body Mass Index is 27.71 kg/(m^2). . BP completed using cuff size: large. Dasia Newman documented in this encounter Plan of Treatment Not on filedocumented as of this encounter Visit Diagnoses Diagnosis Other specified pre-operative examinatio n - Primary documented in this encounter Care Teams Chip Bin Conveyor Tender Relationship Specialty Start Date End Date Mohamud Lafleur MD PCP - General 11/07/01 09/04/19 [facility] [address] [place] [address] documented as of this encounter
--- OUTSIDE RECORDS SUMMARY | 2022-04-05 08:22 | XMS_ITS | Encounter Summary ---
:1970 Author Organization [facility] Address [address] [place] [address] Care Team Providers Name Role Phone Mohamud Lafleur MD Primary Care Provider + Reason for Visit Reason Onset Date Comments Referral 04/02/2007 Orthopaedic Referral Encounter Details Date Type Department Care Team Description 04/02/2007 Telephone [facility] Mohamud Lafleur ([facility] [place] Dequan Saldana MD Referral) [address] [place] [id number] [address] [phone] [place], [place] [address] (Wo rk) Social History Tobacco Use Types Packs/Day Years Used Date Smoking Tobacco: Former Comments: four years ago Alcohol Use Standard Drinks/Week Comments Yes 0 (1 standard drink = 0.6 oz pure alcoho l) infrequent Sex Assigned at Date Recorded Not on file documented as of this encounter Miscellaneous Notes Telephone Encounter - Marisela Harper - 04/03/2007 8:45 AM CST LMOM to call here to make appt. Marisela Harper RN LEADER Telephone Encounter - Mohamud Lafleur - 04/03/2007 8:09 AM CST Patient does not need a referral for this at this is most likely a Knee contusion. Please tell patient to make appointment with me for evaluation. Orthopedic conditions are common to our practice. Mohamud Lafleur MD [facility] LEADER Telephone Encounter - Kathi Montoya - 04/02/2007 4:29 PM CST Would like a Referral for his left knee-fell in driveway yesterday and very stiff-sore. Could not put any weight on his knee yesterday -could not stand. Please call patient [phone]. Patient would like a call on . LEADER documented in this encounter Plan of Treatment Not on filedocumented as of this encounter Visit Diagnoses Not on filedocumented in this encounter Care Teams Route Delivery Service Driver Relationship Specialty Start Date End Date Mohamud Lafleur MD PCP - General 11/07/01 09/04/19 [facility] [address] [place] [address] documented as of this encounter
--- OUTSIDE RECORDS SUMMARY | 2022-04-05 08:22 | XMS_ITS | Encounter Summary ---
:1970 Author Organization [place] Address [address] [place] [address] Care Team Providers Name Role Phone Mohamud Lafleur MD Primary Care Provider + Reason for Visit Reason Comments Eye Problem Was working in his garage on Saturday, since then his right eye has been hyper sensitive to light, bl urry like, sensitive. Feels like there is something in his eye. [facility] looked at it today, said they saw nothing. Viviana Guevara [facility] Encounter Details Date Type Department Care Team Description 10/18/2005 Office Visit [facility] Richy García MD DISORDER OF SCLERA NEC; [facility] [place] [address] SUPERFICIAL INJURY [place] [address] [facility] [address] [phone] Social History Tobacco Use Types Packs/Day Years Used Date Smoking Tobacco: Former Comments: four years ago Alcohol Use Standard Drinks/Week Comments Yes 0 (1 standard drink = 0.6 oz pure alcoho l) infrequent Sex Assigned at Date Recorded Not on file documented as of this encounter Last Filed Vital Signs Vital Sign Reading Time Taken Comments Blood Pressure 132/80 10/18/2005 1:30 PM CDT Pulse - - Temperature - - Respiratory Rate - - Oxygen Saturation - - Inhaled Oxygen Concentration - - Weight 95.3 kg (210 lb) 10/18/2005 1:30 PM CDT Height 185.4 cm (6' 1) 10/18/2005 1:30 PM CDT Body Mass Index 27.71 10/18/2005 1:30 PM CDT documented in this encounter Progress Notes Richy García - 10/18/2005 1:58 PM CDT SUBJECTIVE: 35 year old male with c/o foreign body sensation in right eye for 3 days. No other symptoms. No significant prior ophthalmological history. No change in visual acuity, no photophobia, no severe eye pain. OBJECTIVE: Patient appears well, vitals signs are normal. No FB noted. PERRLA, no foreign body noted. No periorbital cellulitis. The corneas are clear except for mild superficial abrasion and fundi normal. Visualacuity normal. ASSESSMENT: Corneal abrasion. PLAN: Antibiotic drops per order. Hygiene discussed. If other family members develop same condition, may use same medication for them if they are not known to be allergic to it. Call prn. documented in this encounter Nursing Notes 10/18/2005 1:30 PM CDT >> ADRIANNA GUEVARA 10/18/2005 1:34 pm Jatin Nguyen presents for feels like there is something in his right eye. Initial BP 132/80 Ht 6' 1 (1.85m) Wt 210 lbs (95.3kg) Body mass index is 27.71 kg/(m^2).. BP completed using cuff size: large K Ismael LEATHER LACER documented in this encounter Plan of Treatment Not on filedocumented as of this encounter Visit Diagnoses Diagnosis Other scleral disorder Superficial injury of cornea documented in this encounter Care Teams Barrelhead Inspector Relationship Specialty Start Date End Date Mohamud Lafleur MD PCP - General 11/07/01 09/04/19 [facility] [address] [place] [address] documented as of this encounter
--- OUTSIDE RECORDS SUMMARY | 2022-04-05 08:22 | XMS_ITS | Encounter Summary ---
:1970 Author Organization [place] Address [address] [place] [address] Care Team Providers Name Role Phone Mohamud Lafleur MD Primary Care Provider + Reason for Visit Reason Comments Pharyngitis Encounter Details Date Type Department Care Team Description 11/21/2002 Office Visit [facility] Danny Bryan MD ACUTE PHARYNGITIS Clinic [facility] MEDICINE (Primary Dx) [address] [place] [address] [place] [address] [place], [place] [phone] (Wo rk) Social History Tobacco Use Types Packs/Day Years Used Date Smoking Tobacco: Never Assessed Sex Assigned at Date Recorded Not on file documented as of this encounter Last Filed Vital Signs Vital Sign Reading Time Taken Comments Blood Pressure 130/78 11/21/2002 9:30 AM CDT Pulse - - Temperature 36.6 ??C (97.8 ??F) 11/21/2002 9:30 AM CDT Respiratory Rate - - Oxygen Saturation - - Inhaled Oxygen Concentration - - Weight - - Height - - Body Mass Index - - documented in this encounter Progress Notes 11/21/2002 9:30 AM CDT SUBJECTIVE: 32 year old male with URI symptoms, for 5 days or so, then over the last 3-4 days has spencer d persistent sore throat, trouble swallowing. No history of rheumatic fever. Other symptoms: deniesf ever, headache, cough, coryza. OBJECTIVE: Vitals as noted above. Appears healthy, alert, moderate d istress and cooperative. Ears: normal Oropharynx: moderate erythema, exudates present and throat cult ure taken Neck: no adenopathy and thyroid normal in size, no nodules or tenderness Lungs: clear to IP PA Rapid Strep test is negative ASSESSMENT: Acute pharyngitis PLAN: Per orders. Gargle, use acetami nophen or other OTC analgesic, and take Rx fully as prescribed. Call if other family members develop similar symptoms. See prn. documented in this encounter Nursing Notes 11/21/2002 9:30 AM CDT >> KATHI CARDENAS 11/21/2002 9:41 am BP cuff size: regular Kathi Cardenas RN documented in this encounter Plan of Treatment Not on filedocumented as of this encounter Procedures Procedure Name Priority Date/Time Associated Diagnosis Comme nts HCL BETA STREP Routine 11/21/2002 9:55 AM Results for this CONFIRM CDT procedure are i n the results section. HCL STREP GROUP A Routine 11/21/2002 9:55 AM Acute Pharyngitis Results for this AG (RAPID) CDT procedure are i n the results section. documented in this encounter Results BETA STREP CONFIRM (11/21/2002 9:55 AM CDT) Component Value Ref Test Analysis Performed At [facility] Method Time Signature Specimen Throat [facility] Culture Micro No Beta CAMP SHER[facility] Streptococcus [facility] Report status FINAL [id number] [facility] Specimen Anatomical Collection Method Collection Time Receive d Time (Source) Location / / Volume Laterality 11/21/2002 9:55 AM 3 CDT 10:04 AM CDT Danny Bryan MD LABORATORY Performing Organization Address City/State/ZIP Code Phon e Number [facility] [id number] [place], [place] [id number] [facility] STREP GROUP A AG (RAPID) (11/21/2002 9:55 AM CDT) Component Value Ref Test Analysis Performed At [facility] Method Time Signature Specimen Throat [facility] Rapid Strep A NEGATIVE: No Group A strepto coccal antigen detected by immunoassay, await [facility] Screen culture report. [facility] Report status FINAL [id number] [facility] Specimen Anatomical Collection Method Collection Time Receive d Time (Source) Location / / Volume Laterality 11/21/2002 9:55 AM 3 CDT 10:04 AM CDT Danny Bryan MD LABORATORY Performing Organization Address City/State/ZIP Code Phon e Number [facility] [address] [place] [address] [facility] documented in this encounter Visit Diagnoses Diagnosis Acute pharyngitis - Primary documented in this encounter Care Teams Solar Sales Specialist Relationship Specialty Start Date End Date Mohamud Lafleur MD PCP - General 11/07/01 09/04/19 [facility] [address] [place] [address] documented as of this encounter
--- OUTSIDE RECORDS SUMMARY | 2022-04-05 08:22 | XMS_ITS | Encounter Summary ---
:1970 Author Organization [place] Address [address] [place] [address] Care Team Providers Name Role Phone Mohamud Lafleur MD Primary Care Provider + Encounter Details Date Type Department Care Team Description 12/07/2003 Abstract [facility] Pam Trujillo [address] [address] [phone] Social History Tobacco Use Types Packs/Day Years Used Date Smoking Tobacco: Never Assessed Sex Assigned at Date Recorded Not on file documented as of this encounter Plan of Treatment Not on filedocumented as of this encounter Visit Diagnoses Not on filedocumented in this encounter Care Teams Diagnostic Sales Specialist Relationship Specialty Start Date End Date Mohamud Lafleur MD PCP - General 11/07/01 09/04/19 [facility] [address] [place], [place] [address] documented as of this encounter
--- OUTSIDE RECORDS SUMMARY | 2022-04-05 08:22 | XMS_ITS | Encounter Summary ---
:1970 Author Organization [place] Address [address] [place] [address] Care Team Providers Name Role Phone Mohamud Lafleur MD Primary Care Provider + Reason for Visit Reason Comments Derm Problem wart on both hands Knee Pain bilateral knee pain x2 years Trauma left lower leg pain Encounter Details Date Type Department Care Team Description 02/19/2006 Office Visit [facility] Mohamud Lafleur V IRAL WARTS NOS (Primary Dx); [facility] [place] Dequan Saldana MD ACHILLES TENDINITIS; [id number] [place] [address] AESTHETIC SPRAIN OF KNEE & LEG NOS [place], [place] [address] [address] [phone] [place], [place] [address] (Wo rk) Social History Tobacco Use Types Packs/Day Years Used Date Smoking Tobacco: Former Comments: four years ago Alcohol Use Standard Drinks/Week Comments Yes 0 (1 standard drink = 0.6 oz pure alcoho l) infrequent Sex Assigned at Date Recorded Not on file documented as of this encounter Last Filed Vital Signs Vital Sign Reading Time Taken Comments Blood Pressure 120/78 02/19/2006 2:30 PM CDT Pulse 80 02/19/2006 2:30 PM CDT Temperature - - Respiratory Rate 16 02/19/2006 2:30 PM CDT Oxygen Saturation - - Inhaled Oxygen Concentration - - Weight 111.6 kg (246 lb) 02/19/2006 2:30 PM CDT Height 186.7 cm (6' 1.5) 02/19/2006 2:30 PM CDT Body Mass Index 32.02 02/19/2006 2:30 PM CDT documented in this encounter Progress Notes Mohamud Lafleur - 02/19/2006 3:05 PM CDT SUBJECTIVE: Jatin Nguyen, a 35 year old male scheduled an appointment to discuss the following issues: VIRAL WARTS NOS: patient has 2 warts on hands for last 1-2 years. He has never had treatment for this. He denies pain or bleeding of the lesions. ACHILLES TENDINITIS: left heel pain for numerous months. He has tried to rest but without relief. Hehas not taken any medication for the pain or swelling. He denies any falls or accidents. 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 He denies weakness or numbness of his foot. SPRAIN OF KNEE & LEG NOS: complains of bilateral knee pain that occurs when he gets out of his squad car. He denies swelling but has some pain the the lateral and medial aspect of his knees with planting and twisting his leg. He denies any previous knee injuries. He has had no locking or clicking of the knee. He does describe some patellofemoral symptoms especially after sitting for periods of time. Past Medical History Diagnosis Date ??? ESOPHAGEAL REFLUX Current outpatient prescriptions Medication Sig ??? PRILOSEC OTC 20 MG OR TBEC 1 TABLET DAILY ??? NO ACTIVE MEDICATIONS . ROS: INTEGUMENTARY/SKIN: POSITIVE for 2 warts on hands MUSCULOSKELETAL:POSITIVE for bilateral knee pain and left ankle pain N: NEGATIVE for weakness, dizziness or paresthesias OBJECTIVE: BP 120/78 Pulse 80 Resp 16 Ht 6' 1.5 (1.87m) Wt 246 lbs (111.6kg) GENERAL APPEARANCE: healthy, alert and no distress MS: extremities normal- no gross deformities noted, no evidence of inflammation in joints, FROM in all extremities. Examination of the left foot reveals tenderness left achilles tendon insertion and calcaneal prominence. Normal DP and PT pulses, no trophic changes or ulcerative lesions and normal sensory exam. Both knees are normal to inspection and palpation without evidence of erythema, warmth, or discoloration. ROM is full. No ligamentous instability. Patellar apprehension negative. SKIN: 2 flat warts on hands NEURO: Normal strength and tone, sensory exam grossly normal, mentation intact and speech normal ASSESSMENT/PLAN: 078.10 VIRAL WARTS NOS (primary encounter diagnosis) Note: 2 flat warts Plan: DESTRUC FLAT WARTS, 1-14 LESIO Liquid nitrogen was applied for 10-12 seconds to the warts x 2 and the expected blistering or scabbing reaction explained. Do not pick at the area. Patient reminded to expect hypopigmented scars from the procedure. Return if lesion fails to fully resolve. 726.71 ACHILLES TENDINITIS Note: left foot Plan: Advised to rest, apply ice and take ibuprofen 600-800mg TID. Advised to return for evaluation if symptoms persist or worsen. 844.9 SPRAIN OF KNEE & LEG NOS Note: bilateral Plan: secondary to the way patient gets out of police car. Needs to be more aware of motion out of car. No exam findings consistent with ligamentous instability or tears. Advised to return for evaluation if symptoms persist or worsen. Mohamud Lafleur MD [facility] documented in this encounter Nursing Notes 02/19/2006 2:30 PM CDT >> SULMA DONALD 02/19/2006 2:45 pm Patient presents with: Derm Problem - wart on both hands Knee Pain - bilateral knee pain x2 years Trauma - left lower leg pain Initial BP 120/78 Pulse 80 Resp 16 Ht 6' 1.5 (1.87m) Wt 246 lbs (111.6kg) Body mass index is 32.01 kg/(m^2).. BP completed using cuff size large Sulma Donald/SHAILESH documented in this encounter Plan of Treatment Not on filedocumented as of this encounter Procedures Procedure Name Priority Date/Time Associated Diagnosis Comme nts HC DESTRUCT BENIGN Routine 02/19/2006 2:49 PM CDT Viral Warts Nos LESION, UP TO 14 documented in this encounter Visit Diagnoses Diagnosis Viral warts, unspecified - Primary Achilles bursitis or tendinitis Sprain and strain of unspecified site of knee and leg documented in this encounter Care Teams Director Operating Relationship Specialty Start Date End Date Mohamud Lafleur MD PCP - General 11/07/01 09/04/19 [facility] [address] [place] [address] documented as of this encounter
--- OUTSIDE RECORDS SUMMARY | 2022-04-05 08:22 | XMS_ITS | Encounter Summary ---
:1970 Author Organization [place] Address [address] [place] [address] Care Team Providers Name Role Phone Mohamud Lafleur MD Primary Care Provider + Reason for Visit Reason Comments Knee Pain left knee injury 2 days ago Encounter Details Date Type Department Care Team Description 04/03/2007 Office Visit [facility] Mohamud Lafleur ONTUSION OF KNEE [facility] [place] Dequan Saldana MD (Primary Dx) [address] [facility] [address] [address] [phone] [place], [place] [address] (Wo rk) Social History Tobacco Use Types Packs/Day Years Used Date Smoking Tobacco: Former Comments: four years ago Alcohol Use Standard Drinks/Week Comments Yes 0 (1 standard drink = 0.6 oz pure alcoho l) infrequent Sex Assigned at Date Recorded Not on file documented as of this encounter Last Filed Vital Signs Vital Sign Reading Time Taken Comments Blood Pressure 138/80 04/03/2007 2:30 PM MECHANICAL UNIT REPAIRER Pulse - - Temperature - - Respiratory Rate - - Oxygen Saturation - - Inhaled Oxygen Concentration - - Weight 111.1 kg (245 lb) 04/03/2007 2:30 PM MECHANICAL UNIT REPAIRER Height 185.4 cm (6' 1) 04/03/2007 2:30 PM MECHANICAL UNIT REPAIRER Body Mass Index 32.32 04/03/2007 2:30 PM MECHANICAL UNIT REPAIRER documented in this encounter Progress Notes Mohamud Lafleur - 04/03/2007 2:49 PM CST SUBJECTIVE: Jatin Sidhu is a 36 year old male who sustained a left knee injury 2 days ago. Mechanism of injury: landed on outside of left knee. Immediate symptoms: immediate pain, immediate swelling, inability to bear weight directly after injury, no deformity was noted by the patient. Symptoms have been rapid, improving since that time. Prior history of related problems: no prior problems with this area in the past. OBJECTIVE: BP 138/80 Ht 6' 1 (1.85m) Wt 245 lbs (111.1kg) Vital signs as noted above. Appearance: in no apparent distress, well developed and well nourished and cooperative. Knee exam: antalgic gait, soft tissue tenderness over lateral knee, effusion, reduced range of motion, negative drawer sign, negative pivot-shift, collateral ligaments intact, negative Brenda sign, negative Lachmann sign, no patellar tenderness. X-ray: no fracture or dislocation noted, soft tissue swelling. ASSESSMENT: Knee contusion PLAN: rest the injured area as much as practical, apply ice packs, compressive bandage, see primary care physician in follow up as needed. Mohamud Lafleur MD [facility] ANICAL UNIT REPAIRER documented in this encounter Nursing Notes 04/03/2007 2:30 PM CST >> ELISE DORADO 04/03/2007 2:34 pm Patient presents with: Knee Pain - left knee injury 2 days ago Initial BP 138/80 Ht 6' 1 (1.85m) Wt 245 lbs (111.1kg) Body mass index is 32.33 kg/(m^2).. BP completed using cuff size large S. Renard TOLEDO documented in this encounter Plan of Treatment Not on filedocumented as of this encounter Procedures Procedure Name Priority Date/Time Associated Diagnosis Comme nts [facility] LT X-RAY KNEE 3 Routine 04/03/2007 4:02 PM Contusion Of Kn ee Results for this VIEW MECHANICAL UNIT REPAIRER procedure are i n the results section. documented in this encounter Results LT X-RAY KNEE 3 VIEW (04/03/2007 4:02 PM MECHANICAL UNIT REPAIRER) Anatomical Region Laterality Modality Other Impressions 04/03/2007 4:02 PM MECHANICAL UNIT REPAIRER REPORT OF OUTSIDE FILMS FROM [facility] ??CLINIC JATIN SIDHU ? : ??68 LEFT KNEE THREE VIEWS: ??04/03/07 FINDINGS: Negative. Amadou Guo M.D./laura D & T: ?? 04/07/07 Ordering MD/Provider Initial Interpretat ion: Normal/Negative Electronically filed by Katelynn Wyatt ??04/03/2007 ??4:02 PM . Mohamud Lafleur MD GENERAL IMAGING documented in this encounter Visit Diagnoses Diagnosis Contusion of knee - Primary documented in this encounter Care Teams Edge Brusher Relationship Specialty Start Date End Date Mohamud Lafleur MD PCP - General 11/07/01 09/04/19 [facility] [address] [place] [address] documented as of this encounter
--- OUTSIDE RECORDS SUMMARY | 2022-04-05 08:22 | XMS_ITS | Encounter Summary ---
:1970 Author Organization [place] Address [address] [place] [address] Care Team Providers Name Role Phone Mohamud Lafleur MD Primary Care Provider + Reason for Visit Reason Comments Abdominal Pain abdominal pain x 5 days Encounter Details Date Type Department Care Team Description 12/07/[address] [facility] Mohamud Lafleur BDOMINAL PAIN [facility] [place] Dequan Saldana MD GENERALIZED (Primary [id number] [place] [address] [facility] AESTHETIC Dx) [place], [place] [address] [address] [phone] [place], [place] [address] (Wo rk) Social History Tobacco Use Types Packs/Day Years Used Date Smoking Tobacco: Never Assessed Sex Assigned at Date Recorded Not on file documented as of this encounter Last Filed Vital Signs Vital Sign Reading Time Taken Comments Blood Pressure 112/72 12/07/2003 11:43 AM CDT Pulse 72 12/07/2003 11:43 AM CDT Temperature 36.6 ??C (97.9 ??F) 12/07/2003 11:43 AM CDT Respiratory Rate 16 12/07/2003 11:43 AM CDT Oxygen Saturation - - Inhaled Oxygen Concentration - - Weight 90.7 kg (200 lb) 12/07/2003 11:43 AM CDT Height - - Body Mass Index - - documented in this encounter Progress Notes 12/07/2003 11:45 AM CDT (S) Jatin Sidhu is a 33 year old male with complaint of gastrointestinal symptoms of crampingand pain in the epigastric region for 5 days. No blood in stool. No fevers, chills, nausea, or vomiting. No diarrhea. Appetite has been good. No reflux symptoms. No sick contacts and no recent travel. Claims to have normal bowel movements. (O) BP 112/72 Pulse 72 Temp (Src) 97.9 (Oral) Resp 16 Wt 200 lbs (90.7kg) Physical exam reveals the patient appears well. Hydration status: well hydrated. Abdomen: abdomen is soft without significant tenderness, masses, organomegaly or guarding. However there is mild tenderness in the RLQ area, no rebound tenderness, no rigidity, no CVA tenderness. Good bowel sounds. Negative McBurney's point and Fraia's sign. Abdominal X-ray -- slightly dilated transverse colon with stool in ascending/hepatic flexture (A) Constipation (P) I have recommended small amounts clear fluids frequently, soups, juices, water, advance diet astolerated. To try OTC senna or laxative to help with constipation and distended feeling. Return office visit if symptoms persist or worsen; I have alerted the patient to call if high fever, dehydration, marked weakness, fainting, increased abdominal pain, blood in stool or vomit. documented in this encounter Nursing Notes 12/07/2003 11:45 AM CDT >> USLMA DONALD 12/07/03 11:44 am Jatin Sidhu presents for abdominal pain x5 days. Initial BP 112/72 Pulse 72 Temp (Src) 97.9 (Oral) Resp 16 Wt 200 lbs (90.7kg) completed using BP cuff size: large. Sulma Donald/SHAILESH documented in this encounter Plan of Treatment Not on filedocumented as of this encounter Procedures Procedure Name Priority Date/Time Associated Diagnosis Comme nts HC X-RAY ABDOMEN AP Routine 12/07/2003 1:08 PM Abdominal Pain Results for this VIEW (KUB) CDT Generalized procedure are i n the results section. documented in this encounter Results X-RAY ABDOMEN 1 VW (12/07/2003 1:08 PM CDT) Anatomical Region Laterality Modality Other Impressions 12/07/2003 1:08 PM CDT REPORT OF OUTSIDE FILMS FROM [facility] JATIN SIDHU M. : ??68 FLAT PLATE OF ABDOMEN: ??12/07/03 INDICATION FOR EXAMINATION: ??Abdominal pain. FINDINGS: ??Nondiagnostic bowel gas carli lidia. ??No free air is visualized. ??Very small calcific densit y is demonstrated projected to the right at L1-2 and proxi mal ureteral tiny calculus could not be absolutely exclude d. ??If right flank pain is presenting a finding, further investi gation may be warranted such as stone protocol CT. Adrian Cantu M.D./selena D/T: ??12/09/03 Ordering MD/Provider Initial Interpretat ion: Normal/Negative.DIALATED TRANSVERSE COLO N W/ STOOL. NEG. FREE AIR Electronically filed by Marlen Russell ??12/07/2003 ??1:09 PM Mohamud Lafleur MD GENERAL IMAGING documented in this encounter Visit Diagnoses Diagnosis Abdominal pain, generalized - Primary documented in this encounter Care Teams Business Development Agent Relationship Specialty Start Date End Date Mohamud Lafleur MD PCP - General 11/07/01 09/04/19 [facility] [address] [place] [address] documented as of this encounter
[2022-04-05 15:18] LABS: Total Protein Urine < 5 mg/dL
[2022-04-05 15:19] LABS: Creatinine Urine 89.1 mg/dL
[2022-04-05 15:25] LABS: Microalbumin Creatinine Ratio 10 mg/g (0-30); Microalbumin Urine < 1 mg/dL
[2022-04-05 16:22] LABS: Vitamin B12* 813 pg/mL (243-894)
== END 2022-04-05 08:16 | disposition home or self-care (01) ==
PROVIDERS: PCP Family Medicine; Visit Provider Family Medicine
DX: E11.9 Type 2 diabetes mellitus without complications (principal); Z79.899 Other long term (current) drug therapy
CPT/HCPCS: 82043; 82570; 82607; 84156

== ENCOUNTER 2023-09-06 09:46 | Outpatient (CLI) | payer OTHER, SELFPAY ==
--- OUTSIDE RECORDS SUMMARY | 2023-09-06 09:49 | XMS_ITS | Referral Summary ---
Author Name Unknown Organization [facility] Address [address] [place] [id number] Care Team Providers Care Vacation Planner Name Role Phone Juanito Henry Primary Care Provider + [phone] Allergies Active Allergy Reactions Criticality Noted Date Comments No Known Drug Allergy 12/07/2003 Medications Medication Sig Dispensed Refills Start Date End Date Status omeprazole (PRILOSEC) [address] capsule Take 20 mg by mouth daily Active multivitamin w/minerals (THERA-VIT-M) tablet Take 1 tablet by mouth daily Active aspirin (ASA) 81 MG EC tabletIndications:NST ANNALISE (non-ST elevated myocardial infarction) (H) Take 1 tablet (81 mg) by mouth daily 30 tablet 09/08/2019 Active nitroGLYcerin (NITROSTAT) 0.4 MG sublingual tabletIndications:NST ANNALISE (non-ST elevated myocardial infarction) (H) For chest pain place 1 tablet under the tongue every 5 minutes for 3 doses. If symptoms persist 5 minutes after 1st dose call 911. 30 tablet 09/07/2019 Active rosuvastatin (CRESTOR) 40 MG tabletIndications:NST ANNALISE (non-ST elevated myocardial infarction) (H) Take 1 tablet (40 mg) by mouth At Bedtime 90 tablet 09/27/2020 Active carvedilol (COREG) 12.5 MG tabletIndications:Rosaline vated troponin,Essential hypertension Take 1 tablet (12.5 mg) by mouth 2 times daily 180 tablet 09/27/2020 Active clopidogrel (PLAVIX) 75 MG tabletIndications:Cor onary artery disease involving [place] coronary artery of [place] heart without angina pectoris Take 1 tablet (75 mg) by mouth daily 90 tablet 11 11/07/2020 Active Active Problems Problem Noted Date Diagnosed Date ACS (acute coronary syndrome) 09/10/2019 Acute respiratory distress 09/10/2019 Elevated troponin 09/10/2019 Chest discomfort 09/05/2019 Viral warts 02/19/2006 Overview: Problem list name updated by automated process. Provider to review Esophageal reflux Immunizations Name Administration Dates Next Due TD,PF 7+ (Tenivac) 12/01/2004 Social History Tobacco Use Types Packs/Day Years Used Date Smoking Tobacco: Former Cigarettes 1.5 20 0 09/05/1999 - 09/05/2019 Smokeless Tobacco: Never Comments:four years ago Alcohol Use Standard Drinks/Week Comments Yes 0 (1 standard drink = 0.6 oz pur e alcohol) infrequent Adolescent Education Answer Date Record ed Getting School Help Needed Not on file 01/27 Sex and Gender Information Value Date Recorded Sex Assigned at Not on file Gender Identity Not on file Sexual Orientation Not on file Last Filed Vital Signs Vital Sign Reading Time Taken Comments Blood Pressure 138/76 11/07/2020 8:45 AM CDT Pulse 62 11/07/2020 8:45 AM CDT Temperature 36.4 ??C (97.5 ??F) 09/10/2019 2:15 PM CD T Respiratory Rate 18 09/10/2019 6:00 AM CDT Oxygen Saturation 97% 11/07/2020 8:45 AM CDT Inhaled Oxygen Concentration - - Weight 109.1 kg (240 lb 8 oz) 11/07/2020 8:45 AM CDT Height 185.4 cm (6' 1) 11/07/2020 8:45 AM CDT Body Mass Index 31.73 11/07/2020 8:45 AM CDT Plan of Treatment Not on file Medical Devices Implanted Type Area Billboard Erector Device Identifier Shelf Expiration Date Model / Serial / Lot Stent Resolute Vahid De 2.7fr [id number] Janis [id number] Implanted:08/27 at [facility] (Quantity not on file) Stent Drug Eluting (MILES) [employer] 03/16/2021 [id number] / / [id number] Procedures Procedure Name Priority Date/Time Associated Diagnosis Comments BASIC METABOLIC PANEL Routine 09/22/2019 9:46 AM CDT NSTEMI (non-ST elevated myocardial infarction) (H) LIPID PROFILE Routine 09/07/2019 7:04 AM CDT Chest discomfort from Last 3 Months or Most Recently Relevant to Health Maintenance Results * (ABNORMAL) Basic metabolic panel (09/22/2019 9:46 AM CDT) [facility] Sodium 137 133 - 144 mmol/L 09/22/2019 12:55 PM CDT [facility] Potassium 4.1 3.4 - 5.3 mmol/L 09/22/2019 12:55 PM T [facility] Chloride 109 94 - 109 mmol/L 09/22/2019 12:55 PM T [facility] Carbon Dioxide 24 20 - 32 mmol/L 09/22/2019 1:06 PM T [facility] Anion Gap 4 3 - 14 mmol/L 09/22/2019 1:06 PM T [facility] Glucose 104(H) 70 - 99 mg/dL 09/22/2019 1:06 PM T [facility] Comment:Fasting specimen Urea Nitrogen 11 7 - 30 mg/dL 09/22/2019 1:06 PM T [facility] Creatinine 0.58(L) 0.66 - 1.25 mg/dL 09/22/2019 1:06 PM T [facility] GFR Estimate >90 >60 mL/min/{1 .73_m2} 09/22/2019 1:06 PM T [facility] Comment: Non GFR Calc Starting 04/15/2018, serum creatinine based estimated GFR (eGFR) will be calculated using the Chronic Kidney Disease Epidemiology Collaboration (CKD-EPI) equation. GFR Estimate If Black >90 >60 mL/min/{1 .73_m2} 09/22/2019 1:06 PM T [facility] Comment: GFR Calc Starting 04/15/2018, serum creatinine based estimated GFR (eGFR) will be calculated using the Chronic Kidney Disease Epidemiology Collaboration (CKD-EPI) equation. Calcium 9.0 8.5 - 10.1 mg/dL 09/22/2019 1:06 PM CDT [facility] Blood specimen (specimen) 09/22/2019 9:46 AM CDT 09/22/2019 9:48 AM CDT Anaid Luis Jean Marie [employer] INSPECT[employer] [facility] - BLOOD ORDERA BLES [facility] [address] [place] [address] * (ABNORMAL) Lipid Profile (09/07/2019 7:04 AM CDT) Cholesterol 211(H) <200 mg/dL 09/07/2019 1:42 PM T [facility] Comment:Desirable: <200 mg/d l Triglycerides 196(H) <150 mg/dL 09/07/2019 1:43 PM [facility] Comment: Borderline high: ??150-199 mg/dl High: ? 200-499 mg/dl Very high: ? >499 mg/dl HDL Cholesterol 37(L) >39 mg/dL 0 1:46 PM [facility] LDL Cholesterol Calculated 135(H) <100 mg/dL 09/07/2019 1:46 PM T [facility] Comment: Above desirable: ??100-129 mg/dl Borderline High: ??130-159 mg/dL High: ? 160-189 mg/dL Very high: ? >189 mg/dl Non HDL Cholesterol 174(H) <130 mg/dL 09/07/2019 1:46 PM [facility] Comment: Above Desirable: ??130-159 mg/dl Borderline high: ??160-189 mg/dl High: ? 190-219 mg/dl Very high: ? >219 mg/dl 09/07/2019 7:04 AM CDT 09/07/2019 7:05 AM CDT Kelle Andujar PA-C LAB - BLOOD ORD ERABLES [facility] [address] [place] [address], [facility] [phone] from Last 3 Months or Most Recently Relevant to Health Maintenance Advance Directives For more information, please contact: [phone] * Full Code (Latest Code Status on File) Date Activated Date Inactivated Comments 09/10/2019 3:28 PM Question Answer Comments Code status determined by: Discussion with patie nt/legal decision maker * Full Code Date Activated Date Inactivated Comments 09/10/2019 1:12 AM 09/10/2019 3:28 PM Question Answer Comments Code status determined by: Discussion with patie nt/legal decision maker * Full Code Date Activated Date Inactivated Comments 09/05/2019 9:55 AM 09/07/2019 7:06 PM Question Answer Comments Code status determined by: Discussion with patie nt/legal decision maker * No Code Status Date Activated Date Inactivated Comments 12/07/2003 11:34 AM 12/07/2003 11:34 AM Care Teams Vacation Planner Relationship Specialty Start Date End Date Juanito Henry [address] [address] PCP - General Family Medicine 11/07/20
--- OUTSIDE RECORDS SUMMARY | 2023-09-06 09:49 | XMS_ITS | Clinical Summary ---
Author Name Unknown Organization [facility] Address [address] [place] [address] Care Team Providers Care Electronic Specialist Name Role Phone Juanito Henry Primary Care Provider + [phone] Allergies Active Allergy Reactions Criticality Noted Date [...] 75 MG tabletIndications:Cor onary artery disease involving tell[place] coronary artery of teller heart without angina pectoris Take 1 tablet [...] Dates Next Due TD,PF 7+ (Tenivac) 12/01/2004 Family History Medical History Relation Comments [...] OF HM ORDERS [address] CT COLONOGRAPHY 1968 FIT 1968 FLEX SIG 1968 YEARLY PREVENTIVE VISIT 1968 sDNA (Cologuard) 1968 COLONOSCOPY 1978 COLORECTAL CANCER SCREENING 1978 HIV SCREENING 09/27/1983 HEPATITIS C SCREENING 1986 HEPATITIS B IMMUNIZATION (1 of 3 - 19+ 3-dose series) 09/27/1987 DTAP/TDAP/TD IMMUNIZATION (1 - Tdap) 12/02/2004 12/01/2004, 12/01/2004, 10/11/2004 LUNG CANCER SCREENING 2018 ZOSTER IMMUNIZATION (1 of 2) 2018 LIPID 09/06/2020 09/07/2019, 09/06/2019 GLUCOSE 09/21/2022 09/22/2019, 08/27, 09/10/2019, Additional history exists COVID-19 Vaccine ( - season) 2022 PHQ-2 (once per calendar year) 2023 INFLUENZA VACCINE (Season Ended) 2023 ADVANCE CARE PLANNING 09/09/2024 09/10/2019 HPV IMMUNIZATION Aged Out No longer e ligible based on patient's age to complete this topic IPV IMMUNIZATION Aged Out No longer e ligible based on patient's age to complete this topic MENINGITIS IMMUNIZATION Aged Out No l onger eligible based on patient's age to complete this topic Pneumococcal Vaccine: Pediatrics (0 to 5 Years) and At-Risk Patients (6 to 64 Years) Aged Out No longer eligible based on patient's age to complete this topic RSV MONOCLONAL ANTIBODY Aged Out No l onger eligible based on patient's age to complete this topic Medical Devices Implanted Type Area Branch Sales Manager Device Identifier Shelf Expiration Date Model / Serial / Lot Stent Resolute [place] De 2.7fr [id number] [id number] Implanted:08/27 at [facility] (Quantity not on file) Stent Drug Eluting (MILES) [employer] 03/16/2021 [id number] / / [id number] Procedures Procedure Name Priority Date/Time Associated Diagnosis Comments BASIC METABOLIC PANEL Routine 09/22/2019 9:46 AM CDT NSTEMI (non-ST elevated myocardial infarction) (H) LIPID PROFILE Routine 09/07/2019 7:04 AM CDT Chest discomfort from Last 3 Months or Most Recently Relevant to Health Maintenance Results * (ABNORMAL) Basic metabolic panel (09/22/2019 9:46 AM CDT) Sodium 137 133 - 144 mmol/L 09/22/2019 12:55 PM CDT [facility] Potassium 4.1 3.4 - 5.3 mmol/L 09/22/2019 12:55 PM CDT [facility] Chloride 109 94 - 109 mmol/L 09/22/2019 12:55 PM CDT [facility] Carbon Dioxide 24 20 - 32 mmol/L 09/22/2019 1:06 PM CDT [facility] Anion Gap 4 3 - 14 mmol/L 09/22/2019 1:06 PM CDT [facility] Glucose 104(H) 70 - 99 mg/dL 09/22/2019 1:06 PM CDT [facility] Comment:Fasting specimen Urea Nitrogen 11 7 - 30 mg/dL 09/22/2019 1:06 PM CDT [facility] Creatinine 0.58(L) 0.66 - 1.25 mg/dL 09/22/2019 1:06 PM CDT [facility] GFR Estimate >90 >60 mL/min/{1 .73_m2} 09/22/2019 1:06 PM CDT [facility] Comment: Non GFR Calc Starting 04/15/2018, serum creatinine based estimated GFR (eGFR) will be calculated using the Chronic Kidney Disease Epidemiology Collaboration (CKD-EPI) equation. GFR Estimate If Black >90 >60 mL/min/{1 .73_m2} 09/22/2019 1:06 PM CDT [facility] Comment: GFR Calc Starting 04/15/2018, serum creatinine based estimated GFR (eGFR) will be calculated using the Chronic Kidney Disease Epidemiology Collaboration (CKD-EPI) equation. Calcium 9.0 8.5 - 10.1 mg/dL 09/22/2019 1:06 PM T [facility] Blood specimen (specimen) 09/22/2019 9:46 AM CDT 09/22/2019 9:48 AM CDT Anaid Aj APRN STRUCTURAL WELDER LAB - BLOOD ORDERA [facility] [address] [place] [address] * (ABNORMAL) Lipid Profile (09/07/2019 7:04 AM CDT) Cholesterol 211(H) <200 mg/dL 09/07/2019 1:42 PM CDT [facility] Comment:Desirable: <200 mg/d l Triglycerides 196(H) <150 mg/dL 09/07/2019 1:43 PM CDT [facility] Comment: Borderline high: ??150-199 mg/dl High: ? 200-499 mg/dl Very high: ? >499 mg/dl HDL Cholesterol 37(L) >39 mg/dL 0 1:46 PM CDT [facility] LDL Cholesterol Calculated 135(H) <100 mg/dL 09/07/2019 1:46 PM CDT [facility] Comment: Above desirable: ??100-129 mg/dl Borderline High: ??130-159 mg/dL High: ? 160-189 mg/dL Very high: ? >189 mg/dl Non HDL Cholesterol 174(H) <130 mg/dL 09/07/2019 1:46 PM CDT [facility] Comment: Above Desirable: ??130-159 mg/dl Borderline high: ??160-189 mg/dl High: ? 190-219 mg/dl Very high: ? >219 mg/dl 09/07/2019 7:04 AM CDT 09/07/2019 7:05 AM CDT Kelle Andujar PA-C LAB - BLOOD ORD [facility] [address] [place] [address], [facility] [phone] from Last 3 Months or Most Recently Relevant to Health Maintenance Advance Directives For more information, please contact: [phone] * Full Code (Latest Code Status on [...] 11:34 AM 12/07/2003 11:34 AM Care Teams Electronic Specialist Relationship Specialty Start Date End Date Juanito Henry [address] [address] PCP - General Family Medicine 11/07/20
== END 2023-09-06 09:47 | disposition home or self-care (01) ==
PROVIDERS: PCP Family Medicine; Visit Provider Family Medicine
DX: Z00.00 Encounter for general adult medical examination without abnormal findings (principal); I10 Essential (primary) hypertension; E11.9 Type 2 diabetes mellitus without complications; I25.10 Atherosclerotic heart disease of native coronary artery without angina pectoris; Z11.59 Encounter for screening for other viral diseases; Z13.6 Encounter for screening for cardiovascular disorders; Z12.5 Encounter for screening for malignant neoplasm of prostate
CPT/HCPCS: 80053; 80061; 82043; 82570; 82607; 86803; G0103

== ENCOUNTER 2024-09-22 08:43 | Outpatient (CLI) | payer BC, SELFPAY | END 2024-09-22 08:44 | disposition home or self-care (01) | PROVIDERS: PCP Family Medicine; Visit Provider Family Medicine | DX: Z00.01 Encounter for general adult medical examination with abnormal findings (principal); I25.10 Atherosclerotic heart disease of native coronary artery without angina pectoris; I10 Essential (primary) hypertension; E11.9 Type 2 diabetes mellitus without complications; Z79.84 Long term (current) use of oral hypoglycemic drugs; Z12.5 Encounter for screening for malignant neoplasm of prostate; Z13.21 Encounter for screening for nutritional disorder | CPT/HCPCS: 80053; 80061; 82043; 82570; 82607; G0103 ==